=== PATIENT | female | born 1940 | race Caucasian/White ===

== ENCOUNTER 2023-04-03 19:49 | Observation (INO) | payer MEDICARE, SELFPAY ==
[2023-04-03] VITALS (19 sets, daily range): BP systolic 165–181; BP diastolic 68–96; PULSE 56–79; RESP 13–23; TEMP 36.5; O2SAT 95–96; BMI 23.7; BMI 22.2
--- NOTE | 2023-04-03 20:26 | ECG_ITS ---
[facility] Test Date: 2023-04-03 Pat Name: SEYMOUR MILAN Department: Room: - Gender: Female Registration Scheduling Specialist: : 1940 Requested By: [id number] Order Number: [id number] Reading MD: NIKKI CABRERA Measurements Intervals [place] Rate: 67 P: 61 NM: 162 QRS: -7 QRSD: 84 T: 18 QT: 410 QTc: 426 Interpretive Statements 1100 Sinus rhythm 5233 Voltage criteria for LVH Nonspecific ST/T wave changes 9150 abnormal ECG No previous ECG available for comparison Electronically Signed On 04-04-2023 7:08:50 EDT by NIKKI CABRERA
--- NOTE | 2023-04-03 20:26 | XR_ITS ---
[facility] [place] [id number] Patient Name: SEYMOUR MILAN MRN: [id number] date: 1940 Sex: F Assigned Patient Location: ER Current Patient Location: ER Accession/Order Number: [id number] Exam Date: 04/03/2023 20:50 Report Date: 04/03/2023 21:12 At the request of: SAMMIE MARKER Procedure: XR chest 1V EXAMINATION: XR chest 1V HISTORY: Nausea and vomiting. History of lung cancer COMPARISON: None. TECHNIQUE: Portable chest FINDINGS: The lung parenchyma is free of consolidation or infiltrate. No pneumothorax or pleural effusion. Right-sided central venous access port. The cardiac, mediastinal and hilar contours are normal. The visualized osseous structures exhibit no gross abnormality. XR/XR chest 1V IMPRESSION: No acute cardiopulmonary abnormality. Electronically authenticated by: SALLIE HORTON Date: 04/03/2023 21:12
--- NOTE | 2023-04-03 20:28 | ED_ITS ---
HPI - General Adult General Chief complaint: Nausea/Vomiting/Diarrhea Stated complaint: NAUSEA/VOMITING Time Seen by Provider: 04/03/23 20:09 History of Present Illness HPI narrative: This 83-year-old female is brought to the emergency department by her daughter for evaluation of nausea and vomiting. 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 She has gone through IV chemotherapy and radiation and is currently on an oral chemotherapeutic medication. She is diagnosed 4 years ago with lung cancer and told that she had months to live but has survived to this point. The daughter states that sometimes the medications make her sick and they cannot control it at home. She does get Phenergan at home which helps her with her nausea and vomiting. She is having some pain in her ribs. She denies any shortness of breath dizziness or syncope. The daughter states that she also has a history of dementia and is having some difficulty controlling her muscle movements. She has been having some increasing trouble swallowing and straining to have a bowel movement. She did recently have a bout of severe constipation and takes daily MiraLAX. She denies any abdominal pain at this time. She feels weak and nauseated. She has been on this oral chemotherap eutic medication for several months, she is not on any new medications. She has not had a fever. Related Data Home Medications Medication Instructions Recorded Confirmed alprazolam 0.5 mg tablet mg 04/03/23 aspirin 81 mg capsule 81 mg PO BID 04/03/23 04/03/23 atorvastatin 80 mg tablet mg 04/03/23 docusate sodium 100 mg capsule 100 mg PO DAILY 04/03/23 04/03/23 (Colace) gabapentin 300 mg capsule mg 04/03/23 hydrocortisone 10 mg tablet mg 04/03/23 lamotrigine 200 mg tablet mg 04/03/23 lisinopril 20 mg tablet mg 04/03/23 melatonin 10 mg capsule 10 mg PO DAILY 04/03/23 04/03/23 meloxicam 15 mg tablet 15 mg PO DAILY 04/03/23 04/03/23 meloxicam 7.5 mg tablet 7.5 mg PO DAILY 04/03/23 04/03/23 memantine 10 mg PO BID PRN dementia 04/03/23 04/03/23 metformin 1,000 mg tablet mg 04/03/23 metoprolol succinate 25 mg mg PO 04/03/23 tablet,extended release 24 hr nitroglycerin 0.4 mg sublingual mg 04/03/23 tablet olanzapine 5 mg tablet mg 04/03/23 omeprazole 20 mg capsule,delayed 20 mg PO DAILY 04/03/23 04/03/23 release promethazine 6.25 mg/5 mL oral 12.5 mg PO Q6H PRN nausea and 04/03/23 04/03/23 syrup vomiting quetiapine 100 mg tablet mg 04/03/23 quetiapine 25 mg tablet mg 04/03/23 rivastigmine 13.3 mg/24 hour 04/03/23 transdermal patch Allergies Allergy/AdvReac Type Severity Reaction Status Date / Time No Known Drug Allergies Allergy Verified 04/03/23 20:12 Review of Systems ROS Status of ROS 10 or more systems reviewed and unremarkable except as noted in history and below Exam Narrative Exam Narrative: Nurses note and vital signs reviewed and patient is not hypoxic. General: Frail, thin elderly female, she is awake alert oriented ?4, no respiratory distress, no active vomiting Skin: Warm, dry, no pallor noted. Scattered areas of ecchymosis on the forearms bilaterally Head: Normocephalic, atraumatic Eye: Normal conjunctiva, no drainage, EOMI. PERRL. No scleral icterus Ears, Nose, Mouth, and Throat: oral mucosa is moist. No oral thrush appreciated Cardiovascular: Regular Rate and Rhythm S1 and S2, no murmurs rubs or gallops appreciated, pulses are brisk and equal bilaterally Respiratory: Patient is in no distress, no accessory muscle use, lungs are clear to auscultation, no wheezing, rales or rhonchi Back: non-tender, no CVA tenderness bilaterally to percussion. GI: Normal bowel sounds, no tenderness to palpation, no masses appreciated. No rebound, guarding, or rigidity noted. Musculoskeletal: The patient has no evidence of calf tenderness, no pitting edema, symmetrical pulses noted bilaterally Neurological: A&O x4, normal speech Psychiatric: Cooperative Constitutional Vital Signs, click to edit/add: Last Vital Signs Temp 97.7 F 04/03/23 20:06 Pulse 72 04/03/23 22:30 Resp 17 04/03/23 22:30 BP 165/68 H 04/03/23 22:29 Pulse Ox 96 04/03/23 20:22 O2 Del Method Room Air 04/03/23 20:06 Course Vital Signs Vital signs: Vital Signs Temperature 97.7 F 04/03/23 20:06 Pulse Rate 70 04/03/23 20:06 Respiratory Rate 14 04/03/23 20:06 Pulse Oximetry 96 04/03/23 20:06 Oxygen Delivery Method Room Air 04/03/23 20:06 Temperature 97.7 F 04/03/23 20:06 Pulse Rate 72 04/03/23 22:30 Respiratory Rate 17 04/03/23 22:30 Blood Pressure 165/68 H 04/03/23 22:29 Pulse Oximetry 96 04/03/23 20:22 Oxygen Delivery Method Room Air 04/03/23 20:06 Medical Decision Making MDM Narrative Medical decision making narrative: This 83-year-old female who is currently on oral chemotherapeutic medications after being diagnosed with lung cancer with metastases to the brain, spine and bones is brought to the emergency department by her daughter for evaluation of several days of nausea and vomiting. She does have episodes where she cannot tolerate her chemotherapy despite being given oral Phenergan. The daughter states when this happened she typically gets fluids, Phenergan and steroids. She is not having any mental status changes at this time. She has not had a fever. She states she feels weak and nauseated. She has no chest pain or abdominal pain. She does complain of bilateral rib pain. She was well-appearing despite being chronically ill. Vital signs were noted to be normal. Blood pressure was mildly elevated upon arrival. Her port was accessed and routine labs are ordered and are reviewed. She has a normal white count. Hemoglobin is mildly low at 9.9. She has a normal platelet count. Her PTT is elevated. Alkaline phosphatase is elevated. Potassium is mildly low at 3.2. Chest x-ray was negative for acute findings. Additional radiographic studies were deferred.She was given IV fluids, IV Phenergan and Pepcid. On reevaluation she was feeling better but requested to be admitted. The patient's daughter states that usually after a brief time in the hospital or rebounds and she wishes that we could provide her with that at this time. The case was discussed with the hospitalist the patient accepted for admission to [facility] with telemetry monitoring. Lab Data Lab results reviewed: Yes I reviewed the patient's lab results Lab results narrative: Labs are reviewed, the patient has a low hemoglobin at 9.9, not requiring transfusion and low potassium at 3.2. Alkaline phosphatase is elevated likely related to her metastatic lung cancer to the bone. Labs: Lab Results 04/03/23 Range/Units 20:40 WBC 7.1 (4.0-11.0) 10^3/uL RBC 3.90 L (4.20-5.40) 10^6/uL Hgb 9.9 L (12.0-16.0) g/dL Hct 33.1 L (36.0-48.0) % MCV 84.9 (81.0-99.0) fL MCH 25.4 L (26.7-34.0) pg MCHC 29.9 (29.9-35.2) g/dL RDW 18.5 H (11.0-15.0) % Plt Count 235 (150-450) 10^3/uL MPV 10.1 (9.5-13.5) fL Neut % (Auto) 48.5 (43.0-75.0) % Lymph % (Auto) 21.6 (20.5-60.0) % [place] % (Auto) 9.3 (1.7-12.0) % Eos % (Auto) 19.9 H (0.9-7.0) % Baso % (Auto) 0.4 (0.2-2.0) % Neut # (Auto) 3.4 (1.4-6.5) 10^3/uL Lymph # (Auto) 1.5 (1.2-3.8) 10^3/uL [place] # (Auto) 0.7 (0.3-0.8) 10^3/uL Eos # (Auto) 1.4 H (0.0-0.7) 10^3/uL Baso # (Auto) 0.0 (0.0-0.1) 10^3/uL Abs Immat Gran (auto) 0.02 (0.00-0.03) 10^3/uL Imm/Tot Granulo (auto) 0.3 (0.0-0.5) % PT 11.7 H (9.0-11.6) sec INR 1.11 APTT 75.6 H* (22.3-36.2) sec Sodium 142 (136-145) mmol/L Potassium 3.2 L (3.5-5.1) mmol/L Chloride 106 (98-107) mmol/L Carbon Dioxide 30.8 (21.0-32.0) mmol/L Anion Gap 8.4 BUN 14.0 (7.0-18.0) mg/dL Creatinine 1.02 (0.55-1.02) mg/dL Est GFR ( Amer) >60 (>=60) Est GFR (Non-Af Amer) 52 L (>=60) BUN/Creatinine Ratio 13.7 Glucose 114 H (74-106) mg/dL Calcium 8.7 (8.5-10.1) mg/dL Total Bilirubin 0.2 (0.2-1.0) mg/dL AST 32 (15-37) U/L ALT 20 (14-59) U/L Alkaline Phosphatase 319 H (46-116) U/L Total Protein 6.6 (6.4-8.2) g/dL Albumin 2.5 L (3.4-5.0) g/dL Globulin 4.1 g/dL Albumin/Globulin Ratio 0.6 ECG Data Attestation: I personally reviewed and interpreted this ECG as follows: (Sinus rhythm at 67 beats for minute, voltage criteria for left ventricular hypertrophy, no acute ST segment elevation or T-wave inveersion) Discharge Plan Discharge Chief Complaint: Nausea/Vomiting/Diarrhea Clinical Impression: Lung cancer metastatic to bone, Drug-induced nausea and vomiting, Hypokalemia Patient Disposition: Admitted as Observation Time of Disposition Decision: 22:30 Condition: Good
[2023-04-03 20:53] LABS: Basophils Percent Auto 0.4 % (0.2-2.0); Eosinophils Absolute Auto 1.4 10^3/uL (0.0-0.7); Eosinophils Percent Auto 19.9 % (0.9-7.0); Hematocrit 33.1 % (36.0-48.0); Hemoglobin 9.9 g/dL (12.0-16.0); Immature Granulocytes Abs Auto 0.02 10^3/uL (0.00-0.03); Immature Granulocytes Pct Auto 0.3 % (0.0-0.5); Lymphocytes Absolute Auto 1.5 10^3/uL (1.2-3.8); Lymphocytes Percent Auto 21.6 % (20.5-60.0); Mean Corpuscular HGB Conc 29.9 g/dL (29.9-35.2); Mean Corpuscular Hemoglobin 25.4 pg (26.7-34.0); Mean Corpuscular Volume 84.9 fL (81.0-99.0); Mean Platelet Volume 10.1 fL (9.5-13.5); Monocytes Absolute Auto 0.7 10^3/uL (0.3-0.8); Monocytes Percent Auto 9.3 % (1.7-12.0); Neutrophils Absolute Auto 3.4 10^3/uL (1.4-6.5); Neutrophils Percent Auto 48.5 % (43.0-75.0); Platelet Count 235 10^3/uL (150-450); Red Cell Distribution Width 18.5 % (11.0-15.0); White Blood Count 7.1 10^3/uL (4.0-11.0)
[2023-04-03] MEDS: 0.9 % SODIUM CHLORIDE 1,000 ML 1000 ML IV (21:08)
[2023-04-03] MEDS: FAMOTIDINE/PF 20 MG/2 ML VIAL IV (21:08)
[2023-04-03] MEDS: PROMETHAZINE HCL 25 MG/ML VIAL IV (21:08)
[2023-04-03 21:11] LABS: Alanine Aminotransferase 20 U/L (14-59); Albumin Globulin Ratio 0.6; Albumin Level 2.5 g/dL (3.4-5.0); Alkaline Phosphatase 319 U/L (46-116); Anion Gap 8.4; Aspartate Amino Transferase 32 U/L (15-37); BUN Creatinine Ratio 13.7; Bilirubin Total 0.2 mg/dL (0.2-1.0); Calcium 8.7 mg/dL (8.5-10.1); Carbon Dioxide 30.8 mmol/L (21.0-32.0); Chloride 106 mmol/L (98-107); Estimated GFR (African America >60 (>=60); Estimated GFR (Non-African Ame 52 (>=60); Globulin 4.1 g/dL; Glucose 114 mg/dL (74-106); Potassium 3.2 mmol/L (3.5-5.1); Sodium 142 mmol/L (136-145); Total Protein 6.6 g/dL (6.4-8.2)
[2023-04-03 21:16] LABS: INR 1.11; Prothrombin Time 11.7 sec (9.0-11.6)
[2023-04-03] MEDS: 0.9 % SODIUM CHLORIDE 1,000 ML 100 ML IV (21:17)
[2023-04-03 21:18] LABS: Partial Thromboplastin Time 75.6 sec (22.3-36.2)
--- NOTE | 2023-04-03 21:29 | PC.NURSE ---
patient arrives with daughter from home. states she is currently being treated for cancer through [facility] and has been naseous, vomiting, and weak for past 2 days. daughter states when this has happened in the past she has been admitted for IV fluids and IV steroids. patient states she has also had some abdominal/rib pain that started at the same time of vomiting. EKG obtained and provided to dr louis.
[2023-04-03] MEDS: POTASSIUM CHLORIDE 10 MEQ ER TABLET 20 MEQ PO (22:24)
[2023-04-03] MEDS: ACETAMINOPHEN 325 MG TABLET 650 MG PO (22:24)
[2023-04-04] VITALS (11 sets, daily range): BP systolic 143–177; BP diastolic 91–108; PULSE 61–88; RESP 16–18; TEMP 36.7–36.8; O2SAT 95–96
[2023-04-04 01:21] LABS: Bilirubin Urine NEGATIVE (NEGATIVE); Blood Urine NEGATIVE (NEGATIVE); Clarity Urine CLEAR (CLEAR); Color Urine LT. YELLOW (YELLOW); Glucose Urine UA NEGATIVE (NEGATIVE); Ketones Urine NEGATIVE (NEGATIVE); Leukocyte Esterase Urine NEGATIVE (NEGATIVE); Nitrite Urine NEGATIVE (NEGATIVE); Protein Urine NEGATIVE (NEG/TRACE); Urobilinogen Urine 0.2 EU/dL (0.2-1.0)
[2023-04-04 01:46] LABS: Bacteria Urine NONE SEEN #/HPF (NONE SEEN); Cast Seen? NONE SEEN #/LPF (NONE SEEN); Crystals Seen? None Seen #/HPF (None Seen); Mucus Urine NONE SEEN (NONE SEEN); RBC Urine 0-2 #/HPF (0-2); Squamous Epithelial Cell Urine FEW #/LPF (NONE/RARE); Urine Culture Indicated NO; WBC Urine 0-2 #/HPF (NONE SEEN)
--- NOTE | 2023-04-04 01:56 | P.PN_ITS ---
Progress Note: Subjective Subjective Interval history: The patient is an 83-year-old female with a history of stage IV lung cancer, who has had multiple admissions in the past for intractable nausea and vomiting every several months due to her chemotherapy. Over the past 3 to 4 days, she has been complaining of some nausea and vomiting as well as decreased oral intake. She denies any sick contacts or any new medications or any change in diet. She is feeling somewhat better. She states she cannot take IV Zofran and only IV Phenergan. She is being admitted for further evaluation. Exam Narrative Exam Narrative: General : Alert and oriented x3 HEENT : Extraocular movements intact, pupils equal round and reactive to light and accommodation Neck: Supple, no JVD Chest: Clear to auscultation bilaterally, no wheezes Heart: Regular rate and rhythm, S1 and S2 heard Abdomen: Soft nontender nondistended. Extremities: No clubbing cyanosis or edema Neurologically: Moving all 4 extremities Skin: No rashes Constitutional Vital Signs, click to edit/add: Last Vital Signs Temp 97.7 F 04/03/23 23:10 Pulse 61 04/04/23 01:55 Resp 13 04/03/23 23:10 BP 165/96 H 04/03/23 23:10 Pulse Ox 95 04/03/23 23:10 O2 Del Method Room Air 04/03/23 23:10 Progress Note: Objective Labs Labs: Short CBC 04/03/23 Range/Units 20:40 WBC 7.1 (4.0-11.0) 10^3/uL Hgb 9.9 L (12.0-16.0) g/dL Hct 33.1 L (36.0-48.0) % Plt Count 235 (150-450) 10^3/uL BMP 04/03/23 20:40 Sodium 142 Potassium 3.2 L Chloride 106 Carbon Dioxide 30.8 BUN 14.0 Creatinine 1.02 Glucose 114 H Calcium 8.7 Liver Function 04/03/23 Range/Units 20:40 Total Bilirubin 0.2 (0.2-1.0) mg/dL AST 32 (15-37) U/L ALT 20 (14-59) U/L Alkaline Phosphatase 319 H (46-116) U/L Albumin 2.5 L (3.4-5.0) g/dL Urine 08/08/23 Range/Units 00:00 Urine Color Lt. yellow (YELLOW) Urine Clarity Clear (CLEAR) Urine pH 7.0 (5.0-9.0) Ur Specific [place] 1.010 (1.005-1.025) Urine Protein Negative (NEG/TRACE) mg/dL Urine Glucose (UA) Negative (NEGATIVE) mg/dL Progress Note: A&P Assessment and Plan (1) Lung cancer metastatic to bone: (2) Drug-induced nausea and vomiting: (3) Hypokalemia: Plan The patient is an 83-year-old female with above medical problems, presenting with intractable nausea and vomiting. Intractable nausea and vomiting -Provide supportive care -Gentle IV fluids -IV Phenergan -Tums, Maalox, PPI Hypokalemia -Secondary to the above -Monitor on telemetry -Potassium replacement DVT Prophylaxis -Lovenox, SCDs Medication review -Medication reconciliation form completed Goals of care -Full code Communications -Discussed with the emergency room physician -Discussed with the bedside nurse -Patient and daughter updated of plan of care, all questions answered to their satisfaction Disposition -Home when medically stable Telemedicine clause -As the provider of this telehealth evaluation, requested by the patient's evaluating physician, I attest that I introduced myself to the patient, provided my credentials and determined that telemedicine via a real-time, two-way interactive audio and video platform is an appropriate and effective means of providing this service. -I reviewed the patient's chart and had a discussion with the member of the patient's treatment team. -The patient and I mutually agreed with continuation of this evaluation via telemedicine. The patient consented for the telemedicine evaluation. -This virtual encounter was taken place from [place], [place]. The encounter was approximately 35 minutes. The nurse was present during the entire time of the encounter and was able to remove the stethoscope and appropriate directions. The patient was evaluated at [facility] Telemedicine Attestation Telemedicine Attestation I conducted this encounter from [facility] via secure live, [id number] video conference with the patient, located at [facility] with nurse. Prior to the interview, the risks and benefits of telemedicine were discussed with the patient and verbal consent was obtained.
[2023-04-04] MEDS: QUETIAPINE FUMARATE 100 MG TABLET PO (02:26)
[2023-04-04] MEDS: OLANZapine 5 MG TABLET PO (02:27)
[2023-04-04] MEDS: QUETIAPINE FUMARATE 25 MG TABLET 50 MG PO (02:27)
[2023-04-04] MEDS: CLONIDINE HCL 0.1 MG TABLET PO (02:28)
[2023-04-04] MEDS: POTASSIUM CHLORIDE 10 MEQ ER TABLET 40 MEQ PO (02:30)
[2023-04-04] MEDS: ENOXAPARIN SODIUM 40 MG/0.4 ML SYRINGE SUBQ (02:31)
[2023-04-04] MEDS: LAMOTRIGINE 100 MG TABLET 200 MG PO (02:31)
[2023-04-04] MEDS: GABAPENTIN 300 MG CAPSULE 600 MG PO (03:12)
[2023-04-04 04:37] LABS: Basophils Percent Auto 0.3 % (0.2-2.0); Eosinophils Absolute Auto 1.2 10^3/uL (0.0-0.7); Eosinophils Percent Auto 20.7 % (0.9-7.0); Hematocrit 29.5 % (36.0-48.0); Hemoglobin 8.9 g/dL (12.0-16.0); Immature Granulocytes Abs Auto 0.03 10^3/uL (0.00-0.03); Immature Granulocytes Pct Auto 0.5 % (0.0-0.5); Lymphocytes Absolute Auto 0.9 10^3/uL (1.2-3.8); Lymphocytes Percent Auto 14.8 % (20.5-60.0); Mean Corpuscular HGB Conc 30.2 g/dL (29.9-35.2); Mean Corpuscular Hemoglobin 25.6 pg (26.7-34.0); Mean Corpuscular Volume 84.8 fL (81.0-99.0); Mean Platelet Volume 9.9 fL (9.5-13.5); Monocytes Absolute Auto 0.5 10^3/uL (0.3-0.8); Monocytes Percent Auto 9.2 % (1.7-12.0); Neutrophils Absolute Auto 3.1 10^3/uL (1.4-6.5); Neutrophils Percent Auto 54.5 % (43.0-75.0); Platelet Count 202 10^3/uL (150-450); Red Blood Count 3.48 10^6/uL (4.20-5.40); Red Cell Distribution Width 18.4 % (11.0-15.0); White Blood Count 5.8 10^3/uL (4.0-11.0)
[2023-04-04 04:51] LABS: BUN Creatinine Ratio 11.2; Calcium 8.1 mg/dL (8.5-10.1); Carbon Dioxide 29.1 mmol/L (21.0-32.0); Chloride 110 mmol/L (98-107); Estimated GFR (African America >60 (>=60); Estimated GFR (Non-African Ame >60 (>=60); Glucose 101 mg/dL (74-106); Potassium 4.1 mmol/L (3.5-5.1); Sodium 143 mmol/L (136-145)
[2023-04-04] MEDS: SODIUM CHLORIDE 0.45 % 1,000 ML 75 ML IV (06:45)
[2023-04-04] MEDS: ASPIRIN 81 MG TABLET.DR PO (10:01)
[2023-04-04] MEDS: ATORVASTATIN CALCIUM 40 MG TABLET 80 MG PO (10:01)
[2023-04-04] MEDS: GABAPENTIN 300 MG CAPSULE PO (10:03)
[2023-04-04] MEDS: HYDROCORTISONE 20 MG TABLET PO (10:03)
[2023-04-04] MEDS: LISINOPRIL 20 MG TABLET PO (10:04)
[2023-04-04] MEDS: MELOXICAM 7.5 MG TABLET 15 MG PO (10:07)
[2023-04-04] MEDS: METFORMIN HCL 500 MG TABLET 1000 MG PO (10:07)
[2023-04-04] MEDS: OMEPRAZOLE 20 MG CAPSULE.DR PO (10:08)
[2023-04-04] MEDS: METOPROLOL SUCCINATE 25 MG TAB.ER.24H PO (10:08)
[2023-04-04] MEDS: OSIMERTINIB 80 MG 80 EACH PO (10:09)
[2023-04-04] MEDS: VENLAFAXINE HCL 50 MG TABLET 100 MG PO (10:09)
--- NOTE | 2023-04-04 10:27 | CM.NOTE ---
Rounds made with Dr. Carpio, pt denies any nausea or vomiting. Pt up with walker in room. Pt ok to discharge home today.
--- NOTE | 2023-04-04 10:36 | P.HP_ITS ---
H&P: HPI History of Present Illness Chief complaint: Nausea and vomiting Narrative: 83 y/o female with stage IV lung cancer and mets to brain and bone presents to ER with nausea and vomiting. Increased symptoms over the past 3-4 days. Prior radiation and chemotherapy and currently on oral chemotherapeutic agent. Uses phenergan for nausea but symptoms worse over past few days. Decreased appetite and not hungry. Started having emesis and not able to keep down liquid. Increased weakness and to ER. Labs showed normal CBC and potassium low at 3.2. UA and chest x-ray negative. Started IV fluids and admitted. Much improved overnight. Minimal nausea and feels hungry. Ambulating around room without di fficulty. Resumed home medication including hydrocortisone. Review of Systems ROS Constitutional Denies: fever, chills or fatigue Cardiovascular Denies: chest pain, palpitations or edema Respiratory Denies: shortness of breath, cough or wheezing Gastrointestinal Reports: nausea and vomiting; Denies: abdominal pain or diarrhea Genitourinary Denies: painful urination PFSH [facility] Medical History (Updated 04/04/23 @ 09:15 by Bernabe Carpio MD) Surgical History (Updated 04/04/23 @ 02:36 by Gloria Samayoa) Family History (Updated 04/03/23 @ 23:47 by Kristi Munoz RN) Sister Family history of CHF (congestive heart failure) Family history of cancer Family history of diabetes mellitus Family history of hypertension Family history of myocardial infarction Father Family history of cancer Social History (Updated 04/03/23 @ 23:50 by Kristi Munoz RN) Within the past year, how often did you have a drink containing alcohol: never Score interpretation: A score less than 3 is consistent with normal alcohol consumption. Smoking status: Former smoker Non-prescribed substance use: denies use Previous occupational history: Retired Highest level of school completed/degree received: 9th grade Are you now , , , , never or living with a partner: In a typical week, how many times do you talk on the telephone with family, friends, or neighbors: 3 or more times per week How often do you get together with friends or relatives: 3 or more times per week How often do you attend religion or buddhist services: 4 or more times per year Do you belong to any clubs or organizations such as religion groups unions, [employer] or athletic groups, or school groups: no Total score: 2 Score interpretation: A score of greater than or equal to 2 indicates the lowest level of social isolation. Little interest or pleasure in doing things: several days Feeling down, depressed, or hopeless: several days Feel stressed/tense/nervous/anxious/difficulty sleeping: to some extent Do you think of yourself as: straight/heterosexual Gender Identity: female Meds Home Medications and Allergies Home Medications Medication Instructions Recorded Confirmed Type alprazolam 0.5 mg tablet 0.5 mg PO TID PRN anxiety 04/03/23 04/04/23 History aspirin 81 mg capsule 81 mg PO BID 04/03/23 04/03/23 History atorvastatin 80 mg tablet 80 mg PO DAILY 04/03/23 04/03/23 History docusate sodium 100 mg capsule 100 mg PO DAILY 04/03/23 04/03/23 History (Colace) gabapentin 300 mg capsule 300 mg PO .COMPLEX 04/03/23 04/04/23 History hydrocortisone 10 mg tablet 10 mg PO .evening 04/03/23 04/03/23 History hydrocortisone 10 mg tablet 20 mg PO .am 04/03/23 04/03/23 History lamotrigine 200 mg tablet 200 mg PO .hs 04/03/23 04/04/23 History lisinopril 20 mg tablet 20 mg PO DAILY 04/03/23 04/03/23 History melatonin 10 mg capsule 10 mg PO DAILY 04/03/23 04/03/23 History meloxicam 15 mg tablet 15 mg PO DAILY 04/03/23 04/03/23 History meloxicam 7.5 mg tablet 7.5 mg PO DAILY 04/03/23 04/03/23 History memantine 10 mg PO BID PRN dementia 04/03/23 04/03/23 History metformin 1,000 mg tablet 1,000 mg PO BID 04/03/23 04/04/23 History metoprolol succinate 25 mg 25 mg PO DAILY 04/03/23 04/04/23 History tablet,extended release 24 hr nitroglycerin 0.4 mg sublingual 0.4 mg sublingual Q5M PRN chest 04/03/23 04/04/23 History tablet pain olanzapine 5 mg tablet 5 mg PO .hs 04/03/23 04/03/23 History omeprazole 20 mg capsule,delayed 20 mg PO DAILY 04/03/23 04/03/23 History release osimertinib 80 mg tablet ([place]) 80 mg PO DAILY 04/03/23 04/03/23 History promethazine 6.25 mg/5 mL oral 12.5 mg PO Q6H PRN nausea and 04/03/23 04/03/23 History syrup vomiting quetiapine 100 mg tablet 100 mg PO .hs 04/03/23 04/04/23 History quetiapine 25 mg tablet 50 mg PO .hs 04/03/23 04/03/23 History rivastigmine 13.3 mg/24 hour 13.3 mg transdermal DAILY 04/03/23 04/04/23 History transdermal patch cetirizine 10 mg capsule (All Day 10 mg PO DAILY PRN allergy symptoms 04/04/23 04/04/23 History Allergy (cetirizine)) clonidine HCl 0.1 mg tablet 0.1 mg PO .hs 04/04/23 04/04/23 History gabapentin 300 mg capsule 300 mg PO .afternoon 04/04/23 04/04/23 History gabapentin 600 mg tablet 600 mg PO .hs 04/04/23 04/04/23 History venlafaxine 50 mg tablet 100 mg PO .am 04/04/23 04/04/23 History Allergies Allergy/AdvReac Type Severity Reaction Status Date / Time No Known Drug Allergies Allergy Verified 04/03/23 20:12 Exam Constitutional Vital Signs, click to edit/add: Last Vital Signs Temp 98.0 F 04/04/23 05:53 Pulse 80 04/04/23 10:25 Resp 18 04/04/23 05:53 BP 177/108 H 04/04/23 10:04 Pulse Ox 96 04/04/23 05:53 O2 Del Method Room Air 04/04/23 05:53 Documenting provider has reviewed patient's vital signs: yes Common normals: no apparent distress, oriented x3 and alert HENMT Common normals: normocephalic Eye Common normals: PERRL and EOMs intact bilaterally Respiratory Common normals: normal respiratory effort and clear to auscultation bilaterally Cardio Common normals: regular rate, regular rhythm, no gallops, no murmurs and no rub GI Common normals: Normal to inspection, nondistended, normoactive bowel sounds present and non-tender Extremity Common normals: no pedal edema Results Labs Labs: Short CBC 04/03/23 04/04/23 Range/Units 20:40 04:15 WBC 7.1 5.8 (4.0-11.0) 10^3/uL Hgb 9.9 L 8.9 L (12.0-16.0) g/dL Hct 33.1 L 29.5 L (36.0-48.0) % Plt Count 235 202 (150-450) 10^3/uL BMP 04/03/23 04/04/23 20:40 04:15 Sodium 142 143 Potassium 3.2 L 4.1 Chloride 106 110 H Carbon Dioxide 30.8 29.1 BUN 14.0 10.0 Creatinine 1.02 0.89 Glucose 114 H 101 Calcium 8.7 8.1 L Liver Function 04/03/23 Range/Units 20:40 Total Bilirubin 0.2 (0.2-1.0) mg/dL AST 32 (15-37) U/L ALT 20 (14-59) U/L Alkaline Phosphatase 319 H (46-116) U/L Albumin 2.5 L (3.4-5.0) g/dL Urine 04/03/23 Range/Units 00:00 Urine Color Lt. yellow (YELLOW) Urine Clarity Clear (CLEAR) Urine pH 7.0 (5.0-9.0) Ur Specific [place] 1.010 (1.005-1.025) Urine Protein Negative (NEG/TRACE) mg/dL Urine Glucose (UA) Negative (NEGATIVE) mg/dL Assessment and Plan Assessment and Plan (1) Lung cancer metastatic to bone: (2) Drug-induced nausea and vomiting: (3) Hypokalemia: Plan Presented with intractable but much improved after IV fluids. No further nausea or emesis. Ate breakfast without symptoms. Discharge home. Resume medication as directed. F/u [facility] in 2-4 weeks.
--- NOTE | 2023-04-04 11:06 | SWNOTE1 ---
PATRICIO met with pt to discuss dc needs. Pt was eating her breakfast. Pt lives at home with her daughter who is her caregiver and she voiced her daughter does everything for her. Pt has a hospital bed that is new and a new lift chair. Pt uses a walker to get around at home. She voiced she walked to the bathroom earlier. SW and pt spoke about the possibility of home health and therapy coming into the home. Pt does not feel she will need it. At this time pt does not voice any other needs and stated she is ready to get home to her own hospital bed. PATRICIO let nursing know to call SW once daughter arrives to make sure home health is not wanted.
--- NOTE | 2023-04-04 11:56 | CM.NOTE ---
Medicare Outpatient Observation Notice discussed with pt, pt verbalizes understanding and signs paper. Original given to pt and copy placed on pt's chart.
--- NOTE | 2023-04-04 13:25 | PT.DAILY ---
Physical Therapy Daily Note PT Daily Note/Assess Start: 04/04/23 12:55 Freq: Status: Active Protocol: Document 04/04/23 12:59 ARIC (Rec: 04/04/23 13:25 ARIC [id number]) Physical Therapy Daily Note/Assessment Time In/Time Out Time In 11:25 Time Out 11:30 Pain In Pain N/A Pain Out Pain N/A Therapeutic Exercise Time Therapeutic Exercise Minutes (minutes) 3 Therapeutic Exercise Units 0 Therapeutic Exercise Treatment Therapeutic Exercise Treatment seated AP, LAQ, marches and add squeezes 10x ea Therapeutic Activity Time Therapeutic Activity Minutes (minutes) 3 Therapeutic Activity Units 0 Therapeutic Activity Treatment Bed Mobility Ability Modified Independent,Standby Assistance Chair Transfer Ability Standby Assistance Therapeutic Activity Comments Pt performs bed mobs supine> sit transfer with [place] due to IV lines and tele cords. Sit> stand SBA to RW and amb 5' to BS chair. Remains in BS chair with call light in reach and needs met. Total Physical Therapy Time Total Therapy Minutes 6 Total Physical Therapy Units 0 Summary Daily Note Summary Improved mobility from morning session. Planned dc to home.
--- NOTE | 2023-04-04 13:58 | SWNOTE1 ---
Pt's daughter is not coming in until 4:30 after work. PATRICIO called and spoke with daughter about home health. She is open to home health, she is concerned about pt's insurance and it being covered 100% due to not having a skilled need. PATRICIO let her know therapy would be a skilled need. She did also state that usually home health requires a skilled need for a nurse to come out and medicare requires a skilled nurse or they will not pay. PATRICIO let pt's daughter know we can send referral to home health and they can run benefits and we can see if they cover 100%. Pt's daughter would like [facility] health, referral sent.
--- NOTE | 2023-04-04 14:31 | SWNOTE1 ---
PATRICIO did speak with Dorina at [facility] and they do take [facility] medicare and will review referral. PATRICIO did ask if a nurse had to be added to open a case for skilled need? She stated PT and skilled nurse are the only two that can open a case. Can do physicla therapy only, does not need skilled nurse. SW to let daughter know.
--- NOTE | 2023-04-04 14:50 | SWNOTE1 ---
PATRICIO spoke with daughter and she is alright with moving forwards with [facility] and setting it up, it will be for PT only. PATRICIO sent discharge orders to [facility] home health.
--- NOTE | 2023-04-05 11:57 | CM.DCFOLLOWU ---
Person spoke with: patient's daughter How are you feeling? patient was sleeping How is your pain? daughter woke her up earlier and she said she was feeling better Did you understand your discharge instructions? yes Do you have any questions about your discharge instructions? no Were you given any prescriptions at discharge? no Were you able to get your prescriptions filled? Do you understand how to take your medications as ordered? yes Do you have any questions about your follow up appointment and do you plan to keep your follow up appointment? no questions, daughter is calling to set up follow ups, she is reaching out to cancer center today to see if she can get patient in tomorrow for fluids Is there anything else that you would like to discuss? no Questions/Comments/Concerns/Other:
== END 2023-04-04 17:35 | disposition home health service (06) ==
LOC: ER 20:00 → ICU 23:07
PROVIDERS: Admitting Provider Internal Medicine; Emergency Provider Emergency Medicine; Visit Provider Family Medicine
DX: R11.2 Nausea with vomiting, unspecified (principal); C34.90 Malignant neoplasm of unspecified part of unspecified bronchus or lung; C79.51 Secondary malignant neoplasm of bone; C79.31 Secondary malignant neoplasm of brain; E11.65 Type 2 diabetes mellitus with hyperglycemia; E87.6 Hypokalemia; I25.10 Atherosclerotic heart disease of native coronary artery without angina pectoris; F03.90 Unspecified dementia, unspecified severity, without behavioral disturbance, psychotic disturbance, mood disturbance, and anxiety; T45.1X5A Adverse effect of antineoplastic and immunosuppressive drugs, initial encounter; Z87.891 Personal history of nicotine dependence; Z79.82 Long term (current) use of aspirin; Z79.84 Long term (current) use of oral hypoglycemic drugs; Z79.899 Other long term (current) drug therapy
CPT/HCPCS: 36415; 36591; 71045; 80048; 80053; 81001; 85025; 85610; 85730; 93005; 96361; 96372; 96374; 96375; 97161; 99285; G0378; Q3014

== ENCOUNTER 2024-01-14 12:42 | Inpatient (IN) | payer MEDICARE, BC, SELFPAY ==
[2024-01-14] VITALS (13 sets, daily range): BP systolic 79–118; BP diastolic 52–70; PULSE 72–104; TEMP 36.4–38.6; O2SAT 81–96; BMI 21.5; BMI 19.9
--- NOTE | 2024-01-14 13:03 | XR_ITS ---
The [address] [address] Patient Name: SEYMOUR MILAN MRN: [id number] date: 1940 Sex: F Assigned Patient Location: ER Current Patient Location: ER Accession/Order Number: [id number] Exam Date: 01/14/2024 13:30 Report Date: 01/14/2024 13:58 At the request of: LLUVIA RUIZ Procedure: XR chest 1V EXAMINATION: XR chest 1V HISTORY: weak, hx lung cancer COMPARISON: XR chest 04/03/2023 FINDINGS: LUNGS: Underexpanded lungs with mild patchy opacities within right and left lung bases. VASCULATURE: No increased pulmonary vasculature. PLEURA: No pneumothorax, effusion, or pleural thickening. CARDIAC: Obscured. MEDIASTINUM: No visible mass or adenopathy. BONES: No fracture or visible bone lesion. OTHER: Stable Port-A-Cath within right chest wall. XR/XR chest 1V IMPRESSION: 1. Markedly underexpanded lungs with suspected trace amount of bibasilar atelectasis versus infiltrates. Electronically authenticated by: DARIUS PARKINSON Date: 01/14/2024 13:58
--- NOTE | 2024-01-14 13:03 | ECG_ITS ---
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
--- NOTE | 2024-01-14 13:04 | ED_ITS ---
HPI - Altered Mental Status General Chief Complaint: Altered Mental Status Stated Complaint: DEHYDRATION Time Seen by Provider: 01/14/24 12:57 Source: family and caregiver Mode of arrival: walk-in History of Present Illness HPI narrative: 83-year-old female presents to the emergency department for not being herself. All of the history is obtained by her niece who is an excellent historian. 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 She is on oral chemotherapeutic agent. She has had some vomiting and diarrhea and has not been eating or drinking and the niece feels that she is dehydrated. This has happened previously. She has not had a known fever. No history is obtainable from the patient, she is somewhat disoriented. Symptoms started within the last 2 days. Related Data Home Medications ?Medication ?Instructions ?Recorded ?Confirmed alprazolam 0.5 mg tablet 0.5 mg PO TID PRN anxiety 04/03/23 04/04/23 aspirin 81 mg capsule 81 mg PO BID 04/03/23 01/14/24 atorvastatin 80 mg tablet 80 mg PO DAILY 04/03/23 01/14/24 docusate sodium 100 mg capsule 100 mg PO DAILY 04/03/23 01/14/24 (Colace) gabapentin 300 mg capsule 300 mg PO .COMPLEX 04/03/23 01/14/24 hydrocortisone 10 mg tablet 10 mg PO .evening 04/03/23 04/03/23 hydrocortisone 10 mg tablet 20 mg PO .am 04/03/23 04/03/23 lamotrigine 200 mg tablet 200 mg PO .hs 04/03/23 01/14/24 lisinopril 20 mg tablet 20 mg PO DAILY 04/03/23 01/14/24 melatonin 10 mg capsule 10 mg PO DAILY 04/03/23 01/14/24 meloxicam 15 mg tablet 15 mg PO DAILY 04/03/23 01/14/24 meloxicam 7.5 mg tablet 7.5 mg PO DAILY 04/03/23 04/03/23 memantine 10 mg PO BID PRN dementia 04/03/23 01/14/24 metformin 1,000 mg tablet 1,000 mg PO BID 04/03/23 01/14/24 metoprolol succinate 25 mg 25 mg PO DAILY 04/03/23 01/14/24 tablet,extended release 24 hr nitroglycerin 0.4 mg sublingual 0.4 mg sublingual Q5M PRN chest 04/03/23 04/04/23 tablet pain olanzapine 5 mg tablet 5 mg PO .hs 04/03/23 01/14/24 omeprazole 20 mg capsule,delayed 20 mg PO DAILY 04/03/23 01/14/24 release osimertinib 80 mg tablet (Tagrisso) 80 mg PO DAILY 04/03/23 01/14/24 promethazine 6.25 mg/5 mL oral 12.5 mg PO Q6H PRN nausea and 04/03/23 01/14/24 syrup vomiting quetiapine 100 mg tablet 100 mg PO .hs 04/03/23 01/14/24 quetiapine 25 mg tablet 50 mg PO .hs 04/03/23 01/14/24 rivastigmine 13.3 mg/24 hour 13.3 mg transdermal DAILY 04/03/23 01/14/24 transdermal patch cetirizine 10 mg capsule (All Day 10 mg PO DAILY PRN allergy symptoms 04/04/23 01/14/24 Allergy (cetirizine)) clonidine HCl 0.1 mg tablet 0.1 mg PO .hs 04/04/23 01/14/24 gabapentin 300 mg capsule 300 mg PO .afternoon 04/04/23 01/14/24 gabapentin 600 mg tablet 600 mg PO .hs 04/04/23 04/04/23 venlafaxine 50 mg tablet 100 mg PO .am 04/04/23 01/14/24 Allergies Allergy/AdvReac Type Severity Reaction Status Date / Time No Known Drug Allergies Allergy Verified 04/03/23 20:12 Review of Systems ROS Narrative Review of systems is limited and obtained from the patient's niece. The patient has had vomiting and diarrhea. Further review of systems is not obtainable. [facility] Medical History (Updated 01/14/24 @ 16:02 by Zak Rivero MD) Lung cancer metastatic to brain ?C34.90 - Malignant neoplasm of unspecified part of unspecified bronchus or lung (ICD-10) ?C79.31 - Secondary malignant neoplasm of brain (ICD-10) Senile dementia ?F03.90 - Unspecified dementia, unspecified severity, without behavioral disturbance, psychotic disturbance, mood disturbance, and anxiety (ICD-10) CAD (coronary artery disease) ?I25.10 - Atherosclerotic heart disease of [place] coronary artery without angina pectoris (ICD-10) Type 2 diabetes mellitus with hyperglycemia ?E11.65 - Type 2 diabetes mellitus with hyperglycemia (ICD-10) Dementia ?F03.90 - Unspecified dementia, unspecified severity, without behavioral disturbance, psychotic disturbance, mood disturbance, and anxiety (ICD-10) Pneumonia ?J18.9 - Pneumonia, unspecified organism (ICD-10) Left ankle injury ?S99.912A - Unspecified injury of left ankle, initial encounter (ICD-10) TIA (transient ischemic attack) ?G45.9 - Transient cerebral ischemic attack, unspecified (ICD-10) History of heart attack ?I25.2 - Old myocardial infarction (ICD-10) Nausea ?R11.0 - Nausea (ICD-10) Drug-induced nausea and vomiting ?R11.2 - Nausea with vomiting, unspecified (ICD-10) ?T50.905A - Adverse effect of unspecified drugs, medicaments and biological substances, initial encounter (ICD-10) Lung cancer metastatic to bone ?C34.90 - Malignant neoplasm of unspecified part of unspecified bronchus or lung (ICD-10) ?C79.51 - Secondary malignant neoplasm of bone (ICD-10) Surgical History (Updated 04/04/23 @ 02:36 by Gloria Samayoa) Hx of cholecystectomy ?Z90.49 - Acquired absence of other specified parts of digestive tract (ICD- 10) H/O: hysterectomy ?Z90.710 - Acquired absence of both cervix and uterus (ICD-10) History of heart artery stent ?Z95.5 - Presence of coronary angioplasty implant and graft (ICD-10) Family History (Updated 04/03/23 @ 23:47 by Kristi Munoz RN) Sister Family history of CHF (congestive heart failure) Family history of cancer Family history of diabetes mellitus Family history of hypertension Family history of myocardial infarction Father Family history of cancer Social History (Updated 04/03/23 @ 23:50 by Kristi Munoz RN) Within the past year, how often did you have a drink containing alcohol: never Score interpretation: A score less than 3 is consistent with normal alcohol consumption. Smoking status: Former smoker Non-prescribed substance use: denies use Previous occupational history: Retired Highest level of school completed/degree received: 9th grade Are you now , , , , never or living with a partner: In a typical week, how many times do you talk on the telephone with family, friends, or neighbors: 3 or more times per week How often do you get together with friends or relatives: 3 or more times per week How often do you attend taoist or sabianism services: 4 or more times per year Do you belong to any clubs or organizations such as taoist groups unions, fraternal or athletic groups, or school groups: no Total score: 2 Score interpretation: A score of greater than or equal to 2 indicates the lowest level of social isolation. Little interest or pleasure in doing things: several days Feeling down, depressed, or hopeless: several days Feel stressed/tense/nervous/anxious/difficulty sleeping: to some extent Do you think of yourself as: straight/heterosexual Gender Identity: female Exam Narrative Exam Narrative: Nurses note and vital signs reviewed and patient is not hypoxic. General: The patient appears generally weak. She is in no respiratory distress. Skin: Warm, dry, no pallor noted. There is no rash noted. Head: Normocephalic, atraumatic Eye: Normal conjunctiva, no drainage Ears, Nose, Mouth, and Throat: oral mucosa is somewhat dry Cardiovascular: Regular Rate and Rhythm Respiratory: Patient is in no distress, no accessory muscle use, lungs are clear to auscultation, no wheezing, rales or rhonchi GI: Soft and nontender Musculoskeletal: The patient has no evidence of calf tenderness, no pitting edema, symmetrical pulses noted bilaterally. Extremities are thin. Neurological: She is awake. She allows her niece to answer all questions Psychiatric: Not uncooperative Constitutional Vital Signs, click to edit/add: Last Vital Signs Temp 101.5 F H 01/14/24 13:07 Pulse 78 01/14/24 15:11 Resp 16 01/14/24 15:11 BP 106/52 01/14/24 15:11 Pulse Ox 96 01/14/24 15:11 O2 Del Method Nasal Cannula 01/14/24 14:36 O2 Flow Rate 2 01/14/24 15:11 Course Vital Signs Vital signs: Vital Signs Temperature 98.9 F 01/14/24 12:53 Pulse Rate 104 H 01/14/24 12:53 Respiratory Rate 25 H 01/14/24 12:53 Blood Pressure 94/57 01/14/24 12:53 Pulse Oximetry 91 L 01/14/24 12:53 Oxygen Delivery Method Room Air 01/14/24 12:53 Temperature 101.5 F H 01/14/24 13:07 Pulse Rate 78 01/14/24 15:11 Respiratory Rate 16 01/14/24 15:11 Blood Pressure 106/52 01/14/24 15:11 Pulse Oximetry 96 01/14/24 15:11 Oxygen Delivery Method Nasal Cannula 01/14/24 14:36 Oxygen Delivery Flow Rate 2 01/14/24 15:11 MDM - Altered Mental Status MDM Narrative Medical decision making narrative: The patient presented with a fever and elevated WBC and elevated procalcitonin. She was given IV Zosyn. CT scan of the abdomen suggest the possibility of diverticulitis. Her symptoms do not seem to be consistent with diverticulitis but rather gastroenteritis. Enteritis was suggested on the CAT scan as well. Stool studies and C. difficile were ordered and are pending. She has not yet given a specimen for testing. She also has significant elevation of her BUN and creatinine and she was given IV fluids. She is being admitted. Treatment diagnosis and disposition were discussed with her family. Differential Diagnosis Differential diagnosis: Likely altered mental status, delirium, hypoglycemia, hyponatremia and OTHER (UTI, pneumonia, dehydration) Lab Data Attestation: I reviewed the patient's lab results. Labs: Lab Results 01/14/24 01/14/24 01/14/24 Range/Units 13:11 13:25 13:31 WBC 17.3 H (4.0-11.0) 10^3/uL RBC 3.66 L (4.20-5.40) 10^6/uL Hgb 9.7 L (12.0-16.0) g/dL Hct 32.9 L (36.0-48.0) % MCV 89.9 (81.0-99.0) fL MCH 26.5 L (26.7-34.0) pg MCHC 29.5 L (29.9-35.2) g/dL RDW 16.6 H (11.0-15.0) % Plt Count 221 (150-450) 10^3/uL MPV 12.0 (9.5-13.5) fL Seg Neuts % (Manual) 71.0 Band Neutrophils % 11.0 H (0-5) % Lymphocytes % (Manual) 10.0 L (20.5-60.0) % Monocytes % (Manual) 6.0 (1.7-12.0) % Eosinophils % (Manual) 2.0 (0.9-7.0) % Basophils % (Manual) 0.0 L (0.2-2.0) % Neutrophils # (Manual) 12.28 H (1.4-6.5) 10^3/uL Band Neutrophils # 1.9 H (0.0-0.3) 10^3/uL Lymphocytes # (Manual) 1.73 (1.20-3.80) 10^3/uL Monocytes # (Manual) 1.03 H (0.30-0.80) 10^3/uL Eosinophils # (Manual) 0.34 (0.00-0.70) 10^3/uL Basophils # (Manual) 0.00 (0.00-0.10) 10^3/uL Hypochromasia 1+ Poikilocytosis 1+ Ovalocytes 1+ Sodium 140 (136-145) mmol/L Potassium 4.4 (3.5-5.1) mmol/L Chloride 102 (98-107) mmol/L Carbon Dioxide 26.5 (21.0-32.0) mmol/L Anion Gap 15.9 BUN 42.0 H (7.0-18.0) mg/dL Creatinine 2.91 H (0.55-1.02) mg/dL Est GFR ( Amer) 19 L (>=60) Est GFR (Non-Af Amer) 15 L (>=60) BUN/Creatinine Ratio 14.4 Glucose 72 L (74-106) mg/dL Lactate 4.0 H* (0.4-2.0) mmol/L Calcium 9.3 (8.5-10.1) mg/dL Total Bilirubin 0.6 (0.2-1.0) mg/dL Direct Bilirubin 0.3 H (0.0-0.2) mg/dL AST 191 H (15-37) U/L ALT 128 H (14-59) U/L Alkaline Phosphatase 562 H (46-116) U/L Total Protein 6.5 (6.4-8.2) g/dL Albumin 2.4 L (3.4-5.0) g/dL Globulin 4.1 g/dL Albumin/Globulin Ratio 0.6 Procalcitonin 27.85 H (0.00-0.50) ng/mL Urine Color Dk. orange (YELLOW) Urine Clarity Clear (CLEAR) Urine pH 5.0 (5.0-9.0) Ur Specific [place] >=1.030 A (1.005-1.025) Urine Protein 100 A (NEG/TRACE) mg/dL Urine Glucose (UA) Negative (NEGATIVE) mg/dL Urine Ketones Trace A (NEGATIVE) mg/dL Urine Occult Blood Moderate A (NEGATIVE) Urine Nitrite Negative (NEGATIVE) Urine Bilirubin Small A (NEGATIVE) Urine Urobilinogen 1.0 (0.2-1.0) EU/dL Ur Leukocyte Esterase Negative (NEGATIVE) Urine RBC 5-10 A (0-2) #/HPF Urine WBC 0-2 A (NONE SEEN) #/HPF Ur Squamous Epith Cells Rare (NONE/RARE) #/LPF Urine Crystals None seen (None Seen) #/HPF Urine Bacteria Moderate A (NONE SEEN) #/HPF Urine Casts None seen (NONE SEEN) #/LPF Urine Mucus None seen (NONE SEEN) Ur Culture Indicated? Yes Influenza Type A Ag Negative Influenza Type B Ag Negative SARS-CoV-2 Ag (CV2AG) Negative (NEGATIVE) Imaging Data Chest x-ray: Radiologist's impression: ITS Impressions Chest X-Ray 01/14/24 13:03 IMPRESSION: 1. Markedly underexpanded lungs with suspected trace amount of bibasilar atelectasis versus infiltrates. Electronically authenticated by: DARIUS PARKINSON Date: 01/14/2024 13:58 Abdomen/Pelvis CT 01/14/24 14:19 IMPRESSION: 1. No appreciable abnormality of the kidneys. 2. Fluid-filled loops of small bowel without obstruction. Enteritis? 3. Colonic diverticulosis and possibly mild acute diverticulitis of the proximal sigmoid colon. 4. Moderate compression fracture of T10 vertebral body; age indeterminant but appearance suggests acute to subacute. Electronically authenticated by: DARIUS PARKINSON Date: 01/14/2024 16:03 ECG Data Attestation: I personally reviewed and interpreted this ECG as follows: (EKG on my interpretation shows sinus rhythm with a rate of 103.) Discharge Plan Discharge Chief Complaint: Altered Mental Status Clinical Impression: Acute kidney injury, Fever, Leukocytosis Patient Disposition: Admitted As Inpatient Time of Disposition Decision: 16:02 Condition: Fair
[2024-01-14] MEDS: 0.9 % SODIUM CHLORIDE 1,000 ML 1000 ML IV (13:34)
[2024-01-14] MEDS: ACETAMINOPHEN 650 MG RECTAL SUPPOSITORY PR (13:59)
[2024-01-14 14:07] LABS: Hematocrit 32.9 % (36.0-48.0); Hemoglobin 9.7 g/dL (12.0-16.0); Mean Corpuscular HGB Conc 29.5 g/dL (29.9-35.2); Mean Corpuscular Hemoglobin 26.5 pg (26.7-34.0); Mean Corpuscular Volume 89.9 fL (81.0-99.0); Platelet Count 221 10^3/uL (150-450); Red Blood Count 3.66 10^6/uL (4.20-5.40); Red Cell Distribution Width 16.6 % (11.0-15.0); White Blood Count 17.3 10^3/uL (4.0-11.0)
[2024-01-14 14:08] LABS: Bilirubin Urine SMALL (NEGATIVE); Blood Urine MODERATE (NEGATIVE); Clarity Urine CLEAR (CLEAR); Color Urine DK. ORANGE (YELLOW); Glucose Urine UA NEGATIVE (NEGATIVE); Ketones Urine TRACE mg/dL (NEGATIVE); Leukocyte Esterase Urine NEGATIVE (NEGATIVE); Nitrite Urine NEGATIVE (NEGATIVE); Protein Urine 100 mg/dL (NEG/TRACE); Specific Gravity Urine >=1.030 (1.005-1.025)
[2024-01-14 14:09] LABS: Anion Gap 15.9; BUN Creatinine Ratio 14.4; Calcium 9.3 mg/dL (8.5-10.1); Carbon Dioxide 26.5 mmol/L (21.0-32.0); Chloride 102 mmol/L (98-107); Estimated GFR (African America 19 (>=60); Estimated GFR (Non-African Ame 15 (>=60); Glucose 72 mg/dL (74-106); Potassium 4.4 mmol/L (3.5-5.1); Sodium 140 mmol/L (136-145)
[2024-01-14 14:13] LABS: Urine Microscopic Indicated YES
--- NOTE | 2024-01-14 14:19 | CT_ITS ---
[address] [address] Patient Name: SEYMOUR MILAN MRN: [id number] date: 1940 Sex: F Assigned Patient Location: ER Current Patient Location: ED.MAIN Accession/Order Number: [id number] Exam Date: 01/14/2024 15:25 Report Date: 01/14/2024 16:03 At the request of: LLUVIA RUIZ Procedure: CT abdomen pelvis wo con EXAMINATION: CT abdomen pelvis wo con HISTORY: Elevated WBC, acute kidney injury COMPARISON: CT abdomen and pelvis 01/31/2013 TECHNIQUE: Axial, Coronal, and Sagittal images were obtained without and/or with IV contrast as indicated by examination type. Dose reduction techniques were achieved by using automated exposure control and/or adjustment of mA and/or kV according to patient size and/or use of iterative reconstruction technique. FINDINGS: LUNG BASES: Mild atelectasis versus infiltrates within lung bases. Cardiomegaly. LIVER: No enlargement, atrophy, suspicious density, or significant focal lesion. BILIARY: Cholecystectomy. PANCREAS: No lesion, fluid collection, or abnormal duct dilatation. SPLEEN: No enlargement or focal lesion. ADRENALS: No mass or enlargement. KIDNEYS: No mass, obstruction, or calcification. BOWEL/MESENTERY: Fluid-filled loops of small bowel without obstruction. Multiple diverticula scattered along the length of the colon with mild haziness of the pericolonic fat adjacent the proximal sigmoid colon. Normal appendix. No free air or free fluid. AORTA/VASCULAR: Marked atherosclerotic disease of distal aorta and common iliac arteries. 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 RETROPERITONEUM: No mass or adenopathy. LYMPH NODES: No adenopathy. URINARY BLADDER: No visible focal wall thickening, lesion, or calculus. PELVIC ORGANS: Hysterectomy. ABDOMINAL WALL: No mass or hernia. BONES: Scoliotic curvature, multilevel marked degenerative disc disease and moderate degenerative facet arthropathy. T10 moderate compression fracture with dense trabecula suggesting acute to subacute injury. OTHER: Negative. CT/CT abdomen pelvis wo con IMPRESSION: 1. No appreciable abnormality of the kidneys. 2. Fluid-filled loops of small bowel without obstruction. Enteritis? 3. Colonic diverticulosis and possibly mild acute diverticulitis of the proximal sigmoid colon. 4. Moderate compression fracture of T10 vertebral body; age indeterminant but appearance suggests acute to subacute. Electronically authenticated by: DARIUS PARKINSON Date: 01/14/2024 16:03
[2024-01-14 14:24] LABS: Bacteria Urine MODERATE #/HPF (NONE SEEN); Mucus Urine NONE SEEN (NONE SEEN); Squamous Epithelial Cell Urine RARE #/LPF (NONE/RARE); WBC Urine 0-2 #/HPF (NONE SEEN)
[2024-01-14 14:25] LABS: Alanine Aminotransferase 128 U/L (14-59); Albumin Globulin Ratio 0.6; Albumin Level 2.4 g/dL (3.4-5.0); Alkaline Phosphatase 562 U/L (46-116); Aspartate Amino Transferase 191 U/L (15-37); Bilirubin Direct 0.3 mg/dL (0.0-0.2); Bilirubin Total 0.6 mg/dL (0.2-1.0); Globulin 4.1 g/dL; Total Protein 6.5 g/dL (6.4-8.2)
[2024-01-14 14:25] LABS: Cast Seen? NONE SEEN #/LPF (NONE SEEN); Crystals Seen? None Seen #/HPF (None Seen); Urine Culture Indicated YES
[2024-01-14 14:26] LABS: Influenza Virus A Antigen Negative; Influenza Virus B Antigen Negative; Internal Control Within Normal Limits
[2024-01-14 14:27] LABS: SARS-CoV-2 Ag NEGATIVE (NEGATIVE)
[2024-01-14 14:33] LABS: PROCALCITONIN 27.85 ng/mL (0.00-0.50)
[2024-01-14 14:34] LABS: Band Neutrophils Absolute 1.9 10^3/uL (0.0-0.3); Segmented Neut Absolute Manual 12.28 10^3/uL (1.4-6.5)
[2024-01-14] MEDS: 0.9 % SODIUM CHLORIDE 500 ML IV (14:34)
[2024-01-14 14:35] LABS: Eosinophils Absolute Manual 0.34 10^3/uL (0.00-0.70); Hypochromasia 1+; Lymphocytes Absolute Manual 1.73 10^3/uL (1.20-3.80); Monocytes Absolute Manual 1.03 10^3/uL (0.30-0.80); Poikilocytosis 1+
[2024-01-14 14:36] LABS: Ovalocytes 1+
[2024-01-14] MEDS: PIPERACILLIN SODIUM/TAZOBACTAM 3.375 GM in 0.9 % SODIUM CHLORIDE 50 ML IV (15:37)
[2024-01-14] MEDS: 0.9 % SODIUM CHLORIDE 1,000 ML 125 ML IV (16:42)
[2024-01-14 17:01] LABS: Lactate/Lactic Acid 1.3 mmol/L (0.4-2.0)
[2024-01-14 19:46] LABS: PCO2 VBG 44.3 mmHg (40.0-52.0)
[2024-01-14 19:58] LABS: Magnesium 1.6 mg/dL (1.8-2.4)
[2024-01-14 20:03] LABS: Ammonia 43 umol/L (11-32)
[2024-01-14 20:08] LABS: Troponin I High Sensitivity 68.8 pg/mL (4.0-51.3)
--- NOTE | 2024-01-14 20:14 | P.HP_ITS ---
HPI H&P: HPI History of Present Illness Chief complaint: DEHYDRATION, [place], Fever, Leukocytosis Narrative: Patient was presented to emergency room however family with increasing fatigue, weakness, fever. In ER patient found to have dehydration, acute kidney injury hypotension, possible diverticulitis likely sepsis. Patient admitted for workup and treatment of same When I saw patient up on the medical surgical floor, she was still confused but did answer questions and follow commands. Family states she is just not acting like her normal self. Opioid HPI Opioid Management Most Recent Opioid Data: Last Pain Assessment 01/14/24 20:00 Last MAR Pain Assessment 01/14/24 13:59 Last ORT Total Score 1 01/14/24 18:01 Last ORT Risk Category Low Risk 01/14/24 18:01 Review of Systems ROS Status of ROS 10 or more systems reviewed and unremark able except as noted in history and below [facility] Medical History (Updated 01/14/24 @ 16:02 by Zak Rivero MD) Lung cancer metastatic to brain ?C34.90 - Malignant neoplasm of unspecified part of unspecified bronchus or lung (ICD-10) ?C79.31 - Secondary malignant neoplasm of brain (ICD-10) Senile dementia ?F03.90 - Unspecified dementia, unspecified severity, without behavioral disturbance, psychotic disturbance, mood disturbance, and anxiety (ICD-10) CAD (coronary artery disease) ?I25.10 - Atherosclerotic heart disease of [place] coronary artery without angina pectoris (ICD-10) Type 2 diabetes mellitus with hyperglycemia ?E11.65 - Type 2 diabetes mellitus with hyperglycemia (ICD-10) Dementia ?F03.90 - Unspecified dementia, unspecified severity, without behavioral disturbance, psychotic disturbance, mood disturbance, and anxiety (ICD-10) Pneumonia ?J18.9 - Pneumonia, unspecified organism (ICD-10) Left ankle injury ?S99.912A - Unspecified injury of left ankle, initial encounter (ICD-10) TIA (transient ischemic attack) ?G45.9 - Transient cerebral ischemic attack, unspecified (ICD-10) History of heart attack ?I25.2 - Old myocardial infarction (ICD-10) Nausea ?R11.0 - Nausea (ICD-10) Drug-induced nausea and vomiting ?R11.2 - Nausea with vomiting, unspecified (ICD-10) ?T50.905A - Adverse effect of unspecified drugs, medicaments and biological substances, initial encounter (ICD-10) Lung cancer metastatic to bone ?C34.90 - Malignant neoplasm of unspecified part of unspecified bronchus or lung (ICD-10) ?C79.51 - Secondary malignant neoplasm of bone (ICD-10) Surgical History (Updated 04/04/23 @ 02:36 by Gloria Samayoa) Hx of cholecystectomy ?Z90.49 - Acquired absence of other specified parts of digestive tract (ICD- 10) H/O: hysterectomy ?Z90.710 - Acquired absence of both cervix and uterus (ICD-10) History of heart artery stent ?Z95.5 - Presence of coronary angioplasty implant and graft (ICD-10) Family History (Updated 04/03/23 @ 23:47 by Kristi Munoz RN) Sister Family history of CHF (congestive heart failure) Family history of cancer Family history of diabetes mellitus Family history of hypertension Family history of myocardial infarction Father Family history of cancer Social History (Updated 04/03/23 @ 23:50 by Kristi Munoz RN) Within the past year, how often did you have a drink containing alcohol: never Score interpretation: A score less than 3 is consistent with normal alcohol consumption. Smoking status: Former smoker Non-prescribed substance use: denies use Previous occupational history: Retired Highest level of school completed/degree received: 8th grade Are you now , , , , never or living with a partner: In a typical week, how many times do you talk on the telephone with family, friends, or neighbors: 3 or more times per week How often do you get together with friends or relatives: 3 or more times per week How often do you attend buddhism or zoroastrian services: 4 or more times per year Do you belong to any clubs or organizations such as buddhism groups unions, fraternal or athletic groups, or school groups: no Total score: 2 Score interpretation: A score of greater than or equal to 2 indicates the lowest level of social isolation. Little interest or pleasure in doing things: several days Feeling down, depressed, or hopeless: several days Feel stressed/tense/nervous/anxious/difficulty sleeping: to some extent Do you think of yourself as: straight/heterosexual Gender Identity: female Meds Home Medications and Allergies Home Medications ?Medication ?Instructions ?Recorded ?Confirmed ?Type alprazolam 0.5 mg tablet 0.5 mg PO TID PRN anxiety 04/03/23 01/14/24 History aspirin 81 mg capsule 81 mg PO BID 04/03/23 01/14/24 History atorvastatin 80 mg tablet 80 mg PO DAILY 04/03/23 01/14/24 History docusate sodium 100 mg capsule 100 mg PO DAILY 04/03/23 01/14/24 History (Colace) gabapentin 300 mg capsule 300 mg PO TID 04/03/23 01/14/24 History hydrocortisone 10 mg tablet 10 mg PO .evening 04/03/23 01/14/24 History hydrocortisone 10 mg tablet 20 mg PO .am 04/03/23 01/14/24 History lamotrigine 200 mg tablet 200 mg PO .hs 04/03/23 01/14/24 History lisinopril 20 mg tablet 20 mg PO DAILY 04/03/23 01/14/24 History melatonin 10 mg capsule 10 mg PO DAILY 04/03/23 01/14/24 History meloxicam 15 mg tablet 15 mg PO DAILY 04/03/23 01/14/24 History memantine 10 mg PO BID dementia 04/03/23 01/14/24 History metformin 1,000 mg tablet 1,000 mg PO BID 04/03/23 01/14/24 History metoprolol succinate 25 mg 25 mg PO DAILY 04/03/23 01/14/24 History tablet,extended release 24 hr nitroglycerin 0.4 mg sublingual 0.4 mg sublingual Q5M PRN chest 04/03/23 01/14/24 History tablet pain olanzapine 5 mg tablet 5 mg PO .hs 04/03/23 01/14/24 History omeprazole 20 mg capsule,delayed 20 mg PO DAILY 04/03/23 01/14/24 History release osimertinib 80 mg tablet (Tagrisso) 80 mg PO DAILY 04/03/23 01/14/24 History quetiapine 100 mg tablet 100 mg PO .hs 04/03/23 01/14/24 History quetiapine 25 mg tablet 50 mg PO .hs 04/03/23 01/14/24 History rivastigmine 13.3 mg/24 hour 13.3 mg transdermal DAILY 04/03/23 01/14/24 History transdermal patch cetirizine 10 mg capsule (All Day 10 mg PO DAILY PRN allergy symptoms 04/04/23 01/14/24 History Allergy (cetirizine)) clonidine HCl 0.1 mg tablet 0.1 mg PO .hs 04/04/23 01/14/24 History prednisone 20 mg tablet 20 mg PO .QD 01/14/24 01/14/24 History Allergies Allergy/AdvReac Type Severity Reaction Status Date / Time No Known Drug Allergies Allergy Verified 04/03/23 20:12 Exam Constitutional Vital Signs, click to edit/add: Last Vital Signs Temp 98.2 F 01/14/24 18:38 Pulse 72 01/14/24 18:38 Resp 20 01/14/24 18:38 BP 118/52 01/14/24 18:38 Pulse Ox 96 01/14/24 18:38 O2 Del Method Nasal Cannula 01/14/24 18:38 O2 Flow Rate 3 01/14/24 18:38 Documenting provider has reviewed patient's vital signs: yes Common normals: apparent distress (She seems mildly distressed) Exam limitations: altered mental status and physical limitations (Due to weakness) Chest Common normals: inspection of chest normal Respiratory Common normals: abnormal respiratory effort (seems to have increased respiratory rate.) and not clear to ascultation bilaterally Auscultation: rhonchi (Bilateral bases) and diminished lung sounds Cardio Common normals: irregular rate Rate: tachycardic GI Common normals: Normal to inspection, nondistended, normoactive bowel sounds present, soft to palpation and no masses; tender Palpation: tender (Diffusely but more left lower quadrant, positive rebound) Neuro Common normals: not oriented x3 Sensorium/orientation: awake Results Labs Labs: Short CBC 01/14/24 Range/Units 13:25 WBC 17.3 H (4.0-11.0) 10^3/uL Hgb 9.7 L (12.0-16.0) g/dL Hct 32.9 L (36.0-48.0) % Plt Count 221 (150-450) 10^3/uL BMP 01/14/24 13:25 Sodium 140 Potassium 4.4 Chloride 102 Carbon Dioxide 26.5 BUN 42.0 H Creatinine 2.91 H Glucose 72 L Calcium 9.3 Liver Function 01/14/24 Range/Units 13:25 Total Bilirubin 0.6 (0.2-1.0) mg/dL Direct Bilirubin 0.3 H (0.0-0.2) mg/dL AST 191 H (15-37) U/L ALT 128 H (14-59) U/L Alkaline Phosphatase 562 H (46-116) U/L Albumin 2.4 L (3.4-5.0) g/dL Urine 01/14/24 Range/Units 13:11 Urine Color Dk. orange (YELLOW) Urine Clarity Clear (CLEAR) Urine pH 5.0 (5.0-9.0) Ur Specific [place] >=1.030 A (1.005-1.025) Urine Protein 100 A (NEG/TRACE) mg/dL Urine Glucose (UA) Negative (NEGATIVE) mg/dL ABG ABG results: 01/14/24 19:36 VBG pH 7.350 VBG pCO2 44.3 Assessment and Plan Assessment and Plan (1) Leukocytosis: (2) Fever: (3) Acute kidney injury: Plan Severe hypotension with blood pressure 79/58, tachycardia, fever greater than 101, respiratory distress, severe hypoxia with O2 saturation of 81% on room air, leukocytosis, bandemia, positive lactate, acute renal failure secondary to possible diverticulitis with acute abdominal findings. Blood cultures pending. Started IV antibiotics, double cover for gram-negative's. Severe hypoxia possibly related to the above but seems more than expected, x-ray suggest bilateral lower lobe infiltrates and I would suspect this is more than just atelectasis. Possible aspiration pneumonia with frequent emesis. Antibiotic coverage should cover that. Aerosol treatments. Altered mental status-patient does have hyperammonemia. Will add Xifaxan, already has diarrhea so would hold off on lactulose. Hematuria-check on culture results. Significant tachycardia, check high-sensitivity troponin, check echocardiogram, pulmonary pattern could be consistent with acute systolic heart failure as well. No peripheral edema. Acute renal failure, baseline creatinine is 0.89, is up to 2.91 that would be 326.9% above baseline. IV fluids. Serial labs. With a significant anemia as well, will place patient on Protonix for stress ulcer prophylaxis awaiting Hemoccult. Significant diarrhea which may be related to the diverticulitis, check C. difficile and stool studies. Moderate protein calorie malnutrition diet management. Admission status: With the conditions as outlined above medically necessary treatment will span 2 midnights. Inpatient status
[2024-01-14 20:17] LABS: Partial Thromboplastin Time 32.6 sec (22.3-36.2); Prothrombin Time 13.4 sec (9.0-11.6)
[2024-01-14] MEDS: ENSURE HP 237 ML LIQUID PO (21:11)
[2024-01-14] MEDS: LACTATED RINGER'S SOLUTION 1,000 ML 100 ML IV (21:11)
[2024-01-14] MEDS: PROSTAT 15 GM PROTEIN/100 CAL 30 ML LIQUID PACKET PO (21:12)
[2024-01-14] MEDS: ASPIRIN 81 MG TAB.CHEW PO (21:14)
[2024-01-14] MEDS: GABAPENTIN 300 MG CAPSULE PO (21:15)
[2024-01-14] MEDS: LAMOTRIGINE 100 MG TABLET 200 MG PO (21:15)
[2024-01-14] MEDS: QUETIAPINE FUMARATE 25 MG TABLET 50 MG PO (21:16)
[2024-01-14] MEDS: QUETIAPINE FUMARATE 100 MG TABLET PO (21:16)
[2024-01-14 21:17] LABS: Glucometer 62 mg/dL (74-106)
[2024-01-14] MEDS: LEVOFLOXACIN IN DEXTROSE 5 % 750 MG/150 ML IV.SOLN 100 MG IV (21:19)
[2024-01-14] MEDS: RIFAXIMIN 550 MG TABLET PO (21:19)
[2024-01-14] MEDS: OLANZapine 5 MG TABLET PO (21:20)
[2024-01-14] MEDS: HYDROCORTISONE SODIUM SUCC PF 100 MG/2 ML VIAL IVP (21:25)
--- NOTE | 2024-01-14 21:28 | PC.NURSE ---
smear of Stool
[2024-01-14] MEDS: IPRATROPIUM/ALBUTEROL SULFATE 3 ML AMPUL.NEB IH (22:12)
[2024-01-14 22:32] LABS: Troponin I High Sensitivity 128.5 pg/mL (4.0-51.3)
[2024-01-15] VITALS (19 sets, daily range): BP systolic 90–147; BP diastolic 52–73; PULSE 80–113; TEMP 36.4–37; O2SAT 90–100; BMI 19.9
[2024-01-15] MEDS: PIPERACILLIN SODIUM/TAZOBACTAM 3.375 GM in 0.9 % SODIUM CHLORIDE 50 ML IV ×2 (05:25→17:18)
[2024-01-15] MEDS: HYDROCORTISONE SODIUM SUCC PF 100 MG/2 ML VIAL IVP ×3 (05:25→21:05)
[2024-01-15] MEDS: GABAPENTIN 300 MG CAPSULE PO ×2 (05:25→14:34)
[2024-01-15] MEDS: RIFAXIMIN 550 MG TABLET PO ×3 (05:26→21:05)
[2024-01-15 05:28] LABS: Basophils Percent Auto 0.1 % (0.2-2.0); Eosinophils Percent Auto 0.1 % (0.9-7.0); Hematocrit 25.2 % (36.0-48.0); Hemoglobin 7.4 g/dL (12.0-16.0); Immature Granulocytes Abs Auto 0.05 10^3/uL (0.00-0.03); Immature Granulocytes Pct Auto 0.6 % (0.0-0.5); Lymphocytes Absolute Auto 0.4 10^3/uL (1.2-3.8); Lymphocytes Percent Auto 4.5 % (20.5-60.0); Mean Corpuscular HGB Conc 29.4 g/dL (29.9-35.2); Mean Corpuscular Hemoglobin 26.7 pg (26.7-34.0); Mean Platelet Volume 11.8 fL (9.5-13.5); Monocytes Absolute Auto 0.4 10^3/uL (0.3-0.8); Monocytes Percent Auto 4.6 % (1.7-12.0); Neutrophils Percent Auto 90.1 % (43.0-75.0); Platelet Count 144 10^3/uL (150-450); Red Blood Count 2.77 10^6/uL (4.20-5.40); Red Cell Distribution Width 16.7 % (11.0-15.0); White Blood Count 8.9 10^3/uL (4.0-11.0)
[2024-01-15] MEDS: IPRATROPIUM/ALBUTEROL SULFATE 3 ML AMPUL.NEB IH ×4 (05:28→22:50)
[2024-01-15 05:30] LABS: Ammonia 25 umol/L (11-32)
[2024-01-15 05:44] LABS: Alanine Aminotransferase 86 U/L (14-59); Albumin Globulin Ratio 0.5; Albumin Level 1.8 g/dL (3.4-5.0); Alkaline Phosphatase 351 U/L (46-116); Anion Gap 11.8; Aspartate Amino Transferase 113 U/L (15-37); Bilirubin Total 0.3 mg/dL (0.2-1.0); C Reactive Protein 22.35 mg/dL (<=0.50); Calcium 8.4 mg/dL (8.5-10.1); Carbon Dioxide 25.2 mmol/L (21.0-32.0); Chloride 108 mmol/L (98-107); Estimated GFR (African America 29 (>=60); Estimated GFR (Non-African Ame 24 (>=60); Globulin 3.4 g/dL; Glucose 109 mg/dL (74-106); Sodium 141 mmol/L (136-145); Total Protein 5.2 g/dL (6.4-8.2)
[2024-01-15 05:47] LABS: Troponin I High Sensitivity 47.9 pg/mL (4.0-51.3)
--- NOTE | 2024-01-15 07:11 | CA_ITS ---
Patient Name: SEYMOUR MILAN MR#: [id number] : 1940 Exam Date: 01/15/2024 Ordering Doctor: DR KANDI BURROWS . ECHOCARDIOGRAM REPORT PROCEDURE: CA ECHO DOPPLER COMPLETE INDICATIONS: elevated trop COMPARISON: None. DESCRIPTION: COMPLETE ECHOCARDIOGRAM Real-time transthoracic echocardiography with 2D, M-mode, spectral and color flow Doppler performed. QUALITY: Technical quality was good. LEFT VENTRICLE: Normal chamber size. Moderately increased left ventricular wall thickness. LV EF: Global left ventricular systolic function is normal. Calculated left ventricular ejection fraction is 63%. No wall motion abnormalities. DIASTOLIC: Diastolic function is indeterminate. ATRIAL SEPTUM: Inadequately seen. LEFT ATRIUM: Moderate dilatation. RIGHT ATRIUM: Moderate dilatation. RIGHT VENTRICLE: Normal chamber size. Normal right ventricular systolic function. TRICUSPID VALVE: Normal mobility and thickness. No stenosis with trivial regurgitation. Moderate pulmonary hypertension. RVSP 50mmHg MITRAL VALVE: Normal mobility and thickness. No evidence of mitral valve stenosis. There is no mitral annular calcification. Mild mitral regurgitation. AORTIC VALVE: Normal trileaflet appearance. Thickened aortic valve. Normal leaflet mobility. No evidence of aortic valve stenosis. No aortic regurgitation. AORTIC ROOT: Normal diameter and appearance. PULMONIC VALVE: Normal thickness and mobility. No stenosis. Trivial regurgitation. PERICARDIUM: Trivial pericardial effusion. IVC: Collapses with inspirations. Normal size. CONCLUSION: 1. Global left ventricular systolic function is normal; visually estimated ejection fraction is 60 to 65% 2. Normal right ventricular size and systolic function 3. Biatrial enlargement 4. Moderately elevated right ventricular systolic pressure; RVSP 50 mmHg 5. Mild mitral regurgitation 6. Trivial pericardial effusion Adult Echocardiography Procedure Report Left Ventricle LVEDD (3.7 - 5.6 cm): 4.60 cm LVESD (2.2 - 4.0 cm): 3.42 cm LVIVS thickness (0.6 - 1.2 cm): 1.50 cm LVPW thickness (0.5 - 1.0 cm): 1.27 cm e': 0.11 m/s E - e': 9.52 LVOT Max Gradient: 3.56 mm[Hg], 4.18 mm[Hg] LVOT Area (cm2): 0.98 m/s Peak Velocity (LVOT): 0.94 m/s, 1.02 m/s Mean Velocity (LVOT): 0.70 m/s LVOT Diameter 2.11 cm Left Ventricular Ejection Fraction: 63.13 % Left Atrium LA Volume Index (2D A2C): 48.11 ml/m2 Left Atrium Systolic Dimension: 3.87 cm Mitral Valve MV E to A Ratio: 0.90 Mitral Valve A-Wave Peak Velocity: 1.21 m/s Mitral Valve E-Wave Peak Velocity: 1.08 m/s Right Ventricle RV Internal Diastolic Dimension: 3.68 cm Aorta AO Root Diam: 3.52 cm Ascending Ao Diam: 3.02 cm Aortic Valve AoV Area (Peak Tima): 1.75 cm2, 1.68 cm2 AoV Area (VTI): 1.61 cm2, 1.40 cm2 Peak Velocity(Antegrade Flow): 1.96 m/s Peak Gradient(Antegrade Flow): 15.42 mm[Hg] Mean Velocity(Antegrade Flow): 1.43 m/s Mean Gradient(Antegrade Flow): 9.16 mm[Hg] Velocity Time Integral: 40.30 cm Tricuspid Valve Peak Velocity (Regurgitant Flow): 2.96 m/s, 3.42 m/s Pulmonic Valve Mean Gradient: 3.37 mm[Hg] Mean Velocity: 0.87 m/s Peak Velocity: 1.20 m/s, 0.96 m/s Peak Gradient: 5.78 mm[Hg], 3.65 mm[Hg] Right Atrium Right Atrium Systolic Pressure: 67.61 ml, 67.61 ml Dictated by: Nikky Rios M.D. on 01/16/2024 at 14:39 Approved by: Nikky Rios M.D. on 01/16/2024 at 14:44
[2024-01-15 08:02] LABS: PCO2 VBG 44.1 mmHg (40.0-52.0); pH VBG 7.327 (7.330-7.430)
--- NOTE | 2024-01-15 09:07 | P.PN_ITS ---
Progress Note: Subjective Subjective Interval history: Patient still confused this morning. But does reorient pretty quickly with family member. Exam Constitutional Vital Signs, click to edit/add: Last Vital Signs Temp 98.1 F 01/15/24 08:36 Pulse 92 H 01/15/24 08:36 Resp 18 01/15/24 08:36 BP 95/57 01/15/24 08:36 Pulse Ox 93 L 01/15/24 08:36 O2 Del Method Nasal Cannula 01/15/24 08:36 O2 Flow Rate 2 01/15/24 08:36 Documenting provider has reviewed patient's vital signs: yes Common normals: apparent distress (She seems mildly distressed) Exam limitations: altered mental status and physical limitations (Due to weakness) Chest Common normals: inspection of chest normal Respiratory Common normals: abnormal respiratory effort (seems to have increased respiratory rate.) and not clear to ascultation bilaterally Auscultation: rhonchi (Bilateral bases) and diminished lung sounds Cardio Common normals: regular rate Rate: not tachycardic GI Common normals: Normal to inspection, nondistended, normoactive bowel sounds present, soft to palpation and no masses; tender Palpation: tender (Diffusely but more left lower quadrant, positive rebound persisting) Other: Pain definitely seems to be more isolated to the left lower quadrant today. Neuro Common normals: not oriented x3 Sensorium/orientation: awake Progress Note: Objective Labs Labs: Short CBC 01/14/24 01/15/24 Range/Units 13:25 04:56 WBC 17.3 H 8.9 (4.0-11.0) 10^3/uL Hgb 9.7 L 7.4 L (12.0-16.0) g/dL Hct 32.9 L 25.2 L (36.0-48.0) % Plt Count 221 144 L (150-450) 10^3/uL BMP 01/14/24 01/15/24 13:25 04:56 Sodium 140 141 Potassium 4.4 4.0 Chloride 102 108 H Carbon Dioxide 26.5 25.2 BUN 42.0 H 47.0 H Creatinine 2.91 H 1.96 H Glucose 72 L 109 H Calcium 9.3 8.4 L Liver Function 01/14/24 01/15/24 Range/Units 13:25 04:56 Total Bilirubin 0.6 0.3 (0.2-1.0) mg/dL Direct Bilirubin 0.3 H (0.0-0.2) mg/dL AST 191 H 113 H (15-37) U/L ALT 128 H 86 H (14-59) U/L Alkaline Phosphatase 562 H 351 H (46-116) U/L Albumin 2.4 L 1.8 L (3.4-5.0) g/dL Urine 05/20/24 Range/Units 13:11 Urine Color Dk. orange (YELLOW) Urine Clarity Clear (CLEAR) Urine pH 5.0 (5.0-9.0) Ur Specific [place] >=1.030 A (1.005-1.025) Urine Protein 100 A (NEG/TRACE) mg/dL Urine Glucose (UA) Negative (NEGATIVE) mg/dL Progress Note: A&P Assessment and Plan (1) Leukocytosis: (2) Fever: (3) Acute kidney injury: Plan Severe hypotension with blood pressure 79/58, tachycardia, fever greater than 101, respiratory distress, severe hypoxia with O2 saturation of 81% on room air, leukocytosis, bandemia, positive lactate, elevated procalcitonin, acute renal failure secondary to diverticulitis with acute abdominal findings resulting in severe sepsis. Blood cultures pending. Continue with current antibiotic. White blood cell count is improved. Bandemia improved. Check on acute abdominal series Severe hypoxia possibly related to the above but seems more than expected, x-ray suggest bilateral lower lobe infiltrates and I would suspect this is more than just atelectasis. Suspect more likely pneumonia bilateral lower lobes. Possibly related to emesis. Current antibiotic regimen should cover. White blood cell count improving. Mild coagulopathy secondary to the sepsis-repeat labs later. No active bleeding noted. Altered mental status-secondary to hyperammonemia. Will add Xifaxan, diarrhea and ammonia are improved today. Hematuria-check on culture results. Tomorrow. Significant tachycardia, resulting in demand ischemia with acute NSTEMI and elevated high-sensitivity troponin and BNP. BNP slightly improved from ER. The peak last night and just over 100, is improved this morning. Echocardiogram is pending. Thrombocytopenia secondary to the sepsis. Monitor daily. Acute renal failure, baseline creatinine is 0.89, is up to 2.91 that would be 326.9% above baseline. This is improved today but still above baseline at 220%. With a significant anemia as well, will place patient on Protonix for stress ulcer prophylaxis awaiting Hemoccult.-Down somewhat today. Significant diarrhea which may be related to the diverticulitis, check C. difficile and stool studies. Severe protein calorie malnutrition diet management. T12 compression fracture-workup as an outpatient Admission status: With the conditions as outlined above medically necessary treatment will span 2 midnights. Maintain inpatient status ?
--- NOTE | 2024-01-15 09:09 | XR_ITS ---
[address] [address] Patient Name: SEYMOUR MILAN MRN: [id number] date: 1940 Sex: F Assigned Patient Location: [place] Current Patient Location: [place] Accession/Order Number: [id number] Exam Date: 01/15/2024 10:10 Report Date: 01/15/2024 10:45 At the request of: KANDI BURROWS Procedure: XR acute abdomen series EXAMINATION: XR acute abdomen series HISTORY: abdomen pain, ileus COMPARISON: XR chest 01/14/2024, CT abdomen pelvis 01/14/2024 FINDINGS: LUNGS: Underexpanded lungs with trace amount of stranding bilaterally favoring discoid atelectasis. MEDIASTINUM: Right chest wall Port-A-Cath with distal tip in right atrium. No abnormal widening. BOWEL GAS PATTERN: Non-obstructed. No abnormal dilation. FREE AIR: None. CALCIFICATIONS: None significant. BONES: Scoliotic curvature and moderate-marked degenerative changes of lumbar spine. OTHER: Negative. XR/XR acute abdomen series IMPRESSION: 1. Underexpanded lungs with trace amount of bibasilar discoid atelectasis, or possibly infectious etiology. 2. No appreciable bowel obstruction or acute abdominal findings. Electronically authenticated by: DARIUS PARKINSON Date: 01/15/2024 10:45
--- NOTE | 2024-01-15 10:16 | CM.NOTE ---
Rounds made with Dr. Moffett, pt having increased underlying confusion from her baseline per niece at bedside. No discharge today, PT and OT will evaluate pt for discharge planning. Pt has had HH services in the past, daughter not here at this time to discuss discharge planning.
[2024-01-15] MEDS: 0.9 % SODIUM CHLORIDE 1,000 ML 500 ML IV (10:23)
[2024-01-15] MEDS: PROSTAT 15 GM PROTEIN/100 CAL 30 ML LIQUID PACKET PO ×2 (10:24→21:03)
[2024-01-15] MEDS: ASPIRIN 81 MG TAB.CHEW PO ×2 (10:24→21:04)
[2024-01-15] MEDS: PANTOPRAZOLE SODIUM 40 MG VIAL IV (10:25)
[2024-01-15] MEDS: DOCUSATE SODIUM 100 MG CAPSULE PO (10:25)
[2024-01-15] MEDS: ENSURE HP 237 ML LIQUID PO ×2 (10:25→21:04)
[2024-01-15] MEDS: OSIMERTINIB 80 MG 80 EACH PO (10:29)
[2024-01-15] MEDS: MEMANTINE HCL 28 MG CAP XR PO (10:29)
[2024-01-15 11:15] LABS: Glucometer 173 mg/dL (74-106)
[2024-01-15 11:24] LABS: Basophils Percent Auto 0.1 % (0.2-2.0); Hematocrit 25.8 % (36.0-48.0); Hemoglobin 7.7 g/dL (12.0-16.0); Immature Granulocytes Abs Auto 0.03 10^3/uL (0.00-0.03); Immature Granulocytes Pct Auto 0.3 % (0.0-0.5); Lymphocytes Absolute Auto 0.4 10^3/uL (1.2-3.8); Mean Corpuscular HGB Conc 29.8 g/dL (29.9-35.2); Mean Corpuscular Hemoglobin 26.7 pg (26.7-34.0); Mean Corpuscular Volume 89.6 fL (81.0-99.0); Mean Platelet Volume 11.6 fL (9.5-13.5); Monocytes Absolute Auto 0.4 10^3/uL (0.3-0.8); Monocytes Percent Auto 3.9 % (1.7-12.0); Neutrophils Absolute Auto 8.7 10^3/uL (1.4-6.5); Neutrophils Percent Auto 91.7 % (43.0-75.0); Platelet Count 138 10^3/uL (150-450); Red Blood Count 2.88 10^6/uL (4.20-5.40); Red Cell Distribution Width 16.4 % (11.0-15.0); White Blood Count 9.5 10^3/uL (4.0-11.0)
--- NOTE | 2024-01-15 11:58 | SWNOTE1 ---
SW spoke with therapy and rehab is recommended. SW spoke with niece in room. She did voice pt has great support at home. Pt lives with her daughter and her niece does stay with her as well when needed. Pt has a walker at home to use. SW did mention therapy recommending rehab. She did voice everyone's goal is to keep her at home. She stated pt's daughter is coming and she is the POA and it is her decision, but she did talk to her and they do not want rehab. Pt did have [facility] in past. Pt does exercises at home, but they are open to [facility] coming back in. Niece did voice some frustrations with therapy and wants SW to come back when daughter comes in. At this time plan is for pt to return home once medically stable and family will care for her with possibility of home health.
[2024-01-15] MEDS: LACTATED RINGER'S SOLUTION 1,000 ML 100 ML IV (12:21)
--- NOTE | 2024-01-15 13:17 | SWNOTE1 ---
PATRICIO met with pt's daughter and niece. Daughter and niece had some concerns in regards to pt's care and what all was going on with pt medically. PATRICIO answered questions as best as PATRICIO could and offered for Uma, director of med/surge and ICU to come speak with them. They would like to speak with her. PATRICIO updated nursing and let Uma know. PATRICIO did also speak with niece and daughter about home health and rehab. At this time the daughter does not want pt to go to rehab and she does not want any HH. Patient does exercises at home.
--- NOTE | 2024-01-15 13:20 | SWNOTE1 ---
Important Message from [employer] reviewed and discussed with patient. Pt. verbalized understanding and signed the form. Original given to patient and copy placed in patient?s chart.
[2024-01-15 17:03] LABS: Glucometer 196 mg/dL (74-106)
[2024-01-15] MEDS: INSULIN ASPART 300 UNIT/3 ML PEN SUBQ ×2 (17:18→21:09)
[2024-01-15] MEDS: ACETAMINOPHEN 500 MG TABLET 1000 MG PO (18:02)
[2024-01-15] MEDS: RIVASTIGMINE 13.3 MG 1 PATCH TD (18:22)
[2024-01-15 20:29] LABS: Glucometer 205 mg/dL (74-106)
[2024-01-15] MEDS: GABAPENTIN 300 MG CAPSULE 600 MG PO (21:05)
[2024-01-15] MEDS: OLANZapine 5 MG TABLET PO (21:05)
[2024-01-15] MEDS: QUETIAPINE FUMARATE 100 MG TABLET PO (21:06)
[2024-01-15] MEDS: LAMOTRIGINE 100 MG TABLET 200 MG PO (21:06)
[2024-01-15] MEDS: QUETIAPINE FUMARATE 25 MG TABLET 50 MG PO (21:06)
[2024-01-15] MEDS: NON-FORMULARY 1 EACH (Melatonin 10 mg capsule) 10 EACH PO (21:07)
[2024-01-16] VITALS (22 sets, daily range): BP systolic 118–170; BP diastolic 63–82; PULSE 70–100; TEMP 36.3–36.8; O2SAT 89–98
[2024-01-16] MEDS: LACTATED RINGER'S SOLUTION 1,000 ML 100 ML IV (02:16)
[2024-01-16 03:23] LABS: Glucometer 214 mg/dL (74-106)
[2024-01-16] MEDS: IPRATROPIUM/ALBUTEROL SULFATE 3 ML AMPUL.NEB IH ×4 (04:48→22:12)
[2024-01-16] MEDS: PIPERACILLIN SODIUM/TAZOBACTAM 3.375 GM in 0.9 % SODIUM CHLORIDE 50 ML IV ×2 (05:14→17:52)
[2024-01-16] MEDS: HYDROCORTISONE SODIUM SUCC PF 100 MG/2 ML VIAL IVP ×3 (05:14→21:21)
[2024-01-16] MEDS: RIFAXIMIN 550 MG TABLET PO ×3 (05:14→21:21)
[2024-01-16 05:18] LABS: PCO2 VBG 41.4 mmHg (40.0-52.0); pH VBG 7.404 (7.330-7.430)
[2024-01-16 05:28] LABS: Basophils Percent Auto 0.1 % (0.2-2.0); Immature Granulocytes Abs Auto 0.12 10^3/uL (0.00-0.03); Immature Granulocytes Pct Auto 1.3 % (0.0-0.5); Lymphocytes Absolute Auto 0.4 10^3/uL (1.2-3.8); Lymphocytes Percent Auto 4.6 % (20.5-60.0); Mean Corpuscular HGB Conc 29.2 g/dL (29.9-35.2); Mean Platelet Volume 11.1 fL (9.5-13.5); Monocytes Absolute Auto 0.5 10^3/uL (0.3-0.8); Monocytes Percent Auto 5.6 % (1.7-12.0); Neutrophils Absolute Auto 8.4 10^3/uL (1.4-6.5); Neutrophils Percent Auto 88.4 % (43.0-75.0); Platelet Count 129 10^3/uL (150-450); Red Blood Count 2.54 10^6/uL (4.20-5.40); Red Cell Distribution Width 16.7 % (11.0-15.0); White Blood Count 9.5 10^3/uL (4.0-11.0)
[2024-01-16 05:31] LABS: Ammonia 19 umol/L (11-32); Hematocrit 22.6 % (36.0-48.0); Hemoglobin 6.6 g/dL (12.0-16.0)
[2024-01-16 05:46] LABS: Alanine Aminotransferase 73 U/L (14-59); Albumin Globulin Ratio 0.6; Albumin Level 1.9 g/dL (3.4-5.0); Alkaline Phosphatase 280 U/L (46-116); Anion Gap 10.7; Aspartate Amino Transferase 87 U/L (15-37); BUN Creatinine Ratio 31.8; Bilirubin Total 0.2 mg/dL (0.2-1.0); C Reactive Protein 10.63 mg/dL (<=0.50); Carbon Dioxide 26.2 mmol/L (21.0-32.0); Chloride 109 mmol/L (98-107); Estimated GFR (African America 48 (>=60); Estimated GFR (Non-African Ame 39 (>=60); Globulin 3.3 g/dL; Glucose 179 mg/dL (74-106); Sodium 143 mmol/L (136-145); Total Protein 5.2 g/dL (6.4-8.2)
[2024-01-16 06:09] LABS: Potassium 2.9 mmol/L (3.5-5.1); Troponin I High Sensitivity 72.2 pg/mL (4.0-51.3)
[2024-01-16] MEDS: INSULIN ASPART 300 UNIT/3 ML PEN SUBQ ×3 (08:56→21:22)
--- NOTE | 2024-01-16 09:13 | P.PN_ITS ---
Progress Note: Subjective Subjective Interval history: Patient with much better this morning. Much more alert and interactive. Family agrees she is overall much improved. Exam Constitutional Vital Signs, click to edit/add: Last Vital Signs Temp 97.5 F L 01/16/24 07:00 Pulse 74 01/16/24 07:00 Resp 16 01/16/24 08:00 BP 135/68 01/16/24 07:00 Pulse Ox 94 L 01/16/24 07:00 O2 Del Method Room Air 01/16/24 07:00 O2 Flow Rate 2 01/16/24 04:48 Documenting provider has reviewed patient's vital signs: yes Common normals: no apparent distress Exam limitations: physical limitations (Due to weakness); no altered mental status Chest Common normals: inspection of chest normal Respiratory Common normals: normal respiratory effort; not clear to ascultation bilaterally Auscultation: rhonchi (Bilateral bases -better air exchange today) and diminished lung sounds Cardio Common normals: regular rate and regular rhythm Rate: not tachycardic GI Common normals: Normal to inspection, nondistended, normoactive bowel sounds present, soft to palpation and no masses; tender Palpation: tender (Diffusely but more left lower quadrant, positive rebound persisting) Other: Pain definitely seems to be more isolated to the left lower quadrant today. Extremity Common normals: normal to inspection and no clubbing, cyanosis or edema Neuro Common normals: not oriented x3 Sensorium/orientation: awake Progress Note: Objective Labs Labs: Short CBC 01/15/24 01/16/24 Range/Units 11:17 05:02 WBC 9.5 9.5 (4.0-11.0) 10^3/uL Hgb 7.7 L 6.6 L* (12.0-16.0) g/dL Hct 25.8 L 22.6 L* (36.0-48.0) % Plt Count 138 L 129 L (150-450) 10^3/uL BMP 01/16/24 05:02 Sodium 143 Potassium 2.9 L* Chloride 109 H Carbon Dioxide 26.2 BUN 41.0 H Creatinine 1.29 H Glucose 179 H Calcium 9.0 Liver Function 01/16/24 Range/Units 05:02 Total Bilirubin 0.2 (0.2-1.0) mg/dL AST 87 H (15-37) U/L ALT 73 H (14-59) U/L Alkaline Phosphatase 280 H (46-116) U/L Albumin 1.9 L (3.4-5.0) g/dL Progress Note: A&P Assessment and Plan (1) Leukocytosis: (2) Fever: (3) Acute kidney injury: Plan Findings on admission: Severe hypotension with blood pressure 79/58, metabolic acidosis, tachycardia, fever greater than 101, respiratory distress, severe hypoxia with O2 saturation of 81% on room air, leukocytosis, bandemia, positive lactate, elevated procalcitonin, acute renal failure secondary to diverticulitis with acute abdominal findings resulting in severe sepsis. Blood cultures pending. Overall labs are improving. Will check on culture later today. Severe hypoxia possibly related to the above but seems more than expected, x-ray suggest bilateral lower lobe infiltrates and I would suspect this is more than just atelectasis. X-ray from yesterday was unchanged from admission. Continue with current treatment plan is overall she is improving. Mild coagulopathy secondary to the sepsis-repeat labs later. No active bleeding noted. Altered mental status-secondary to hyperammonemia with mildly elevated liver function tests. Hyperammonemia has resolved. Mental status improved. Liver function test improving Hematuria-check on culture results. Tomorrow. Hypokalemia-supplement Significant tachycardia, resulting in demand ischemia with acute NSTEMI and elevated high-sensitivity troponin and BNP. BNP slightly improved from ER. The peak last night and just over 100, is improved this morning. Echocardiogram is pending. Thrombocytopenia secondary to the sepsis. Down slightly today, continue to monitor Acute renal failure, baseline creatinine is 0.89, improved, but is still 145% above baseline With a significant anemia as well,-this has been progressed. She is now hemoglobin less than 7. Still waiting a check on the occult blood. She needs 2 units of PRBCs transfused today. Case discussed with family. Significant diarrhea which may be related to the diverticulitis, check C. d ifficile and stool studies. Severe protein calorie malnutrition diet management. T12 compression fracture-workup as an outpatient Hypertension by history-we will add back her beta-rene. Heart rate is starting to increase but that may be related to her anemia as well. Admission status: With the conditions as outlined above medically necessary treatment will span 2 midnights. Maintain inpatient status ?
--- NOTE | 2024-01-16 09:38 | CM.NOTE ---
Rounds made with Dr. Moffett. Dr. Moffett reviews labs with bridgette and Milena. No plan for discharge today.
[2024-01-16] MEDS: MEMANTINE HCL 28 MG CAP XR PO (09:55)
[2024-01-16] MEDS: PROSTAT 15 GM PROTEIN/100 CAL 30 ML LIQUID PACKET PO ×2 (09:55→21:21)
[2024-01-16] MEDS: DOCUSATE SODIUM 100 MG CAPSULE PO (09:55)
[2024-01-16] MEDS: VENLAFAXINE HCL 50 MG TABLET PO (09:55)
[2024-01-16] MEDS: ASPIRIN 81 MG TAB.CHEW PO ×2 (10:02→21:24)
[2024-01-16] MEDS: ENSURE HP 237 ML LIQUID PO ×2 (10:02→21:21)
[2024-01-16] MEDS: PANTOPRAZOLE SODIUM 40 MG VIAL IV (10:02)
[2024-01-16] MEDS: METOPROLOL SUCCINATE 25 MG TAB.ER.24H PO (10:02)
[2024-01-16] MEDS: GABAPENTIN 300 MG CAPSULE PO (10:02)
[2024-01-16] MEDS: OSIMERTINIB 80 MG 80 EACH PO (10:04)
[2024-01-16] MEDS: POTASSIUM CHLORIDE 40 MEQ in 0.9 % SODIUM CHLORIDE 250 ML 67.5 MEQ IV (10:20)
[2024-01-16] MEDS: DIPHENHYDRAMINE HCL 25 MG CAPSULE PO (10:55)
[2024-01-16] MEDS: ACETAMINOPHEN 325 MG TABLET 650 MG PO (10:55)
[2024-01-16] MEDS: 0.9 % SODIUM CHLORIDE 250 ML 10 ML IV ×2 (10:56→17:53)
--- NOTE | 2024-01-16 11:03 | PT.DAILY ---
Physical Therapy Daily Note PT Daily Note/Assess Start: 01/15/24 17:25 Freq: Status: Active Protocol: Document 01/16/24 11:00 SARAHANH (Rec: 01/16/24 11:03 [id number] Physical Therapy Daily Note/Assessment Time In/Time Out Time In 10:45 Time Out 10:58 Pain In Pain N/A Pain Out Pain N/A Subjective Subjective Pt supine upon arrival. Agrees to get to chair for breakfast . Family present. Therapeutic Exercise Time Therapeutic Exercise Minutes (minutes) 3 Therapeutic Exercise Units 0 Therapeutic Exercise Treatment Therapeutic Exercise Treatment Seated bilat LE strengthening ex complete while sitting EOB unsupported without LOB. Therapeutic Activity Time Therapeutic Activity Minutes (minutes) 8 Therapeutic Activity Units 1 Therapeutic Activity Treatment Bed Mobility Ability Standby Assistance Chair Transfer Ability Contact Guard Assist Therapeutic Activity Comments Supine>sit SBA with increased time to complete. Sits EOB unsupported to complete LE strengthening ex. Sit>stand 3x CGA with increased time to reach standing - min posterior lean initially. Tremors noticed. Pt then able to amb 5 ' to BS chair with RW CGA and assist for IV pole and O2 lines. Pt remains in BS chair. Nursing present to start blood transfusion. Total Physical Therapy Time Total Therapy Minutes 11 Total Physical Therapy Units 1 Summary Daily Note Summary Improved transfer ability today but does require increased time with this.
[2024-01-16 11:31] LABS: Glucometer 175 mg/dL (74-106)
--- NOTE | 2024-01-16 12:37 | SWNOTE1 ---
SW checked in with pt and niece, pt is doing well and getting blood today, no plans of discharge.
[2024-01-16] MEDS: ALPRAZOLAM 0.5 MG TABLET PO (12:58)
[2024-01-16] MEDS: FUROSEMIDE 20 MG/2 ML VIAL IVP (14:11)
[2024-01-16] MEDS: HYDRALAZINE HCL 20 MG/ML VIAL 10 MG IVP (14:37)
[2024-01-16 16:07] LABS: Glucometer 156 mg/dL (74-106)
[2024-01-16] MEDS: ACETAMINOPHEN 500 MG TABLET 1000 MG PO (18:30)
[2024-01-16 19:56] LABS: Glucometer 233 mg/dL (74-106)
[2024-01-16] MEDS: NON-FORMULARY 1 EACH (Melatonin 10 mg capsule) 10 EACH PO (21:24)
[2024-01-16] MEDS: GABAPENTIN 300 MG CAPSULE 600 MG PO (21:25)
[2024-01-16] MEDS: OLANZapine 5 MG TABLET PO (21:26)
[2024-01-16] MEDS: LAMOTRIGINE 100 MG TABLET 200 MG PO (21:26)
[2024-01-16] MEDS: QUETIAPINE FUMARATE 100 MG TABLET PO (21:27)
[2024-01-16] MEDS: QUETIAPINE FUMARATE 25 MG TABLET 50 MG PO (21:27)
[2024-01-16] MEDS: LEVOFLOXACIN IN DEXTROSE 5 % 500 MG/100 ML PIGGYBACK 100 MG IV (21:38)
[2024-01-17] VITALS (12 sets, daily range): BP systolic 143–163; BP diastolic 65–83; PULSE 60–91; TEMP 36.4–36.9; O2SAT 90–96
[2024-01-17] MEDS: IPRATROPIUM/ALBUTEROL SULFATE 3 ML AMPUL.NEB IH ×4 (04:36→23:05)
[2024-01-17] MEDS: PIPERACILLIN SODIUM/TAZOBACTAM 3.375 GM in 0.9 % SODIUM CHLORIDE 50 ML IV ×2 (05:11→17:26)
[2024-01-17] MEDS: RIFAXIMIN 550 MG TABLET PO ×3 (05:12→21:58)
[2024-01-17] MEDS: HYDROCORTISONE SODIUM SUCC PF 100 MG/2 ML VIAL IVP (05:12)
[2024-01-17 05:21] LABS: Hemoglobin 8.8 g/dL (12.0-16.0); Immature Granulocytes Abs Auto 0.09 10^3/uL (0.00-0.03); Lymphocytes Absolute Auto 0.5 10^3/uL (1.2-3.8); Lymphocytes Percent Auto 5.3 % (20.5-60.0); Mean Corpuscular HGB Conc 31.4 g/dL (29.9-35.2); Mean Corpuscular Hemoglobin 27.2 pg (26.7-34.0); Mean Corpuscular Volume 86.7 fL (81.0-99.0); Mean Platelet Volume 11.8 fL (9.5-13.5); Monocytes Absolute Auto 0.4 10^3/uL (0.3-0.8); Monocytes Percent Auto 4.4 % (1.7-12.0); Neutrophils Absolute Auto 7.8 10^3/uL (1.4-6.5); Neutrophils Percent Auto 89.3 % (43.0-75.0); Platelet Count 126 10^3/uL (150-450); Red Blood Count 3.23 10^6/uL (4.20-5.40); Red Cell Distribution Width 16.6 % (11.0-15.0); White Blood Count 8.7 10^3/uL (4.0-11.0)
[2024-01-17 05:48] LABS: Alanine Aminotransferase 69 U/L (14-59); Albumin Globulin Ratio 0.6; Alkaline Phosphatase 252 U/L (46-116); Anion Gap 9.4; Aspartate Amino Transferase 76 U/L (15-37); Bilirubin Total 0.3 mg/dL (0.2-1.0); C Reactive Protein 2.96 mg/dL (<=0.50); Calcium 9.1 mg/dL (8.5-10.1); Carbon Dioxide 28.6 mmol/L (21.0-32.0); Chloride 110 mmol/L (98-107); Estimated GFR (African America 56 (>=60); Estimated GFR (Non-African Ame 46 (>=60); Globulin 3.4 g/dL; Glucose 130 mg/dL (74-106); Sodium 145 mmol/L (136-145); Total Protein 5.4 g/dL (6.4-8.2)
[2024-01-17 05:50] LABS: BUN Creatinine Ratio 31.3
[2024-01-17 05:53] LABS: Troponin I High Sensitivity 64.6 pg/mL (4.0-51.3)
--- NOTE | 2024-01-17 08:42 | P.PN_ITS ---
Progress Note: Subjective Subjective Interval history: Overall mental status continues to improve Exam Constitutional Vital Signs, click to edit/add: Last Vital Signs Temp 98.5 F 01/17/24 05:18 Pulse 71 01/17/24 05:18 Resp 16 01/17/24 05:18 BP 151/65 H 01/17/24 05:18 Pulse Ox 90 L 01/17/24 05:18 O2 Del Method Room Air 01/17/24 05:18 O2 Flow Rate 1 01/16/24 16:50 Documenting provider has reviewed patient's vital signs: yes Common normals: no apparent distress Exam limitations: physical limitations (Due to weakness); no altered mental status Chest Common normals: inspection of chest normal Respiratory Common normals: normal respiratory effort; not clear to ascultation bilaterally Auscultation: rales (Bases, new for today), rhonchi (Bilateral bases -better air exchange today) and diminished lung sounds Cardio Common normals: regular rate and regular rhythm Rate: not tachycardic GI Common normals: Normal to inspection, nondistended, normoactive bowel sounds present, soft to palpation and no masses; tender Palpation: tender (Diffusely but more left lower quadrant, positive rebound persisting) Other: Pain definitely seems to be more isolated to the left lower quadrant today. Extremity Common normals: abnormal to inspection (1+ edema) and clubbing, cyanosis or edema Neuro Common normals: not oriented x3 Sensorium/orientation: awake Progress Note: Objective Labs Labs: Short CBC 01/17/24 Range/Units 04:46 WBC 8.7 (4.0-11.0) 10^3/uL Hgb 8.8 L (12.0-16.0) g/dL Hct 28.0 L (36.0-48.0) % Plt Count 126 L (150-450) 10^3/uL BMP 01/17/24 04:46 Sodium 145 Potassium 3.0 L Chloride 110 H Carbon Dioxide 28.6 BUN 35.0 H Creatinine 1.12 H Glucose 130 H Calcium 9.1 Liver Function 01/17/24 Range/Units 04:46 Total Bilirubin 0.3 (0.2-1.0) mg/dL AST 76 H (15-37) U/L ALT 69 H (14-59) U/L Alkaline Phosphatase 252 H (46-116) U/L Albumin 2.0 L (3.4-5.0) g/dL Progress Note: A&P Assessment and Plan (1) Leukocytosis: (2) Fever: (3) Acute kidney injury: Plan Findings on admission: Severe hypotension with blood pressure 79/58, metabolic acidosis, tachycardia, fever greater than 101, respiratory distress, severe hypoxia with O2 saturation of 81% on room air, leukocytosis, bandemia, positive lactate, elevated procalcitonin, acute renal failure secondary to diverticulitis with acute abdominal findings resulting in severe sepsis. Blood cultures pending. Check on blood culture later today overall improvement with current antibiotic regimen this will maintain that. Severe hypoxia possibly related to the above but seems more than expected, x-ray suggest bilateral lower lobe infiltrates and I would suspect this is more than just atelectasis. She is been able to be weaned off of her supplemental oxygen. Mild coagulopathy secondary to the sepsis-repeat labs later. No active bleeding noted. Altered mental status-secondary to hyperammonemia with mildly elevated liver function tests. Hyperammonemia has resolved. Mental status improved. Liver function test improving Hematuria-check on culture results. Tomorrow. Hypokalemia-supplement Significant tachycardia, resulting in demand ischemia with acute NSTEMI and elevated high-sensitivity troponin and BNP. BNP significantly elevated today. High-sensitivity troponin is improving today. 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 Will give 1 dose of IV Lasix this morning. Thrombocytopenia secondary to the sepsis. Down slightly today, continue to monitor Acute renal failure, baseline creatinine is 0.89, improved, continues to improve With a significant anemia as well,-this has been progressed. She responded well to the 2 units of PRBCs yesterday. Significant diarrhea which may be related to the diverticulitis, check C. difficile and stool studies.-Improving Severe protein calorie malnutrition diet management. T12 compression fracture-workup as an outpatient Hypertension by history-we will add back her beta-rene. Blood pressure is creeping back up so we will reinstitute her home medications. This is anticipation of possible discharge tomorrow Admission status: With the conditions as outlined above medically necessary treatment will span 2 midnights. Maintain inpatient status-possible discharge tomorrow ?
[2024-01-17] MEDS: PREDNISONE 20 MG TABLET PO (08:57)
[2024-01-17] MEDS: VENLAFAXINE HCL 50 MG TABLET PO (08:57)
[2024-01-17] MEDS: ASPIRIN 81 MG TAB.CHEW PO ×2 (08:57→20:21)
[2024-01-17] MEDS: DOCUSATE SODIUM 100 MG CAPSULE PO (08:58)
[2024-01-17] MEDS: GABAPENTIN 300 MG CAPSULE PO (08:58)
[2024-01-17] MEDS: MEMANTINE HCL 28 MG CAP XR PO (08:58)
[2024-01-17] MEDS: HYDROCORTISONE 20 MG TABLET PO (08:58)
[2024-01-17] MEDS: LISINOPRIL 20 MG TABLET PO (08:58)
[2024-01-17] MEDS: METFORMIN HCL 500 MG TABLET 1000 MG PO ×2 (08:58→17:26)
[2024-01-17] MEDS: PANTOPRAZOLE SODIUM 40 MG VIAL IV (08:58)
[2024-01-17] MEDS: POTASSIUM CHLORIDE 10 MEQ ER TABLET 20 MEQ PO ×2 (08:58→20:21)
[2024-01-17] MEDS: METOPROLOL SUCCINATE 25 MG TAB.ER.24H PO ×2 (08:58)
[2024-01-17] MEDS: ENSURE HP 237 ML LIQUID PO ×2 (08:59→20:21)
[2024-01-17] MEDS: POTASSIUM CHLORIDE 40 MEQ in 0.9 % SODIUM CHLORIDE 250 ML 67.5 MEQ IV (08:59)
[2024-01-17] MEDS: PROSTAT 15 GM PROTEIN/100 CAL 30 ML LIQUID PACKET PO ×2 (08:59→20:21)
[2024-01-17] MEDS: OSIMERTINIB 80 MG 80 EACH PO (09:01)
--- NOTE | 2024-01-17 09:45 | CM.NOTE ---
Rounds made with Dr. Moffett, discussed with family about elevated BNP and pt will stay one more day. Family still verbalize wishes are for pt to return back home.
--- NOTE | 2024-01-17 09:57 | CM.NOTE ---
2nd Notice of Important Message From Medicare discussed with pt and pt's daughter, denies any questions or concerns.
--- NOTE | 2024-01-17 10:25 | PT.DAILY ---
Physical Therapy Daily Note PT Daily Note/Assess Start: 01/15/24 17:25 Freq: Status: Active Protocol: Document 01/17/24 10:18 ARIC (Rec: 01/17/24 10:25 ARIC [id number]) Physical Therapy Daily Note/Assessment Time In/Time Out Time In 09:35 Time Out 10:10 Pain In Pain N/A Pain Out Pain N/A Subjective Subjective Pt sitting in bed with HOB elevated. Pt's family wants pt to have a shower. Since OT is male, he is unable to treat this patient per her request. PROJECT SCHEDULER to assist with shower this morning. Therapeutic Activity Time Therapeutic Activity Minutes (minutes) 25 Therapeutic Activity Units 2 Therapeutic Activity Treatment Bed Mobility Ability Minimum Assist Chair Transfer Ability Contact Guard Assist,Minimum Assist Therapeutic Activity Comments Pt performs supine>sit transfer to EOB with Larissa to advance upper body and scoot hips towards EOB. Pt sits EOB unsupported without LOB. Sit> stand CGA. Pt amb 20' with RW, CGA with assist for IV pole to shower. Pt sits on shower bench while assisted with undressing. Pt is able to wash her face, hair, and upper body with set up needed. Needs assistance to wash her back, feet, legs and periarea. 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 Pt returned to sitting. Pt is able to dry her face, upper body, and hair. Needs assistance to dry back, legs, feet and periarea. Pt pivots on bench to swing legs out of shower. Socks, gown and brief are donned for pt. Sit>stand to RW Larissa from low surface. Pt amb 20' with RW back to bed , CGA. Sit>supine SBA with increased time needed. Pt left under nursing care at this time. Total Physical Therapy Time Total Therapy Minutes 25 Total Physical Therapy Units 2 Summary Daily Note Summary Improved gait ability on this date.
[2024-01-17 11:00] LABS: Glucometer 199 mg/dL (74-106)
[2024-01-17] MEDS: INSULIN ASPART 300 UNIT/3 ML PEN SUBQ ×2 (11:06→17:25)
[2024-01-17] MEDS: FUROSEMIDE 40 MG/4 ML VIAL 60 MG IVP (11:06)
[2024-01-17] MEDS: ACETAMINOPHEN 500 MG TABLET 1000 MG PO (13:34)
[2024-01-17 16:25] LABS: Glucometer 164 mg/dL (74-106)
[2024-01-17] MEDS: 0.9 % SODIUM CHLORIDE 250 ML 10 ML IV (17:26)
[2024-01-17 20:01] LABS: Glucometer 147 mg/dL (74-106)
[2024-01-17] MEDS: HYDROCORTISONE 20 MG TABLET 10 MG PO (20:21)
[2024-01-17] MEDS: RIVASTIGMINE 13.3 MG 1 PATCH TD (20:22)
[2024-01-17] MEDS: OLANZapine 5 MG TABLET PO (21:57)
[2024-01-17] MEDS: GABAPENTIN 300 MG CAPSULE 600 MG PO (21:58)
[2024-01-17] MEDS: QUETIAPINE FUMARATE 100 MG TABLET PO (21:58)
[2024-01-17] MEDS: CLONIDINE HCL 0.1 MG TABLET 0.100000000000000006 MG PO (21:58)
[2024-01-17] MEDS: LAMOTRIGINE 100 MG TABLET 200 MG PO (21:58)
[2024-01-17] MEDS: QUETIAPINE FUMARATE 25 MG TABLET 50 MG PO (21:58)
[2024-01-17] MEDS: NON-FORMULARY 1 EACH (Melatonin 10 mg capsule) 10 EACH PO (21:58)
[2024-01-18 01:06] LABS: Adenovirus F 40/41 NOT DETECTED (NOT DETECTE); Astrovirus NOT DETECTED (NOT DETECTE); Campylobacter NOT DETECTED (NOT DETECTE); Cryptosporidium NOT DETECTED (NOT DETECTE); Cyclospora cayetanensis NOT DETECTED (NOT DETECTE); Entamoeba histolytica NOT DETECTED (NOT DETECTE); Enteroaggregative E.coli NOT DETECTED (NOT DETECTE); Enteropathogenic E.coli NOT DETECTED (NOT DETECTE); Enterotoxigenic E. coli NOT DETECTED (NOT DETECTE); Giardia lamblia NOT DETECTED (NOT DETECTE); Norovirus GI/GII NOT DETECTED (NOT DETECTE); Plesiomonas shigelloides NOT DETECTED (NOT DETECTE); Rotavirus A NOT DETECTED (NOT DETECTE); Salmonella NOT DETECTED (NOT DETECTE); Sapovirus NOT DETECTED (NOT DETECTE); Shiga-like toxin-producing E.C NOT DETECTED (NOT DETECTE); Shigella/Enteroinvasive E.coli NOT DETECTED (NOT DETECTE); Vibrio NOT DETECTED (NOT DETECTE); Vibrio cholerae NOT DETECTED (NOT DETECTE); Yersinia enterocolitica NOT DETECTED (NOT DETECTE)
[2024-01-18 01:14] LABS: Occult Blood Positive
[2024-01-18 04:00] VITALS: BP 126/61; PULSE 66; TEMP 36.7; O2SAT 93
[2024-01-18 04:26] VITALS: PULSE 66; O2SAT 93
[2024-01-18] MEDS: IPRATROPIUM/ALBUTEROL SULFATE 3 ML AMPUL.NEB IH ×2 (04:26→10:32)
[2024-01-18 05:37] LABS: Basophils Percent Auto 0.1 % (0.2-2.0); Eosinophils Percent Auto 0.1 % (0.9-7.0); Hematocrit 28.3 % (36.0-48.0); Hemoglobin 8.9 g/dL (12.0-16.0); Immature Granulocytes Abs Auto 0.07 10^3/uL (0.00-0.03); Lymphocytes Absolute Auto 0.9 10^3/uL (1.2-3.8); Lymphocytes Percent Auto 12.3 % (20.5-60.0); Mean Corpuscular HGB Conc 31.4 g/dL (29.9-35.2); Mean Corpuscular Hemoglobin 27.8 pg (26.7-34.0); Mean Corpuscular Volume 88.4 fL (81.0-99.0); Mean Platelet Volume 11.6 fL (9.5-13.5); Monocytes Absolute Auto 0.7 10^3/uL (0.3-0.8); Monocytes Percent Auto 9.1 % (1.7-12.0); Neutrophils Absolute Auto 5.6 10^3/uL (1.4-6.5); Neutrophils Percent Auto 77.4 % (43.0-75.0); Platelet Count 130 10^3/uL (150-450); Red Cell Distribution Width 16.8 % (11.0-15.0); White Blood Count 7.3 10^3/uL (4.0-11.0)
[2024-01-18 05:45] LABS: INR 1.16; Partial Thromboplastin Time 27.3 sec (22.3-36.2); Prothrombin Time 12.1 sec (9.0-11.6)
[2024-01-18 05:55] LABS: Alanine Aminotransferase 60 U/L (14-59); Albumin Globulin Ratio 0.6; Alkaline Phosphatase 216 U/L (46-116); Anion Gap 8.2; Aspartate Amino Transferase 68 U/L (15-37); BUN Creatinine Ratio 34.3; Bilirubin Total 0.2 mg/dL (0.2-1.0); C Reactive Protein 0.96 mg/dL (<=0.50); Calcium 9.2 mg/dL (8.5-10.1); Carbon Dioxide 30.4 mmol/L (21.0-32.0); Chloride 110 mmol/L (98-107); Estimated GFR (African America >60 (>=60); Estimated GFR (Non-African Ame 50 (>=60); Globulin 3.1 g/dL; Glucose 119 mg/dL (74-106); Potassium 3.6 mmol/L (3.5-5.1); Sodium 145 mmol/L (136-145); Total Protein 5.1 g/dL (6.4-8.2)
[2024-01-18] MEDS: RIFAXIMIN 550 MG TABLET PO (06:02)
[2024-01-18] MEDS: PIPERACILLIN SODIUM/TAZOBACTAM 3.375 GM in 0.9 % SODIUM CHLORIDE 50 ML IV (06:02)
[2024-01-18 06:18] LABS: Troponin I High Sensitivity 82.7 pg/mL (4.0-51.3)
--- NOTE | 2024-01-18 07:05 | XR_ITS ---
[facility] [id number] Patient Name: SEYMOUR MILAN MRN: [id number] date: 1940 Sex: F Assigned Patient Location: [place] Current Patient Location: [place] Accession/Order Number: [id number] Exam Date: 01/18/2024 07:18 Report Date: 01/18/2024 07:44 At the request of: KANDI BURROWS Procedure: XR chest 1V EXAMINATION: XR chest 1V HISTORY: pneumonia follow up COMPARISON: XR chest 01/14/2024 FINDINGS: LUNGS: Underexpanded lungs with trace amount stranding within left perihilar region. Mild opacities within lateral left costophrenic angle. VASCULATURE: No increased pulmonary vasculature. PLEURA: No pneumothorax, effusion, or pleural thickening. CARDIAC: No cardiomegaly or cardiac silhouette abnormality. MEDIASTINUM: No visible mass or adenopathy. BONES: No fracture or visible bone lesion. OTHER: Stable right Port-A-Cath with tip in right atrium. XR/XR chest 1V IMPRESSION: 1. Mild infiltrates versus atelectasis within left mid and lower lung. Lungs are better expanded on today's study with suspected slight improvement. Electronically authenticated by: DARIUS PARKINSON Date: 01/18/2024 07:44
[2024-01-18 08:15] VITALS: BP 144/72; PULSE 64; TEMP 36.6; O2SAT 91
--- NOTE | 2024-01-18 08:34 | CM.NOTE ---
Rounds made with Dr. Moffett, pt will discharge to home today.
--- NOTE | 2024-01-18 08:41 | P.DS_ITS ---
DS: Providers Provider Date of admission: 01/14/24 17:24 Primary care physician: Non-Staff Physician, Consults: 01/14/24 Consult to Dietitian Routine Reason for consultation: weight loss Has provider been notified: Yes 01/14/24 18:38 Occupational Therapy Eval and Treat Routine Reason for consultation: Only if needed for Rehab Has provider been notified: No Physical Therapy Eval and Treat Routine Reason for consultation: Eval and Treat Has provider been notified: No DS: Diagnosis Discharge Diagnosis (1) Leukocytosis: (2) Fever: (3) Acute kidney injury: Plan Findings on admission: Severe hypotension with blood pressure 79/58, metabolic acidosis, tachycardia, fever greater than 101, respiratory distress, severe hypoxia with O2 saturation of 81% on room air, leukocytosis, bandemia, positive lactate, elevated procalcitonin, acute renal failure secondary to diverticulitis with acute abdominal findings resulting in severe sepsis. - Improving at the time of discharge Severe hypoxia possibly related to the above but seems more than expected, x-ray suggest bilateral lower lobe infiltrates and I would suspect this is more than just atelectasis.-Resolved at the time of discharge Mild coagulopathy secondary to the sepsis-repeat labs later. No active bleeding noted at the time of discharge, patient did have positive Hemoccult for acute upper gastrointestinal blood loss anemia Altered mental status-secondary to hyperammonemia with mildly elevated liver function tests. Resolved at the time of discharge Hematuria-culture negative Hypokalemia-stable at the time of discharge Significant tachycardia, resulting in demand ischemia with acute NSTEMI and elevated high-sensitivity troponin and BNP. BNP significantly elevated today. High-sensitivity troponin is improving today. 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 Resolved at the time of discharge, BNP elevated but no peripheral edema or fluid on lung exam Thrombocytopenia secondary to the sepsis. Down slightly today, continue to monitor Acute renal failure, baseline creatinine is 0.89, improved, continues to improve With a significant anemia due to acute upper gastrointestinal blood loss anemia due to acute upper gastrointestinal bleeding, patient received 2 units of PRBCs. Stable at the time of discharge Significant diarrhea which may be related to the diverticulitis, resolved at the time of discharge Severe protein calorie malnutrition diet management.-Stable at the time of discharge T12 compression fracture-workup as an outpatient Hypertension by history-blood pressure stable at time of discharge Admission status: With the conditions as outlined above medically necessary treatment will span 2 midnights. Maintain inpatient status-possible discharge tomorrow DS: Summary Hospital Course Hospital Course: Findings on admission: Severe hypotension with blood pressure 79/58, metabolic acidosis, tachycardia, fever greater than 101, respiratory distress, severe hypoxia with O2 saturation of 81% on room air, leukocytosis, bandemia, positive lactate, elevated procalcitonin, acute renal failure secondary to acute diverticulitis with acute abdominal findings resulting in severe sepsis. Complicated by bilateral pneumonia resulting in hypoxia. Patient was treated with IV antibiotics to cover the pneumonia and the diverticulitis. Patient mental status was somewhat worse the day after admission. Found to have hyperammonemia. That was treated with Xifaxan with good result. Patient then developed anemia and was given 2 units of PRBC secondary to acute upper gastrointestinal bleeding with acute upper gastrointestinal blood loss anemia. Her hemoglobin is been stable last 2 days. Her white blood cell count returned to normal the last 2 days. Her strength and mental status is returned to her baseline. Blood cultures returned as negative, urine culture returned as negative, unable to obtain sputum sample. She did appear to have a demand ischemia with elevated high-sensitivity troponin but echocardiogram was normal with no wall motion abnormalities. BNP also elevated. This is likely secondary to fluid required for resuscitation of the initial severe sepsis. Given Lasix yesterday. Her lung exam is much improved today. Her peripheral edema has resolved. At this point should be medically stable for discharge. Medications see list. Follow-up with PCP within the next week. Patient will likely require physical therapy at home. Status at Discharge Overall status at discharge: patient is not back to baseline Time Spent with Patient Time attestation: Total time spent providing and/or coordinating discharge services: Time spent: greater than 30 minutes Exam Constitutional Vital Signs, click to edit/add: Last Vital Signs Temp 97.9 F 01/18/24 08:15 Pulse 64 01/18/24 08:15 Resp 16 01/18/24 08:15 BP 144/72 H 01/18/24 08:15 Pulse Ox 91 L 01/18/24 08:15 O2 Del Method Room Air 01/18/24 08:15 O2 Flow Rate 1 01/16/24 16:50 Documenting provider has reviewed patient's vital signs: yes Common normals: no apparent distress Exam limitations: physical limitations (Due to weakness); no altered mental status Chest Common normals: inspection of chest normal Respiratory Common normals: normal respiratory effort and clear to auscultation bilaterally Auscultation: diminished lung sounds; no rales (Resolved rales from previous day) and no rhonchi Cardio Common normals: regular rate and regular rhythm Rate: not tachycardic GI Common normals: Normal to inspection, nondistended, normoactive bowel sounds present, soft to palpation and no masses; tender Palpation: tender (Diffusely but more left lower quadrant, positive rebound persisting) Other: Pain definitely seems to be more isolated to the left lower quadrant today. Extremity Common normals: normal to inspection (No edema) and no clubbing, cyanosis or edema Neuro Common normals: not oriented x3 Sensorium/orientation: awake DS: Data Data Completed and Pending Labs on day of discharge: Labs from last 24 hours 01/18/24 01/18/24 01/17/24 04:30 01:00 19:59 WBC 7.3 RBC 3.20 L Hgb 8.9 L Hct 28.3 L MCV 88.4 MCH 27.8 MCHC 31.4 RDW 16.8 H Plt Count 130 L MPV 11.6 Neut % (Auto) 77.4 H Lymph % (Auto) 12.3 L [place] % (Auto) 9.1 Eos % (Auto) 0.1 L Baso % (Auto) 0.1 L Neut # (Auto) 5.6 Lymph # (Auto) 0.9 L [place] # (Auto) 0.7 Eos # (Auto) 0.0 Baso # (Auto) 0.0 Abs Immat Gran (auto) 0.07 H Imm/Tot Granulo (auto) 1.0 H PT 12.1 H INR 1.16 APTT 27.3 Sodium 145 Potassium 3.6 Chloride 110 H Carbon Dioxide 30.4 Anion Gap 8.2 BUN 36.0 H Creatinine 1.05 H Est GFR ( Amer) >60 Est GFR (Non-Af Amer) 50 L BUN/Creatinine Ratio 34.3 Glucose 119 H Calcium 9.2 Total Bilirubin 0.2 AST 68 H ALT 60 H Alkaline Phosphatase 216 H Troponin I High Sens 82.7 H* C-Reactive Protein 0.96 H NT-Pro-B Natriuret Pep 73355.0 H* Total Protein 5.1 L Albumin 2.0 L Globulin 3.1 Albumin/Globulin Ratio 0.6 Stool Occult Blood Positive A Stl C. cayetanensis PCR Not detected Stool Rotavirus (PCR) Not detected Stool Adenovirus (PCR) Not detected Stool Astrovirus (PCR) Not detected Stool Campylobacter PCR Not detected Stool Cryptosporidium PCR Not detected St Sh/Enteroin Ecoli PCR Not detected Stl Enterotoxigenic E PCR Not detected Stool EPEC (PCR) Not detected Stl E. histolytica PCR Not detected Stool Giardia Lamblia PCR Not detected Stl P. shigelloides PCR Not detected Stool Salmonella PCR Not detected Stool Sapovirus (PCR) Not detected Stl Shiga-like Tx [address] Y.enterocolitica PCR Not detected Stl Vibrio cholerae PCR Not detected Stl Enteroaggr Ecoli PCR Not detected Stl Norovirus GI/GII PCR Not detected Specimen Source Stool C. difficile Toxin A&B Not detected Vibrio Culture Not detected POC Glucose 147 H 01/17/24 01/17/24 16:24 10:59 WBC RBC Hgb Hct MCV MCH MCHC RDW Plt Count MPV Neut % (Auto) Lymph % (Auto) Doddridge % (Auto) Eos % (Auto) Baso % (Auto) Neut # (Auto) Lymph # (Auto) Doddridge # (Auto) Eos # (Auto) Baso # (Auto) Abs Immat Gran (auto) Imm/Tot Granulo (auto) PT INR APTT Sodium Potassium Chloride Carbon Dioxide Anion Gap BUN Creatinine Est GFR ( Amer) Est GFR (Non-Af Amer) BUN/Creatinine Ratio Glucose Calcium Total Bilirubin AST ALT Alkaline Phosphatase Troponin I High Sens C-Reactive Protein NT-Pro-B Natriuret Pep Total Protein Albumin Globulin Albumin/Globulin Ratio Stool Occult Blood Stl C. cayetanensis PCR Stool Rotavirus (PCR) Stool Adenovirus (PCR) Stool Astrovirus (PCR) Stool Campylobacter PCR Stool Cryptosporidium PCR St Sh/Enteroin Ecoli PCR Stl Enterotoxigenic E PCR Stool EPEC (PCR) Stl E. histolytica PCR Stool Giardia Lamblia PCR Stl P. shigelloides PCR Stool Salmonella PCR Stool Sapovirus (PCR) Stl Shiga-like Tx [address] Y[address]enterocolitica PCR Stl Vibrio cholerae PCR Stl Enteroaggr Ecoli PCR Stl Norovirus GI/GII PCR Specimen Source C. difficile Toxin A&B Vibrio Culture POC Glucose 164 H 199 H Preliminary micro results at discharge 01/14/24 13:40 - Preliminary Blood NO GROWTH AT 36-48 HOURS. FINAL TO FOLLOW. 01/14/24 13:33 Blood Culture Result 1 - Preliminary Blood NO GROWTH AT 36-48 HOURS. FINAL TO FOLLOW. Discharge Plan Discharge Disposition: Home, Self-Care Condition: Fair Discharge Medications: New venlafaxine 50 mg Tablet 50 mg PO DAILY Qty: 30 11RF potassium chloride 10 mEq capsule, extended release 10 meq PO BID Qty: 60 11RF amoxicillin-pot clavulanate 875-125 mg tablet 1 tab PO Q12H Qty: 20 11RF Continued quetiapine 25 mg tablet 50 mg PO .hs atorvastatin 80 mg tablet 80 mg PO DAILY lamotrigine 200 mg tablet 200 mg PO .hs lisinopril 20 mg tablet 20 mg PO DAILY olanzapine 5 mg tablet 5 mg PO .hs quetiapine 100 mg tablet 100 mg PO .hs alprazolam 0.5 mg tablet 0.5 mg PO TID PRN (Reason: anxiety) metformin 1,000 mg tablet 1,000 mg PO BID nitroglycerin 0.4 mg tablet, sublingual 0.4 mg sublingual Q5M PRN (Reason: chest pain) gabapentin 300 mg capsule 300 mg PO TID metoprolol succinate 25 mg tablet extended release 24 hr 25 mg PO DAILY hydrocortisone 10 mg tablet 20 mg PO .am rivastigmine 13.3 mg/24 hour patch 24 hour 13.3 mg transdermal DAILY meloxicam 15 mg tablet 15 mg PO DAILY omeprazole 20 mg capsule,delayed release(DR/EC) 20 mg PO DAILY aspirin 81 mg capsule 81 mg PO BID docusate sodium [Colace] 100 mg capsule 100 mg PO DAILY melatonin 10 mg capsule 10 mg PO DAILY memantine [Namenda] 10 mg PO BID Tagrisso 80 mg tablet 80 mg PO DAILY hydrocortisone 10 mg tablet 10 mg PO .evening All Day Allergy (cetirizine) 10 mg capsule 10 mg PO DAILY PRN (Reason: allergy symptoms) clonidine HCl 0.1 mg tablet 0.1 mg PO .hs prednisone 20 mg tablet 20 mg PO .QD Print Language: Citizen Of [place] Forms: Portal Instructions Follow Up Appointments: January 29 @ 2pm with Awilda Mensah NP [phone]
--- NOTE | 2024-01-18 09:45 | CM.NOTE ---
Contacted pt's daughter (Donna) regarding discharge to home today. Daughter refuses any HH services, states I have been doing this a long time. Daughter states they have everything they need at home and denies any discharge concerns. Pt will discharge to home this afternoon, no discharge needs at this time.
[2024-01-18 10:35] VITALS: PULSE 68; O2SAT 92; O2SAT 94
[2024-01-18 10:39] VITALS: O2SAT 92
[2024-01-18] MEDS: METFORMIN HCL 500 MG TABLET 1000 MG PO (10:57)
[2024-01-18] MEDS: HYDROCORTISONE 20 MG TABLET PO (10:57)
[2024-01-18] MEDS: PANTOPRAZOLE SODIUM 40 MG VIAL IV (10:57)
[2024-01-18] MEDS: DOCUSATE SODIUM 100 MG CAPSULE PO (10:58)
[2024-01-18] MEDS: MEMANTINE HCL 28 MG CAP XR PO (10:58)
[2024-01-18] MEDS: PROSTAT 15 GM PROTEIN/100 CAL 30 ML LIQUID PACKET PO (10:58)
[2024-01-18] MEDS: VENLAFAXINE HCL 50 MG TABLET PO (10:58)
[2024-01-18] MEDS: METOPROLOL SUCCINATE 25 MG TAB.ER.24H PO (10:58)
[2024-01-18] MEDS: GABAPENTIN 300 MG CAPSULE PO (10:58)
[2024-01-18] MEDS: POTASSIUM CHLORIDE 10 MEQ ER TABLET 20 MEQ PO (10:58)
[2024-01-18] MEDS: ASPIRIN 81 MG TAB.CHEW PO (10:58)
[2024-01-18] MEDS: PREDNISONE 20 MG TABLET PO (10:59)
[2024-01-18] MEDS: ENSURE HP 237 ML LIQUID PO (10:59)
[2024-01-18] MEDS: LISINOPRIL 20 MG TABLET PO (10:59)
[2024-01-18] MEDS: OSIMERTINIB 80 MG 80 EACH PO (11:00)
[2024-01-18 11:07] VITALS: BP 159/79; PULSE 86; TEMP 36.6; O2SAT 93
--- NOTE | 2024-01-18 11:41 | PT.DAILY ---
Physical Therapy Daily Note PT Daily Note/Assess Start: 01/15/24 17:25 Freq: Status: Active Protocol: Document 01/18/24 11:37 ARIC (Rec: 01/18/24 11:41 ARIC [id number]) Physical Therapy Daily Note/Assessment Time In/Time Out Time In 11:12 Time Out 11:23 Pain In Pain N/A Pain Out Pain N/A Subjective Subjective Pt sitting in BS chair upon arrival. Family present. Pt reports she thinks she would be fine at home without home health because someone is there with her all the time. Planned dc this evening to home with daughter. Therapeutic Exercise Time Therapeutic Exercise Minutes (minutes) 3 Therapeutic Exercise Units 0 Therapeutic Exercise Treatment Therapeutic Exercise Treatment Seated AP, LAQ, marches and abd step outs 10x ea to improve functional mobility prior to gait. Therapeutic Activity Time Therapeutic Activity Minutes (minutes) 6 Therapeutic Activity Units 1 Therapeutic Activity Treatment Chair Transfer Ability Contact Guard Assist Therapeutic Activity Comments Sit>stand CGA once standing pt demonstrates clonus type tremors and needs to sit back down. Second attempt is complete without tremors. Amb 30' in room with RW, CGA. Short step length noticed. Pt returned to BS chair upon completion with family present . Total Physical Therapy Time Total Therapy Minutes 9 Total Physical Therapy Units 1 Summary Daily Note Summary Fair tolerance to session. Clonus/tremors with first standing attempt but subside with second. Planned dc home with daughter this evening.
--- NOTE | 2024-01-18 15:51 | NUTR.NU ---
PO intakes remain variable; pt accepts nutritional supplements well. Abnormal labs show some improvement. Therapeutic diet education is contraindicated for this pt d/t dementia. She is being discharged to SNF this date.
--- NOTE | 2024-01-22 15:14 | CM.DCFOLLOWU ---
Person spoke with: Milena How are you feeling? She is hospitalized at [facility], transferred from [facility] d/t lack of cardiology. Pt has to sit in ER for hours prior to transfer. Did not continue with questions regarding family frustration with her illness and being re-hospitalized.
== END 2024-01-18 14:34 | disposition home or self-care (01) | DRG 871 ==
LOC: ER 16:02 → MS 17:41
PROVIDERS: Admitting Provider Family Medicine; Emergency Provider Emergency Medicine; Visit Provider Family Medicine
DX: A41.9 Sepsis, unspecified organism (principal); E43 Unspecified severe protein-calorie malnutrition; I21.A1 Myocardial infarction type 2; I50.41 Acute combined systolic (congestive) and diastolic (congestive) heart failure; J18.9 Pneumonia, unspecified organism; K57.93 Diverticulitis of intestine, part unspecified, without perforation or abscess with bleeding; N17.9 Acute kidney failure, unspecified; D62 Acute posthemorrhagic anemia; C34.90 Malignant neoplasm of unspecified part of unspecified bronchus or lung; C79.31 Secondary malignant neoplasm of brain; C79.51 Secondary malignant neoplasm of bone; E72.20 Disorder of urea cycle metabolism, unspecified; Z68.1 Body mass index [BMI] 19.9 or less, adult; M48.54XA Collapsed vertebra, not elsewhere classified, thoracic region, initial encounter for fracture; D68.8 Other specified coagulation defects; R65.20 Severe sepsis without septic shock; E86.0 Dehydration; R09.02 Hypoxemia; R31.9 Hematuria, unspecified; F03.90 Unspecified dementia, unspecified severity, without behavioral disturbance, psychotic disturbance, mood disturbance, and anxiety; I25.10 Atherosclerotic heart disease of native coronary artery without angina pectoris; E11.9 Type 2 diabetes mellitus without complications; I25.2 Old myocardial infarction; Z95.5 Presence of coronary angioplasty implant and graft; D69.59 Other secondary thrombocytopenia; E87.6 Hypokalemia; I11.0 Hypertensive heart disease with heart failure; Z79.82 Long term (current) use of aspirin; Z79.899 Other long term (current) drug therapy; Z87.01 Personal history of pneumonia (recurrent); Z86.73 Personal history of transient ischemic attack (TIA), and cerebral infarction without residual deficits; Z87.891 Personal history of nicotine dependence; Z79.1 Long term (current) use of non-steroidal anti-inflammatories (NSAID); Z82.49 Family history of ischemic heart disease and other diseases of the circulatory system; Z83.3 Family history of diabetes mellitus; Z79.84 Long term (current) use of oral hypoglycemic drugs
CPT/HCPCS: 36415; 36430; 36591; 71045; 74022; 74176; 80048; 80053; 80076; 81001; 82140; 82800; 82948; 83605; 83735; 83880; 84145; 84484; 85007; 85025; 85027; 85610; 85730; 86140; 86850; 86900; 86901; 87040; 87086; 87493; 87507; 87804; 87811; 93005; 93306; 94640; 94667; 94668; 94761; 96361; 96365; 96366; 96367; 96368; 96375; 96376; 97163; 97165; 97530; 97535; 99285; G0328; J1720; J3480; P9016

== ENCOUNTER 2024-01-18 18:59 | Emergency (ER) | payer MEDICARE, BC, SELFPAY ==
[2024-01-18] VITALS (33 sets, daily range): BP systolic 108–162; BP diastolic 85–119; PULSE 103–136; TEMP 36.5; O2SAT 91–97; BMI 23.3
--- NOTE | 2024-01-18 19:15 | ECG_ITS ---
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
--- OUTSIDE RECORDS SUMMARY | 2024-01-18 19:18 | XMS_ITS | CCD ---
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 Name Role Phone Sal James MD Unavailable Harry Brannon RN Unavailable [phone] Yanci Churchill MD Unavailable Chichi Gonsalez PA-C Unavailable [phone] ., [address] COCHRAN Admitting Unavailable MARKER ., DR COCHRAN Attending Unavailable JACK, DR ALONZO Primary Care Unavailable MARKER ., DR COCHRAN Consulting Unavailable RASTEGAR, JUDAH Consulting Unavailable Sal James MD Unavailable [phone] Harry Brannon RN Unavailable Yanci Churchill MD Unavailable Chichi Gonsalez PA-C Unavailable Lexi Escobar MD Primary Care Provider [phone] Fei Olsen Attending Unavailable Fei Olsen Admitting Unavailable NO FAMILY, PHYSICIAN Primary Care Unavailable Harry Brannon RN Unavailable YANCI CHURCHILL Referring Unavailable LEXI ESCOBAR Primary Care Unavailable VICKIE SANDERSON Referring Unavailable LEXI ESCOBAR Primary Care Unavailable PAIGE SERNA Attending Unavailable Lexi Escobar MD Primary Care Provider KAHLIL POWERS Attending Unavailable Lexi Escobar MD Primary Care Provider [phone] YANCI CHURCHILL Referring Unavailable BETTINA TANG Attending UnavailLEXI Tejeda Primary Care Unavailable KARAMLOU, YANCI Referring Unavailable LEXI ESCOBAR Primary Care Unavailable KERRILOU, YANCI Referring Unavailable KERRILOU, YANCI Attending Unavailable LEXI ESCOBAR Primary Care Unavailable LEXI ESCOBAR Primary Care Unavailable SELF Referring Unavailable LEXI ESCOBAR Primary Care Unavailable KERRILOU, YANCI Referring Unavailable KERRILOU, YANCI Attending Unavailable LEXI ESCOBAR Primary Care Unavailable LEXI ESCOBAR Primary Care Unavailable VICKIE SANDERSON Attending Unavailable RAYMUNDOU, YANCI Referring Unavailable LEXI ESCOBAR Primary Care Unavailable Allergies Allergy Classification Reported Allergen(s) Allergy Type Date of Onset Reaction(s) Facility (2 sources) rOPINIRole Drug Allergy 4 [facility] (2 sources) Tetracycline Drug Allergy 2 Unknown [facility] (3 sources) Iodinated Contrast Media; Translations: [IODINATED CONTRAST MEDIA] Drug Allergy 4 [facility] (1 source) Tetracyclines; Translations: [TETRACYCLINES] Propensity to adverse reactions to drug (disorder) 2 [facility] Repository Medications Current Medications Medication Drug Class(es) Dates Sig (Normalized) Sig (Original) acetaminophen 325 mg / HYDROcodone bitartrate 5 mg oral tablet (2 sources) Opioid Agonist Start: 08-08-2023 End: 08-23-2023 take 1 tablet by mouth every eight hours as needed for pain HYDROcodone-aceta minophen (NORCO) 5-325 mg per tablet Indications: 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 45 tablet 0 08/08/2023 08/23/2023 Active Comment on above: Take 1 tablet by cristobal th every 8 hours as needed for pain for up to 15 days. ALPRAZolam 0.5 mg oral tablet (20 sources) Benzodiazepine Start: 12-17-2023 End: 01-16-2024 take 1 tablet by mouth three times daily as needed ALPRAZolam (XANAX) 0.5 mg tablet Indications: 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, unspecified laterality (HCC) Take 1 tablet by mouth three times a day as needed for up to 30 days. 270 tablet 0 12/17/2023 01/16/2024 Active Start: 02-09-2023 End: 05-10-2023 take 1 tablet by mouth three times daily as needed ALPRAZolam (XANAX) 0.5 mg tablet Indications: 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, unspecified laterality (HCC) Take 1 tablet by mouth three times daily as needed for up to 90 days. 270 tablet 1 02/09/2023 05/10/2023 Active Comment on above: Take 0.5 mg by mouth . Take 1 tablet by cristobal th three times daily as needed for up to 90 days. aspirin 81 mg delayed release oral tablet (20 sources) Platelet Aggregation Inhibitor, Nonsteroidal Anti-inflammatory Drug aspirin, enteric coated (ASPIRIN, ENTERIC COATED) 81 mg EC tablet Take 162 mg by mouth. 0 Active Comment on above: Take 162 mg by mouth . atorvastatin 80 mg oral tablet (20 sources) HMG-CoA Reductase Inhibitor Start: 3 take 1 tablet by mouth once daily ATORVASTATIN 80 mg tablet Take 80 mg by mouth once daily. 0 05/10/2013 Active Comment on above: Take 80 mg by mouth once daily. biotin 5 mg oral tablet (20 sources) take 1 tablet by mouth once daily biotin 5 mg tab Take 5 mg by mouth once daily. 0 Active Biotin [address] under the tongue twice a day 0 Active Comment on above: Take 5 mg by mouth o nce daily. bisacodyl 5 mg delayed release oral tablet (20 sources) Stimulant Laxative Start: 9 bisacodyl EC (DULCOLAX) 5 mg EC tablet Bisacodyl Bisacodyl Active 10 MG Oral Daily 0 November 11, 2018 10:25am 11-11-2018 [facility] ([id number]) 0 11/11/2018 Active Comment on above: Bisacodyl Bisacodyl Active 10 MG Oral Daily 0 November 11, 2018 10:25am 11-11-2018 [facility] ([id number]) Blood-Glucose Meter (TRUE METRIX GLUCOSE METER) misc (20 sources) Start: 9 Blood-Glucose Meter (TRUE METRIX GLUCOSE METER) [facility] [place] Indications: Controlled type 2 diabetes mellitus without complication, with long-term current use of insulin (HCC) Use to test 3 times a day 1 Each 0 11/08/2018 Active Comment on above: Use to test 3 times a day cetirizine hydrochloride 10 mg oral tablet (20 sources) Histamine-1 Receptor Antagonist take 1 tablet by mouth once daily cetirizine (ZYRTEC) 10 mg tablet Take 10 mg by mouth once daily. 0 Active cetirizine (ZyrT EC) 10 MG chewable tablet Chew 10 mg 0 Active Comment on above: Take 10 mg by mouth once daily. clonazePAM 0.5 mg oral tablet (2 sources) Benzodiazepine Start : 06-24 take 0.5 tablet by mouth three times daily at bedtime clonazePAM (KlonoPIN) 0.5 MG tablet TAKE 1/2 (ONE-HALF) TABLET BY MOUTH THREE TIMES DAILY (MORNING, NOON AND AT BEDTIME) 0 06/24/2023 Active cloNIDine hydrochloride 0.1 mg oral tablet (20 sources) Central alpha-2 Adrenergic Agonist End: 07-17 take 1 tablet by mouth at bedtime cloNIDine (Catapres) 0.1 MG tablet Take 0.1 mg by mouth at bedtime 0 Active Comment on above: Take 0.1 mg by mouth daily at bedtime. 1 ml diphenhydrAMINE hydrochloride 50 mg/ml injection (20 sources) Histamine-1 Receptor Antagonist Start : 11-11 diphenhydrAMINE (BENADRYL) 50 mg/mL injection diphenhydrAMINE Diphenhydramine Hcl Active 25 MG IV Push Q6H 0 November 11, 2018 10:25am 11-11-2018 [facility] ([id number]) 0 11/11/2018 Active Comment on above: diphenhydrAMINE Diph enhydramine Hcl Active 25 MG IV Push Q6H 0 November 11, 2018 10:25am 11-11-2018 [facility] ([id number]) docusate sodium 100 mg oral capsule (20 sources) take 1 capsule by mouth once daily at bedtime docusate sodium (COLACE) 100 mg capsule Take 100 mg by mouth daily at bedtime. 0 Active Comment on above: Take 100 mg by mouth daily at bedtime. fluconazole 150 mg oral tablet (2 sources) Azole Antifungal Start : 11-23 fluconazole (Diflucan) 150 MG tablet TAKE ONE TABLET BY MOUTH A ONE-TIME DOSE 0 11/23/2022 Active gabapentin 300 mg oral capsule (20 sources) Anti-epileptic Agent Start : 11-15 gabapentin (NEURONTIN) 300 mg capsule Take 1 capsule by mouth as directed for 30 days. Take one pill (300mg) every morning and every afternoon and take two pills (600mg at night) 120 capsule 0 11/15/2018 Active Comment on above: Take 1 capsule by [facility] as directed for 30 days. Take one pill (300mg) every morning and every afternoon and take two pills (600mg at night) hydrocortisone 10 mg oral tablet (20 sources) Corticosteroid Start : 09-23 End: 10-09 take 2 tablets by mouth in the morning, then take 1 tablet by mouth in the evening hydrocortisone (CORTEF) 10 mg tablet Take two (2) tablets by mouth in the morning and one (1) tablet by mouth in the evening. 270 tablet 2 10/09/2023 Active Comment on above: Take two (2) tablets by mouth in the morning and one (1) tablet by mouth in the evening. 3 ml insulin aspart, human 100 unt/ml pen injector (20 sources) Insulin Analog Start : 11-11 insulin aspart U-100 (NOVOLOG) 100 unit/mL (3 mL) Insulin, Aspart, Human Insulin Aspart U-100 Active 0 UNITS Subcutaneous 3X/Day with meals and bedtime 0 November 11, 2018 10:25am 11-11-2018 [facility] ([id number]) 0 11/11/2018 Active Comment on above: Insulin, Aspart, Hum an Insulin Aspart U-100 Active 0 UNITS Subcutaneous 3X/Day with meals and bedtime 0 November 11, 2018 10:25am 11-11-2018 [facility] ([id number]) ipratropium bromide 0.042 mg/actuat metered dose nasal spray (20 sources) Anticholinergic Start : 05-08 IPRATROPIUM BROMIDE 0.06 % nasal spray Use 1 [place] in the nose as needed. 0 05/08/2013 Active Comment on above: Use 1 [place] in the n ose as needed. iv contrast (will be provided with radiology test) (20 sources) Start : 10-09 End: 10-10 inject 1 dose intravenously once iv contrast (will be provided with radiology test) MRI Brain Inject, intravenously, once for 1 dose.No IV access, insert saline lock prior to beginning of sedation, infusion, injection of imaging exam.Discontinue saline lock post exam. If Pt. has a central line or IVAD, may access for administration according to line specific nursing protocol.Once exam is complete flush line and de-access according to line specific nursing protocol in the MR contrast administration guidelines link 1 Each 0 10/09/2023 10/10/2023 Active Start: 05-09-2022 End: 05-10-2022 inject 1 dose intravenously once iv contrast (will be provided with radiology test) MRI Brain Inject, intravenously, once for 1 dose.No IV access, insert saline lock prior to beginning of sedation, infusion, injection of imaging exam.Discontinue saline lock post exam. If Pt. has a central line or IVAD, may access for administration according to line specific nursing protocol.Once exam is complete flush line and de-access according to line specific nursing protocol in the MR contrast administration guidelines link 1 Each 0 05/09/2022 05/10/2022 Active Start: 03-07-2022 End: 02-09-2023 iv contrast (will be provide d with radiology test) CT ABD/PEL -Inject, intravenously, once for 1 dose.No IV access, insert saline lock prior to the beginning of sedation, infusion, injection of imaging exam. Discontinue saline lock post exam. If Pt. has a central line or IVAD, may access for administration according to line specific nursing protocol. Once exam is complete flush line and de-access according to line specific nursing protocol in the CT contrast administration guidelines link. 1 Each 0 03/07/2022 02/09/2023 Discontinued Start: 03-07-2022 End: 02-09-2023 iv contrast (will be provide d with radiology test) CT Chest W -Inject, intravenously, once for 1 dose.No IV access, insert saline lock prior to the beginning of sedation, infusion, injection of imaging exam. Discontinue saline lock post exam. If Pt. has a central line or IVAD, may access for administration according to line specific nursing protocol. Once exam is complete flush line and de-access according to line specific nursing protocol in the CT contrast administration guidelines link. 1 Each 0 03/07/2022 02/09/2023 Discontinued Start: 03-07-2022 iv contrast (w ill be provided with radiology test) CT ABD/PEL -Inject, intravenously, once for 1 dose.No IV access, insert saline lock prior to the beginning of sedation, infusion, injection of imaging exam. Discontinue saline lock post exam. If Pt. has a central line or IVAD, may access for administration according to line specific nursing protocol. Once exam is complete flush line and de-access according to line specific nursing protocol in the CT contrast administration guidelines link. 1 Each 0 03/07/2022 Active Start: 03-07-2022 iv contrast (w ill be provided with radiology test) CT Chest W -Inject, intravenously, once for 1 dose.No IV access, insert saline lock prior to the beginning of sedation, infusion, injection of imaging exam. Discontinue saline lock post exam. If Pt. has a central line or IVAD, may access for administration according to line specific nursing protocol. Once exam is complete flush line and de-access according to line specific nursing protocol in the CT contrast administration guidelines link. 1 Each 0 03/07/2022 Active Start: 06-14-2021 End: 03-07-2022 iv contrast (will be provide d with radiology test) CT ABD/PEL -Inject, intravenously, once for 1 dose.No IV access, insert saline lock prior to the beginning of sedation, infusion, injection of imaging exam. Discontinue saline lock post exam. If Pt. has a central line or IVAD, may access for administration according to line specific nursing protocol. Once exam is complete flush line and de-access according to line specific nursing protocol in the CT contrast administration guidelines link. 1 Each 0 06/14/2021 03/07/2022 Discontinued (Erroneous entry) Start: 06-14-2021 End: 03-07-2022 iv contrast (will be provide d with radiology test) CT Chest W -Inject, intravenously, once for 1 dose.No IV access, insert saline lock prior to the beginning of sedation, infusion, injection of imaging exam. Discontinue saline lock post exam. If Pt. has a central line or IVAD, may access for administration according to line specific nursing protocol. Once exam is complete flush line and de-access according to line specific nursing protocol in the CT contrast administration guidelines link. 1 Each 0 06/14/2021 03/07/2022 Discontinued (Erroneous entry) Start: 06-14-2021 iv contrast (w ill be provided with radiology test) CT ABD/PEL -Inject, intravenously, once for 1 dose.No IV access, insert saline lock prior to the beginning of sedation, infusion, injection of imaging exam. Discontinue saline lock post exam. If Pt. has a central line or IVAD, may access for administration according to line specific nursing protocol. Once exam is complete flush line and de-access according to line specific nursing protocol in the CT contrast administration guidelines link. 1 Each 0 06/14/2021 Active Start: 06-14-2021 iv contrast (w ill be provided with radiology test) CT Chest W -Inject, intravenously, once for 1 dose.No IV access, insert saline lock prior to the beginning of sedation, infusion, injection of imaging exam. Discontinue saline lock post exam. If Pt. has a central line or IVAD, may access for administration according to line specific nursing protocol. Once exam is complete flush line and de-access according to line specific nursing protocol in the CT contrast administration guidelines link. 1 Each 0 06/14/2021 Active Comment on above: CT ABD/PEL -Inject, intravenously, once for 1 dose.No IV access, insert saline lock prior to the beginning of sedation, infusion, injection of imaging exam. Discontinue saline lock post exam. If Pt. has a central line or IVAD, may access for administration according to line specific nursing protocol. Once exam is complete flush line and de-access according to line specific nursing protocol in the CT contrast administration guidelines link. CT Chest W -Inject, intravenously, once for 1 dose.No IV access, insert saline lock prior to the beginning of sedation, infusion, injection of imaging exam. Discontinue saline lock post exam. If Pt. has a central line or IVAD, may access for administration according to line specific nursing protocol. Once exam is complete flush line and de-access according to line specific nursing protocol in the CT contrast administration guidelines link. MRI Brain Inject, in travenously, once for 1 dose.No IV access, insert saline lock prior to beginning of sedation, infusion, injection of imaging exam.Discontinue saline lock post exam. If Pt. has a central line or IVAD, may access for administration according to line specific nursing protocol.Once exam is complete flush line and de-access according to line specific nursing protocol in the MR contrast administration guidelines link ketoconazole 20 mg/ml medicated shampoo (20 sources) Azole Antifungal Start: 05-29-20 13 KETOCONAZOLE 2 % shampoo Apply 1 application to affected area once daily as needed. 0 05/29/2013 Active Comment on above: Apply 1 application to affected area once daily as needed. labetalol hydrochloride 5 mg/ml injectable solution (20 sources) beta-Adrenergic Sofi Start: 11-12-19 19 labetalol (NORMODYNE) 5 mg/mL injection Labetalol Labetalol Active 5 MG IV Push Q4H 0 November 11, 2018 10:28am 11-11-2018 [facility] ([id number]) 0 11/11/2018 Active Comment on above: Labetalol Labetalol Active 5 MG IV Push Q4H 0 November 11, 2018 10:28am 11-11-2018 [facility] ([id number]) lamoTRIgine 200 mg oral tablet (20 sources) Mood Stabilizer, Anti-epileptic Agent Start: 03-12-20 13 take 1 tablet by mouth once daily at bedtime LAMOTRIGINE 200 mg tablet Take 200 mg by mouth daily at bedtime. 0 03/12/2013 Active Comment on above: Take 200 mg by mouth daily at bedtime. lisinopril 20 mg oral tablet (20 sources) Angiotensin Converting Enzyme Inhibitor Start: 03-28-20 20 lisinopril (ZESTRIL, PRINIVIL) 20 mg tablet melatonin 10 mg oral tablet (20 sources) take 1 tablet by mouth once daily at bedtime melatonin 10 mg tab Take 1 tablet by mouth daily at bedtime. 0 Active Comment on above: Take 1 tablet by cristobal th daily at bedtime. meloxicam 15 mg oral tablet (20 sources) Nonsteroidal Anti-inflammatory Drug Start: 09-17-19 24 take 1 tablet by mouth in the morning meloxicam (Mobic) 15 MG tablet Indications: Restless legs syndrome , 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, unspecified laterality (CMS/HCC) Take 1 tablet (15 mg) by mouth in the morning. 90 tablet 1 09/17/2023 Active End: 08-08-2023 meloxicam (MOBIC) 15 mg tabl et Take 15 mg by mouth. 0 08/08/2023 Discontinued Comment on above: Take 15 mg by mouth. memantine hydrochloride 10 mg oral tablet (20 sources) K-tnwxhb-H-[place]part[place] te Receptor Antagonist Start: 04-08-20 13 take 1 tablet by mouth twice daily NAMENDA 10 mg tablet Take 10 mg by mouth twice daily. 0 04/08/2013 Active Comment on above: Take 10 mg by mouth twice daily. metFORMIN hydrochloride 1000 mg oral tablet (20 sources) Biguanide take 1000 mg by mouth once daily metformin HCl (METFORMIN ORAL) Take 1,000 mg by mouth once daily. 0 Active Comment on above: Take 1,000 mg by cristobal th once daily. methylphenidate hydrochloride 20 mg oral tablet (20 sources) Central Nervous System Stimulant Start: 09-11-19 End: 10-11-19 24 take 0.5 tablet by mouth twice daily methylphenidate (RITALIN) 20 mg tablet Indications: Neoplastic malignant related fatigue , Palliative care by specialist Take 0.5 tablets by mouth two times a day for 30 days. 30 tablet 0 09/11/2023 Active Start: 09-11-2023 End: 10-11-2023 take 10 mg by mouth in the morning methylphenidate (Ritalin) 20 MG tablet Take 10 mg by mouth in the morning and 10 mg in the evening. 0 09/11/2023 10/11/2023 Active Start: 08-02-2023 End: 09-01-2023 take 0.5 tablet by mouth twice daily methylphenidate (RITALIN) 20 mg tablet Indications: Neoplastic malignant related fatigue , Palliative care by specialist Take 0.5 tablets by mouth two times a day for 30 days. 30 tablet 0 08/02/2023 09/01/2023 Active Start: 07-17-2023 End: 08-31-2023 take 1-2 tablets by mouth twice daily as needed methylphenidate (RITALIN) 5 mg tablet Indications: Malaise and fatigue Take 1-2 tablets by mouth two times a day as needed for up to 30 days. 120 tablet 0 08/01/2023 08/02/2023 Discontinued Comment on above: Take 1 tablet by cristobal two times a day as needed for up to 15 days. Take 1-2 tablets by mouth two times a day as needed for up to 30 days. Take 0.5 tablets by mouth two times a day for 30 days. 24 hr metoprolol succinate 25 mg extended release oral tablet (20 sources) beta-Adrenergic Sofi Start: 04-25-2020 metoprolol succinate ER (TOPROL XL) 25 mg 24 hr tablet Start: 03-28-2013 take 1 tablet by cristobal th once daily TOPROL XL 50 mg 24 hr tablet Take 50 mg by mouth once daily. 0 03/28/2013 Active Comment on above: Take 50 mg by mouth once daily. nitroglycerin 0.4 mg sublingual tablet (20 sources) Nitrate Vasodilator Start: 12-16-19 nitroglycerin (Nitrostat) 0.[address] 0.4 mg under the tongue 0 12/15/2022 Active Comment on above: Dissolve 0.4 mg unde r the tongue. nystatin [id number] unt/ml oral suspension (20 sources) Polyene Antifungal Start: 11-12-19 nystatin (MYCOSTATIN) 100,000 unit/mL suspension Nystatin Nystatin Active 143187 UNIT Oral Four times daily 0 November 11, 2018 10:28am 11-11-2018 [facility] ([id number]) 0 11/11/2018 Active Comment on above: Nystatin Nystatin Ac tive [id number] UNIT Oral Four times daily 0 November 11, 2018 10:28am 11-11-2018 [facility] ([id number]) OLANZapine 5 mg oral tablet (20 sources) Atypical Antipsychotic Start: 08-13-20 End: 12-17-19 take 1 tablet by mouth once daily at bedtime OLANZapine (ZYPREXA) 5 mg tablet take 1 tablet by mouth once daily at bedtime 90 tablet 0 12/17/2023 Active Start: 11-20-2022 End: 05-14-2023 take 1 tablet by mouth once daily at bedtime OLANZapine (ZYPREXA) 5 mg tablet take 1 tablet by mouth once daily at bedtime 90 tablet 0 05/14/2023 Active Start: 08-07-2022 take 1 tablet by cristobal th once daily at bedtime OLANZapine (ZYPREXA) 5 mg tablet TAKE 1 TABLET BY MOUTH ONCE DAILY AT BEDTIME 90 tablet 0 08/07/2022 Active Start: 11-30-2021 End: 05-31-2022 take 1 tablet by mouth once daily at bedtime OLANZapine (ZYPREXA) 5 mg tablet Take 1 tablet by mouth daily at bedtime. 90 tablet 0 05/31/2022 Active Comment on above: TAKE 1 TABLET BY CRISTOBAL TH ONCE DAILY AT BEDTIME Take 1 tablet by cristobal th daily at bedtime. omeprazole 20 mg delayed release oral capsule (20 sources) Proton Pump Inhibitor Start: 11-15-2018 take 2 capsules by mouth once daily omeprazole (PRILOSEC) 20 mg capsule Take 2 capsules by mouth once daily. 60 capsule 11/15/2018 Active take 1 capsule by mouth in the m orning omeprazole (PriLOSEC) [address] capsule Take 20 mg by mouth in the morning. 0 Active Comment on above: Take 2 capsules by m outh once daily. osimertinib 80 mg oral tablet (20 sources) Kinase Inhibitor Start: 01-15-2023 End: 12-26-2023 take 1 tablet by mouth once daily osimertinib (TAGRISSO) 80 mg tablet Indications: 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) Take 1 tablet (80 mg) by mouth once daily. 30 tablet 5 12/26/2023 Active Start: 07-04-2021 End: 12-26-2022 take 1 tablet by mouth once daily osimertinib (TAGRISSO) 80 mg tablet Indications: 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) Take 1 tablet (80 mg) by mouth once daily. 30 tablet 5 12/26/2022 Active Comment on above: Take 1 tablet (80 mg ) by mouth once daily. pantoprazole 40 mg injection (20 sources) Proton Pump Inhibitor Start: 9 pantoprazole (PROTONIX) 40 mg injection pantoprazole Pantoprazole Active 40 MG IV Push Daily 0 November 11, 2018 10:29am 11-11-2018 [facility] ([id number]) 0 11/11/2018 Active Comment on above: pantoprazole Pantopr azole Active 40 MG IV Push Daily 0 November 11, 2018 10:29am 11-11-2018 [facility] ([id number]) predniSONE 20 mg oral tablet (20 sources) Start: 4 End: 4 take 1 tablet by mouth once daily predniSONE (DELTASONE) 20 mg tablet Take 1 tablet by mouth once daily 30 tablet 0 01/03/2024 04/02/2024 Active Start: 07-09-2023 End: 10-07-2023 take 1 tablet by mouth once daily predniSONE (DELTASONE) 20 mg tablet Take 1 tablet by mouth once daily. 30 tablet 1 07/09/2023 10/07/2023 Active Start: 05-01-2023 End: 05-31-2023 take 1 tablet by mouth once daily predniSONE (DELTASONE) 20 mg tablet Take 1 tablet by mouth once daily. 30 tablet 1 05/01/2023 05/31/2023 Active Start: 04-11-2023 End: 04-16-2023 take 1 tablet by mouth once daily predniSONE (DELTASONE) 20 mg tablet Take 1 tablet by mouth once daily for 5 days. 5 tablet 0 04/11/2023 04/16/2023 Active Comment on above: Take 1 tablet by cristobal th once daily for 5 days. Take 1 tablet by cristobal th once daily. promethazine hydrochloride 1.25 mg/ml oral solution (20 sources) Phenothiazine Start: 08-28-19 End: 12-10-19 take 5-10 mL by mouth every six hours as needed promethazine (PHENERGAN) 6.25 mg/5 mL syrup TAKE 5 TO 10 ML BY MOUTH EVERY 6 HOURS NEEDED 120 mL 0 12/10/2023 Active Start: 05-03-2021 End: 07-09-2023 promethazine (PHENERGAN) 6.2 5 mg/5 mL syrup TAKE 5 ML TO 10 ML BY MOUTH EVERY 6 HOURS NEEDED 120 mL 0 07/09/2023 Active Comment on above: TAKE 5 ML TO 10 ML B Y MOUTH EVERY 6 HOURS NEEDED TAKE 5 TO 10 ML BY M OUTH EVERY 6 HOURS NEEDED QUEtiapine 100 mg oral tablet (20 sources) Atypical Antipsychotic Start: take 1 tablet by mouth at bedtime QUEtiapine (SEROquel) 100 MG tablet Take 100 mg by mouth at bedtime 0 08/29/2023 Active Start: 06-01-2013 take 3 tablets by mo uth at bedtime, then take 4 tablets by mouth once daily QUEtiapine (SEROQUEL) 25 mg tablet Take 25 mg by mouth as needed. Take 3 tabs at bedtime and 100 mg daily 0 06/01/2013 Active Comment on above: Take 25 mg by mouth as needed. Take 3 tabs at bedtime and 100 mg daily 24 hr rivastigmine 0.554 mg/hr transdermal system (20 sources) Start: 019 apply 1 dose transdermal route once daily rivastigmine (EXELON) 13.3 mg/24 hour patch 1 Patch once daily. 0 10/29/2018 Active Comment on above: 1 Patch once daily. venlafaxine 50 mg oral tablet (20 sources) Serotonin and Norepinephrine Reuptake Inhibitor Start: 013 take 1 tablet by mouth twice daily VENLAFAXINE 50 mg tablet Take 50 mg by mouth twice daily. 0 05/03/2013 Active venlafaxine (Eff exor) 50 MG tablet 50 mg 1 (one) time each day at the same time 0 Active Comment on above: Take 50 mg by mouth twice daily. Completed/Discontinued Medications Medication Drug Class(es) Dates Sig (Normalized) Sig (Original) 1 ml dexamethasone phosphate 4 mg/ml injection (20 sources) Corticosteroid Start: 11-11-2018 End: 08-08-2023 dexamethasone sodium phosphate (DECADRON) 4 mg/mL injection Dexamethasone Dexamethasone Sodium Phosphate Active 4 MG IV Push Daily 0 November 11, 2018 10:25am 11-11-2018 [facility] ([id number]) 0 11/11/2018 08/08/2023 Discontinued take 1 tablet by mouth in the mo rning dexAMETHasone (Decadron) 4 MG tablet Take 4 mg by mouth in the morning and 4 mg in the evening. Take with meals. 0 Active Comment on above: Dexamethasone Dexame thasone Sodium Phosphate Active 4 MG IV Push Daily 0 November 11, 2018 10:25am 11-11-2018 [facility] ([id number]) 1 ml ketorolac tromethamine 30 mg/ml injection (20 sources) Nonsteroidal Anti-inflammatory Drug, Cyclooxygenase Inhibitor Start: 11-11-2018 End: 08-08-2023 ketorolac (TORADOL) 30 mg/mL (1 mL) soln Ketorolac Ketorolac Active 15 MG IV Push Q6H 0 November 11, 2018 10:28am 11-11-2018 [facility] ([id number]) 0 11/11/2018 08/08/2023 Discontinued Comment on above: Ketorolac Ketorolac Active 15 MG IV Push Q6H 0 November 11, 2018 10:28am 11-11-2018 [facility] ([id number]) oxyCODONE hydrochloride 1 mg/ml oral solution (20 sources) Opioid Agonist Start: 04-03-2019 End: 07-17-2023 oxyCODONE (ROXICODONE) 5 mg/5 mL oral solution Indications: 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, unspecified laterality (HCC) Take 5 mL by mouth every 4 hours as needed for up to 94 days. TAKE 1 TEASPOON(S) (5ML) EVERY SIX(6) TO EIGHT(8) HOURS NEEDED FOR PAIN. 450 mL 0 04/03/2019 07/17/2023 Discontinued Comment on above: Take 5 mL by mouth e very 4 hours as needed for up to 94 days. TAKE 1 TEASPOON(S) (5ML) EVERY SIX(6) TO EIGHT(8) HOURS NEEDED FOR PAIN. Problems Active Problems Problem Classification Problem Date Documented Da te Episodic/Chronic Anxiety disorders (2 sources) Generalized anxiety disorder; Translations: [Generalized anxiety disorder] Onset: 06-14-2023 Chronic Cancer of bronchus; lung (20 sources) Malignant neoplasm of lower respiratory tract; Translations: [Malignant neoplasm of unspecified part of unspecified bronchus or lung] Onset: 10-16-2018 Chronic Cataract (20 sources) Senile cataract; Translations: [Unspecified age-related cataract] Onset: 05-02-2013 05-02-2013 Chronic Coronary atherosclerosis and other heart disease (5 sources) Coronary arteriosclerosis; Translations: [Atherosclerotic heart disease of [place] coronary artery without angina pectoris] Onset: 09-17-2023 09-17-2023 Chronic Delirium, dementia, and amnestic and other cognitive disorders (2 sources) Dementia; Translations: [Unspecified dementia without behavioral disturbance] Onset: 09-17-2023 09-17-2023 Chronic Diabetes mellitus without complication (3 sources) Impaired glucose tolerance; Translations: [Impaired glucose tolerance (oral)] Onset: 09-17-2023 09-17-2023 Episodic Disorders of lipid metabolism (2 sources) Hypercholesterolem ia; Translations: [Pure hypercholesterolem ia, unspecified] Onset: 09-17-2023 09-17-2023 Chronic Essential hypertension (2 sources) Benign essential hypertension; Translations: [Essential (primary) hypertension] Onset: 09-17-2023 09-17-2023 Chronic Mood disorders (2 sources) Bipolar I disorder; Translations: [Bipolar disorder, unspecified] Onset: 09-17-2023 09-17-2023 Chronic Other aftercare (2 sources) Under care of palliative care physician; Translations: [Encounter for palliative care] 07-17-2023 Episodic Other aftercare (2 sources) care home systemic steroid user; Translations: [care home (current) use of systemic steroids] Onset: 09-17-2023 09-17-2023 Episodic Other and unspecified benign neoplasm (1 source) Benign neoplasm of peripheral nerves and autonomic nervous system, unspecified; Translations: [Schwannoma] Onset: 08-24-2023 Episodic Other gastrointestinal disorders (1 source) Constipation; Translations: [Other constipation] Episodic Other gastrointestinal disorders (1 source) Dysphagia; Translations: [Dysphagia, unspecified] Episodic Other gastrointestinal disorders (1 source) Constipation, unspecified; Translations: [Constipation, unspecified] Onset: 02-26-2023 Episodic Other gastrointestinal disorders (2 sources) Slow transit constipation; Translations: [Slow transit constipation] Onset: 09-17-2023 09-17-2023 Episodic Other hereditary and degenerative nervous system conditions (2 sources) Restless legs; Translations: [Restless legs syndrome] Onset: 09-17-2023 09-17-2023 Chronic Secondary malignancies (20 sources) Secondary malignant neoplasm of brain; Translations: [Secondary malignant neoplasm of brain] Onset: 10-28-2018 10-28-2018 Chronic Secondary malignancies (3 sources) Secondary malignant neoplasm of brain; 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)] Onset: 07-17-2023 Chronic Secondary malignancies (2 sources) Secondary malignant neoplasm of brain and spinal cord; Translations: [Secondary malignant neoplasm of brain] Onset: 10-28-2018 09-17-2023 Chronic Secondary malignancies (2 sources) Secondary malignant neoplasm of bone; 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] Onset: 09-17-2023 09-17-2023 Chronic Thyroid disorders (2 sources) Thyroid nodule; Translations: [Nontoxic single thyroid nodule] Onset: 09-17-2023 09-17-2023 Chronic Past or Other Problems Problem Classification Problem Date Documented Da te Episodic/Chronic Malaise and fatigue (8 sources) Malaise and fatigue; Translations: [Other malaise] Onset: 07-17-2023 07-17-2023 Episodic Mood disorders (2 sources) Mood disorders Onset: 09-17-2023 09-17-2023 Mycoses (20 sources) Candidiasis of mouth; Translations: [Candidal stomatitis] Onset: 02-25-2019 02-25-2019 Episodic Nonspecific chest pain (4 sources) Chest pain; Translations: [Chest pain, unspecified] Onset: 11-11-2018 Resolved: 11-14-2018 11-14-2018 Episodic Nutritional deficiencies (4 sources) Undernutrition; Translations: [Mild protein-calorie malnutrition] Onset: 11-13-2018 Resolved: 02-21-2019 02-21-2019 Chronic Other aftercare (1 source) Encounter for palliative care; Translations: [Palliative care by specialist] Onset: 07-17-2023 Episodic Other nervous system disorders (5 sources) Pain due to neoplastic disease; Translations: [Neoplasm related pain (acute) (chronic)] Onset: 10-16-2018 Resolved: 02-25-2019 08-08-2023 Chronic Residual codes; unclassified (4 sources) Delirium; Translations: [Disorientation, unspecified] Onset: 11-12-2018 Resolved: 02-21-2019 02-21-2019 Episodic Results Test Name Value Interpretation Reference Range Facility [facility] 12-15-2023 Refill [id number] Adela Lucia ma 1940 F Date Provider Department Center 12/15/2023 KAHLIL DINH [facility] Lydia Heal No family history on file Reason for Visit and Comments: Med Refill [[id number]] [facility] CNPMayelin 12-03-2023 CNPN Telephone (HEMASA) SEYMOUR LUCIA ([id number]) 1940 F Date Time Provider Department 12/03/23 HARRY BRANNON HEMASA During your visit today, we recorded the following information about you: Harry Brannon, RN 12/03/2023 8:56 AM Signed Pt's daughter called Dr Richter over the weekend stating she did an at home urine test and pt has a UTI. Called and spoke with daughter who states bactrim was called into their pharmacy and pt is feeling better already. Daughter states pt has been wearing her depends more over the last couple of weeks, but feels it was because of her UTI. Will continue to monitor for now. Harry Brannon RN Allergies As of Date: 12/03/2023 (No Known Allergies) Date Reviewed: 10/09/2023 Reviewed by: Yanci Churchill MD - Fully Assessed Reason for Visit: Care Coordination [3491] Cmt: UTI Prescriptions as of 12/03/2023 - promethazine (PHENERGAN) 6.25 mg/5 mL syrup TAKE 5 TO 10 ML BY MOUTH EVERY 6 HOURS NEEDED - OLANZapine (ZYPREXA) 5 mg tablet Take 1 tablet by mouth daily at bedtime. - hydrocortisone (CORTEF) 10 mg tablet Take two (2) tablets by mouth in the morning and one (1) tablet by mouth in the evening. - methylphenidate (RITALIN) 20 mg tablet Take 0.5 tablets by mouth two times a day for 30 days. - osimertinib (TAGRISSO) 80 mg tablet Take 1 tablet (80 mg) by mouth once daily. - osimertinib (TAGRISSO) 80 mg tablet Take 1 tablet (80 mg) by mouth once daily. - metoprolol succinate ER (TOPROL XL) 25 mg 24 hr tablet - bisacodyl EC (DULCOLAX) 5 mg EC tablet Bisacodyl Bisacodyl Active 10 MG Oral Daily 0 November 11, 2018 10:25am 11-11-2018 [facility] ([id number]) - diphenhydrAMINE (BENADRYL) 50 mg/mL injection diphenhydrAMINE Diphenhydramine Hcl Active 25 MG IV Push Q6H 0 November 11, 2018 10:25am 11-11-2018 [facility] ([id number]) - insulin aspart U-100 (NOVOLOG) 100 unit/mL (3 mL) Insulin, Aspart, Human Insulin Aspart U-100 Active 0 UNITS Subcutaneous 3X/Day with meals and bedtime 0 November 11, 2018 10:25am 11-11-2018 [facility] ([id number]) - labetalol (NORMODYNE) 5 mg/mL injection Labetalol Labetalol Active 5 MG IV Push Q4H 0 November 11, 2018 10:28am 11-11-2018 [facility] ([id number]) - nystatin (MYCOSTATIN) 100,000 unit/mL suspension Nystatin Nystatin Active 351471 UNIT Oral Four times daily 0 November 11, 2018 10:28am 11-11-2018 [facility] ([id number]) - pantoprazole (PROTONIX) 40 mg injection pantoprazole Pantoprazole Active 40 MG IV Push Daily 0 November 11, 2018 10:29am 11-11-2018 [facility] ([id number]) - lisinopril (ZESTRIL, PRINIVIL) 20 mg tablet - nitroglycerin sublingual (NITROQUICK) 0.4 mg SL tablet Dissolve 0.4 mg under the tongue. - QUEtiapine (SEROQUEL) 25 mg tablet Take 25 mg by mouth as needed. Take 3 tabs at bedtime and 100 mg daily - omeprazole (PRILOSEC) 20 mg capsule Take 2 capsules by mouth once daily. - gabapentin (NEURONTIN) 300 mg capsule Take 1 capsule by mouth as directed for 30 days. Take one pill (300mg) every morning and every afternoon and take two pills (600mg at night) - rivastigmine (EXELON) 13.3 mg/24 hour patch 1 Patch once daily. - aspirin, enteric coated (ASPIRIN, ENTERIC COATED) 81 mg EC tablet Take 162 mg by mouth. - Blood-Glucose Meter (TRUE METRIX GLUCOSE METER) [facility] Use to test 3 times a day - blood sugar diagnostic (BLOOD GLUCOSE TEST) test strip Use as instructed - Lancets lancets Use as instructed - cetirizine (ZYRTEC) 10 mg tablet Take 10 mg by mouth once daily. - biotin 5 mg tab Take 5 mg by mouth once daily. - docusate sodium (COLACE) 100 mg capsule Take 100 mg by mouth daily at bedtime. - melatonin 10 mg tab Take 1 tablet by mouth daily at bedtime. - metformin HCl (METFORMIN ORAL) Take 1,000 mg by mouth once daily. - ATORVASTATIN 80 mg tablet Take 80 mg by mouth once daily. - IPRATROPIUM BROMIDE 0.06 % nasal spray Use 1 [place] in the nose as needed. - KETOCONAZOLE 2 % shampoo Apply 1 application to affected area once daily as needed. - LAMOTRIGINE 200 mg tablet Take 200 mg by mouth daily at bedtime. - NAMENDA 10 mg tablet Take 10 mg by mouth twice daily. - TOPROL XL 50 mg 24 hr tablet Take 50 mg by mouth once daily. - VENLAFAXINE 50 mg tablet Take 50 mg by mouth twice daily. Problem List As Of Date 12/03/2023 Noted Resolved Senile cataract, unspecified [H25.9] 05/02/2013 Metastatic primary lung cancer (HCC) [C34.90] 10/16/2018 Neoplasm related pain [G89.3] 10/16/2018 02/25/2019 Malignant neoplasm metastatic to brain (HCC) [C*10/28/2018 Chest pain [R07.9] 11/11/2018 11/14/2018 Delirium [R41.0] 11/12/2018 02/21/2019 Malnutrition of mild degree (HCC) [E44.1] 11/13/2018 02/21/2019 Thrush (oral) [B37.0] 02/25/2019 Encounter Status:Closed b (more content not included)... Normal [facility] 12-01-2023 Refill [id number] Adela Lucia ma 1940 F Date Provider Department Center 12/01/2023 KAHLIL DINH [facility] Lydia Heal No family history on file Reason for Visit and Comments: Med Refill [[id number]] Normal [facility] SE[facility] LUCIA ([id number]) 1940 F Date Time Provider Department 10/19/23 YANCI CHURCHILL [facility] During your visit today, we recorded the following information about you: Sherry Garcia 10/19/2023 9:17 AM Signed Patients Daughter did not want to schedule her MRI Brain, Pet scan or follow up when the patient was at check out. I gave her my name and phone number and she said she would call me to schedule. I have not heard from her as of today 10-19-23. Seymour has been scheduled for her 6 month follow up as to not be missed. Allergies As of Date: 10/19/2023 (No Known Allergies) Date Reviewed: 10/09/2023 Reviewed by: Yanci Churchill MD - Fully Assessed Reason for Visit: Future Appointment [256] Prescriptions as of 10/19/2023 - promethazine (PHENERGAN) 6.25 mg/5 mL syrup TAKE 5 TO 10 ML BY MOUTH EVERY 6 HOURS NEEDED - OLANZapine (ZYPREXA) 5 mg tablet Take 1 tablet by mouth daily at bedtime. - hydrocortisone (CORTEF) 10 mg tablet Take two (2) tablets by mouth in the morning and one (1) tablet by mouth in the evening. - methylphenidate (RITALIN) 20 mg tablet Take 0.5 tablets by mouth two times a day for 30 days. - osimertinib (TAGRISSO) 80 mg tablet Take 1 tablet (80 mg) by mouth once daily. - osimertinib (TAGRISSO) 80 mg tablet Take 1 tablet (80 mg) by mouth once daily. - metoprolol succinate ER (TOPROL XL) 25 mg 24 hr tablet - bisacodyl EC (DULCOLAX) 5 mg EC tablet Bisacodyl Bisacodyl Active 10 MG Oral Daily 0 November 11, 2018 10:25am 11-11-2018 [facility] ([id number]) - diphenhydrAMINE (BENADRYL) 50 mg/mL injection diphenhydrAMINE Diphenhydramine Hcl Active 25 MG IV Push Q6H 0 November 11, 2018 10:25am 11-11-2018 [facility] ([id number]) - insulin aspart U-100 (NOVOLOG) 100 unit/mL (3 mL) Insulin, Aspart, Human Insulin Aspart U-100 Active 0 UNITS Subcutaneous 3X/Day with meals and bedtime 0 November 11, 2018 10:25am 11-11-2018 [facility] ([id number]) - labetalol (NORMODYNE) 5 mg/mL injection Labetalol Labetalol Active 5 MG IV Push Q4H 0 November 11, 2018 10:28am 11-11-2018 [facility] ([id number]) - nystatin (MYCOSTATIN) 100,000 unit/mL suspension Nystatin Nystatin Active 439058 UNIT Oral Four times daily 0 November 11, 2018 10:28am 11-11-2018 [facility] ([id number]) - pantoprazole (PROTONIX) 40 mg injection pantoprazole Pantoprazole Active 40 MG IV Push Daily 0 November 11, 2018 10:29am 11-11-2018 [facility] ([id number]) - lisinopril (ZESTRIL, PRINIVIL) 20 mg tablet - nitroglycerin sublingual (NITROQUICK) 0.4 mg SL tablet Dissolve 0.4 mg under the tongue. - QUEtiapine (SEROQUEL) 25 mg tablet Take 25 mg by mouth as needed. Take 3 tabs at bedtime and 100 mg daily - omeprazole (PRILOSEC) 20 mg capsule Take 2 capsules by mouth once daily. - gabapentin (NEURONTIN) 300 mg capsule Take 1 capsule by mouth as directed for 30 days. Take one pill (300mg) every morning and every afternoon and take two pills (600mg at night) - rivastigmine (EXELON) 13.3 mg/24 hour patch 1 Patch once daily. - aspirin, enteric coated (ASPIRIN, ENTERIC COATED) 81 mg EC tablet Take 162 mg by mouth. - Blood-Glucose Meter (TRUE METRIX GLUCOSE METER) [facility] Use to test 3 times a day - blood sugar diagnostic (BLOOD GLUCOSE TEST) test strip Use as instructed - Lancets lancets Use as instructed - cetirizine (ZYRTEC) 10 mg tablet Take 10 mg by mouth once daily. - biotin 5 mg tab Take 5 mg by mouth once daily. - docusate sodium (COLACE) 100 mg capsule Take 100 mg by mouth daily at bedtime. - melatonin 10 mg tab Take 1 tablet by mouth daily at bedtime. - metformin HCl (METFORMIN ORAL) Take 1,000 mg by mouth once daily. - ATORVASTATIN 80 mg tablet Take 80 mg by mouth once daily. - IPRATROPIUM BROMIDE 0.06 % nasal spray Use 1 [place] in the nose as needed. - KETOCONAZOLE 2 % shampoo Apply 1 application to affected area once daily as needed. - LAMOTRIGINE 200 mg tablet Take 200 mg by mouth daily at bedtime. - NAMENDA 10 mg tablet Take 10 mg by mouth twice daily. - TOPROL XL 50 mg 24 hr tablet Take 50 mg by mouth once daily. - VENLAFAXINE 50 mg tablet Take 50 mg by mouth twice daily. Problem List As Of Date 10/19/2023 Noted Resolved Senile cataract, unspecified [H25.9] 05/02/2013 Metastatic primary lung cancer (HCC) [C34.90] 10/16/2018 Neoplasm related pain [G89.3] 10/16/2018 02/25/2019 Malignant neoplasm metastatic to brain (HCC) [C*10/28/2018 Chest pain [R07.9] 11/11/2018 11/14/2018 Delirium [R41.0] 11/12/2018 02/21/2019 Malnutrition of mild degree (HCC) [E44.1] 11/13/2018 02/21/2019 Thrush (oral) [B37.0] 02/25/2019 Encounter Status:Closed by [facility]MASA[facility] SEYMOUR LUCIA ([id number]) 1940 F Date Time Provider Department 10/11/23 CON SALMON During your visit today, we recorded the following information about you: Con Salmon RN 10/11/2023 3:39 PM Signed FYI: Voicemail message received from David from [facility]. Reports that the pt's BP was 191/90 while he was there today. Pt was asymptomatic. Pt had not taken any of her medications prior her assessment. Reports that physical therapy was held. Family was not interested in taking pt to ER for eval. Pt was going to take her medications and then recheck her BP a little while later. Call placed to David. No answer. Message left on his secure voicemail thanking him for the update, but also noting that we do not manage pt's hypertension. Advised she reach out to her PCP or prescribing physician if her BP remains elevated. Requested David return our call to confirm he received this message. Con Salmon RN Allergies As of Date: 10/11/2023 (No Known Allergies) Date Reviewed: 10/09/2023 Reviewed by: Yanci Churchill MD - Fully Assessed Reason for Visit: Care Coordination [3490] Cmt: Elevated Blood Pressure Prescriptions as of 10/12/2023 - promethazine (PHENERGAN) 6.25 mg/5 mL syrup TAKE 5 TO 10 ML BY MOUTH EVERY 6 HOURS NEEDED - OLANZapine (ZYPREXA) 5 mg tablet Take 1 tablet by mouth daily at bedtime. - hydrocortisone (CORTEF) 10 mg tablet Take two (2) tablets by mouth in the morning and one (1) tablet by mouth in the evening. - methylphenidate (RITALIN) 20 mg tablet Take 0.5 tablets by mouth two times a day for 30 days. - osimertinib (TAGRISSO) 80 mg tablet Take 1 tablet (80 mg) by mouth once daily. - osimertinib (TAGRISSO) 80 mg tablet Take 1 tablet (80 mg) by mouth once daily. - metoprolol succinate ER (TOPROL XL) 25 mg 24 hr tablet - bisacodyl EC (DULCOLAX) 5 mg EC tablet Bisacodyl Bisacodyl Active 10 MG Oral Daily 0 November 11, 2018 10:25am 11-11-2018 [facility] ([id number]) - diphenhydrAMINE (BENADRYL) 50 mg/mL injection diphenhydrAMINE Diphenhydramine Hcl Active 25 MG IV Push Q6H 0 November 11, 2018 10:25am 11-11-2018 [facility] ([id number]) - insulin aspart U-100 (NOVOLOG) 100 unit/mL (3 mL) Insulin, Aspart, Human Insulin Aspart U-100 Active 0 UNITS Subcutaneous 3X/Day with meals and bedtime 0 November 11, 2018 10:25am 11-11-2018 [facility] ([id number]) - labetalol (NORMODYNE) 5 mg/mL injection Labetalol Labetalol Active 5 MG IV Push Q4H 0 November 11, 2018 10:28am 11-11-2018 [facility] ([id number]) - nystatin (MYCOSTATIN) 100,000 unit/mL suspension Nystatin Nystatin Active 523072 UNIT Oral Four times daily 0 November 11, 2018 10:28am 11-11-2018 [facility] ([id number]) - pantoprazole (PROTONIX) 40 mg injection pantoprazole Pantoprazole Active 40 MG IV Push Daily 0 November 11, 2018 10:29am 11-11-2018 [facility] ([id number]) - lisinopril (ZESTRIL, PRINIVIL) 20 mg tablet - nitroglycerin sublingual (NITROQUICK) 0.4 mg SL tablet Dissolve 0.4 mg under the tongue. - QUEtiapine (SEROQUEL) 25 mg tablet Take 25 mg by mouth as needed. Take 3 tabs at bedtime and 100 mg daily - omeprazole (PRILOSEC) 20 mg capsule Take 2 capsules by mouth once daily. - gabapentin (NEURONTIN) 300 mg capsule Take 1 capsule by mouth as directed for 30 days. Take one pill (300mg) every morning and every afternoon and take two pills (600mg at night) - rivastigmine (EXELON) 13.3 mg/24 hour patch 1 Patch once daily. - aspirin, enteric coated (ASPIRIN, ENTERIC COATED) 81 mg EC tablet Take 162 mg by mouth. - Blood-Glucose Meter (TRUE METRIX GLUCOSE METER) [facility] Use to test 3 times a day - blood sugar diagnostic (BLOOD GLUCOSE TEST) test strip Use as instructed - Lancets lancets Use as instructed - cetirizine (ZYRTEC) 10 mg tablet Take 10 mg by mouth once daily. - biotin 5 mg tab Take 5 mg by mouth once daily. - docusate sodium (COLACE) 100 mg capsule Take 100 mg by mouth daily at bedtime. - melatonin 10 mg tab Take 1 tablet by mouth daily at bedtime. - metformin HCl (METFORMIN ORAL) Take 1,000 mg by mouth once daily. - ATORVASTATIN 80 mg tablet Take 80 mg by mouth once daily. - IPRATROPIUM BROMIDE 0.06 % nasal spray Use 1 [place] in the nose as needed. - KETOCONAZOLE 2 % shampoo Apply 1 application to affected area once daily as needed. - LAMOTRIGINE 200 mg tablet Take 200 mg by mouth daily at bedtime. - NAMENDA 10 mg tablet Take 10 mg by mouth twice daily. - TOPROL XL 50 mg 24 hr tablet Take 50 mg by mouth once daily. - VENLAFAXINE 50 mg tablet Take 50 mg by mouth twice daily. Problem List As Of Date 10/11/2023 Noted Resolved Senile cataract, unspecified [H25.9] 05/02/2013 Metastatic primary lung cancer (HCC) [C34.90] 10/16/2018 Neoplasm rel (more content not included)... Normal [facility] CBC W AUTO DIFF BLDon Basophils/100 WBC (Bld) 0.3 % [facility] BASOPHILS # BLD AUTO 0.03 [facility] DIFFERENTIAL METHOD BLD Auto [facility] EOSINOPHIL # BLD AUTO 0.11 [facility] LYMPHOCYTES # BLD AUTO 1.21 [facility] MONOCYTES # BLD AUTO 0.48 [facility] NEUTROPHILS # BLD AUTO 7.81 High [facility] NRBC # BLD AUTO <0.01 [facility] NRBC/100 WBC BLD-RTO 0.0 /100 WBC [facility] PLATELET # BLD AUTO 233 [facility] PMV BLD AUTO 11.0 fL 9.0 - 12.7 fL [facility] WBC # BLD AUTO 9.69 [facility] Eosinophils/100 WBC (Bld) 1.1 % [facility] Erythrocyte distribution width (RBC) [Ratio] 16.4 % High 11.5 - 15.0 % [facility] Hematocrit (Bld) [Volume fraction] 32.7 % Low 36.0 - 46.0 % [facility] Hemoglobin (Bld) [Mass/Vol] 10.0 g/dL Low 11.5 - 15.5 g/dL [place] [facility] IMM GRANULOCYTES # BLD AUTO 0.05 [facility] IMM GRANULOCYTES/LEUK NFR BLD AUTO 0.5 % [facility] Interpretation and review of laboratory results Abnormal [facility] Lymphocytes/100 WBC (Bld) 12.5 % [facility] MCH (RBC) [Entitic mass] 26.9 pg 26.0 - 34.0 pg [facility] MCHC (RBC) [Mass/Vol] 30.6 g/dL 30.5 - 36.0 g/dL [facility] MCV (RBC) [Entitic vol] 87.9 fL 80.0 - 100.0 fL [facility] Monocytes/100 WBC (Bld) 5.0 % [facility] Neutrophils/100 WBC (Bld) 80.6 % [facility] RBC (Bld) [#/Vol] 3.72 10*6/uL Low 3.90 - 5.2 0 m/uL [facility] Specimen Type: BLOOD SPECIMEN Ordering Facility: [facility] Address: [address] [place] [address] Original Ordering Provider: YANCI MOSS [facility] CBC W Auto Differential pane l (Bld)on 10-09-2023 Basophils (Bld) [#/Vol] 0.03 10*3/uL Normal <0.11 [facility] Comment on above: Order Comment: Speci men Type: BLOOD SPECIMENOrdering Facility: [facility] Address: [address] [place] [address] Performed By: #### 5 7021-8 ####[facility] LABIA [id number] [place] [address] Basophils/100 WBC (Bld) 0.3 % Normal [facility] Comment on above: Order Comment: Speci men Type: BLOOD SPECIMENOrdering Facility: [facility] Address: [address] [place] [address] Performed By: #### 5 7021-8 ####[facility] LABCLIA [id number] [place] [address] Differential cell count method Nom (Bld) Auto Normal [facility] Comment on above: Order Comment: Speci men Type: BLOOD SPECIMENOrdering Facility: [facility] Address: [address] [place] [address] Performed By: #### 5 7021-8 ####[facility] LABCLIA [id number] [place] [address] Eosinophils (Bld) [#/Vol] 0.11 10*3/uL Normal <0.46 [facility] Comment on above: Order Comment: Speci men Type: BLOOD SPECIMENOrdering Facility: [facility] Address: [address] [place] [address] Performed By: #### 5 7021-8 ####[facility] LABCLIA [id number] [place] [address] Eosinophils/100 WBC (Bld) 1.1 % Normal [facility] Comment on above: Order Comment: Speci men Type: BLOOD SPECIMENOrdering Facility: [facility] Address: [address] [place] [address] Performed By: #### 5 7021-8 ####[facility] LABCLIA [id number] [place] [address] Erythrocyte distribution width (RBC) [Ratio] 16.4 % High 11.5-15.0 [facility] Comment on above: Order Comment: Speci men Type: BLOOD SPECIMENOrdering Facility: [facility] Address: [address] [place] [address] Performed By: #### 5 7021-8 ####[facility] LABCLIA [id number] [place] [address] Hematocrit (Bld) [Volume fraction] 32.7 % Low 36.0-46.0 [facility] Comment on above: Order Comment: Speci men Type: BLOOD SPECIMENOrdering Facility: [facility] Address: [address] [place] [address] Performed By: #### 5 7021-8 ####[facility] LABCLIA [id number] [place] [address] Hemoglobin (Bld) [Mass/Vol] 10.0 g/dL Low 11.5-15.5 [facility] Comment on above: Order Comment: Speci men Type: BLOOD SPECIMENOrdering Facility: [facility] Address: [address] [place] [address] Performed By: #### 5 7021-8 ####[facility] LABCLIA [id number] [place] [address] Immature granulocytes (Bld) [#/Vol] 0.05 10*3/uL Normal <0.10 [facility] Comment on above: Order Comment: Speci men Type: BLOOD SPECIMENOrdering Facility: [facility] Address: [address] [place] [address] Performed By: #### 5 7021-8 ####[facility] LABCLIA [id number] [place] [address] Immature granulocytes/100 WBC (Bld) 0.5 % Normal [facility] Comment on above: Order Comment: Speci men Type: BLOOD SPECIMENOrdering Facility: [facility] Address: [address] [place] [address] Performed By: #### 5 7021-8 ####[facility] LABCLIA [id number] [place] [address] Lymphocytes (Bld) [#/Vol] 1.21 10*3/uL Normal 1.00-4.00 [facility] Comment on above: Order Comment: Speci men Type: BLOOD SPECIMENOrdering Facility: [facility] Address: [address] [place] [address] Performed By: #### 5 7021-8 ####[facility] LABCLIA [id number] [place] [address] Lymphocytes/100 WBC (Bld) 12.5 % Normal [facility] Comment on above: Order Comment: Speci men Type: BLOOD SPECIMENOrdering Facility: [facility] Address: [address] [place] [address] Performed By: #### 5 7021-8 ####[facility] LABCLIA [id number] [place] [address] MCH (RBC) [Entitic mass] 26.9 pg Normal 26.0-34.0 [facility] Comment on above: Order Comment: Speci men Type: BLOOD SPECIMENOrdering Facility: [facility] Address: [address] [place] [address] Performed By: #### 5 7021-8 ####[facility] LABCLIA [id number] [place] [address] MCHC (RBC) [Mass/Vol] 30.6 g/dL Normal 30.5-36.0 [facility] Comment on above: Order Comment: Speci men Type: BLOOD SPECIMENOrdering Facility: [facility] Address: [address] [place] [address] Performed By: #### 5 7021-8 ####[facility] LABCLIA [id number] [place] [address] MCV (RBC) [Entitic vol] 87.9 fL Normal 80.0-100.0 [facility] Comment on above: Order Comment: Speci men Type: BLOOD SPECIMENOrdering Facility: [facility] Address: [address] [place] [address] Performed By: #### 5 7021-8 ####[facility] LABCLIA [id number] [place] [address] Monocytes (Bld) [#/Vol] 0.48 10*3/uL Normal <0.87 [facility] Comment on above: Order Comment: Speci men Type: BLOOD SPECIMENOrdering Facility: [facility] Address: [address] [place] [address] Performed By: #### 5 7021-8 ####[facility] LABCLIA [id number] [place] [address] Monocytes/100 WBC (Bld) 5.0 % Normal [facility] Comment on above: Order Comment: Speci men Type: BLOOD SPECIMENOrdering Facility: [facility] Address: [address] [place] [address] Performed By: #### 5 7021-8 ####[facility] LABCLIA [id number] [place] [address] Neutrophils (Bld) [#/Vol] 7.81 10*3/uL High 1.45-7.50 [facility] Comment on above: Order Comment: Speci men Type: BLOOD SPECIMENOrdering Facility: [facility] Address: [address] [place] [address] Performed By: #### 5 7021-8 ####[facility] LABCLIA [id number] [place] [address] Neutrophils/100 WBC (Bld) 80.6 % Normal [facility] Comment on above: Order Comment: Speci men Type: BLOOD SPECIMENOrdering Facility: [facility] Address: [address] [place] [address] Performed By: #### 5 7021-8 ####[facility] LABIA [id number] [place] [address] Nucleated RBC (Bld) [#/Vol] 10*3/uL Normal <0.01 [facility] Comment on above: Order Comment: Speci men Type: BLOOD SPECIMENOrdering Facility: [facility] Address: [address] [place] [address] Performed By: #### 5 7021-8 ####[facility] LABCLIA [id number] [place] [address] Nucleated RBC/100 WBC (Bld) [Ratio] 0.0 /100 WBC Normal [facility] Comment on above: Order Comment: Speci men Type: BLOOD SPECIMENOrdering Facility: [facility] Address: [address] [place] [address] Performed By: #### 5 7021-8 ####[facility] LABIA [id number] [place] [address] Platelet mean volume (Bld) [Entitic vol] 11.0 fL Normal 9.0-12.7 [facility] Comment on above: Order Comment: Speci men Type: BLOOD SPECIMENOrdering Facility: [facility] Address: [address] [place] [address] Performed By: #### 5 7021-8 ####[facility] LABIA [id number] [place] [address] Platelets (Bld) [#/Vol] 233 10*3/uL Normal 150-400 [facility] Comment on above: Order Comment: Speci men Type: BLOOD SPECIMENOrdering Facility: [facility] Address: [address] [place] [address] Performed By: #### 5 7021-8 ####[facility] LABIA [id number] [place] [address] RBC (Bld) [#/Vol] 3.72 10*6/uL Low 3.90-5.20 [facility] Comment on above: Order Comment: Speci men Type: BLOOD SPECIMENOrdering Facility: [facility] Address: [address] [place] [address] Performed By: #### 5 7021-8 ####[facility] LABIA [id number] [place] [address] WBC (Bld) [#/Vol] 9.69 10*3/uL Normal 3.70-11.00 [facility] Comment on above: Order Comment: Speci men Type: BLOOD SPECIMENOrdering Facility: [facility] Address: [address] [place] [address] Performed By: #### 5 7021-8 ####[facility] LABIA [id number] [place] [address] CNOVSPon 10-09-2023 CNOVSP Visit (SP) Office ([facility] VE[facility]) SEYMOUR LUCIA ([id number]) 1940 F Date Time Provider Department 10/09/23 3:30 PM YANCI CHURCHILL During your visit today, we recorded the following information about you: Temperature Pulse Respiration Blood pressure 97.6 degrees 78/minute 16/minute 123/79 Weight Height 56.2 kg 1.63 m Yanci Churchill MD 10/09/2023 4:13 PM Signed PATIENT NAME: Seymour Lucia CLINIC NO.: [id number] ATTENDING PHYSICIAN: Yanci Churchill MD DATE OF SERVICE: October 09, 2023 Some of the elements of this note have been copied from my previous progress note dated 02/13/2023. All the information has been reviewed carefully. Dear Dr. James, here is an update on a follow up visit on female Seymour Lucia at the clinic October 09, 2023 Diagnosis: 1. 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 2. ? 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 Radiation T8-T10 10/03- 11/05/2018-- 3000 cGy 2. GKRS- 11/20/2018-- AREA TREATED: 1) Right frontal. 2) Right temporal. 3) Left anterior temporal. 4) Left posterior temporal. 5) Left cerebellar. 3. Osimertinib 10/2018 4. Radiation to L3-L5 02/21-02/25/2019 HPI: Seymour Lucia is a 83 year old year old female here for follow up. She is weaker but has been feeling reasonably well and is working with PT as well. 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 REVIEW OF SYSTEMS GENERAL: No weight loss, malaise or fevers. No night sweats. HEENT: Negative for headaches, No changes in hearing or vision, no nose bleeds or other nasal problems. RESPIRATORY: Negative for cough, wheezing and shortness of breath CARDIOVASCULAR: Negative for chest pain, leg swelling and palpitations GI: Negative for abdominal discomfort, blood in stools or black stools and change in bowel habits : Negative for dysuria, frequency and incontinence MUSCULOSKELETAL: Negative for joint pain or swelling, back pain, and muscle pain. SKIN: Negative for lesions, rash, and itching. HEMATOLOGY/LYMPHOLOGY Negative for prolonged bleeding, bruising easily, and swollen nodes. NEURO: Negative for numbness or tingling of hands/feet. No weakness. PHYSICAL EXAMINATION: BP 123/79 Pulse 78 Temp (Src) 97.6 (Temporal) Resp 16 Ht 5' 4.173 (1.63m) Wt 123 lb 14.4 oz (56.2kg) SpO2 97% BMI 21.15 kg/(m2). 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 Up and about > 50% of waking hrs. Patient in NAD. Skin: Skin color, texture, turgor normal. No rashes or lesions. Eyes: Anicteric sclera. Pupils are equally round and reactive to light. Extraocular movements are intact. Lymph Nodes: No cervical, supraclavicular, axillary or inguinal adenopathy. Oropharynx: Lips, mucosa, and tongue normal. Back: No pain to percussion. Negative SLR test Lungs clear to auscultation, No wheezing or rhonchi Heart: RRR without murmur, gallop, or rubs. Abdomen soft, non-tender. No masses, organomegaly Extremities: No deformities. No edema Neuro: Gait and speech normal. Reflexes normal and symmetric. Muscular strength intact. Sensation grossly intact. Rectal: Deferred : Deferred LABS: Glucose (mg/dL) Date Value 08/24/2023 83 06/14/2021 90 Potassium (mmol/L) Date Value 08/24/2023 4.7 06/14/2021 3.7 Sodium (mmol/L) Date Value 08/24/2023 142 06/14/2021 143 Chloride (mmol/L) Date Value 08/24/2023 102 06/14/2021 109 CO2 (mmol/L) Date Value 08/24/2023 27 06/14/2021 28 Creatinine (mg/dL) Date Value 08/24/2023 0.85 06/14/2021 1.00 BUN (mg/dL) Date Value 08/24/2023 18 06/14/2021 20 Anion Gap (mmol/L) Date Value 08/24/2023 13 06/14/2021 6 Calcium (mg/dL) Date Value 06/14/2021 9.7 Calcium, Total (mg/dL) Date Value 08/24/2023 10.0 Protein, Total (g/dL) Da (more content not included)... Normal [facility] Comprehensive metabolic 2000 panelon 10-09-2023 Albumin [Mass/Vol] 3.6 g/dL Low 3.9-4.9 [facility] Comment on above: Order Comment: Speci men Type: BLOOD SPECIMENOrdering Facility: [facility] Address: [address] [place] [address] Performed By: #### 2 4323-8 ####[facility] LABCLIA [id number] [place] [address] ALP [Catalytic activity/Vol] 621 U/L High 34-123 [facility] Comment on above: Order Comment: Speci men Type: BLOOD SPECIMENOrdering Facility: [facility] Address: [address] [place] [address] Performed By: #### 2 4323-8 ####[facility] LABCLIA [id number] [place] [address] ALT [Catalytic activity/Vol] 54 U/L High 7-38 [facility] Comment on above: Order Comment: Speci men Type: BLOOD SPECIMENOrdering Facility: [facility] Address: [address] [place] [address] Performed By: #### 2 4323-8 ####[facility] LABCLIA [id number] [place] [address] Anion gap [Moles/Vol] 12 mmol/L Normal 9-18 [facility] Comment on above: Order Comment: Speci men Type: BLOOD SPECIMENOrdering Facility: [facility] Address: [address] [place] [address] Performed By: #### 2 4323-8 ####[facility] LABCLIA [id number] [place] [address] AST [Catalytic activity/Vol] 63 U/L High 13-35 [facility] Comment on above: Order Comment: Speci men Type: BLOOD SPECIMENOrdering Facility: [facility] Address: [address] [place] [address] Performed By: #### 2 4323-8 ####[facility] LABCLIA [id number] [place] [address] Bilirubin [Mass/Vol] 0.3 mg/dL Normal 0.2-1.3 [facility] Comment on above: Order Comment: Speci men Type: BLOOD SPECIMENOrdering Facility: [facility] Address: [address] [place] [address] Performed By: #### 2 4323-8 ####[facility] LABCLIA [id number] [place] [address] Calcium [Mass/Vol] 10.0 mg/dL Normal 8.5-10.2 [facility] Comment on above: Order Comment: Speci men Type: BLOOD SPECIMENOrdering Facility: [facility] Address: [address] [place] [address] Performed By: #### 2 4323-8 ####[facility] LABCLIA [id number] [place] [address] Chloride [Moles/Vol] 105 mmol/L Normal 97-105 [facility] Comment on above: Order Comment: Speci men Type: BLOOD SPECIMENOrdering Facility: [facility] Address: [address] [place] [address] Performed By: #### 2 4323-8 ####[facility] LABCLIA [id number] [place] [address] CO2 [Moles/Vol] 26 mmol/L Normal 22-30 [facility] Comment on above: Order Comment: Speci men Type: BLOOD SPECIMENOrdering Facility: [facility] Address: [address] [place] [address] Performed By: #### 2 4323-8 ####[facility] LABCLIA [id number] [place] [address] Creatinine [Mass/Vol] 0.84 mg/dL Normal 0.58-0.96 [facility] Comment on above: Order Comment: Speci men Type: BLOOD SPECIMENOrdering Facility: [facility] Address: [address] [place] [address] Performed By: #### 2 4323-8 ####[facility] LABCLIA [id number] [place] [address] Creatinine and Glomerular filtration rate.predicted panel (S/P/Bld) 69 mL/min/1.73m??? Normal >=60 [facility] Comment on above: Order Comment: Speci men Type: BLOOD SPECIMENOrdering Facility: [facility] Address: [address] [place] [address] Result Comment: Katelyn mated Glomerular Filtration Rate (eGFR) is calculated using the 2020 CKD-EPI creatinine equation. This equation utilizes serum creatinine, sex, and age as parameters. The creatinine assay has traceable calibration to isotope dilution-mass spectrometry. Refer to KDIGO guidelines for clinical interpretation. In patients with unstable renal function, e.g. those with acute kidney injury, the eGFR may not accurately reflect actual GFR. Performed By: #### 2 4323-8 ####[facility] LABCLIA [id number] [place] [address] Glucose [Mass/Vol] 102 mg/dL High 74-99 [facility] Comment on above: Order Comment: Speci men Type: BLOOD SPECIMENOrdering Facility: [facility] Address: [address] [place] [address] Result Comment: The [place] Diabetes Association (ADA) provides guidance for cutoff values for fasting glucose and random glucose. The ADA defines fasting as no caloric intake for at least 8 hours. Fasting plasma glucose results between 100 to 125 mg/dL indicate increased risk for diabetes (prediabetes). Fasting plasma glucose results greater than or equal to 126 mg/dL meet the criteria for diagnosis of diabetes. In the absence of unequivocal hyperglycemia, results should be confirmed by repeat testing. In a patient with classic symptoms of hyperglycemia or hyperglycemic crisis, random plasma glucose results greater than or equal to 200 mg/dL meet the criteria for diagnosis of diabetes. Reference: Standards of Medical Care in Diabetes 2016, [place] Diabetes Association. Diabetes Care. 2016.39(Suppl 1). Performed By: #### 2 4323-8 ####[facility] LABCLIA [id number] [place] [address] Potassium [Moles/Vol] 4.2 mmol/L Normal 3.7-5.1 [facility] Comment on above: Order Comment: Speci men Type: BLOOD SPECIMENOrdering Facility: [facility] Address: [address] [place] [address] Performed By: #### 2 4323-8 ####[facility] LABCLIA [id number] [place] [address] Protein [Mass/Vol] 6.9 g/dL Normal 6.3-8.0 [facility] Comment on above: Order Comment: Speci men Type: BLOOD SPECIMENOrdering Facility: [facility] Address: [address] [place], [place] [address] Performed By: #### 2 4323-8 ####[facility] LABCLIA [id number] [place] [address] Sodium [Moles/Vol] 143 mmol/L Normal 136-144 [facility] Comment on above: Order Comment: Kristine beltran Type: BLOOD SPECIMENOrdering Facility: [facility] Address: [address] [place] [address] Performed By: #### 2 4323-8 ####[facility] LABCLIA [id number] [place] [address] Urea nitrogen [Mass/Vol] 22 mg/dL High 7-21 [facility] Comment on above: Order Comment: Madyanam beltran Type: BLOOD SPECIMENOrdering Facility: [facility] Address: [address] [place] [address] Performed By: #### 2 4323-8 ####[facility] LABCLIA [id number] [place] [address] HbA1c (Bld)on 10-09-2023 Average glucose Estimated from glycated hemoglobin (Bld) [Mass/Vol] 105 mg/dL Normal [facility] Comment on above: Order Comment: Madyanam beltran Type: BLOOD SPECIMENOrdering Facility: External Submitter Address: , , Result Comment: eAG: (Estimated average glucose) is a calculated value from HgbA1c and is commercial representative of the average blood glucose level in the last 2-3 month period. Performed By: #### 5 5454-3 ####[facility] LABCLIA [id number] [place] [address] [place] HbA1c (Bld) [Mass fraction] 5.3 % Normal 4.3-5.6 [facility] Comment on above: Order Comment: Madyanam beltran Type: BLOOD SPECIMENOrdering Facility: External Submitter Address: , , Result Comment: [place] Diabetes Association guidelines indicate that patients with HgbA1c in the range 5.7-6.4% are at increased risk for development of diabetes, and intervention by lifestyle modification may be beneficial. HgbA1c greater or equal to 6.5% is considered diagnostic of diabetes. Performed By: #### 5 5454-3 ####[facility] LABCLIA [id number] [address] [address] [place] Lipid 1996 panelon 4 Cholesterol [Mass/Vol] 188 mg/dL Normal <200 [facility] Comment on above: Order Comment: Speci men Type: BLOOD SPECIMENOrdering Facility: External Submitter Address: , , Result Comment: <200 mg/dL, Desirable 200-239 mg/dL, Borderline high >239 mg/dL, High Performed By: #### 2 4331-1 ####[facility] LABCLIA [id number] [address] LABCLIA [id number] [place] [address] Cholesterol in HDL [Mass/Vol] 88 mg/dL Normal >39 [facility] Comment on above: Order Comment: Speci men Type: BLOOD SPECIMENOrdering Facility: External Submitter Address: , , Result Comment: 40-5 9 mg/dL, Acceptable >59 mg/dL, High: Negative risk factor for coronary heart disease <40 mg/dL, Low: Positive risk factor for coronary heart disease Performed By: #### 2 4331-1 ####[facility] LABCLIA [id number] [address] LABCLIA [id number] [place] [address] Cholesterol in LDL [Mass/Vol] 77 mg/dL Normal <100 [facility] Comment on above: Order Comment: Speci men Type: BLOOD SPECIMENOrdering Facility: External Submitter Address: , , Result Comment: <100 mg/dL, Optimal 100-129 mg/dL, Near optimal/above optimal 130-159 mg/dL, Borderline high 160-189 mg/dL, High >189 mg/dL, Very high Secondary prevention optimal LDL Cholesterol levels are recommended to be < 70 mg/dL Performed By: #### 2 4331-1 ####[facility] LABCLIA [id number] [address] [id number] [place] [address] LABCLIA [id number] [place] [address] Cholesterol in LDL/Cholesterol in HDL [Mass ratio] 0.88 {ratio} Normal <2.54 [facility] Comment on above: Order Comment: Madyi ruby Type: BLOOD SPECIMENOrdering Facility: External Submitter Address: , , Result Comment: Vikas flowers: 1. National Cholesterol Education Program ATP III Guideline At-A-Glance Quick Desk Reference: National Heart, Lung, and Blood Rhine. National Institutes of Health. 2001: NIH Publication No. 01-3305. 2. An International Atherosclerosis Society position paper: global recommendations for the management of dyslipidemia: executive summary, Atherosclerosis. 2014: 232(2):410-413. Performed By: #### 2 4331-1 ####[facility] LABCLIA [id number] [address] LABCLIA [id number] [place] [address] Cholesterol in VLDL [Mass/Vol] 23 mg/dL Normal <30 [facility] Comment on above: Order Comment: Kristine ruby Type: BLOOD SPECIMENOrdering Facility: External Submitter Address: , , Performed By: #### 2 4331-1 ####[facility] LABCLIA [id number] [address] LABCLIA [id number] [place] [address] Cholesterol non HDL [Mass/Vol] 100 mg/dL Normal <130 [facility] Comment on above: Order Comment: Madyi men Type: BLOOD SPECIMENOrdering Facility: External Submitter Address: , , Result Comment: <130 mg/dL, Optimal 130-159 mg/dL, Near optimal/above optimal 160-189 mg/dL, Borderline high 190-219 mg/dL, High >219 mg/dL, Very high Secondary prevention optimal non HDL Cholesterol levels are recommended to be <100 mg/dL Performed By: #### 2 4331-1 ####[facility] LABCLIA [id number] [address] [address] [facility] LABCLIA [id number] [place] [address] Cholesterol.total /Cholesterol in HDL [Mass ratio] 2.14 {ratio} Normal <5.10 [facility] Comment on above: Order Comment: Speci men Type: BLOOD SPECIMENOrdering Facility: External Submitter Address: , , Performed By: #### 2 4331-1 ####[facility] LABCLIA [id number] [address] LABIA [id number] [place] [address] FASTING TIME 12 hrs Normal [facility] Comment on above: Order Comment: Speci men Type: BLOOD SPECIMENOrdering Facility: External Submitter Address: , , Performed By: #### 2 4331-1 ####[facility] LABCLIA [id number] [address] LABIA [id number] [place] [address] Triglyceride [Mass/Vol] 116 mg/dL Normal <150 [facility] Comment on above: Order Comment: Speci men Type: BLOOD SPECIMENOrdering Facility: External Submitter Address: , , Result Comment: <150 mg/dL, Normal 150-199 mg/dL, Borderline high 200-499 mg/dL, High >499 mg/dL, Very high Performed By: #### 2 4331-1 ####[facility] LABIA [id number] [address] LABIA [id number] [place] [id number] Ingris 09-18-2023 LORI Telephone (HEMASA) SEYMOUR LUCIA ([id number]) 1940 F Date Time Provider Department 09/18/23 HARRY BRANNON During your visit today, we recorded the following information about you: Harry Brannon, WILL 09/18/2023 5:04 PM Signed Call placed to daughter and discussed with her the need for a follow up appointment with Dr Churchill since she hasn't been seen in a while. Daughter is agreeable to setting up an appointment. Pt missed a couple appointments in July with Dr Churchill. Please call daughter and schedule follow up. Thanks WILL Jeong Courtney 09/19/2023 8:50 AM Signed Call made to Seymour's daughter Radha, had to leave a message. Awaiting call back to schedule an appointment with Dr. Churchill. Elinor Pascal Courtney 09/20/2023 9:34 AM Signed I spoke with Seymour's daughter, Radha. Seymour is scheduled to see Dr. Churchill on Sunday, 10/09 at 3:30pm. ThanksElinor Allergies As of Date: 09/18/2023 (No Known Allergies) Date Reviewed: 07/17/2023 Reviewed by: Bettina Tang APRN.COMMUNICATIONS EQUIPMENT OPERATOR - Fully Assessed Reason for Visit: Care Coordination [8612] Cmt: Follow up appointment Prescriptions as of 09/20/2023 - promethazine (PHENERGAN) 6.25 mg/5 mL syrup TAKE 5 TO 10 ML BY MOUTH EVERY 6 HOURS NEEDED - methylphenidate (RITALIN) 20 mg tablet Take 0.5 tablets by mouth two times a day for 30 days. - OLANZapine (ZYPREXA) 5 mg tablet take 1 tablet by mouth once daily at bedtime - osimertinib (TAGRISSO) 80 mg tablet Take 1 tablet (80 mg) by mouth once daily. - osimertinib (TAGRISSO) 80 mg tablet Take 1 tablet (80 mg) by mouth once daily. - predniSONE (DELTASONE) 20 mg tablet Take 1 tablet by mouth once daily. - hydrocortisone (CORTEF) 10 mg tablet Take two (2) tablets by mouth in the morning and one (1) tablet by mouth in the evening. - metoprolol succinate ER (TOPROL XL) 25 mg 24 hr tablet - bisacodyl EC (DULCOLAX) 5 mg EC tablet Bisacodyl Bisacodyl Active 10 MG Oral Daily 0 November 11, 2018 10:2511-11-2018 [facility] ([id number]) - diphenhydrAMINE (BENADRYL) 50 mg/mL injection diphenhydrAMINE Diphenhydramine Hcl Active 25 MG IV Push Q6H 0 November 11, 2018 10:2511-11-2018 [facility] (59062) - insulin aspart U-100 (NOVOLOG) 100 unit/mL (3 mL) Insulin, Aspart, Human Insulin Aspart U-100 Active 0 UNITS Subcutaneous 3X/Day with meals and bedtime 0 November 11, 2018 10:2511-11-2018 [facility] (23584) - labetalol (NORMODYNE) 5 mg/mL injection Labetalol Labetalol Active 5 MG IV Push Q4H 0 November 11, 2018 10:28am 11-11-2018 [facility] (97702) - nystatin (MYCOSTATIN) 100,000 unit/mL suspension Nystatin Nystatin Active 124227 UNIT Oral Four times daily November 11, 2018 10:2811-11-2018 [facility] (18484) - pantoprazole (PROTONIX) 40 mg injection pantoprazole Pantoprazole Active 40 MG IV Push Daily 0 November 11, 2018 10:29am 11-11-2018 [facility] (16739) - lisinopril (ZESTRIL, PRINIVIL) 20 mg tablet - nitroglycerin sublingual (NITROQUICK) 0.4 mg SL tablet Dissolve 0.4 mg under the tongue. - QUEtiapine (SEROQUEL) 25 mg tablet Take 25 mg by mouth as needed. Take 3 tabs at bedtime and 100 mg daily - omeprazole (PRILOSEC) 20 mg capsule Take 2 capsules by mouth once daily. - gabapentin (NEURONTIN) 300 mg capsule Take 1 capsule by mouth as directed for 30 days. Take one pill (300mg) every morning and every afternoon and take two pills (600mg at night) - rivastigmine (EXELON) 13.3 mg/24 hour patch 1 Patch once daily. - aspirin, enteric coated (ASPIRIN, ENTERIC COATED) 81 mg EC tablet Take 162 mg by mouth. - Blood-Glucose Meter (TRUE METRIX GLUCOSE METER) [facility] Use to test 3 times a day - blood sugar diagnostic (BLOOD GLUCOSE TEST) test strip Use as instructed - Lancets lancets Use as instructed - cetirizine (ZYRTEC) 10 mg tablet Take 10 mg by mouth once daily. - biotin 5 mg tab Take 5 mg by mouth once daily. - docusate sodium (COLACE) 100 mg capsule Take 100 mg by mouth daily at bedtime. - melatonin 10 mg tab Take 1 tablet by mouth daily at bedtime. - metformin HCl (METFORMIN ORAL) Take 1,000 mg by mouth once daily. - ATORVASTATIN 80 mg tablet Take 80 mg by mouth once daily. - IPRATROPIUM BROMIDE 0.06 % nasal spray Use 1 [place] in the nose as needed. - KETOCONAZOLE 2 % shampoo Apply 1 application to affected area once daily as needed. - LAMOTRIGINE 200 mg tablet Take 200 mg by mouth daily at bedtime. - NAMENDA 10 mg tablet Take 10 mg by mouth twice daily. - TOPROL XL 50 mg 24 hr tablet Take 50 mg by mouth once daily. - VENLAFAXINE 50 mg tablet Take 50 mg by mouth twice daily. Problem List As Of Date 09/18/2023 Noted Resolved Senile cataract, unspecif (more content not included)... Normal [facility] Ingris 09-11-2023 SHIRA Telephone (HEMASA) SEYMOUR LUCIA ([id number]) 1940 F Date Time Provider Department 09/11/23 REJI MCKINLEY During your visit today, we recorded the following information about you: Reji Mckinley RN 09/11/2023 2:09 PM Signed Pt daughter calling to ask for an increased dose refill of pt's Ritalin, sent to [facility]. They are also requesting an order for in home PT. She has talked with someone and will call back with name of facility and fax number for order. Bettina: Please place orders if agreeable. WILL Billy Kimberly J, APRN.COMMUNICATIONS EQUIPMENT OPERATOR 09/11/2023 3:46 PM Signed I cannot increase dose of Ritalin as she is max dose already She should contact Ramona's PCP for physical therapy thanks Reji Mckinley RN 09/11/2023 3:53 PM Signed Would you like her to continue on the Ritalin. Daughter reports she needs a refill. Reji Mckinley RN 09/11/2023 3:55 PM Signed Daughter notified of response. She is aware of the request for refill sent. She will call PCP for PT. 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 - OLANZapine (ZYPREXA) 5 mg tablet take 1 tablet by mouth once daily at bedtime - osimertinib (TAGRISSO) 80 mg tablet Take 1 tablet (80 mg) by mouth once daily. - osimertinib (TAGRISSO) 80 mg tablet Take 1 tablet (80 mg) by mouth once daily. - predniSONE (DELTASONE) 20 mg tablet Take 1 tablet by mouth once daily. - hydrocortisone (CORTEF) 10 mg tablet Take two (2) tablets by mouth in the morning and one (1) tablet by mouth in the evening. - metoprolol succinate ER (TOPROL XL) 25 mg 24 hr tablet - bisacodyl EC (DULCOLAX) 5 mg EC tablet Bisacodyl Bisacodyl Active 10 MG Oral Daily 0 November 11, 2018 10:2511-11-2018 [facility] (46000) - diphenhydrAMINE (BENADRYL) 50 mg/mL injection diphenhydrAMINE Diphenhydramine Hcl Active 25 MG IV Push Q6H 0 November 11, 2018 10:2511-11-2018 [facility] (05928) - insulin aspart U-100 (NOVOLOG) 100 unit/mL (3 mL) Insulin, Aspart, Human Insulin Aspart U-100 Active 0 UNITS Subcutaneous 3X/Day with meals and bedtime 0 November 11, 2018 10:2511-11-2018 [facility] (84087) - labetalol (NORMODYNE) 5 mg/mL injection Labetalol Labetalol Active 5 MG IV Push Q4H 0 November 11, 2018 10:2811-11-2018 [facility] (23174) - nystatin (MYCOSTATIN) 100,000 unit/mL suspension Nystatin Nystatin Active 897641 UNIT Oral Four times daily 0 November 11, 2018 10:2811-11-2018 [facility] (60839) - pantoprazole (PROTONIX) 40 mg injection pantoprazole Pantoprazole Active 40 MG IV Push Daily 0 November 11, 2018 10:2911-11-2018 [facility] (37113) - lisinopril (ZESTRIL, PRINIVIL) 20 mg tablet - nitroglycerin sublingual (NITROQUICK) 0.4 mg SL tablet Dissolve 0.4 mg under the tongue. - QUEtiapine (SEROQUEL) 25 mg tablet Take 25 mg by mouth as needed. Take 3 tabs at bedtime and 100 mg daily - omeprazole (PRILOSEC) 20 mg capsule Take 2 capsules by mouth once daily. - gabapentin (NEURONTIN) 300 mg capsule Take 1 capsule by mouth as directed for 30 days. Take one pill (300mg) every morning and every afternoon and take two pills (600mg at night) - rivastigmine (EXELON) 13.3 mg/24 hour patch 1 Patch once daily. - aspirin, enteric coated (ASPIRIN, ENTERIC COATED) 81 mg EC tablet Take 162 mg by mouth. - Blood-Glucose Meter (TRUE METRIX GLUCOSE METER) [facility] Use to test 3 times a day - blood sugar diagnostic (BLOOD GLUCOSE TEST) test strip Use as instructed - Lancets lancets Use as instructed - cetirizine (ZYRTEC) 10 mg tablet Take 10 mg by mouth once daily. - biotin 5 mg tab Take 5 mg by mouth once daily. - docusate sodium (COLACE) 100 mg capsule Take 100 mg by mouth daily at bedtime. - melatonin 10 mg tab Take 1 tablet by mouth daily at bedtime. - metformin HCl (METFORMIN ORAL) Take 1,000 mg by mouth once daily. - ATORVASTATIN 80 mg tablet Take 80 mg by mouth once daily. - IPRATROPIUM BROMIDE 0.06 % nasal spray Use 1 [place] in the nose as needed. - KETO (more content not included)... Normal [facility] Refillon 08-26-2023 Refill [id number] Adela Lucia ma 1940 F Date Provider Department Center 08/26/2023 404-[facility] Lydia Heal No family history on file Reason for Visit and Comments: Med Refill [[id number]] Normal [facility] CBC W Auto Differential pane l (Bld)on 08-24-2023 Basophils (Bld) [#/Vol] 0.03 10*3/uL Normal <0.11 [facility] Comment on above: Order Comment: Speci men Type: BLOOD SPECIMEN Ordering Facility: [facility] Address: [address] [place] [address] Performed By: #### 5 7021-8 #### [facility] CLIA [id number] [address] [place] [address] [place] Basophils/100 WBC (Bld) 0.3 % Normal [facility] Comment on above: Order Comment: Speci men Type: BLOOD SPECIMEN Ordering Facility: [facility] Address: [address] [place] [address] Performed By: #### 5 7021-8 #### [facility] CLIA [id number] [address] [place] [address] [place] Differential cell count method Nom (Bld) Auto Normal [facility] Comment on above: Order Comment: Speci men Type: BLOOD SPECIMEN Ordering Facility: [facility] Address: [address] [place] [address] Performed By: #### 5 7021-8 #### [facility] CLIA [id number] [address] [place] [address] [place] Eosinophils (Bld) [#/Vol] 0.44 10*3/uL Normal <0.46 [facility] Comment on above: Order Comment: Speci men Type: BLOOD SPECIMEN Ordering Facility: [facility] Address: [address] [place] [address] Performed By: #### 5 7021-8 #### [facility] CLIA [id number] [address] [place] [address] [place] Eosinophils/100 WBC (Bld) 3.9 % Normal [facility] Comment on above: Order Comment: Speci men Type: BLOOD SPECIMEN Ordering Facility: [facility] Address: [address] [place] [address] Performed By: #### 5 7021-8 #### [facility] CLIA [id number] [address] [place] [address] [place] Erythrocyte distribution width (RBC) [Ratio] 19.6 % High 11.5-15.0 [facility] Comment on above: Order Comment: Speci men Type: BLOOD SPECIMEN Ordering Facility: [facility] Address: [address] [place] [address] Performed By: #### 5 7021-8 #### [facility] CLIA [id number] [address] [place] [address] [place] Hematocrit (Bld) [Volume fraction] 37.2 % Normal 36.0-46.0 [facility] Comment on above: Order Comment: Speci men Type: BLOOD SPECIMEN Ordering Facility: [facility] Address: [address] [place] [address] Performed By: #### 5 7021-8 #### [facility] CLIA [id number] [address] [place] [address] [place] Hemoglobin (Bld) [Mass/Vol] 11.0 g/dL Low 11.5-15.5 [facility] Comment on above: Order Comment: Speci men Type: BLOOD SPECIMEN Ordering Facility: [facility] Address: [address] [place] [address] Performed By: #### 5 7021-8 #### [facility] CLIA [id number] [address] [place] [address] [place] Immature granulocytes (Bld) [#/Vol] 0.09 10*3/uL Normal <0.10 [facility] Comment on above: Order Comment: Speci men Type: BLOOD SPECIMEN Ordering Facility: [facility] Address: [address] [place] [address] Performed By: #### 5 7021-8 #### [facility] CLIA [id number] [address] [place] [address] [place] Immature granulocytes/100 WBC (Bld) 0.8 % Normal [facility] Comment on above: Order Comment: Speci men Type: BLOOD SPECIMEN Ordering Facility: [facility] Address: [address] [place] [address] Performed By: #### 5 7021-8 #### [facility] CLIA [id number] [address] [place] [address] [place] Lymphocytes (Bld) [#/Vol] 2.14 10*3/uL Normal 1.00-4.00 [facility] Comment on above: Order Comment: Speci men Type: BLOOD SPECIMEN Ordering Facility: [facility] Address: [address] [place] [address] Performed By: #### 5 7021-8 #### [facility] CLIA [id number] [address] [place] [address] [place] Lymphocytes/100 WBC (Bld) 18.9 % Normal [facility] Comment on above: Order Comment: Speci men Type: BLOOD SPECIMEN Ordering Facility: [facility] Address: [address] [place] [address] Performed By: #### 5 7021-8 #### [facility] CLIA [id number] [address] [place] [address] [place] MCH (RBC) [Entitic mass] 26.7 pg Normal 26.0-34.0 [facility] Comment on above: Order Comment: Speci men Type: BLOOD SPECIMEN Ordering Facility: [facility] Address: [address] [place] [address] Performed By: #### 5 7021-8 #### [facility] CLIA [id number] [address] [place] [address] [place] MCHC (RBC) [Mass/Vol] 29.6 g/dL Low 30.5-36.0 [facility] Comment on above: Order Comment: Speci men Type: BLOOD SPECIMEN Ordering Facility: [facility] Address: [address] [place] [address] Performed By: #### 5 7021-8 #### [facility] CLIA [id number] [address] [place] [address] [place] MCV (RBC) [Entitic vol] 90.3 fL Normal 80.0-100.0 [facility] Comment on above: Order Comment: Speci men Type: BLOOD SPECIMEN Ordering Facility: [facility] Address: [address] [place] [address] Performed By: #### 5 7021-8 #### [facility] CLIA [id number] [address] [place] [address] [place] Monocytes (Bld) [#/Vol] 1.04 10*3/uL High <0.87 [facility] Comment on above: Order Comment: Speci men Type: BLOOD SPECIMEN Ordering Facility: [facility] Address: [address] [place] [address] Performed By: #### 5 7021-8 #### [facility] CLIA [id number] [address] [place] [address] [place] Monocytes/100 WBC (Bld) 9.2 % Normal [facility] Comment on above: Order Comment: Speci men Type: BLOOD SPECIMEN Ordering Facility: [facility] Address: [address] [place] [address] Performed By: #### 5 7021-8 #### [facility] CLIA [id number] [address] [place] [address] [place] Neutrophils (Bld) [#/Vol] 7.61 10*3/uL High 1.45-7.50 [facility] Comment on above: Order Comment: Speci men Type: BLOOD SPECIMEN Ordering Facility: [facility] Address: [address] [place] [address] Performed By: #### 5 7021-8 #### [facility] CLIA [id number] [address] [place] [address] [place] Neutrophils/100 WBC (Bld) 66.9 % Normal [facility] Comment on above: Order Comment: Speci men Type: BLOOD SPECIMEN Ordering Facility: [facility] Address: [address] [place] [address] Performed By: #### 5 7021-8 #### [facility] CLIA [id number] [address] [place] [address] [place] Nucleated RBC (Bld) [#/Vol] 10*3/uL Normal <0.01 [facility] Comment on above: Order Comment: Speci men Type: BLOOD SPECIMEN Ordering Facility: [facility] Address: [address] [place] [address] Performed By: #### 5 7021-8 #### [facility] CLIA [id number] [address] [place] [address] [place] Nucleated RBC/100 WBC (Bld) [Ratio] 0.0 /100 WBC Normal [facility] Comment on above: Order Comment: Speci men Type: BLOOD SPECIMEN Ordering Facility: [facility] Address: [address] [place] [address] Performed By: #### 5 7021-8 #### [facility] CLIA [id number] [address] [place] [address] [place] Platelet mean volume (Bld) [Entitic vol] 10.8 fL Normal 9.0-12.7 [facility] Comment on above: Order Comment: Speci men Type: BLOOD SPECIMEN Ordering Facility: [facility] Address: [address] [place] [address] Performed By: #### 5 7021-8 #### [facility] CLIA [id number] [address] [place] [address] [place] Platelets (Bld) [#/Vol] 263 10*3/uL Normal 150-400 [facility] Comment on above: Order Comment: Speci men Type: BLOOD SPECIMEN Ordering Facility: [facility] Address: [address] [place] [address] Performed By: #### 5 7021-8 #### [facility] CLIA [id number] [address] [place] [address] [place] RBC (Bld) [#/Vol] 4.12 10*6/uL Normal 3.90-5.20 [facility] Comment on above: Order Comment: Speci men Type: BLOOD SPECIMEN Ordering Facility: [facility] Address: [address] [place] [address] Performed By: #### 5 7021-8 #### [facility] CLIA [id number] [address] [place] [address] [place] WBC (Bld) [#/Vol] 11.35 10*3/uL High 3.70-11.00 [facility] Comment on above: Order Comment: Speci men Type: BLOOD SPECIMEN Ordering Facility: [facility] Address: [address] [place] [address] Performed By: #### 5 7021-8 #### [facility] CLIA [id number] [address] [place] [address] [place] Comprehensive metabolic 2000 panelon 08-24-2023 Albumin [Mass/Vol] 3.3 g/dL Low 3.9-4.9 [facility] Comment on above: Order Comment: Speci men Type: BLOOD SPECIMEN Ordering Facility: [facility] Address: [address] [place] [address] Performed By: #### 2 4323-8 #### [facility] CLIA [id number] [address] [place] [address] [place] ALP [Catalytic activity/Vol] 847 U/L High 34-123 [facility] Comment on above: Order Comment: Speci men Type: BLOOD SPECIMEN Ordering Facility: [facility] Address: [address] [place] [address] Performed By: #### 2 4323-8 #### [facility] CLIA [id number] [address] [place] [address] [place] ALT [Catalytic activity/Vol] Normal [facility] Comment on above: Order Comment: Speci men Type: BLOOD SPECIMEN Ordering Facility: [facility] Address: [address] [place] [address] Result Comment: Unab le to assay due to interference from hemolysis. Suggest reorder as clinically indicated. Performed By: #### 2 4323-8 #### [facility] CLIA [id number] [address] [place] [address] [place] Anion gap [Moles/Vol] 13 mmol/L Normal 9-18 [facility] Comment on above: Order Comment: Speci men Type: BLOOD SPECIMEN Ordering Facility: [facility] Address: [address] [place] [address] Performed By: #### 2 4323-8 #### [facility] CLIA [id number] [address] [place] [address] [place] AST [Catalytic activity/Vol] Normal [facility] Comment on above: Order Comment: Speci men Type: BLOOD SPECIMEN Ordering Facility: [facility] Address: [address] [place] [address] Result Comment: Unab le to assay due to interference from hemolysis. Suggest reorder as clinically indicated. Performed By: #### 2 4323-8 #### [facility] CLIA [id number] [address] [place] [address] [place] Bilirubin [Mass/Vol] 0.3 mg/dL Normal 0.2-1.3 [facility] Comment on above: Order Comment: Speci men Type: BLOOD SPECIMEN Ordering Facility: [facility] Address: [address] [place] [address] Performed By: #### 2 4323-8 #### [facility] CLIA [id number] [address] [place] [address] [place] Calcium [Mass/Vol] 10.0 mg/dL Normal 8.5-10.2 [facility] Comment on above: Order Comment: Speci men Type: BLOOD SPECIMEN Ordering Facility: [facility] Address: [address] [place] [address] Performed By: #### 2 4323-8 #### [facility] CLIA [id number] [address] [place] [address] [place] Chloride [Moles/Vol] 102 mmol/L Normal 97-105 [facility] Comment on above: Order Comment: Speci men Type: BLOOD SPECIMEN Ordering Facility: [facility] Address: [address] [place] [address] Performed By: #### 2 4323-8 #### [facility] CLIA [id number] [address] [place] [address] [place] CO2 [Moles/Vol] 27 mmol/L Normal 22-30 [facility] Comment on above: Order Comment: Speci men Type: BLOOD SPECIMEN Ordering Facility: [facility] Address: [address] [place] [address] Performed By: #### 2 4323-8 #### [facility] CLIA [id number] [address] [place] [address] [place] [place] Creatinine [Mass/Vol] 0.85 mg/dL Normal 0.58-0.96 [facility] Comment on above: Order Comment: Speci men Type: BLOOD SPECIMEN Ordering Facility: [facility] Address: [address] [place] [address] Performed By: #### 2 4323-8 #### [facility] CLIA [id number] [address] [place] [address] [place] Creatinine and Glomerular filtration rate.predicted panel (S/P/Bld) 68 mL/min/1.73m??? Normal >=60 [facility] Comment on above: Order Comment: Speci men Type: BLOOD SPECIMEN Ordering Facility: [facility] Address: [address] [place] [address] Result Comment: Katelyn mated Glomerular Filtration Rate (eGFR) is calculated using the 2020 CKD-EPI creatinine equation. This equation utilizes serum creatinine, sex, and age as parameters. The creatinine assay has traceable calibration to isotope dilution-mass spectrometry. Refer to KDIGO guidelines for clinical interpretation. In patients with unstable renal function, e.g. those with acute kidney injury, the eGFR may not accurately reflect actual GFR. Performed By: #### 2 4323-8 #### [facility] CLIA [id number] [place] [address] [place] Glucose [Mass/Vol] 83 mg/dL Normal 74-99 [facility] Comment on above: Order Comment: Kristine men Type: BLOOD SPECIMEN Ordering Facility: [facility] Address: [address] [place] [address] Result Comment: The [place] Diabetes Association (ADA) provides guidance for cutoff values for fasting glucose and random glucose. The ADA defines fasting as no caloric intake for at least 8 hours. Fasting plasma glucose results between 100 to 125 mg/dL indicate increased risk for diabetes (prediabetes). Fasting plasma glucose results greater than or equal to 126 mg/dL meet the criteria for diagnosis of diabetes. In the absence of unequivocal hyperglycemia, results should be confirmed by repeat testing. In a patient with classic symptoms of hyperglycemia or hyperglycemic crisis, random plasma glucose results greater than or equal to 200 mg/dL meet the criteria for diagnosis of diabetes. Reference: Standards of Medical Care in Diabetes 2016, [place] Diabetes Association. Diabetes Care. 2016.39(Suppl 1). Performed By: #### 2 4323-8 #### [facility] CLIA [id number] [address] [place] [address] [place] Potassium [Moles/Vol] 4.7 mmol/L Normal 3.7-5.1 [facility] Comment on above: Order Comment: Speci men Type: BLOOD SPECIMEN Ordering Facility: [facility] Address: [address] [place] [address] Performed By: #### 2 4323-8 #### [facility] CLIA [id number] [place] [address] [place] Protein [Mass/Vol] 7.0 g/dL Normal 6.3-8.0 [facility] Comment on above: Order Comment: Speci men Type: BLOOD SPECIMEN Ordering Facility: [facility] Address: [address] [place] [address] Performed By: #### 2 4323-8 #### [facility] CLIA [id number] [place] [address] [place] Sodium [Moles/Vol] 142 mmol/L Normal 136-144 [facility] Comment on above: Order Comment: Speci men Type: BLOOD SPECIMEN Ordering Facility: [facility] Address: [address] [place] [address] Performed By: #### 2 4323-8 #### [facility] CLIA [id number] [place] Urea nitrogen [Mass/Vol] 18 mg/dL Normal 7-21 [facility] Comment on above: Order Comment: Speci men Type: BLOOD SPECIMEN Ordering Facility: [facility] Address: [address] [place] [address] Performed By: #### 2 4323-8 #### [facility] CLIA [id number] [place] [address] [place] MRI BRAIN WO/W IVCONon 08-24 MRI BRAIN WO/W IVCON * * *Final Report* * * DATE OF EXAM: Aug 24 2023 5:18PM [facility] [id number] - MRI BRAIN WO/W IVCON / PROCEDURE REASON: multiple diagnoses * * * * Physician Interpretation * * * * EXAMINATION: MRI BRAIN WO/W IVCON Clinical history provided by the ordering clinician via order question and clinical decision support entries: Primary neoplasm/metastasis/postop F/U. Brain metastases Schwannoma. 1. Lung cancer with brain mets s/p GKRS 11/20/18 to 5 lesions 2. Enhancing lesion within the Left Meckel's cave, likely schwannoma 6 mo f/up. TECHNIQUE: Intracranial mass brain MRI protocol without and with contrast including diffusion. MQ: [id number] Contrast: 11 mL Dotarem IV COMPARISON: 11/14/2022. RESULT: Acute Change: No abnormal restricted diffusion to suggest an acute infarct. Hemorrhage: No evidence of prior parenchymal hemorrhage on the susceptibility weighted images. Mass Lesion/ Mass Effect: Stable 5 x 3 x 4 mm focus of enhancement within the left Meckel's cave (series 16, image 32), presumably representing a small schwannoma. No apparent abnormal intracranial enhancement elsewhere and no significant mass effect. Chronic Change: Stable minimal burden of presumed chronic microvascular ischemic change in the supratentorial white matter. Parenchyma: There is mild generalized parenchymal volume loss. The brain parenchyma is otherwise within normal limits of signal intensity and morphology. Ventricles: Ventricular calibers are commensurate with the parenchymal volume and normal in configuration. Skull Base: Hypothalamic and pituitary region are grossly normal. Craniocervical junction is normal. No significant marrow replacement process. Vasculature: Major intracranial arterial structures, and dural venous sinuses show typical flow void, suggesting patency by spin echo criteria. Other: The visualized paranasal sinuses and mastoid air cells are clear. Bilateral pseudophakia. The orbits are otherwise unremarkable. Edentulous with dentures in place. The extracranial soft tissues are within normal limits. IMPRESSION: No apparent intracranial metastatic disease. Stable small focus of enhancement in the left Meckel's cave presumably representing a small schwannoma. College Advisor: PSCB Transcribe Date/Time: Aug 24 2023 7:18P Dictated by : SALLIE LOPEZ MD This examination was interpreted and the report reviewed and electronically signed by: SALLIE LOPEZ MD on Aug 24 2023 7:26PM EST [id number] [facility] 08-16-2023 LORI Telephone (RANDALL) SEYMOUR LUCIA ([id number]) 1940 F Date Time Provider Department 08/16/23 HARRY BRANNON During your visit today, we recorded the following information about you: Harry Brannon RN 08/16/2023 11:38 AM Signed ----- Message from Yanci Churchill MD sent at 08/16/2023 9:58 AM EST ----- Please call with disease with control Harry Brannon RN 08/16/2023 11:41 AM Signed Pt's daughter notified of results. Daughter would like to pursue physical therapy and states there's a gentleman that texts her that pt was set up with in the past but never came out to see the patient. Daughter states he has all of her insurance info and she would like him to see her. Daughter states she will text him since he's in contact with her often and will call our office if she needs anything further. Harry Brannon RN Allergies As of Date: 08/16/2023 (No Known Allergies) Date Reviewed: 07/17/2023 Reviewed by: Bettina Tang APRN.COMMUNICATIONS EQUIPMENT OPERATOR - Fully Assessed Reason for Visit: Care Coordination [3495] Cmt: Scan results Prescriptions as of 08/16/2023 - OLANZapine (ZYPREXA) 5 mg tablet take 1 tablet by mouth once daily at bedtime - HYDROcodone-acetaminophen (NORCO) 5-325 mg per tablet Take 1 tablet by mouth every 8 hours as needed for pain for up to 15 days. - methylphenidate (RITALIN) 20 mg tablet Take 0.5 tablets by mouth two times a day for 30 days. - osimertinib (TAGRISSO) 80 mg tablet Take 1 tablet (80 mg) by mouth once daily. - osimertinib (TAGRISSO) 80 mg tablet Take 1 tablet (80 mg) by mouth once daily. - predniSONE (DELTASONE) 20 mg tablet Take 1 tablet by mouth once daily. - promethazine (PHENERGAN) 6.25 mg/5 mL syrup TAKE 5 ML TO 10 ML BY MOUTH EVERY 6 HOURS NEEDED - hydrocortisone (CORTEF) 10 mg tablet Take two (2) tablets by mouth in the morning and one (1) tablet by mouth in the evening. - metoprolol succinate ER (TOPROL XL) 25 mg 24 hr tablet - bisacodyl EC (DULCOLAX) 5 mg EC tablet Bisacodyl Bisacodyl Active 10 MG Oral Daily 0 November 11, 2018 10:25am 11-11-2018 [facility] ([id number]) - diphenhydrAMINE (BENADRYL) 50 mg/mL injection diphenhydrAMINE Diphenhydramine Hcl Active 25 MG IV Push Q6H 0 November 11, 2018 10:2511-11-2018 [facility] ([id number]) - insulin aspart U-100 (NOVOLOG) 100 unit/mL (3 mL) Insulin, Aspart, Human Insulin Aspart U-100 Active 0 UNITS Subcutaneous 3X/Day with meals and bedtime 0 November 11, 2018 10:2511-11-2018 [facility] ([id number]) - labetalol (NORMODYNE) 5 mg/mL injection Labetalol Labetalol Active 5 MG IV Push Q4H 0 November 11, 2018 10:2811-11-2018 [facility] ([id number]) - nystatin (MYCOSTATIN) 100,000 unit/mL suspension Nystatin Nystatin Active 008533 UNIT Oral Four times daily November 11, 2018 10:2811-11-2018 [facility] ([id number]) - pantoprazole (PROTONIX) 40 mg injection pantoprazole Pantoprazole Active 40 MG IV Push Daily 0 November 11, 2018 10:29am 11-11-2018 [facility] ([id number]) - lisinopril (ZESTRIL, PRINIVIL) 20 mg tablet - nitroglycerin sublingual (NITROQUICK) 0.4 mg SL tablet Dissolve 0.4 mg under the tongue. - QUEtiapine (SEROQUEL) 25 mg tablet Take 25 mg by mouth as needed. Take 3 tabs at bedtime and 100 mg daily - omeprazole (PRILOSEC) 20 mg capsule Take 2 capsules by mouth once daily. - gabapentin (NEURONTIN) 300 mg capsule Take 1 capsule by mouth as directed for 30 days. Take one pill (300mg) every morning and every afternoon and take two pills (600mg at night) - rivastigmine (EXELON) 13.3 mg/24 hour patch 1 Patch once daily. - aspirin, enteric coated (ASPIRIN, ENTERIC COATED) 81 mg EC tablet Take 162 mg by mouth. - Blood-Glucose Meter (TRUE METRIX GLUCOSE METER) [facility] Use to test 3 times a day - blood sugar diagnostic (BLOOD GLUCOSE TEST) test strip Use as instructed - Lancets lancets Use as instructed - cetirizine (ZYRTEC) 10 mg tablet Take 10 mg by mouth once daily. - biotin 5 mg tab Take 5 mg by mouth once daily. - docusate sodium (COLACE) 100 mg capsule Take 100 mg by mouth daily at bedtime. - melatonin 10 mg tab Take 1 tablet by mouth daily at bedtime. - metformin HCl (METFORMIN ORAL) Take 1,000 mg by mouth once daily. - ATORVASTATIN 80 mg tablet Take 80 mg by mouth once daily. - IPRATROPIUM BROMIDE 0.06 % nasal spray Use 1 [place] in the nose as needed. - KETOCONAZOLE 2 % shampoo Apply 1 application to affected area once daily as needed. - LAMOTRIGINE 200 mg tablet Take 200 mg by mouth daily at bedtime. - NAMENDA 10 mg tablet Take 10 mg by mouth twice daily. - TOPROL XL 50 mg 24 hr tablet Take 50 mg by mouth once daily. - VENLAFAXINE 50 mg tablet Take 50 mg by mouth twice daily. Problem List As Of Date 08/16/2023 Noted Resolved Senile ca (more content not included)... Normal [facility] PET/CT SKULL-THIGH SUBQon 08-15-2023 ME PET/CT SKULL-THIGH SUBQ * * *Final Report* * * DATE OF EXAM: Aug 15 2023 11:01AM NRN [id number] - ME PET/CT SKULL-THIGH SUBQ / PROCEDURE REASON: 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, unspecified lateral * * * * Physician Interpretation * * * * RESULT: FDG PET/CT SCAN 08/15/2023 8:45 AM: CLINICAL HISTORY: 83 years old Female with 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, unspecified laterality (HCC) INDICATION: Subsequent treatment strategy. Reference max SUV: Mediastinum blood pool activity: max SUV 1.7 TECHNIQUE: 6.0 mCi F-18 FDG IV, followed about 1 hour later by PET imaging from base of the skull to proximal femur. Non contrast CT was performed for attenuation correction and anatomic localization purposes, and acute/emergent/actionable findings are described. [CSS] CT Dose-Length Product (DLP): 154 mGy*cm. CT Dose Reduction Employed: Yes BLOOD GLUCOSE: 75 mg/dL COMPARISON: 04/02/2020 FDG PET/CT, and 622 CT chest abdomen pelvis reports. RESULT: Note- The SUV value is for reference purposes. Due to technical factors and uncontrolled variables, caution is advised when using SUV to differentiate malignant from nonmalignant processes, or to assess follow-up/treatment response. HEAD AND NECK: No pathologically enlarged or hypermetabolic cervical lymphadenopathy. Uptake in the oral cavity, tonsils, salivary glands, extraocular muscles is likely physiologic. Substantially limited evaluation of the intracranial structures due to the physiologic crowley matter uptake. CHEST: Lungs and tracheobronchial tree: 1.4 cm paramediastinal left upper lobe nodule on 4: Max SUV 2.8 0.8 cm right lower lobe groundglass nodule is not avid. 1.0 x 0.6 cm crescentic paravertebral posteromedial right lower lobe uptake on 4:100 max SUV 1.2 is favored to be inflammatory. Pleura and pericardium: No significantly FDG avid pleural effusion. Mediastinum and Lymph nodes: No hypermetabolic axillary, hilar, or mediastinal lymphadenopathy. Chest wall: No hypermetabolic lesion. ABDOMEN AND PELVIS: Liver: Mildly heterogeneous uptake, no definite hypermetabolic lesion. Biliary: No focal FDG avidity. Spleen: No FDG avidity. No splenomegaly. Pancreas: No abnormal FDG avidity or duct dilation. Adrenals: No FDG avid lesion right adrenal. No FDG avid lesion left adrenal. tract: Within the limitation of the physiologic FDG excretion no hydronephrosis or grossly hypermetabolic lesion. GI tract: Areas of uptake are favored to be physiologic or due to medication effect, which limits evaluation of underlying lesions. Lymph nodes: No abdominal or pelvic hypermetabolic lymphadenopathy. Mesentery/Peritoneum: No focal hypermetabolic lesion. Vasculature: Vascular patency cannot be assessed due to lack of IV contrast. No aortic or iliac artery aneurysm. Pelvis: No focal hypermetabolic lesion. Abdominopelvic wall: No hypermetabolic lesion MUSCULOSKELETAL: There are no hypermetabolic osseous lesions. Arcgis Developer (topogram) images: No additional findings. IMPRESSION: Head and Neck: * No evidence of FDG avid neoplastic process Chest: * 1.4 cm left upper lobe hypermetabolic persistent nodule is suspicious for a neoplastic process. Tissue sampling/follow-up/treatmen t, as clinically indicated. ACTIONABLE RESULT * 0.8 cm right lower lobe groundglass is not avid. Recommend attention on follow-up studies to exclude low metabolic rate/adenocarcinoma spectrum lesion * Right lower lobe paravertebral uptake is favored to be inflammatory, and assessing follow-up studies Abdomen and pelvis: * No evidence of FDG avid neoplastic process Musculoskeletal: * No neoplastic hypermetabolic lesions ACTIONABLE RESULT: FOLLOW-UP Acuity: Actionable Findings: Thoracic-Lung nodules Routing code: [id number] Recommendation: Unlisted Recommendation (see report) Time Frame: At the discretion of the clinical team. COMMUNICATION: Results will be communicated with the ordering provider via [employer] staff message or phone message by [facility] within 2 business days of report finalization. ========= Algorithms for management of incidental imaging findings can be found on the [facility] Intranet Sharepoint site at: http://spo.[facility].org/document ation/mychartlinks/Managing %20Incidental%20Findi ngs%20at%20Imaging/Forms/Al lItems.aspx NOTE: This report was created using voice recognition dictation software. If there is a concern for errors, please have the clinician contact the report author for clarification. Transcribe Date/Time: Aug 15 2023 12:54P Dictated by: TRAMAINE FIERRO MD This examination was interpreted and the report reviewed and electronically signed by: TRAMAINE FIERRO MD on Aug 15 2023 6:33PM EST Thank you for allowing us to participate in the care of your patient. Should there be any questions regarding this int (more content not included)... Invalid Interpretation Code [facility] 08-07-2023 SHIRAN Telephone (HEMASA) SEYMOUR LUCIA ([id number]) 1940 F Date Time Provider Department 08/07/23 SESSLER, CON HEMASA During your visit today, we recorded the following information about you: Con Salmon RN 08/07/2023 3:34 PM Signed Pt's daughter calls w/ concerns of pt's persisting middle back pain. Notes that the pain radiates around to her side/front. States they informed pall med who suggested she may need imaging, but advised they contact our office for orders. Please advise. WILL Vigil Kasra, MD 08/07/2023 4:08 PM Signed Please schedule for a PET scan Con Salmon RN 08/07/2023 4:19 PM Addendum Pt's daughter notified and verbalizes understanding. Order pended. Clerical: Pt's daughter would like the PET scheduled the same day as her CT on 08/24. Please call Radha w/ the appointment. Dr Churchill: Pt has only been taking Tylenol for her pain. Daughter requesting something stronger. Pt follows w/ [facility], but for fatigue. Would you like Pall Med to advise on pain medication as well? WILL Vigil Amy S 08/08/2023 11:27 AM Signed Spoke to Radha, daughter, AND scheduled the PET scan in [place] on 08/21/2023@10:45 am. If we get any cancellations radiology will call her. Radha verbalized undestanding. Graciela Moreland 08/08/2023 11:41 AM Signed We got a cancellation on 08/15/2023@8:45 am spoke to Radha, patient's daughter, she accepted the earlier appointment. Rescheduled appointment to 08/15/2023@8:45 am for PET scan. Con Kothari RN 08/08/2023 11:[address] Churchill: Pt's daughter calls again requesting something stronger than tylenol for her mother's back pain. Pt has been seeing Pall Med for fatigue and malaise. Do you want to address her pain or would you like to defer this to pall med? WILL Vigil Kasra, MD 08/08/2023 1:04 PM Signed Can Pall med address the pain and fatigue please,. Thanks Con Salmon RN 08/08/2023 1:09 PM Signed Bettina/Nithya: We've ordered a PET to be done, but could you advise on pt's need for stronger pain medication? Currently taking only Tylenol for her back pain. WILL Vigil Kimberly J, BOAT RENTAL CLERK.COMMUNICATIONS EQUIPMENT OPERATOR 08/08/2023 1:36 PM Signed I sent two weeks of [place] 5/325 mg po take every 8 hours prn pain to jamaal in [facility] Con Salmon RN 08/08/2023 1:45 PM Signed Call placed to pt's daughter, Radha. No answer. Message left requesting call back. WILL Vigil Rebecca, RN 08/08/2023 1:47 PM Signed Pt's daughter, Radha, notified of script and verbalizes understanding. Con Salmon RN Allergies As of Date: 08/07/2023 (No Known Allergies) Date Reviewed: 07/17/2023 Reviewed by: Bettina Tang, BOAT RENTAL CLERK.COMMUNICATIONS EQUIPMENT OPERATOR - Fully Assessed Reason for Visit: Care Coordination [3491] Cmt: Back Pain Primary Visit Diagnosis: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, unspecified laterality (HCC) [C34.90] Other Visit Diagnosis:Neoplasm related pain [G89.3] Order(s):NM PET/CT SKULL-THIGH SUBSEQUENT [[id number]] Order #: [id number] FUTURE HYDROcodone-acetaminophen (NORCO) 5-325 mg per tabletTake 1 tablet by mouth every 8 hours as needed for pain for up to 15 days.Disp: 45 tabletRfl: 0 Prescriptions as of 08/08/2023 - HYDROcodone-acetaminophen (NORCO) 5-325 mg per tablet Take 1 tablet by mouth every 8 hours as needed for pain for up to 15 days. - methylphenidate (RITALIN) 20 mg tablet Take 0.5 tablets by mouth two times a day for 30 days. - osimertinib (TAGRISSO) 80 mg tablet Take 1 tablet (80 mg) by mouth once daily. - osimertinib (TAGRISSO) 80 mg tablet Take 1 tablet (80 mg) by mouth once daily. - predniSONE (DELTASONE) 20 mg tablet Take 1 tablet by mouth once daily. - promethazine (PHENERGAN) 6.25 mg/5 mL syrup TAKE 5 ML TO 10 ML BY MOUTH EVERY 6 HOURS NEEDED - OLANZapine (ZYPREXA) 5 mg tablet take 1 tablet by mouth once daily at bedtime - hydrocortisone (CORTEF) 10 mg tablet Take two (2) tablets by mouth in the morning and one (1) tablet by mouth in the evening. - metoprolol succinate ER (TOPROL XL) 25 mg 24 hr tablet - bisacodyl EC (DULCOLAX) 5 mg EC tablet Bisacodyl Bisacodyl Active 10 MG Oral Daily 0 November 11, 2018 10:25am 11-11-2018 [facility] ([id number]) - diphenhydrAMINE (BENADRYL) 50 mg/mL injection diphenhydrAMINE Diphenhydramine Hcl Active 25 MG IV Push Q6H 0 November 11, 2018 10:25am 11-11-2018 [facility] ([id number]) - insulin aspart U-100 (NOVOLOG) 100 unit/mL (3 mL) Insulin, Aspart, Human Insulin Aspart U-100 Active 0 UNITS Subcutaneous 3X/Day with meals and bedtime 0 November 11, 2018 10:25am 11-11-2018 [facility] ([id number]) - labetalol (NORMODYNE) 5 mg/mL injection Labetalol Labetalol Active 5 MG IV Push Q4H 0 Bernabe (more content not included)... Normal [facility] 08-02-2023 LORI Telephone (PALMED) SEYMOUR LUCIA ([id number]) 1940 F Date Time Provider Department 08/02/23 BETTINA TANG During your visit today, we recorded the following information about you: Julieth Gonzalez 08/02/2023 8:58 AM Signed Seymour Lucia('s) pharmacy: [facility] is calling Bettina Tang, LIZETTE, BOAT RENTAL CLERK.COMMUNICATIONS EQUIPMENT OPERATOR today regarding Medication Problem Cannot get 5 or 10mg in supply and insurance will not pay for 4 tabs/day. Please advise. Patient has been identified by name and birthdate. Pharmacy: [phone] Julieth Gonzalez August 02, 2023 Ingrid Goldman RN 08/02/2023 10:48 AM Signed Pharmacist Mansi at [facility] only has 20 mg Ritalin available, national shortage/allocation of all Ritalin strengths and pharmacies are receiving limited supplies, national mandatory allocation from sheep herder. Pharmacist also states that and no insurance will allow 4 tabs of Ritalin a day. Dose must be changed to 10 mg or 20 mg. But pharmacist did not know of any pharmacies carrying the 10 mg tabs, family would have to call around if 10 mg strength is needed but pharmacist Mansi could dispense at 20 mg prescription. Please review and advise. WILL Abbott Kimberly J, BOAT RENTAL CLERK.COMMUNICATIONS EQUIPMENT OPERATOR 08/02/2023 1:39 PM Signed I ordered 20 mg tabs, she can use a half tab bid. Ingrid Goldman RN 08/02/2023 2:07 PM Signed [facility] med nurse called to daughter Radha and relayed that Rx was sent to pharmacy. 20 mg Methylphenidate - give 1/2 tab (10 mg) twice a day. Daughter verbalized understanding. ANTHONY Abbott Picking Machine Operator Allergies As of Date: 08/02/2023 (No Known Allergies) Date Reviewed: 07/17/2023 Reviewed by: Bettina Tang, LON.COMMUNICATIONS EQUIPMENT OPERATOR - Fully Assessed Reason for Visit: Medication Problem [65] Primary Visit Diagnosis:Neoplastic malignant related fatigue [R53.0] Other Visit Diagnosis:Palliative care by specialist [Z51.5] Order(s):methylphenidate (RITALIN) 20 mg tabletTake 0.5 tablets by mouth two times a day for 30 days.Disp: 30 tabletRfl: 0 Prescriptions as of 08/02/2023 - methylphenidate (RITALIN) 20 mg tablet Take 0.5 tablets by mouth two times a day for 30 days. - osimertinib (TAGRISSO) 80 mg tablet Take 1 tablet (80 mg) by mouth once daily. - osimertinib (TAGRISSO) 80 mg tablet Take 1 tablet (80 mg) by mouth once daily. - predniSONE (DELTASONE) 20 mg tablet Take 1 tablet by mouth once daily. - promethazine (PHENERGAN) 6.25 mg/5 mL syrup TAKE 5 ML TO 10 ML BY MOUTH EVERY 6 HOURS NEEDED - OLANZapine (ZYPREXA) 5 mg tablet take 1 tablet by mouth once daily at bedtime - hydrocortisone (CORTEF) 10 mg tablet Take two (2) tablets by mouth in the morning and one (1) tablet by mouth in the evening. - metoprolol succinate ER (TOPROL XL) 25 mg 24 hr tablet - bisacodyl EC (DULCOLAX) 5 mg EC tablet Bisacodyl Bisacodyl Active 10 MG Oral Daily 0 November 11, 2018 10:11-11-2018 [facility] ([id number]) - dexamethasone sodium phosphate (DECADRON) 4 mg/mL injection Dexamethasone Dexamethasone Sodium Phosphate Active 4 MG IV Push Daily 0 November 11, 2018 10:11-11-2018 [facility] ([id number]) - diphenhydrAMINE (BENADRYL) 50 mg/mL injection diphenhydrAMINE Diphenhydramine Hcl Active 25 MG IV Push Q6H 0 November 11, 2018 10:11-11-2018 [facility] ([id number]) - insulin aspart U-100 (NOVOLOG) 100 unit/mL (3 mL) Insulin, Aspart, Human Insulin Aspart U-100 Active 0 UNITS Subcutaneous 3X/Day with meals and bedtime 0 November 11, 2018 10:11-11-2018 [facility] ([id number]) - ketorolac (TORADOL) 30 mg/mL (1 mL) soln Ketorolac Ketorolac Active 15 MG IV Push Q6H 0 November 11, 2018 10:11-11-2018 [facility] ([id number]) - labetalol (NORMODYNE) 5 mg/mL injection Labetalol Labetalol Active 5 MG IV Push Q4H 0 November 11, 2018 10:11-11-2018 [facility] ([id number]) - nystatin (MYCOSTATIN) 100,000 unit/mL suspension Nystatin Nystatin Active [id number] UNIT Oral Four times daily 0 November 11, 2018 10:28am 11-11-2018 [facility] ([id number]) - pantoprazole (PROTONIX) 40 mg injection pantoprazole Pantoprazole Active 40 MG IV Push Daily 0 November 11, 2018 10:29am 11-11-2018 [facility] ([id number]) - lisinopril (ZESTRIL, PRINIVIL) 20 mg tablet - nitroglycerin sublingual (NITROQUICK) 0.4 mg SL tablet Dissolve 0.4 mg under the tongue. - QUEtiapine (SEROQUEL) 25 mg tablet Take 25 mg by mouth as needed. Take 3 tabs at bedtime and 100 mg daily - meloxicam (MOBIC) 15 mg tablet Take 15 mg by mouth. - omeprazole (PRILOSEC) 20 mg capsule Take 2 capsules by mouth once daily. - gabapentin (NEURONTIN) 300 mg capsule Take 1 capsule by mouth as directed for 30 days. Take one pill (300mg) every morning and every afternoon and take two (more content not included)... Normal [facility] 08-01-2023 SHIRAN Telephone (HEMAMN) SEYMOUR LUCIA ([id number]) 1940 F Date Time Provider Department 08/01/23 BETTINA TANG During your visit today, we recorded the following information about you: Mariza Fields 08/01/2023 10:16 AM Signed Seymour Woodard Lucia('s) daughter radha is calling Bettina Tang NP, BOAT RENTAL CLERK.COMMUNICATIONS EQUIPMENT OPERATOR today regarding Patient Update Patient has been identified by name and birthdate. Duration of symptoms: Seymour's daughter is calling and had mentioned that the ritalin was working well for Seymour. Wasn't sure about increasing it. Also mentioned that seymour's middle of her back is still bothering her, like there is a knot. Not sure about getting an xray. Requesting response back: call on cell [phone] (cell) Mariza Fields August 01, 2023 Bettina Tang APRN.SHIRA 08/01/2023 1:46 PM Signed I would recommend they reach out to oncology about imaging as she has a history of radiation to both lumbar and thoracic areas. If Seymour is tolerating current dose well, she can try 10 mg bid prn. I sent a refill to [facility] Nithya Katz RN 08/02/2023 8:25 AM Signed Palliative Medicine Care Coordination Follow up Phone Call Patient identified by name and : Yes Spoke to: nahomy Thompson. Nurse calling to follow up on provider recommendations. Discussed with nahomy Eaton CNP's recommendations that if patient doing well on the Ritalin she can increase it to 10 mg twice daily. Veronica said the insurance is not covering the prescription the way it is written and that the pharmacy planned to call our office. Let radha know we would contact [facility] pharmacy when they open after 9 am today. Also informed Veronica they should contact patent Oncologist regarding further imaging for her back pain due to her history of radiation to both lumbar and thoracic areas. Reinforced CURRENT treatment education based on current and anticipated symptoms Teach back method performed: YES Veronica verbalizes when to seek medical attention for new/worsening symptoms. Office and on-call numbers reviewed with patient. Nithya Katz RN August 02, 2023 8:25 AM Allergies As of Date: 08/01/2023 (No Known Allergies) Date Reviewed: 07/17/2023 Reviewed by: Bettina Tang APRN.COMMUNICATIONS EQUIPMENT OPERATOR - Fully Assessed Reason for Visit: Patient Update [1234] Visit Diagnosis:Malaise and fatigue [R53.81, R53.83] Order(s):methylphenidate (RITALIN) 5 mg tabletTake 1-2 tablets by mouth two times a day as needed for up to 30 days.Disp: 120 tabletRfl: 0 Prescriptions as of 08/02/2023 - methylphenidate (RITALIN) 5 mg tablet Take 1-2 tablets by mouth two times a day as needed for up to 30 days. - osimertinib (TAGRISSO) 80 mg tablet Take 1 tablet (80 mg) by mouth once daily. - osimertinib (TAGRISSO) 80 mg tablet Take 1 tablet (80 mg) by mouth once daily. - predniSONE (DELTASONE) 20 mg tablet Take 1 tablet by mouth once daily. - promethazine (PHENERGAN) 6.25 mg/5 mL syrup TAKE 5 ML TO 10 ML BY MOUTH EVERY 6 HOURS NEEDED - OLANZapine (ZYPREXA) 5 mg tablet take 1 tablet by mouth once daily at bedtime - hydrocortisone (CORTEF) 10 mg tablet Take two (2) tablets by mouth in the morning and one (1) tablet by mouth in the evening. - metoprolol succinate ER (TOPROL XL) 25 mg 24 hr tablet - bisacodyl EC (DULCOLAX) 5 mg EC tablet Bisacodyl Bisacodyl Active 10 MG Oral Daily 0 November 11, 2018 10:11-11-2018 [facility] ([id number]) - dexamethasone sodium phosphate (DECADRON) 4 mg/mL injection Dexamethasone Dexamethasone Sodium Phosphate Active 4 MG IV Push Daily 0 November 11, 2018 10:11-11-2018 [facility] ([id number]) - diphenhydrAMINE (BENADRYL) 50 mg/mL injection diphenhydrAMINE Diphenhydramine Hcl Active 25 MG IV Push Q6H 0 November 11, 2018 10:11-11-2018 [facility] ([id number]) - insulin aspart U-100 (NOVOLOG) 100 unit/mL (3 mL) Insulin, Aspart, Human Insulin Aspart U-100 Active 0 UNITS Subcutaneous 3X/Day with meals and bedtime 0 November 11, 2018 10:11-11-2018 [facility] ([id number]) - ketorolac (TORADOL) 30 mg/mL (1 mL) soln Ketorolac Ketorolac Active 15 MG IV Push Q6H 0 November 11, 2018 10:11-11-2018 [facility] ([id number]) - labetalol (NORMODYNE) 5 mg/mL injection Labetalol Labetalol Active 5 MG IV Push Q4H 0 November 11, 2018 10:11-11-2018 [facility] ([id number]) - nystatin (MYCOSTATIN) 100,000 unit/mL suspension Nystatin Nystatin Active 100435 UNIT Oral Four times daily 0 November 11, 2018 10:28am 11-11-2018 [facility] ([id number]) - pantoprazole (PROTONIX) 40 mg injection pantoprazole Pantoprazole Active 40 MG IV Push Daily 0 November 11, 2018 10:29am 11-11-2018 [facility] ([id number]) - lisinopril (ZESTRIL, PRINIVIL) 20 mg ta (more content not included)... Normal [facility] CNOVon 07-17-2023 CNOV Office Visit ([facility] ) SEYMOUR LUCIA ([id number]) 1940 F Date Time Provider Department 07/17/23 3:00 PM [facility]INA TANG [facility] During your visit today, we recorded the following information about you: Temperature Pulse Respiration Blood pressure 97.4 degrees 67/minute 16/minute 141/69 Weight Height 57.9 kg 1.63 m Bettina Tang, BOAT RENTAL CLERK.COMMUNICATIONS EQUIPMENT OPERATOR 07/17/2023 4:17 PM Addendum PALLIATIVE MEDICINE INITIAL CONSULT SERVICE DATE: 07/17/2023 Referring Physician: Yanci Churchill [address] [place] [address] Medical Oncologist: Yanci Churchill MD Primary Physician: Lexi Escobar MD REASON FOR CONSULT: Symptom Management Subjective Seymour Lucia is a 83 year old female with history of 1. 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 Adrenal Insufficiency by Dr. Puentes on hydrocortisone replacement Met with Seymour and her daughter, alert, oriented, NAD. Daughter is a retired hospice DON. Progressive fatigue and weakness, having difficulty walking even with her walker, attempts exercise at home with pedal chin strap maker and stretch bands. Family would like her to work with PT, but they do not feel it is safe for her to work with them as she is so weak. Appetite is poor, has lost several pounds in the last month. Has chronic nausea that is relieved with phenergan. Seymour has sulfured with severe anxiety and agitation due to dementia progression, she is on multiple medications provided by PCP and symptoms are well controlled.However many of the medications are sedating, but these have worked best for seymour. Her daughter is interested in a trial of ritalin to see if it could allow Seymour the energy to get through the holidays and participate in PT. 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 Last stent was in 2009 CURRENT MEDICATIONS: osimertinib (TAGRISSO) 80 mg tabletTake 1 tablet (80 mg) by mouth once daily.Disp: 30 tabletRfl: 5 osimertinib (TAGRISSO) 80 mg tabletTake 1 tablet (80 mg) by mouth once daily.Disp: 30 tabletRfl: 5 predniSONE (DELTASONE) 20 mg tabletTake 1 tablet by mouth once daily.Disp: 30 tabletRfl: 1 promethazine (PHENERGAN) 6.25 mg/5 mL syrupTAKE 5 ML TO 10 ML BY MOUTH EVERY 6 HOURS NEEDEDDisp: 120 mLRfl: 0 OLANZapine (ZYPREXA) 5 mg tablettake 1 tablet by mouth once daily at bedtimeDisp: 90 tabletRfl: 0 hydrocortisone (CORTEF) 10 mg tabletTake two (2) tablets by mouth in the morning and one (1) tablet by mouth in the evening.Disp: 270 tabletRfl: 2 metoprolol succinate ER (TOPROL XL) 25 mg 24 hr tabletDisp: Rfl: bisacodyl EC (DULCOLAX) 5 mg EC tabletBisacodyl Bisacodyl Active 10 MG Oral Daily 0 November 11, 2018 10:11-11-2018 [facility] ([id number])Disp: Rfl: dexamethasone sodium phosphate (DECADRON) 4 mg/mL injectionDexamethasone Dexamethasone Sodium Phosphate Active 4 MG IV Push Daily 0 November 11, 2018 10:11-11-2018 [facility] ([id number])Disp: Rfl: diphenhydrAMINE (BENADRYL) 50 mg/mL injectiondiphenhydrAMINE Diphenhydramine Hcl Active 25 MG IV Push Q6H 0 November 11, 2018 10:11-11-2018 [facility] ([id number])Disp: Rfl: insulin aspart U-100 (NOVOLOG) 100 unit/mL (3 mL)Insulin, Aspart, Human Insulin Aspart U-100 Active 0 UNITS Subcutaneous 3X/Day with meals and bedtime 0 November 11, 2018 10:11-11-2018 [facility] ([id number])Disp: Rfl: ketorolac (TORADOL) 30 mg/mL (1 mL) solnKetorolac Ketorolac Active 15 MG IV Push Q6H 0 November 11, 2018 10:11-11-2018 [facility] ([id number])Disp: Rfl: labetalol (NORMODYNE) 5 mg/mL injectionLabetalol Labetalol Active 5 MG IV Push Q4H 0 November 11, 2018 10:11-11-2018 [facility] ([id number])Disp: Rfl: nystatin (MYCOSTATIN) 100,000 unit/mL suspensionNystatin Nystatin Active 296911 UNIT Oral Four times daily 0 November 11, 2018 10:11-11-2018 [facility] ([id number])Disp: Rfl: pantoprazole (PROTONIX) 40 mg injectionpantoprazole Pantoprazole Active 40 MG IV Push Daily 0 November 11, 2018 10:2911-11-2018 [facility] ([id number])Disp: Rfl: lisinopril (ZESTRIL, PRINIVIL) 20 mg tabletDisp: Rfl: nitroglycerin sublingual (NITROQUICK) (more content not included)... Normal [facility] 07-17-2023 SHIRAN Telephone (Actively Learn) SEYMOUR LUCIA ([id number]) 1940 F Date Time Provider Department 07/17/23 HARRY BRANNON During your visit today, we recorded the following information about you: Harry Brannon, WILL 07/17/2023 10:09 AM Signed Pt's daughter calls requesting pt to get IV fluids today at 2 pm. Pt has had some nausea, phenergan is helping. Did have some vomiting on Sunday and had to cancel her appointment here. Would like to boost her up for Thanksgiving. Spoke with [facility] and they will be able to give IV fluids today at 2. KK/MM: Please place orders PSS: please call daughter at [phone] and schedule. Thanks WILL Jeong Mindy M, PA-C 07/17/2023 10:35 AM Signed Orders signed ASMITA Huber Brittany 07/17/2023 11:38 AM Signed Patient added and Radha notified. Thanks! Amber Her Allergies As of Date: 07/17/2023 (No Known Allergies) Date Reviewed: 07/17/2023 Reviewed by: Chichi Gosnalez PA-C - Fully Assessed Reason for Visit: Care Coordination [9936] Cmt: IV fluid request Prescriptions as of 07/17/2023 - osimertinib (TAGRISSO) 80 mg tablet Take 1 tablet (80 mg) by mouth once daily. - osimertinib (TAGRISSO) 80 mg tablet Take 1 tablet (80 mg) by mouth once daily. - predniSONE (DELTASONE) 20 mg tablet Take 1 tablet by mouth once daily. - promethazine (PHENERGAN) 6.25 mg/5 mL syrup TAKE 5 ML TO 10 ML BY MOUTH EVERY 6 HOURS NEEDED - OLANZapine (ZYPREXA) 5 mg tablet take 1 tablet by mouth once daily at bedtime - hydrocortisone (CORTEF) 10 mg tablet Take two (2) tablets by mouth in the morning and one (1) tablet by mouth in the evening. - metoprolol succinate ER (TOPROL XL) 25 mg 24 hr tablet - bisacodyl EC (DULCOLAX) 5 mg EC tablet Bisacodyl Bisacodyl Active 10 MG Oral Daily 0 November 11, 2018 10:11-11-2018 [facility] ([id number]) - dexamethasone sodium phosphate (DECADRON) 4 mg/mL injection Dexamethasone Dexamethasone Sodium Phosphate Active 4 MG IV Push Daily 0 November 11, 2018 10:11-11-2018 [facility] ([id number]) - diphenhydrAMINE (BENADRYL) 50 mg/mL injection diphenhydrAMINE Diphenhydramine Hcl Active 25 MG IV Push Q6H 0 November 11, 2018 10:11-11-2018 [facility] ([id number]) - insulin aspart U-100 (NOVOLOG) 100 unit/mL (3 mL) Insulin, Aspart, Human Insulin Aspart U-100 Active 0 UNITS Subcutaneous 3X/Day with meals and bedtime 0 November 11, 2018 10:11-11-2018 [facility] ([id number]) - ketorolac (TORADOL) 30 mg/mL (1 mL) soln Ketorolac Ketorolac Active 15 MG IV Push Q6H 0 November 11, 2018 10:11-11-2018 [facility] ([id number]) - labetalol (NORMODYNE) 5 mg/mL injection Labetalol Labetalol Active 5 MG IV Push Q4H 0 November 11, 2018 10:11-11-2018 [facility] ([id number]) - nystatin (MYCOSTATIN) 100,000 unit/mL suspension Nystatin Nystatin Active 837670 UNIT Oral Four times daily 0 November 11, 2018 10:11-11-2018 [facility] ([id number]) - pantoprazole (PROTONIX) 40 mg injection pantoprazole Pantoprazole Active 40 MG IV Push Daily 0 November 11, 2018 10:2911-11-2018 [facility] ([id number]) - lisinopril (ZESTRIL, PRINIVIL) 20 mg tablet - nitroglycerin sublingual (NITROQUICK) 0.4 mg SL tablet Dissolve 0.4 mg under the tongue. - QUEtiapine (SEROQUEL) 25 mg tablet Take 25 mg by mouth as needed. Take 3 tabs at bedtime and 100 mg daily - oxyCODONE (ROXICODONE) 5 mg/5 mL oral solution Take 5 mL by mouth every 4 hours as needed for up to 94 days. TAKE 1 TEASPOON(S) (5ML) EVERY SIX(6) TO EIGHT(8) HOURS NEEDED FOR PAIN. - meloxicam (MOBIC) 15 mg tablet Take 15 mg by mouth. - omeprazole (PRILOSEC) 20 mg capsule Take 2 capsules by mouth once daily. - gabapentin (NEURONTIN) 300 mg capsule Take 1 capsule by mouth as directed for 30 days. Take one pill (300mg) every morning and every afternoon and take two pills (600mg at night) - rivastigmine (EXELON) 13.3 mg/24 hour patch 1 Patch once daily. - aspirin, enteric coated (ASPIRIN, ENTERIC COATED) 81 mg EC tablet Take 162 mg by mouth. - Blood-Glucose Meter (TRUE METRIX GLUCOSE METER) [facility] Use to test 3 times a day - blood sugar diagnostic (BLOOD GLUCOSE TEST) test strip Use as instructed - Lancets lancets Use as instructed - cetirizine (ZYRTEC) 10 mg tablet Take 10 mg by mouth once daily. - biotin 5 mg tab Take 5 mg by mouth once daily. - docusate sodium (COLACE) 100 mg capsule Take 100 mg by mouth daily at bedtime. - melatonin 10 mg tab Take 1 tablet by mouth daily at bedtime. - metformin HCl (METFORMIN ORAL) Take 1,000 mg by mouth once daily. - cloNIDine HCl (CATAPRES) 0.1 mg tablet Take 0.1 mg by mouth daily at bedtime. - ATORVASTATIN 80 mg tablet Take 80 mg by mouth once daily. - IPRATR (more content not included)... Normal [facility] 07-10-2023 LORI Telephone (MNOPRX) SEYMOUR LUCIA ([id number]) 1940 F Date Time Provider Department 07/10/23 NAKIA LOUIS [facility] During your visit today, we recorded the following information about you: Nakia Louis RPh 07/10/2023 1:47 PM Signed [facility] received prescription(s) for Tagrisso on 07/10/23. Unfortunately, we do not carry or service specialty medications. Please send RX directly to [facility] (phone: [phone]) for processing. Thank you! 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 - predniSONE (DELTASONE) 20 mg tablet Take 1 tablet by mouth once daily. - promethazine (PHENERGAN) 6.25 mg/5 mL syrup TAKE 5 ML TO 10 ML BY MOUTH EVERY 6 HOURS NEEDED - OLANZapine (ZYPREXA) 5 mg tablet take 1 tablet by mouth once daily at bedtime - hydrocortisone (CORTEF) 10 mg tablet Take two (2) tablets by mouth in the morning and one (1) tablet by mouth in the evening. - metoprolol succinate ER (TOPROL XL) 25 mg 24 hr tablet - bisacodyl EC (DULCOLAX) 5 mg EC tablet Bisacodyl Bisacodyl Active 10 MG Oral Daily 0 November 11, 2018 10:25am 11-11-2018 [facility] ([id number]) - dexamethasone sodium phosphate (DECADRON) 4 mg/mL injection Dexamethasone Dexamethasone Sodium Phosphate Active 4 MG IV Push Daily 0 November 11, 2018 10:2511-11-2018 [facility] ([id number]) - diphenhydrAMINE (BENADRYL) 50 mg/mL injection diphenhydrAMINE Diphenhydramine Hcl Active 25 MG IV Push Q6H 0 November 11, 2018 10:2511-11-2018 [facility] ([id number]) - insulin aspart U-100 (NOVOLOG) 100 unit/mL (3 mL) Insulin, Aspart, Human Insulin Aspart U-100 Active 0 UNITS Subcutaneous 3X/Day with meals and bedtime 0 November 11, 2018 10:2511-11-2018 [facility] ([id number]) - ketorolac (TORADOL) 30 mg/mL (1 mL) soln Ketorolac Ketorolac Active 15 MG IV Push Q6H 0 November 11, 2018 10:2811-11-2018 [facility] ([id number]) - labetalol (NORMODYNE) 5 mg/mL injection Labetalol Labetalol Active 5 MG IV Push Q4H 0 November 11, 2018 10:28am 11-11-2018 [facility] ([id number]) - nystatin (MYCOSTATIN) 100,000 unit/mL suspension Nystatin Nystatin Active 196697 UNIT Oral Four times daily 0 November 11, 2018 10:2811-11-2018 [facility] ([id number]) - pantoprazole (PROTONIX) 40 mg injection pantoprazole Pantoprazole Active 40 MG IV Push Daily 0 November 11, 2018 10:2911-11-2018 [facility] ([id number]) - lisinopril (ZESTRIL, PRINIVIL) 20 mg tablet - nitroglycerin sublingual (NITROQUICK) 0.4 mg SL tablet Dissolve 0.4 mg under the tongue. - QUEtiapine (SEROQUEL) 25 mg tablet Take 25 mg by mouth as needed. Take 3 tabs at bedtime and 100 mg daily - oxyCODONE (ROXICODONE) 5 mg/5 mL oral solution Take 5 mL by mouth every 4 hours as needed for up to 94 days. TAKE 1 TEASPOON(S) (5ML) EVERY SIX(6) TO EIGHT(8) HOURS NEEDED FOR PAIN. - meloxicam (MOBIC) 15 mg tablet Take 15 mg by mouth. - omeprazole (PRILOSEC) 20 mg capsule Take 2 capsules by mouth once daily. - gabapentin (NEURONTIN) 300 mg capsule Take 1 capsule by mouth as directed for 30 days. Take one pill (300mg) every morning and every afternoon and take two pills (600mg at night) - rivastigmine (EXELON) 13.3 mg/24 hour patch 1 Patch once daily. - aspirin, enteric coated (ASPIRIN, ENTERIC COATED) 81 mg EC tablet Take 162 mg by mouth. - Blood-Glucose Meter (TRUE METRIX GLUCOSE METER) [facility] Use to test 3 times a day - blood sugar diagnostic (BLOOD GLUCOSE TEST) test strip Use as instructed - Lancets lancets Use as instructed - cetirizine (ZYRTEC) 10 mg tablet Take 10 mg by mouth once daily. - biotin 5 mg tab Take 5 mg by mouth once daily. - docusate sodium (COLACE) 100 mg capsule Take 100 mg by mouth daily at bedtime. - melatonin 10 mg tab Take 1 tablet by mouth daily at bedtime. - metformin HCl (METFORMIN ORAL) Take 1,000 mg by mouth once daily. - cloNIDine HCl (CATAPRES) 0.1 mg tablet Take 0.1 mg by mouth daily at bedtime. - ATORVASTATIN 80 mg tablet Take 80 mg by mouth once daily. - IPRATROPIUM BROMIDE 0.06 % nasal spray Use 1 [place] in the nose as needed. - KETOCONAZOLE 2 % shampoo Apply 1 application to affe (more content not included)... [facility] LORI [facility] (RANDALL) SEYMOUR LUCIA ([id number]) 1940 F Date Time Provider Department 07/09/23 HARRY BRANNON During your visit today, we recorded the following information about you: Harry Brannon, WILL 07/09/2023 1:00 PM Signed Pt's daughter called [facility] consultant physician over the weekend and never heard back from anyone. Daughter states pt needs a refill on her phenergan and prednisone, and they would also like a pall med consult. Daughter states pt does much better on the prednisone and she has stopped the hydrocortisone because it just isn't working anymore. Scripts pending your sig as well as pall med consult. PSS: please schedule pt with Uma here. Requested Prescriptions Pending Prescriptions Disp Refills predniSONE (DELTASONE) 20 mg tablet 30 tablet 1 Sig: Take 1 tablet by mouth once daily. promethazine (PHENERGAN) 6.25 mg/5 mL syrup 120 mL 0 Sig: TAKE 5 ML TO 10 ML BY MOUTH EVERY 6 HOURS NEEDED Please review and advise. WILL Jeong Courtney 07/09/2023 2:25 PM Signed Seymour is scheduled to see Uma Tang (Pal Med) this Sunday, 07/13 at 8:30am. Appointment confirmed with caregiver, Radha. She is in agreement. ThanksElinor Allergies As of Date: 07/09/2023 (No Known Allergies) Date Reviewed: 04/11/2023 Reviewed by: Chichi Gonsalez PAGómez - Fully Assessed Reason for Visit: Care Coordination [3499] Cmt: housecalls nurse follow up Primary Visit Diagnosis: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, unspecified laterality (HCC) [C34.90] Order(s):predniSONE (DELTASONE) 20 mg tabletTake 1 tablet by mouth once daily.Disp: 30 tabletRfl: 1 promethazine (PHENERGAN) 6.25 mg/5 mL syrupTAKE 5 ML TO 10 ML BY MOUTH EVERY 6 HOURS NEEDEDDisp: 120 mLRfl: 0 CONSULT TO PALLIATIVE CARE [[id number]] Order #: [id number]: 1 FUTURE Prescriptions as of 07/11/2023 - predniSONE (DELTASONE) 20 mg tablet Take 1 tablet by mouth once daily. - promethazine (PHENERGAN) 6.25 mg/5 mL syrup TAKE 5 ML TO 10 ML BY MOUTH EVERY 6 HOURS NEEDED - osimertinib (TAGRISSO) 80 mg tablet Take 1 tablet (80 mg) by mouth once daily. - OLANZapine (ZYPREXA) 5 mg tablet take 1 tablet by mouth once daily at bedtime - hydrocortisone (CORTEF) 10 mg tablet Take two (2) tablets by mouth in the morning and one (1) tablet by mouth in the evening. - metoprolol succinate ER (TOPROL XL) 25 mg 24 hr tablet - bisacodyl EC (DULCOLAX) 5 mg EC tablet Bisacodyl Bisacodyl Active 10 MG Oral Daily 0 November 11, 2018 10:11-11-2018 [facility] ([id number]) - dexamethasone sodium phosphate (DECADRON) 4 mg/mL injection Dexamethasone Dexamethasone Sodium Phosphate Active 4 MG IV Push Daily 0 November 11, 2018 10:11-11-2018 [facility] ([id number]) - diphenhydrAMINE (BENADRYL) 50 mg/mL injection diphenhydrAMINE Diphenhydramine Hcl Active 25 MG IV Push Q6H 0 November 11, 2018 10:11-11-2018 [facility] ([id number]) - insulin aspart U-100 (NOVOLOG) 100 unit/mL (3 mL) Insulin, Aspart, Human Insulin Aspart U-100 Active 0 UNITS Subcutaneous 3X/Day with meals and bedtime 0 November 11, 2018 10:11-11-2018 [facility] ([id number]) - ketorolac (TORADOL) 30 mg/mL (1 mL) soln Ketorolac Ketorolac Active 15 MG IV Push Q6H 0 November 11, 2018 10:11-11-2018 [facility] ([id number]) - labetalol (NORMODYNE) 5 mg/mL injection Labetalol Labetalol Active 5 MG IV Push Q4H 0 November 11, 2018 10:11-11-2018 [facility] ([id number]) - nystatin (MYCOSTATIN) 100,000 unit/mL suspension Nystatin Nystatin Active 852227 UNIT Oral Four times daily 0 November 11, 2018 10:11-11-2018 [facility] ([id number]) - pantoprazole (PROTONIX) 40 mg injection pantoprazole Pantoprazole Active 40 MG IV Push Daily 0 November 11, 2018 10:2911-11-2018 [facility] ([id number]) - lisinopril (ZESTRIL, PRINIVIL) 20 mg tablet - nitroglycerin sublingual (NITROQUICK) 0.4 mg SL tablet Dissolve 0.4 mg under the tongue. - QUEtiapine (SEROQUEL) 25 mg tablet Take 25 mg by mouth as needed. Take 3 tabs at bedtime and 100 mg daily - oxyCODONE (ROXICODONE) 5 mg/5 mL oral solution Take 5 mL by mouth every 4 hours as needed for up to 94 days. TAKE 1 TEASPOON(S) (5ML) EVERY SIX(6) TO EIGHT(8) HOURS NEEDED FOR PAIN. - meloxicam (MOBIC) 15 mg tablet Take 15 mg by mouth. - omeprazole (PRILOSEC) 20 mg capsule Take 2 capsules by mouth once daily. - gabapentin (NEURONTIN) 300 mg capsule Take 1 capsule by mouth as directed for 30 days. Take one pill (300mg) every morning and every afternoon and take two pills (600mg at night) - rivastigmine (EXELON) 13.3 mg/24 hour patch 1 Patch once daily. - aspirin, enteric coated (ASPIRIN, ENTERIC COATED) 81 mg EC tablet Take 162 mg by mouth. - B (more content not included)... [facility] CNCOon 07-05-2023 CNCO Letter Text [facility] 36on 06-22-2023 Pharmacy has been notified. [place] [id number] Pharmacy is calling for clarification. Pt picked up Alprazolam on 06/01 and they received a script for clonazapam on 06/03. They need to know if she is stopping one. Please advise. [facility] Refillon 06-22-2023 Refill [id number] Adela Lucia ma 1940 F Date Provider Department Center 06/22/2023 KAHLIL DINH [facility] Lydia Heal No family history on file Reason for Visit and Comments: Med Refill [[id number]] [facility] CNPMayelin 06-04-2023 SHIRAN Telephone (QuadriservA) SEYMOUR LUCIA ([id number]) 1940 F Date Time Provider Department 06/04/23 HARRY BRANNON During your visit today, we recorded the following information about you: Harry Brannon RN 06/04/2023 10:43 AM Signed Call received from daughter stating pt has been doing a lot of head bobbing and legs/arms shaking lately. Pt is on several medications for dementia and daughter feels that there's probably a plateau in her medications, but is asking if it could possibly be a side effect from the osimertinib. Spoke with Sridhar in pharmacy who doesn't see anything listed on package insert that would be a side effect from osimertinib. Pt's daughter states pt has an appointment with her dementia doctor on 06/14/23 regarding symptoms she's having. Harry Brannon, Yanci Macdonald MD 06/04/2023 10:45 AM Signed I agree. She may need a repeat MRI of the brain Allergies As of Date: 06/04/2023 (No Known Allergies) Date Reviewed: 04/11/2023 Reviewed by: Chichi Gonsalez PA-C - Fully Assessed Reason for Visit: Care Coordination [9611] Cmt: Medication question Prescriptions as of 06/04/2023 - OLANZapine (ZYPREXA) 5 mg tablet take 1 tablet by mouth once daily at bedtime - hydrocortisone (CORTEF) 10 mg tablet Take two (2) tablets by mouth in the morning and one (1) tablet by mouth in the evening. - osimertinib (TAGRISSO) 80 mg tablet Take 1 tablet (80 mg) by mouth once daily. - promethazine (PHENERGAN) 6.25 mg/5 mL syrup TAKE 5 ML TO 10 ML BY MOUTH EVERY 6 HOURS NEEDED - metoprolol succinate ER (TOPROL XL) 25 mg 24 hr tablet - bisacodyl EC (DULCOLAX) 5 mg EC tablet Bisacodyl Bisacodyl Active 10 MG Oral Daily 0 November 11, 2018 10:2511-11-2018 [facility] ([id number]) - dexamethasone sodium phosphate (DECADRON) 4 mg/mL injection Dexamethasone Dexamethasone Sodium Phosphate Active 4 MG IV Push Daily 0 November 11, 2018 10:11-11-2018 [facility] ([id number]) - diphenhydrAMINE (BENADRYL) 50 mg/mL injection diphenhydrAMINE Diphenhydramine Hcl Active 25 MG IV Push Q6H 0 November 11, 2018 10:11-11-2018 [facility] ([id number]) - insulin aspart U-100 (NOVOLOG) 100 unit/mL (3 mL) Insulin, Aspart, Human Insulin Aspart U-100 Active 0 UNITS Subcutaneous 3X/Day with meals and bedtime 0 November 11, 2018 10:11-11-2018 [facility] ([id number]) - ketorolac (TORADOL) 30 mg/mL (1 mL) soln Ketorolac Ketorolac Active 15 MG IV Push Q6H 0 November 11, 2018 10:11-11-2018 [facility] ([id number]) - labetalol (NORMODYNE) 5 mg/mL injection Labetalol Labetalol Active 5 MG IV Push Q4H 0 November 11, 2018 10:11-11-2018 [facility] ([id number]) - nystatin (MYCOSTATIN) 100,000 unit/mL suspension Nystatin Nystatin Active 496085 UNIT Oral Four times daily 0 November 11, 2018 10:11-11-2018 [facility] ([id number]) - pantoprazole (PROTONIX) 40 mg injection pantoprazole Pantoprazole Active 40 MG IV Push Daily 0 November 11, 2018 10:2911-11-2018 [facility] ([id number]) - lisinopril (ZESTRIL, PRINIVIL) 20 mg tablet - nitroglycerin sublingual (NITROQUICK) 0.4 mg SL tablet Dissolve 0.4 mg under the tongue. - QUEtiapine (SEROQUEL) 25 mg tablet Take 25 mg by mouth as needed. Take 3 tabs at bedtime and 100 mg daily - oxyCODONE (ROXICODONE) 5 mg/5 mL oral solution Take 5 mL by mouth every 4 hours as needed for up to 94 days. TAKE 1 TEASPOON(S) (5ML) EVERY SIX(6) TO EIGHT(8) HOURS NEEDED FOR PAIN. - meloxicam (MOBIC) 15 mg tablet Take 15 mg by mouth. - omeprazole (PRILOSEC) 20 mg capsule Take 2 capsules by mouth once daily. - gabapentin (NEURONTIN) 300 mg capsule Take 1 capsule by mouth as directed for 30 days. Take one pill (300mg) every morning and every afternoon and take two pills (600mg at night) - rivastigmine (EXELON) 13.3 mg/24 hour patch 1 Patch once daily. - aspirin, enteric coated (ASPIRIN, ENTERIC COATED) 81 mg EC tablet Take 162 mg by mouth. - Blood-Glucose Meter (TRUE METRIX GLUCOSE METER) [facility] Use to test 3 times a day - blood sugar diagnostic (BLOOD GLUCOSE TEST) test strip Use as instructed - Lancets lancets Use as instructed - cetirizine (ZYRTEC) 10 mg tablet Take 10 mg by mouth once daily. - biotin 5 mg tab Take 5 mg by mouth once daily. - docusate sodium (COLACE) 100 mg capsule Take 100 mg by mouth daily at bedtime. - melatonin 10 mg tab Take 1 tablet by mouth daily at bedtime. - metformin HCl (METFORMIN ORAL) Take 1,000 mg by mouth once daily. - cloNIDine HCl (CATAPRES) 0.1 mg tablet Take 0.1 mg by mouth daily at bedtime. - ATORVASTATIN 80 mg tablet Take 80 mg by mouth once daily. - IPRATROPIUM BROMIDE 0.06 % nasal spray Use 1 [place] in the nose as needed. - KETOCONAZOLE 2 % shampoo Apply 1 applicat (more content not included)... Normal [facility] Refillon 06-01-2023 Refill [id number] Adela Lucia ma 1940 F Date Provider Department Center 06/01/2023 404-KAHLIL POWERS [facility] Lydia Heal No family history on file Reason for Visit and Comments: Med Refill [[id number]] Normal [facility] Ingris 05-01-2023 LORI Telephone (Actively Learn) SEYMOUR LUCIA ([id number]) 1940 F Date Time Provider Department 05/01/23 HARRY BRANNNO During your visit today, we recorded the following information about you: Harry Brannon RN 05/01/2023 2:30 PM Signed Call received from pt's daughter requesting prednisone to have on hand at home as needed for pt when she has her weaker days. Pt continues to take hydrocortisone now, but this isn't as effective anymore and pt needs something else for the days when he's weaker. Daughter states pt has had more falls and could really using something else. Please advise WILL Jeong Kasra, MD 05/01/2023 3:04 PM Signed sent Harry Brannon RN 05/01/2023 3:40 PM Signed Pt's daughter notified. Harry Brannon RN Allergies As of Date: 05/01/2023 (No Known Allergies) Date Reviewed: 04/11/2023 Reviewed by: Chichi Gonsalez PA-C - Fully Assessed Reason for Visit: Care Coordination [0668] Cmt: Medication request Order(s):predniSONE (DELTASONE) 20 mg tabletTake 1 tablet by mouth once daily.Disp: 30 tabletRfl: 1 Prescriptions as of 05/01/2023 - predniSONE (DELTASONE) 20 mg tablet Take 1 tablet by mouth once daily. - hydrocortisone (CORTEF) 10 mg tablet Take two (2) tablets by mouth in the morning and one (1) tablet by mouth in the evening. - OLANZapine (ZYPREXA) 5 mg tablet Take 1 tablet by mouth daily at bedtime. - ALPRAZolam (XANAX) 0.5 mg tablet Take 1 tablet by mouth three times daily as needed for up to 90 days. - osimertinib (TAGRISSO) 80 mg tablet Take 1 tablet (80 mg) by mouth once daily. - promethazine (PHENERGAN) 6.25 mg/5 mL syrup TAKE 5 ML TO 10 ML BY MOUTH EVERY 6 HOURS NEEDED - metoprolol succinate ER (TOPROL XL) 25 mg 24 hr tablet - bisacodyl EC (DULCOLAX) 5 mg EC tablet Bisacodyl Bisacodyl Active 10 MG Oral Daily 0 November 11, 2018 10:2511-11-2018 [facility] ([id number]) - dexamethasone sodium phosphate (DECADRON) 4 mg/mL injection Dexamethasone Dexamethasone Sodium Phosphate Active 4 MG IV Push Daily 0 November 11, 2018 10:11-11-2018 [facility] ([id number]) - diphenhydrAMINE (BENADRYL) 50 mg/mL injection diphenhydrAMINE Diphenhydramine Hcl Active 25 MG IV Push Q6H 0 November 11, 2018 10:11-11-2018 [facility] ([id number]) - insulin aspart U-100 (NOVOLOG) 100 unit/mL (3 mL) Insulin, Aspart, Human Insulin Aspart U-100 Active 0 UNITS Subcutaneous 3X/Day with meals and bedtime 0 November 11, 2018 10:2511-11-2018 [facility] ([id number]) - ketorolac (TORADOL) 30 mg/mL (1 mL) soln Ketorolac Ketorolac Active 15 MG IV Push Q6H 0 November 11, 2018 10:2811-11-2018 [facility] ([id number]) - labetalol (NORMODYNE) 5 mg/mL injection Labetalol Labetalol Active 5 MG IV Push Q4H 0 November 11, 2018 10:2811-11-2018 [facility] ([id number]) - nystatin (MYCOSTATIN) 100,000 unit/mL suspension Nystatin Nystatin Active 097066 UNIT Oral Four times daily 0 November 11, 2018 10:2811-11-2018 [facility] ([id number]) - pantoprazole (PROTONIX) 40 mg injection pantoprazole Pantoprazole Active 40 MG IV Push Daily 0 November 11, 2018 10:2911-11-2018 [facility] ([id number]) - lisinopril (ZESTRIL, PRINIVIL) 20 mg tablet - nitroglycerin sublingual (NITROQUICK) 0.4 mg SL tablet Dissolve 0.4 mg under the tongue. - QUEtiapine (SEROQUEL) 25 mg tablet Take 25 mg by mouth as needed. Take 3 tabs at bedtime and 100 mg daily - oxyCODONE (ROXICODONE) 5 mg/5 mL oral solution Take 5 mL by mouth every 4 hours as needed for up to 94 days. TAKE 1 TEASPOON(S) (5ML) EVERY SIX(6) TO EIGHT(8) HOURS NEEDED FOR PAIN. - meloxicam (MOBIC) 15 mg tablet Take 15 mg by mouth. - omeprazole (PRILOSEC) 20 mg capsule Take 2 capsules by mouth once daily. - gabapentin (NEURONTIN) 300 mg capsule Take 1 capsule by mouth as directed for 30 days. Take one pill (300mg) every morning and every afternoon and take two pills (600mg at night) - rivastigmine (EXELON) 13.3 mg/24 hour patch 1 Patch once daily. - aspirin, enteric coated (ASPIRIN, ENTERIC COATED) 81 mg EC tablet Take 162 mg by mouth. - Blood-Glucose Meter (TRUE METRIX GLUCOSE METER) [facility] Use to test 3 times a day - blood sugar diagnostic (BLOOD GLUCOSE TEST) test strip Use as instructed - Lancets lancets Use as instructed - cetirizine (ZYRTEC) 10 mg tablet Take 10 mg by mouth once daily. - biotin 5 mg tab Take 5 mg by mouth once daily. - docusate sodium (COLACE) 100 mg capsule Take 100 mg by mouth daily at bedtime. - melatonin 10 mg tab Take 1 tablet by mouth daily at bedtime. - metformin HCl (METFORMIN ORAL) Take 1,000 mg by mouth once daily. - cloNIDine HCl (CATAPRES) 0.1 mg tablet Take 0.1 mg by mouth daily at bedtime. - ATORVASTATIN 80 mg tablet Take (more content not included)... Normal [facility] Ingr[facility] 04-20-2023 SHIRAN Telephone (Actively Learn) SEYMOUR LUCIA ([id number]) 1940 F Date Time Provider Department 04/20/23 HARRY BRANNON During your visit today, we recorded the following information about you: Harry Brannon RN 04/20/2023 2:59 PM Signed Pt was initially ordered home health by [facility]. Call was received for us to be the attending for this and Dr Churchill agreed. Call received from David physical therapist at [facility], stating they have reached out to pt/daughter several times over the last couple of weeks and they are not going to initiate home health/PT at this time due to several attempts and no response. Will be available in the future if any needs arise. Harry Brannon RN Allergies As of Date: 04/20/2023 (No Known Allergies) Date Reviewed: 04/11/2023 Reviewed by: Chichi Gonsalez PA-C - Fully Assessed Reason for Visit: Care Coordination [3491] Cmt: Cancellation of home health/PT Prescriptions as of 04/20/2023 - hydrocortisone (CORTEF) 10 mg tablet Take two (2) tablets by mouth in the morning and one (1) tablet by mouth in the evening. - OLANZapine (ZYPREXA) 5 mg tablet Take 1 tablet by mouth daily at bedtime. - ALPRAZolam (XANAX) 0.5 mg tablet Take 1 tablet by mouth three times daily as needed for up to 90 days. - osimertinib (TAGRISSO) 80 mg tablet Take 1 tablet (80 mg) by mouth once daily. - promethazine (PHENERGAN) 6.25 mg/5 mL syrup TAKE 5 ML TO 10 ML BY MOUTH EVERY 6 HOURS NEEDED - metoprolol succinate ER (TOPROL XL) 25 mg 24 hr tablet - bisacodyl EC (DULCOLAX) 5 mg EC tablet Bisacodyl Bisacodyl Active 10 MG Oral Daily 0 November 11, 2018 10:25am 11-11-2018 [facility] ([id number]) - dexamethasone sodium phosphate (DECADRON) 4 mg/mL injection Dexamethasone Dexamethasone Sodium Phosphate Active 4 MG IV Push Daily 0 November 11, 2018 10:25am 11-11-2018 [facility] ([id number]) - diphenhydrAMINE (BENADRYL) 50 mg/mL injection diphenhydrAMINE Diphenhydramine Hcl Active 25 MG IV Push Q6H 0 November 11, 2018 10:11-11-2018 [facility] ([id number]) - insulin aspart U-100 (NOVOLOG) 100 unit/mL (3 mL) Insulin, Aspart, Human Insulin Aspart U-100 Active 0 UNITS Subcutaneous 3X/Day with meals and bedtime 0 November 11, 2018 10:2511-11-2018 [facility] ([id number]) - ketorolac (TORADOL) 30 mg/mL (1 mL) soln Ketorolac Ketorolac Active 15 MG IV Push Q6H 0 November 11, 2018 10:2811-11-2018 [facility] ([id number]) - labetalol (NORMODYNE) 5 mg/mL injection Labetalol Labetalol Active 5 MG IV Push Q4H 0 November 11, 2018 10:2811-11-2018 [facility] ([id number]) - nystatin (MYCOSTATIN) 100,000 unit/mL suspension Nystatin Nystatin Active 292110 UNIT Oral Four times daily 0 November 11, 2018 10:2811-11-2018 [facility] ([id number]) - pantoprazole (PROTONIX) 40 mg injection pantoprazole Pantoprazole Active 40 MG IV Push Daily 0 November 11, 2018 10:2911-11-2018 [facility] ([id number]) - lisinopril (ZESTRIL, PRINIVIL) 20 mg tablet - nitroglycerin sublingual (NITROQUICK) 0.4 mg SL tablet Dissolve 0.4 mg under the tongue. - QUEtiapine (SEROQUEL) 25 mg tablet Take 25 mg by mouth as needed. Take 3 tabs at bedtime and 100 mg daily - oxyCODONE (ROXICODONE) 5 mg/5 mL oral solution Take 5 mL by mouth every 4 hours as needed for up to 94 days. TAKE 1 TEASPOON(S) (5ML) EVERY SIX(6) TO EIGHT(8) HOURS NEEDED FOR PAIN. - meloxicam (MOBIC) 15 mg tablet Take 15 mg by mouth. - omeprazole (PRILOSEC) 20 mg capsule Take 2 capsules by mouth once daily. - gabapentin (NEURONTIN) 300 mg capsule Take 1 capsule by mouth as directed for 30 days. Take one pill (300mg) every morning and every afternoon and take two pills (600mg at night) - rivastigmine (EXELON) 13.3 mg/24 hour patch 1 Patch once daily. - aspirin, enteric coated (ASPIRIN, ENTERIC COATED) 81 mg EC tablet Take 162 mg by mouth. - Blood-Glucose Meter (TRUE METRIX GLUCOSE METER) [facility] Use to test 3 times a day - blood sugar diagnostic (BLOOD GLUCOSE TEST) test strip Use as instructed - Lancets lancets Use as instructed - cetirizine (ZYRTEC) 10 mg tablet Take 10 mg by mouth once daily. - biotin 5 mg tab Take 5 mg by mouth once daily. - docusate sodium (COLACE) 100 mg capsule Take 100 mg by mouth daily at bedtime. - melatonin 10 mg tab Take 1 tablet by mouth daily at bedtime. - metformin HCl (METFORMIN ORAL) Take 1,000 mg by mouth once daily. - cloNIDine HCl (CATAPRES) 0.1 mg tablet Take 0.1 mg by mouth daily at bedtime. - ATORVASTATIN 80 mg tablet Take 80 mg by mouth once daily. - IPRATROPIUM BROMIDE 0.06 % nasal spray Use 1 [place] in the nose as needed. - KETOCONAZOLE 2 % shampoo Apply 1 application to affected area once daily as needed. - LAMOTRIGINE 200 mg tablet Take (more content not included)... Normal [facility] 04-12-2023 [facility] Telephone (RANDALL) SEYMOUR LUCIA ([id number]) 1940 F Date Time Provider Department 04/12/23 CON SALMON During your visit today, we recorded the following information about you: Con Salmon RN 04/12/2023 11:31 AM Signed Dorina from [facility] reports that the pt does not currently have a PCP. Pt has been referred to them for in home physical therapy. Home health asks if you will follow pt for [facility] services. WILL Vigil Rebecca, RN 04/12/2023 1:03 PM Signed Yanci Churchill MD You 58 minutes ago (12:00 PM) We can. Thanks. Con Salmon RN 04/12/2023 1:03 PM Signed Dorina @ [facility] Home Health notified. Con Salmon RN Allergies As of Date: 04/12/2023 (No Known Allergies) Date Reviewed: 04/11/2023 Reviewed by: Chichi Gonsalez PA-C - Fully Assessed Reason for Visit: Care Coordination [3492] Cmt: Home Health Prescriptions as of 04/12/2023 - predniSONE (DELTASONE) 20 mg tablet Take 1 tablet by mouth once daily for 5 days. - hydrocortisone (CORTEF) 10 mg tablet Take two (2) tablets by mouth in the morning and one (1) tablet by mouth in the evening. - OLANZapine (ZYPREXA) 5 mg tablet Take 1 tablet by mouth daily at bedtime. - ALPRAZolam (XANAX) 0.5 mg tablet Take 1 tablet by mouth three times daily as needed for up to 90 days. - osimertinib (TAGRISSO) 80 mg tablet Take 1 tablet (80 mg) by mouth once daily. - promethazine (PHENERGAN) 6.25 mg/5 mL syrup TAKE 5 ML TO 10 ML BY MOUTH EVERY 6 HOURS NEEDED - metoprolol succinate ER (TOPROL XL) 25 mg 24 hr tablet - bisacodyl EC (DULCOLAX) 5 mg EC tablet Bisacodyl Bisacodyl Active 10 MG Oral Daily 0 November 11, 2018 10:25am 11-11-2018 [facility] ([id number]) - dexamethasone sodium phosphate (DECADRON) 4 mg/mL injection Dexamethasone Dexamethasone Sodium Phosphate Active 4 MG IV Push Daily 0 November 11, 2018 10:25am 11-11-2018 [facility] ([id number]) - diphenhydrAMINE (BENADRYL) 50 mg/mL injection diphenhydrAMINE Diphenhydramine Hcl Active 25 MG IV Push Q6H 0 November 11, 2018 10:25am 11-11-2018 [facility] ([id number]) - insulin aspart U-100 (NOVOLOG) 100 unit/mL (3 mL) Insulin, Aspart, Human Insulin Aspart U-100 Active 0 UNITS Subcutaneous 3X/Day with meals and bedtime 0 November 11, 2018 10:25am 11-11-2018 [facility] ([id number]) - ketorolac (TORADOL) 30 mg/mL (1 mL) soln Ketorolac Ketorolac Active 15 MG IV Push Q6H 0 November 11, 2018 10:28am 11-11-2018 [facility] ([id number]) - labetalol (NORMODYNE) 5 mg/mL injection Labetalol Labetalol Active 5 MG IV Push Q4H 0 November 11, 2018 10:28am 11-11-2018 [facility] ([id number]) - nystatin (MYCOSTATIN) 100,000 unit/mL suspension Nystatin Nystatin Active 063944 UNIT Oral Four times daily 0 November 11, 2018 10:28am 11-11-2018 [facility] ([id number]) - pantoprazole (PROTONIX) 40 mg injection pantoprazole Pantoprazole Active 40 MG IV Push Daily 0 November 11, 2018 10:29am 11-11-2018 [facility] ([id number]) - lisinopril (ZESTRIL, PRINIVIL) 20 mg tablet - nitroglycerin sublingual (NITROQUICK) 0.4 mg SL tablet Dissolve 0.4 mg under the tongue. - QUEtiapine (SEROQUEL) 25 mg tablet Take 25 mg by mouth as needed. Take 3 tabs at bedtime and 100 mg daily - oxyCODONE (ROXICODONE) 5 mg/5 mL oral solution Take 5 mL by mouth every 4 hours as needed for up to 94 days. TAKE 1 TEASPOON(S) (5ML) EVERY SIX(6) TO EIGHT(8) HOURS NEEDED FOR PAIN. - meloxicam (MOBIC) 15 mg tablet Take 15 mg by mouth. - omeprazole (PRILOSEC) 20 mg capsule Take 2 capsules by mouth once daily. - gabapentin (NEURONTIN) 300 mg capsule Take 1 capsule by mouth as directed for 30 days. Take one pill (300mg) every morning and every afternoon and take two pills (600mg at night) - rivastigmine (EXELON) 13.3 mg/24 hour patch 1 Patch once daily. - aspirin, enteric coated (ASPIRIN, ENTERIC COATED) 81 mg EC tablet Take 162 mg by mouth. - Blood-Glucose Meter (TRUE METRIX GLUCOSE METER) [facility] Use to test 3 times a day - blood sugar diagnostic (BLOOD GLUCOSE TEST) test strip Use as instructed - Lancets lancets Use as instructed - cetirizine (ZYRTEC) 10 mg tablet Take 10 mg by mouth once daily. - biotin 5 mg tab Take 5 mg by mouth once daily. - docusate sodium (COLACE) 100 mg capsule Take 100 mg by mouth daily at bedtime. - melatonin 10 mg tab Take 1 tablet by mouth daily at bedtime. - metformin HCl (METFORMIN ORAL) Take 1,000 mg by mouth once daily. - cloNIDine HCl (CATAPRES) 0.1 mg tablet Take 0.1 mg by mouth daily at bedtime. - ATORVASTATIN 80 mg tablet Take 80 mg by mouth once daily. - IPRATROPIUM BROMIDE 0.06 % nasal spray Use 1 [place] in the nose as needed. - KETOCONAZOLE 2 % shampoo Apply 1 application to affected area once daily as needed. (more content not included)... Normal [facility] 04-11-2023 SHIRAN Telephone (RANDALL) SEYMOUR LUCIA ([id number]) 1940 F Date Time Provider Department 04/11/23 CON SALMON During your visit today, we recorded the following information about you: Con Salmon RN 04/11/2023 1:17 PM Signed Pt's daughter calls to report that the pt was recently admitted to [facility] for an observation stay due to dehydration and hypokalemia. Daughter notes the pt is still fatigued and weak. Daughter asks if pt's hydrocortisone could be increased to see if this will help. Notes that they have a family republican this weekend and they would like her to feel good for it. Pt currently takes 20 mg in AM and 10 in the evening. Maria D: Please scan pt's records from [facility]. Thanks! WILL Vigil Kasra, MD 04/11/2023 1:25 PM Signed I am not so sure that will help. But she can take 20 mg of Prednisone daily for 5 days and then go back to the same Hydrocortisone dosing Con Salmon RN 04/11/2023 1:27 PM Signed Have her hold the Hydrocortisone while taking Prednisone, correct? WILL Vigil Rebecca, RN 04/11/2023 4:[address] Churchill: Hold hydrocortisone while taking Prednisone. May resume once complete. Dr Churchill/Chichi: Script for prednisone pended. WILL Vigil Mindy M, PA-C 04/11/2023 4:36 PM Signed The following approved medication requests have been transmitted electronically. Requested Prescriptions Signed Prescriptions Disp Refills predniSONE (DELTASONE) 20 mg tablet 5 tablet 0 Sig: Take 1 tablet by mouth once daily for 5 days. Authorizing Provider: CHICHI GONSALEZ PA-C Sessler, Rebecca, RN 04/11/2023 4:59 PM Signed Pt's daughter notified and verbalizes understanding. Disposition: per Dr Churchill, patient directed to: Manage at home. Provided instructions and will call back. Pt will resume hydrocortisone once course of prednisone is complete. 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 - hydrocortisone (CORTEF) 10 mg tablet Take two (2) tablets by mouth in the morning and one (1) tablet by mouth in the evening. - OLANZapine (ZYPREXA) 5 mg tablet Take 1 tablet by mouth daily at bedtime. - ALPRAZolam (XANAX) 0.5 mg tablet Take 1 tablet by mouth three times daily as needed for up to 90 days. - osimertinib (TAGRISSO) 80 mg tablet Take 1 tablet (80 mg) by mouth once daily. - promethazine (PHENERGAN) 6.25 mg/5 mL syrup TAKE 5 ML TO 10 ML BY MOUTH EVERY 6 HOURS NEEDED - metoprolol succinate ER (TOPROL XL) 25 mg 24 hr tablet - bisacodyl EC (DULCOLAX) 5 mg EC tablet Bisacodyl Bisacodyl Active 10 MG Oral Daily 0 November 11, 2018 10:11-11-2018 [facility] ([id number]) - dexamethasone sodium phosphate (DECADRON) 4 mg/mL injection Dexamethasone Dexamethasone Sodium Phosphate Active 4 MG IV Push Daily 0 November 11, 2018 10:11-11-2018 [facility] ([id number]) - diphenhydrAMINE (BENADRYL) 50 mg/mL injection diphenhydrAMINE Diphenhydramine Hcl Active 25 MG IV Push Q6H 0 November 11, 2018 10:11-11-2018 [facility] ([id number]) - insulin aspart U-100 (NOVOLOG) 100 unit/mL (3 mL) Insulin, Aspart, Human Insulin Aspart U-100 Active 0 UNITS Subcutaneous 3X/Day with meals and bedtime 0 November 11, 2018 10:11-11-2018 [facility] ([id number]) - ketorolac (TORADOL) 30 mg/mL (1 mL) soln Ketorolac Ketorolac Active 15 MG IV Push Q6H 0 November 11, 2018 10:11-11-2018 [facility] ([id number]) - labetalol (NORMODYNE) 5 mg/mL injection Labetalol Labetalol Active 5 MG IV Push Q4H 0 November 11, 2018 10:11-11-2018 [facility] ([id number]) - nystatin (MYCOSTATIN) 100,000 unit/mL suspension Nystatin Nystatin Active 410044 UNIT Oral Four times daily 0 November 11, 2018 10:11-11-2018 [facility] ([id number]) - pantoprazole (PROTONIX) 40 mg injection pantoprazole Pantoprazole Active 40 MG IV Push Daily 0 November 11, 2018 10:29am 11-11-2018 [facility] ([id number]) - lisinopril (ZESTRIL, PRINIVIL) 20 mg tablet - nitroglycerin sublingual (NITROQUICK) 0.4 mg SL tablet Dissolve 0.4 mg under the tongue. - QUEtiapine (SEROQUEL) 25 mg tablet Take 25 mg by mouth as needed. Take 3 tabs at bedtime and 100 mg daily - oxyCODONE (ROXICODONE) 5 mg/5 mL oral solution Take 5 mL by mouth every 4 hours as needed for up to 94 days. TAKE 1 TEASPOON(S) (5ML) EVERY SIX (more content not included)... Normal [facility] 04-05-2023 CNPN Telephone (HEMASA) SEYMOUR LUCIA ([id number]) 1940 F Date Time Provider Department 04/05/23 HARRY BRANNON During your visit today, we recorded the following information about you: Harry Brannon RN 04/05/2023 1:24 PM Signed Call received from Dorina at [facility] stating they received a request from [facility] for pt to get set up with physical therapy, and they are needed a physician to order this for her. They have no physicians listed on file for the pt except Dr Churchill. Notified Dorina that Dr Lexi Escobar is her PCP and they will have her order the PT. Harry Brannon RN Allergies As of Date: 04/05/2023 (No Known Allergies) Date Reviewed: 02/13/2023 Reviewed by: Yanci Churchill MD - Fully Assessed Reason for Visit: Care Coordination [3491] Cmt: Physical therapy Prescriptions as of 04/05/2023 - hydrocortisone (CORTEF) 10 mg tablet Take two (2) tablets by mouth in the morning and one (1) tablet by mouth in the evening. - OLANZapine (ZYPREXA) 5 mg tablet Take 1 tablet by mouth daily at bedtime. - ALPRAZolam (XANAX) 0.5 mg tablet Take 1 tablet by mouth three times daily as needed for up to 90 days. - osimertinib (TAGRISSO) 80 mg tablet Take 1 tablet (80 mg) by mouth once daily. - promethazine (PHENERGAN) 6.25 mg/5 mL syrup TAKE 5 ML TO 10 ML BY MOUTH EVERY 6 HOURS NEEDED - metoprolol succinate ER (TOPROL XL) 25 mg 24 hr tablet - bisacodyl EC (DULCOLAX) 5 mg EC tablet Bisacodyl Bisacodyl Active 10 MG Oral Daily 0 November 11, 2018 10:2511-11-2018 [facility] ([id number]) - dexamethasone sodium phosphate (DECADRON) 4 mg/mL injection Dexamethasone Dexamethasone Sodium Phosphate Active 4 MG IV Push Daily 0 November 11, 2018 10:2511-11-2018 [facility] ([id number]) - diphenhydrAMINE (BENADRYL) 50 mg/mL injection diphenhydrAMINE Diphenhydramine Hcl Active 25 MG IV Push Q6H 0 November 11, 2018 10:2511-11-2018 [facility] ([id number]) - insulin aspart U-100 (NOVOLOG) 100 unit/mL (3 mL) Insulin, Aspart, Human Insulin Aspart U-100 Active 0 UNITS Subcutaneous 3X/Day with meals and bedtime 0 November 11, 2018 10:2511-11-2018 [facility] ([id number]) - ketorolac (TORADOL) 30 mg/mL (1 mL) soln Ketorolac Ketorolac Active 15 MG IV Push Q6H 0 November 11, 2018 10:2811-11-2018 [facility] ([id number]) - labetalol (NORMODYNE) 5 mg/mL injection Labetalol Labetalol Active 5 MG IV Push Q4H 0 November 11, 2018 10:2811-11-2018 [facility] ([id number]) - nystatin (MYCOSTATIN) 100,000 unit/mL suspension Nystatin Nystatin Active 216392 UNIT Oral Four times daily 0 November 11, 2018 10:28am 11-11-2018 [facility] ([id number]) - pantoprazole (PROTONIX) 40 mg injection pantoprazole Pantoprazole Active 40 MG IV Push Daily 0 November 11, 2018 10:29am 11-11-2018 [facility] ([id number]) - lisinopril (ZESTRIL, PRINIVIL) 20 mg tablet - nitroglycerin sublingual (NITROQUICK) 0.4 mg SL tablet Dissolve 0.4 mg under the tongue. - QUEtiapine (SEROQUEL) 25 mg tablet Take 25 mg by mouth as needed. Take 3 tabs at bedtime and 100 mg daily - oxyCODONE (ROXICODONE) 5 mg/5 mL oral solution Take 5 mL by mouth every 4 hours as needed for up to 94 days. TAKE 1 TEASPOON(S) (5ML) EVERY SIX(6) TO EIGHT(8) HOURS NEEDED FOR PAIN. - meloxicam (MOBIC) 15 mg tablet Take 15 mg by mouth. - omeprazole (PRILOSEC) 20 mg capsule Take 2 capsules by mouth once daily. - gabapentin (NEURONTIN) 300 mg capsule Take 1 capsule by mouth as directed for 30 days. Take one pill (300mg) every morning and every afternoon and take two pills (600mg at night) - rivastigmine (EXELON) 13.3 mg/24 hour patch 1 Patch once daily. - aspirin, enteric coated (ASPIRIN, ENTERIC COATED) 81 mg EC tablet Take 162 mg by mouth. - Blood-Glucose Meter (TRUE METRIX GLUCOSE METER) [facility] Use to test 3 times a day - blood sugar diagnostic (BLOOD GLUCOSE TEST) test strip Use as instructed - Lancets lancets Use as instructed - cetirizine (ZYRTEC) 10 mg tablet Take 10 mg by mouth once daily. - biotin 5 mg tab Take 5 mg by mouth once daily. - docusate sodium (COLACE) 100 mg capsule Take 100 mg by mouth daily at bedtime. - melatonin 10 mg tab Take 1 tablet by mouth daily at bedtime. - metformin HCl (METFORMIN ORAL) Take 1,000 mg by mouth once daily. - cloNIDine HCl (CATAPRES) 0.1 mg tablet Take 0.1 mg by mouth daily at bedtime. - ATORVASTATIN 80 mg tablet Take 80 mg by mouth once daily. - IPRATROPIUM BROMIDE 0.06 % nasal spray Use 1 [place] in the nose as needed. - KETOCONAZOLE 2 % shampoo Apply 1 application to affected area once daily as needed. - LAMOTRIGINE 200 mg tablet Take 200 mg by mouth daily at bedtime. - NAMENDA 10 mg tablet Take 10 mg by mouth twice daily. - TOPR (more content not included)... Normal [facility] Glucose Poct Glucometerson 0 02-26-2023 Glucose [Mass/Vol] 62 mg/dL Normal [facility] Comment on above: Result Comment: [facility] Glucose Reference Range is dependent on time and content of last meal. Glucose of more than 200 mg/dL in a nonstressed, ambulatory subject supports the diagnosis of Diabetes Mellitus. PERFORMED BY: [facility] [address] [place] [address] PATHOLOGIST TOOL TURRET LATHE SET UP OPERATOR VIMLA LEBLANC M.D. Performed By: #### G STEVEN #### Point of Care testing , Jeffrey 02-26-2023 L ------- Specimen: [id number] Received: 02/26/23 Status: JESUS Terry Num: [id number] Spec Type: Surgical Subm Dr: Fei Olsen MD Tissues: A Colon Biopsy (GASTRIC BX) Procedures: HE/2, Gross/Micro L4 Age/ Patient Sex Location Account Attending Physician Seymour Lucia 83/[facility] [id number] Fei Olsen MD SPEC NUM: [id number] RECD: 02/26/23 STATUS: JESUS VERA NUM: [id number] XAVI: 02/26/[address] [facility] [address]: Fei Olsen MD ENTERED: 02/26/23 DR: MADY TYPE: Surgical DEPT: S ENTERED BY: [id number] RECV BY: [id number] ORDERED: HE/2, Gross/Micro L4 ORDERED: HE/2, Gross/Micro L4 Pathological Diagnosis Stomach, gastric, biopsy: - Chronic gastritis, mild, nonspecific. - Negative for Helicobacter pylori on H E stain. Clinical Information Dysphagia, change in bowel habits, rule out H pylori Gross Description Received in formalin labeled with the patient's name, number and gastric biopsy are two fragments of soft romeo tissue averaging 0.3 x 0.3 x 0.2 cm. Entirely submitted in one cassette labeled A1. Microscopic Description Two H E slides reviewed. The microscopic examination confirms the diagnosis. CPT Codes 45899 Specimen: [id number] Received: 02/26/23 Status: JESUS Vera Num: [id number] Spec Type: Surgical Subm Dr: Fei Olsen MD Tissues: A Colon Biopsy (GASTRIC BX) Procedures: RUTHANN/Jossie Anton/Jarrett L4 Patient: Seymour Lucia [id number] (Continued) Signed (signature on file) Gricel Kirkland MD 02/28/23 114 [facility] CNPNon 02-19-2023 SHIRAN Telephone (HEMASA) SEYMOUR LUCIA ([id number]) 1940 F Date Time Provider Department 02/19/23 HARRY BRANNON During your visit today, we recorded the following information about you: Harry Brannon RN 02/19/2023 11:31 AM Signed Call received from pt's daughter stating pt needs to be seen sooner by Dr Mariee, and they need a call from our office stating this. Daughter states they aren't able to get pt in until the end of March, and pt needs to be seen urgently because she is struggling to get her bowel movements out. Per daughter, pt feels like her muscles aren't working in her upper or lower GI tract, and pt is having problems with swallowing as well as passing her stool. Call placed to Deja at Dr Olsen's office to get appointment scheduled sooner. Deja states she will send a message to the doctor and call me back with an update. admission nurse coordinator number provided to Deja. WILL Jeong RN 02/19/2023 3:23 PM Signed Call received from Deja at Dr Olsen's office stating they are able to get pt in on March 07 at 10 am. Pt will need photo ID, insurance info, list of meds, and she will have to fill out forms there. Call placed to daughter and informed her of this appointment. She states she spoke with Deja and they have actually moved her appointment up to 02/26 for both upper and lower endoscopies. Maria D: can you make a note to get records from Dr Olsen's office after procedure on 02/26. Thanks! Harry Brannon RN Allergies As of Date: 02/19/2023 (No Known Allergies) Date Reviewed: 02/13/2023 Reviewed by: Yanci Churcihll MD - Fully Assessed Reason for Visit: Care Coordination [2818] Cmt: Appointment request Prescriptions as of 02/19/2023 - OLANZapine (ZYPREXA) 5 mg tablet Take 1 tablet by mouth daily at bedtime. - hydrocortisone (CORTEF) 10 mg tablet Take two (2) tablets by mouth in the morning and one (1) tablet by mouth in the evening. - ALPRAZolam (XANAX) 0.5 mg tablet Take 1 tablet by mouth three times daily as needed for up to 90 days. - osimertinib (TAGRISSO) 80 mg tablet Take 1 tablet (80 mg) by mouth once daily. - promethazine (PHENERGAN) 6.25 mg/5 mL syrup TAKE 5 ML TO 10 ML BY MOUTH EVERY 6 HOURS NEEDED - metoprolol succinate ER (TOPROL XL) 25 mg 24 hr tablet - bisacodyl EC (DULCOLAX) 5 mg EC tablet Bisacodyl Bisacodyl Active 10 MG Oral Daily 0 November 11, 2018 10:11-11-2018 [facility] ([id number]) - dexamethasone sodium phosphate (DECADRON) 4 mg/mL injection Dexamethasone Dexamethasone Sodium Phosphate Active 4 MG IV Push Daily 0 November 11, 2018 10:11-11-2018 [facility] ([id number]) - diphenhydrAMINE (BENADRYL) 50 mg/mL injection diphenhydrAMINE Diphenhydramine Hcl Active 25 MG IV Push Q6H 0 November 11, 2018 10:11-11-2018 [facility] ([id number]) - insulin aspart U-100 (NOVOLOG) 100 unit/mL (3 mL) Insulin, Aspart, Human Insulin Aspart U-100 Active 0 UNITS Subcutaneous 3X/Day with meals and bedtime 0 November 11, 2018 10:11-11-2018 [facility] ([id number]) - ketorolac (TORADOL) 30 mg/mL (1 mL) soln Ketorolac Ketorolac Active 15 MG IV Push Q6H 0 November 11, 2018 10:11-11-2018 [facility] ([id number]) - labetalol (NORMODYNE) 5 mg/mL injection Labetalol Labetalol Active 5 MG IV Push Q4H 0 November 11, 2018 10:11-11-2018 [facility] ([id number]) - nystatin (MYCOSTATIN) 100,000 unit/mL suspension Nystatin Nystatin Active 436336 UNIT Oral Four times daily 0 November 11, 2018 10:11-11-2018 [facility] ([id number]) - pantoprazole (PROTONIX) 40 mg injection pantoprazole Pantoprazole Active 40 MG IV Push Daily 0 November 11, 2018 10:29am 11-11-2018 [facility] ([id number]) - lisinopril (ZESTRIL, PRINIVIL) 20 mg tablet - nitroglycerin sublingual (NITROQUICK) 0.4 mg SL tablet Dissolve 0.4 mg under the tongue. - QUEtiapine (SEROQUEL) 25 mg tablet Take 25 mg by mouth as needed. Take 3 tabs at bedtime and 100 mg daily - oxyCODONE (ROXICODONE) 5 mg/5 mL oral solution Take 5 mL by mouth every 4 hours as needed for up to 94 days. TAKE 1 TEASPOON(S) (5ML) EVERY SIX(6) TO EIGHT(8) HOURS NEEDED FOR PAIN. - meloxicam (MOBIC) 15 mg tablet Take 15 mg by mouth. - omeprazole (PRILOSEC) 20 mg capsule Take 2 capsules by mouth once daily. - gabapentin (NEURONTIN) 300 mg capsule Take 1 capsule by mouth as directed for 30 days. Take one pill (300mg) every morning and every afternoon and take two pills (600mg at night) - rivastigmine (EXELON) 13.3 mg/24 hour patch 1 Patch once daily. - aspirin, enteric coated (ASPIRIN, ENTERIC COATED) 81 mg EC tablet Take 162 mg by mouth. - Blood-Glucose Meter (TRUE METRIX GLUCOSE METER) [facility] Use to test 3 times a day - blood sugar diagnostic (BLOOD GLUCOSE (more content not included)... [facility] (SP) Office (H EMASA) SEYMOUR LUCIA ([id number]) 1940 F Date Time Provider Department 02/13/23 2:15 PM YANCI CHURCHILL During your visit today, we recorded the following information about you: Temperature Pulse Respiration Blood pressure 97.3 degrees 79/minute 16/minute 129/63 Weight Height 62.3 kg 1.63 m Yanci Churchill MD 02/13/2023 2:36 PM Signed PATIENT NAME: Seymour Lucia CLINIC NO.: [id number] ATTENDING PHYSICIAN: Yanci Churchill MD DATE OF SERVICE: February 13, 2023 Some of the elements of this note have been copied from my previous progress note dated 03/07/2022. All the information has been reviewed carefully. Dear Dr. James, here is an update on a follow up visit on female Seymour Lucia at the clinic February 13, 2023 Diagnosis: 1. 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 2. ? 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 Radiation T8-T10 10/03- 11/05/2018-- 3000 cGy 2. GKRS- 11/20/2018-- AREA TREATED: 1) Right frontal. 2) Right temporal. 3) Left anterior temporal. 4) Left posterior temporal. 5) Left cerebellar. 3. Osimertinib 10/2018 4. Radiation to L3-L5 02/21-02/25/2019 HPI: Seymour Lucia is a 82 year old year old female here for follow up. Doing well and complaining of dysphagia and also constipatrion. Denies any abdominal pain and also denies any CUELLO. 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 REVIEW OF SYSTEMS GENERAL: No weight loss, malaise or fevers. No night sweats. HEENT: Negative for headaches, No changes in hearing or vision, no nose bleeds or other nasal problems. RESPIRATORY: Negative for cough, wheezing and shortness of breath CARDIOVASCULAR: Negative for chest pain, leg swelling and palpitations GI: Negative for abdominal discomfort, blood in stools or black stools and change in bowel habits : Negative for dysuria, frequency and incontinence MUSCULOSKELETAL: Negative for joint pain or swelling, back pain, and muscle pain. SKIN: Negative for lesions, rash, and itching. HEMATOLOGY/LYMPHOLOGY Negative for prolonged bleeding, bruising easily, and swollen nodes. NEURO: Negative for numbness or tingling of hands/feet. No weakness. PHYSICAL EXAMINATION: BP 129/63 Pulse 79 Temp (Src) 97.3 (Temporal) Resp 16 Ht 5' 4.173 (1.63m) Wt 137 lb 6.4 oz (62.3kg) SpO2 95% BMI 23.46 kg/(m2). 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 Up and about > 50% of waking hrs. Patient in NAD. Skin: Skin color, texture, turgor normal. No rashes or lesions. Eyes: Anicteric sclera. Pupils are equally round and reactive to light. Extraocular movements are intact. Lymph Nodes: No cervical, supraclavicular, axillary or inguinal adenopathy. Oropharynx: Lips, mucosa, and tongue normal. Back: No pain to percussion. Negative SLR test Lungs clear to auscultation, No wheezing or rhonchi Heart: RRR without murmur, gallop, or rubs. Abdomen soft, non-tender. No masses, organomegaly Extremities: No deformities. No edema Neuro: Gait and speech normal. Reflexes normal and symmetric. Muscular strength intact. Sensation grossly intact. Rectal: Deferred : Deferred LABS: Glucose (mg/dL) Date Value 02/08/2023 85 06/14/2021 90 Potassium (mmol/L) Date Value 02/08/2023 4.0 06/14/2021 3.7 Sodium (mmol/L) Date Value 02/08/2023 140 06/14/2021 143 Chloride (mmol/L) Date Value 02/08/2023 103 06/14/2021 109 CO2 (mmol/L) Date Value 02/08/2023 31 06/14/2021 28 Creatinine (mg/dL) Date Value 02/08/2023 0.88 06/14/2021 1.00 BUN (mg/dL) Date Value 02/08/2023 17 06/14/2021 20 Anion Gap (mmol/L) Date Value 02/08/2023 6 06/14/2021 6 Calcium (mg/dL) Date Value 06/14/2021 9.7 Calcium, Total (mg/dL) Date Value 02/08/2023 9.5 Protein, Total (g/dL) Date Value (more content not included)... Normal [facility] CNPNon 02-13-2023 CNPN Telephone (NCCAP) SEYMOUR LUCIA ([id number]) 1940 F Date Time Provider Department 02/13/23 YANCI CHURCHILL NCCAP During your visit today, we recorded the following information about you: Sherry Krueger Sec 02/13/2023 2:42 PM Signed Refer to Dr Olsen. [facility] Dx Constipation. His office to call the patient after review of records. Maria D, Please fax records Peter, Please follow up on this appt. Jaye Dixon Pss 02/14/2023 7:58 AM Signed Maria D: Information ready for you. Jaye Dixon Pss Mansi Zamudio [facility] 02/14/2023 8:31 AM Signed Records faxed to Dr. Olsen. Harry Brannon, WILL 2023 1:44 PM Signed Pt's daughter calls requesting an update on this. Notified her that records were faxed to their office yesterday and they would be reaching out to pt to schedule appointment. Dr Olsen's office number provided to daughter. Harry Brannon RN Jaye Dixon Pss 02/21/2023 9:11 AM Signed Called [facility] spoke with Anitha. She states they have received this referral and have patient scheduled for EGD and Colonoscopy with Dr Olsen on 02/26/23. Jaye Dixon Pss Allergies As of Date: 02/13/2023 (No Known Allergies) Date Reviewed: 02/13/2023 Reviewed by: Yanci Churchill MD - Fully Assessed Reason for Visit: Future Appointment [256] Prescriptions as of 02/21/2023 - OLANZapine (ZYPREXA) 5 mg tablet Take 1 tablet by mouth daily at bedtime. - hydrocortisone (CORTEF) 10 mg tablet Take two (2) tablets by mouth in the morning and one (1) tablet by mouth in the evening. - ALPRAZolam (XANAX) 0.5 mg tablet Take 1 tablet by mouth three times daily as needed for up to 90 days. - osimertinib (TAGRISSO) 80 mg tablet Take 1 tablet (80 mg) by mouth once daily. - promethazine (PHENERGAN) 6.25 mg/5 mL syrup TAKE 5 ML TO 10 ML BY MOUTH EVERY 6 HOURS NEEDED - metoprolol succinate ER (TOPROL XL) 25 mg 24 hr tablet - bisacodyl EC (DULCOLAX) 5 mg EC tablet Bisacodyl Bisacodyl Active 10 MG Oral Daily 0 November 11, 2018 10:2511-11-2018 [facility] ([id number]) - dexamethasone sodium phosphate (DECADRON) 4 mg/mL injection Dexamethasone Dexamethasone Sodium Phosphate Active 4 MG IV Push Daily 0 November 11, 2018 10:2511-11-2018 [facility] ([id number]) - diphenhydrAMINE (BENADRYL) 50 mg/mL injection diphenhydrAMINE Diphenhydramine Hcl Active 25 MG IV Push Q6H 0 November 11, 2018 10:2511-11-2018 [facility] ([id number]) - insulin aspart U-100 (NOVOLOG) 100 unit/mL (3 mL) Insulin, Aspart, Human Insulin Aspart U-100 Active 0 UNITS Subcutaneous 3X/Day with meals and bedtime 0 November 11, 2018 10:2511-11-2018 [facility] ([id number]) - ketorolac (TORADOL) 30 mg/mL (1 mL) soln Ketorolac Ketorolac Active 15 MG IV Push Q6H 0 November 11, 2018 10:2811-11-2018 [facility] ([id number]) - labetalol (NORMODYNE) 5 mg/mL injection Labetalol Labetalol Active 5 MG IV Push Q4H 0 November 11, 2018 10:2811-11-2018 [facility] ([id number]) - nystatin (MYCOSTATIN) 100,000 unit/mL suspension Nystatin Nystatin Active 371985 UNIT Oral Four times daily 0 November 11, 2018 10:2811-11-2018 [facility] ([id number]) - pantoprazole (PROTONIX) 40 mg injection pantoprazole Pantoprazole Active 40 MG IV Push Daily 0 November 11, 2018 10:2911-11-2018 [facility] ([id number]) - lisinopril (ZESTRIL, PRINIVIL) 20 mg tablet - nitroglycerin sublingual (NITROQUICK) 0.4 mg SL tablet Dissolve 0.4 mg under the tongue. - QUEtiapine (SEROQUEL) 25 mg tablet Take 25 mg by mouth as needed. Take 3 tabs at bedtime and 100 mg daily - oxyCODONE (ROXICODONE) 5 mg/5 mL oral solution Take 5 mL by mouth every 4 hours as needed for up to 94 days. TAKE 1 TEASPOON(S) (5ML) EVERY SIX(6) TO EIGHT(8) HOURS NEEDED FOR PAIN. - meloxicam (MOBIC) 15 mg tablet Take 15 mg by mouth. - omeprazole (PRILOSEC) 20 mg capsule Take 2 capsules by mouth once daily. - gabapentin (NEURONTIN) 300 mg capsule Take 1 capsule by mouth as directed for 30 days. Take one pill (300mg) every morning and every afternoon and take two pills (600mg at night) - rivastigmine (EXELON) 13.3 mg/24 hour patch 1 Patch once daily. - aspirin, enteric coated (ASPIRIN, ENTERIC COATED) 81 mg EC tablet Take 162 mg by mouth. - Blood-Glucose Meter (TRUE METRIX GLUCOSE METER) [facility] Use to test 3 times a day - blood sugar diagnostic (BLOOD GLUCOSE TEST) test strip Use as instructed - Lancets lancets Use as instructed - cetirizine (ZYRTEC) 10 mg tablet Take 10 mg by mouth once daily. - biotin 5 mg tab Take 5 mg by mouth once daily. - docusate sodium (COLACE) 100 mg capsule Take 100 mg by mouth daily at bedtime. - melatonin 10 mg tab Take 1 tablet by mouth daily at bedtime. - metformin HCl (METFORMIN ORAL) Take 1,000 mg by mouth once daily (more content not included)... Normal [facility] 02-09-2023 CNPN Telephone (HEMASA) SEYMOUR LUCIA ([id number]) 1940 F Date Time Provider Department 02/09/23 HARRY BRANNON During your visit today, we recorded the following information about you: Harry Brannon RN 02/09/2023 1:04 PM Signed ----- Message from Yanci Churchill MD sent at 02/09/2023 9:04 AM EDT ----- Call with stable CT Harry Brannon RN 02/09/2023 1:08 PM Signed Pt's daughter notified of results Harry Brannon RN Allergies As of Date: 02/09/2023 (No Known Allergies) Date Reviewed: 11/20/2022 Reviewed by: Chichi Gonsalez PA-C - Fully Assessed Reason for Visit: Care Coordination [1243] Cmt: CT results Prescriptions as of 02/09/2023 - osimertinib (TAGRISSO) 80 mg tablet Take 1 tablet (80 mg) by mouth once daily. - OLANZapine (ZYPREXA) 5 mg tablet TAKE 1 TABLET BY MOUTH ONCE DAILY AT BEDTIME - promethazine (PHENERGAN) 6.25 mg/5 mL syrup TAKE 5 ML TO 10 ML BY MOUTH EVERY 6 HOURS NEEDED - hydrocortisone (CORTEF) 10 mg tablet Take two (2) tablets by mouth in the morning and one (1) tablet by mouth in the evening. - iv contrast (will be provided with radiology test) CT ABD/PEL -Inject, intravenously, once for 1 dose.No IV access, insert saline lock prior to the beginning of sedation, infusion, injection of imaging exam. Discontinue saline lock post exam. If Pt. has a central line or IVAD, may access for administration according to line specific nursing protocol. Once exam is complete flush line and de-access according to line specific nursing protocol in the CT contrast administration guidelines link. - iv contrast (will be provided with radiology test) CT Chest W -Inject, intravenously, once for 1 dose.No IV access, insert saline lock prior to the beginning of sedation, infusion, injection of imaging exam. Discontinue saline lock post exam. If Pt. has a central line or IVAD, may access for administration according to line specific nursing protocol. Once exam is complete flush line and de-access according to line specific nursing protocol in the CT contrast administration guidelines link. - metoprolol succinate ER (TOPROL XL) 25 mg 24 hr tablet - bisacodyl EC (DULCOLAX) 5 mg EC tablet Bisacodyl Bisacodyl Active 10 MG Oral Daily 0 November 11, 2018 10:25am 11-11-2018 [facility] ([id number]) - dexamethasone sodium phosphate (DECADRON) 4 mg/mL injection Dexamethasone Dexamethasone Sodium Phosphate Active 4 MG IV Push Daily 0 November 11, 2018 10:25am 11-11-2018 [facility] ([id number]) - diphenhydrAMINE (BENADRYL) 50 mg/mL injection diphenhydrAMINE Diphenhydramine Hcl Active 25 MG IV Push Q6H 0 November 11, 2018 10:2511-11-2018 [facility] ([id number]) - insulin aspart U-100 (NOVOLOG) 100 unit/mL (3 mL) Insulin, Aspart, Human Insulin Aspart U-100 Active 0 UNITS Subcutaneous 3X/Day with meals and bedtime 0 November 11, 2018 10:25am 11-11-2018 [facility] ([id number]) - ketorolac (TORADOL) 30 mg/mL (1 mL) soln Ketorolac Ketorolac Active 15 MG IV Push Q6H 0 November 11, 2018 10:28am 11-11-2018 [facility] ([id number]) - labetalol (NORMODYNE) 5 mg/mL injection Labetalol Labetalol Active 5 MG IV Push Q4H 0 November 11, 2018 10:28am 11-11-2018 [facility] ([id number]) - nystatin (MYCOSTATIN) 100,000 unit/mL suspension Nystatin Nystatin Active 678888 UNIT Oral Four times daily 0 November 11, 2018 10:2811-11-2018 [facility] ([id number]) - pantoprazole (PROTONIX) 40 mg injection pantoprazole Pantoprazole Active 40 MG IV Push Daily 0 November 11, 2018 10:29am 11-11-2018 [facility] ([id number]) - lisinopril (ZESTRIL, PRINIVIL) 20 mg tablet - nitroglycerin sublingual (NITROQUICK) 0.4 mg SL tablet Dissolve 0.4 mg under the tongue. - QUEtiapine (SEROQUEL) 25 mg tablet Take 25 mg by mouth as needed. Take 3 tabs at bedtime and 100 mg daily - oxyCODONE (ROXICODONE) 5 mg/5 mL oral solution Take 5 mL by mouth every 4 hours as needed for up to 94 days. TAKE 1 TEASPOON(S) (5ML) EVERY SIX(6) TO EIGHT(8) HOURS NEEDED FOR PAIN. - meloxicam (MOBIC) 15 mg tablet Take 15 mg by mouth. - omeprazole (PRILOSEC) 20 mg capsule Take 2 capsules by mouth once daily. - gabapentin (NEURONTIN) 300 mg capsule Take 1 capsule by mouth as directed for 30 days. Take one pill (300mg) every morning and every afternoon and take two pills (600mg at night) - rivastigmine (EXELON) 13.3 mg/24 hour patch 1 Patch once daily. - ALPRAZolam (XANAX) 0.5 mg tablet Take 0.5 mg by mouth. - aspirin, enteric coated (ASPIRIN, ENTERIC COATED) 81 mg EC tablet Take 162 mg by mouth. - Blood-Glucose Meter (TRUE METRIX GLUCOSE METER) [facility] Use to test 3 times a day - blood sugar diagnostic (BLOOD GLUCOSE TEST) test strip Use as instructed - Lancets lancets Use as instructed - gabriela (more content not included)... Normal [facility] CBC W Auto Differential pane l (Bld)on 02-08-2023 Basophils (Bld) [#/Vol] 0.03 10*3/uL Normal <0.11 [facility] Comment on above: Order Comment: Speci men Type: BLOOD SPECIMENOrdering Facility: [facility] Address: [address] [place] [address] Performed By: #### 5 7021-8 ####[facility] LABCLIA [id number] [place] [address] Basophils/100 WBC (Bld) 0.4 % Normal [facility] Comment on above: Order Comment: Speci men Type: BLOOD SPECIMENOrdering Facility: [facility] Address: [address] [place] [address] Performed By: #### 5 7021-8 ####[facility] LABCLIA [id number] [place] [address] Differential cell count method Nom (Bld) Auto Normal [facility] Comment on above: Order Comment: Speci men Type: BLOOD SPECIMENOrdering Facility: [facility] Address: [address] [address] Performed By: #### 5 7021-8 ####[facility] LABCLIA [id number] [place] [address] Eosinophils (Bld) [#/Vol] 1.02 10*3/uL High <0.46 [facility] Comment on above: Order Comment: Speci men Type: BLOOD SPECIMENOrdering Facility: [facility] Address: [address] [address] Performed By: #### 5 7021-8 ####[facility] LABCLIA [id number] [place] [address] Eosinophils/100 WBC (Bld) 14.4 % Normal [facility] Comment on above: Order Comment: Speci men Type: BLOOD SPECIMENOrdering Facility: [facility] Address: [address] [place] [address] Performed By: #### 5 7021-8 ####[facility] LABCLIA [id number] [place] [address] Erythrocyte distribution width (RBC) [Ratio] 18.7 % High 11.5-15.0 [facility] Comment on above: Order Comment: Speci men Type: BLOOD SPECIMENOrdering Facility: [facility] Address: [address] [place] [address] Performed By: #### 5 7021-8 ####[facility] LABCLIA [id number] [place] [address] Hematocrit (Bld) [Volume fraction] 31.1 % Low 36.0-46.0 [facility] Comment on above: Order Comment: Speci men Type: BLOOD SPECIMENOrdering Facility: [facility] Address: [address] [place] [address] Performed By: #### 5 7021-8 ####[facility] LABCLIA [id number] [place] [address] Hemoglobin (Bld) [Mass/Vol] 9.2 g/dL Low 11.5-15.5 [facility] Comment on above: Order Comment: Speci men Type: BLOOD SPECIMENOrdering Facility: [facility] Address: [address] [place] [address] Performed By: #### 5 7021-8 ####[facility] LABIA [id number] [place] [address] Immature granulocytes (Bld) [#/Vol] 10*3/uL Normal <0.10 [facility] Comment on above: Order Comment: Speci men Type: BLOOD SPECIMENOrdering Facility: [facility] Address: [address] [address] Performed By: #### 5 7021-8 ####[facility] LABCLIA [id number] [place] [address] Immature granulocytes/100 WBC (Bld) 0.3 % Normal [facility] Comment on above: Order Comment: Speci men Type: BLOOD SPECIMENOrdering Facility: [facility] Address: [address] [place] [address] Performed By: #### 5 7021-8 ####[facility] LABCLIA [id number] [place] [address] Lymphocytes (Bld) [#/Vol] 1.74 10*3/uL Normal 1.00-4.00 [facility] Comment on above: Order Comment: Speci men Type: BLOOD SPECIMENOrdering Facility: [facility] Address: [address] [place] [address] Performed By: #### 5 7021-8 ####[facility] LABIA [id number] [place] [address] Lymphocytes/100 WBC (Bld) 24.5 % Normal [facility] Comment on above: Order Comment: Speci men Type: BLOOD SPECIMENOrdering Facility: [facility] Address: [address] [place] [address] Performed By: #### 5 7021-8 ####[facility] LABCLIA [id number] [place] [address] MCH (RBC) [Entitic mass] 25.0 pg Low 26.0-34.0 [facility] Comment on above: Order Comment: Speci men Type: BLOOD SPECIMENOrdering Facility: [facility] Address: [address] [place] [address] Performed By: #### 5 7021-8 ####[facility] LABIA [id number] [place] [address] MCHC (RBC) [Mass/Vol] 29.6 g/dL Low 30.5-36.0 [facility] Comment on above: Order Comment: Speci men Type: BLOOD SPECIMENOrdering Facility: [facility] Address: [address] [place] [address] Performed By: #### 5 7021-8 ####[facility] LABCLIA [id number] [place] [address] MCV (RBC) [Entitic vol] 84.5 fL Normal 80.0-100.0 [facility] Comment on above: Order Comment: Speci men Type: BLOOD SPECIMENOrdering Facility: [facility] Address: [address] [place] [address] Performed By: #### 5 7021-8 ####[facility] LABCLIA [id number] [place] [address] Monocytes (Bld) [#/Vol] 0.76 10*3/uL Normal <0.87 [facility] Comment on above: Order Comment: Speci men Type: BLOOD SPECIMENOrdering Facility: [facility] Address: [address] [place] [address] Performed By: #### 5 7021-8 ####[facility] LABCLIA [id number] [place] [address] Monocytes/100 WBC (Bld) 10.7 % Normal [facility] Comment on above: Order Comment: Speci men Type: BLOOD SPECIMENOrdering Facility: [facility] Address: [address] [place] [address] Performed By: #### 5 7021-8 ####[facility] LABIA [id number] [place] [address] Neutrophils (Bld) [#/Vol] 3.53 10*3/uL Normal 1.45-7.50 [facility] Comment on above: Order Comment: Speci men Type: BLOOD SPECIMENOrdering Facility: [facility] Address: [address] [place] [address] Performed By: #### 5 7021-8 ####[facility] LABCLIA [id number] [place] [address] Neutrophils/100 WBC (Bld) 49.7 % Normal [facility] Comment on above: Order Comment: Speci men Type: BLOOD SPECIMENOrdering Facility: [facility] Address: [address] [place] [address] Performed By: #### 5 7021-8 ####[facility] LABCLIA [id number] [place] [address] Nucleated RBC (Bld) [#/Vol] 10*3/uL Normal <0.01 [facility] Comment on above: Order Comment: Speci men Type: BLOOD SPECIMENOrdering Facility: [facility] Address: [address] [place] [address] Performed By: #### 5 7021-8 ####[facility] LABCLIA [id number] [place] [address] Nucleated RBC/100 WBC (Bld) [Ratio] 0.0 /100 WBC Normal [facility] Comment on above: Order Comment: Speci men Type: BLOOD SPECIMENOrdering Facility: [facility] Address: [address] [place] [address] Performed By: #### 5 7021-8 ####[facility] LABCLIA [id number] [place] [address] Platelet mean volume (Bld) [Entitic vol] 10.2 fL Normal 9.0-12.7 [facility] Comment on above: Order Comment: Speci men Type: BLOOD SPECIMENOrdering Facility: [facility] Address: [address] [place], [place] [address] Performed By: #### 5 7021-8 ####[facility] LABCLIA [id number] [place] [address] Platelets (Bld) [#/Vol] 200 10*3/uL Normal 150-400 [facility] Comment on above: Order Comment: Speci men Type: BLOOD SPECIMENOrdering Facility: [facility] Address: [address] [place] [address] Performed By: #### 5 7021-8 ####[facility] LABIA [id number] [place] [address] RBC (Bld) [#/Vol] 3.68 10*6/uL Low 3.90-5.20 [facility] Comment on above: Order Comment: Speci men Type: BLOOD SPECIMENOrdering Facility: [facility] Address: [address] [place] [address] Performed By: #### 5 7021-8 ####[facility] LABIA [id number] [place] [address] WBC (Bld) [#/Vol] 7.10 10*3/uL Normal 3.70-11.00 [facility] Comment on above: Order Comment: Speci men Type: BLOOD SPECIMENOrdering Facility: [facility] Address: [address] [place] [address] Performed By: #### 5 7021-8 ####[facility] LABIA [id number] [place] [address] CT ABD/PEL W IVCONon 02-08- 023 CT ABD/PEL W IVCON * * *Final Report* * * DATE OF EXAM: Feb 08 2023 2:55PM [facility] 0530 - CT ABD/PEL W IVCON / PROCEDURE REASON: Malignant neoplasm of overlapping sites of lung, unspecified laterality (HCC) * * * * Physician Interpretation * * * * RESULT: EXAMINATION: CT ABDOMEN AND PELVIS WITH IV CONTRAST CLINICAL HISTORY: Malignant neoplasm of the lung. TECHNIQUE: CT of the abdomen and pelvis was performed using standard technique, scanning from just above the dome of the diaphragm to the symphysis pubis. MQ: CTAP_3 Contrast: IV: 100 ml of Omnipaque 300 Oral: 500 ml of dilute Omnipaque 240 CT Radiation dose: Integrated Dose-length product (DLP) for this visit = 854 mGy*cm. CT Dose Reduction Employed: Automated exposure control (AEC) COMPARISON: CT abdomen/pelvis 12/06/2021; 04/21/2021; 10/20/2020; 10/31/2019 RESULT: Liver: Normal liver morphology. No suspicious hepatic mass. Biliary: The gallbladder is absent. There is unchanged mild intrahepatic and moderate extrahepatic biliary ductal dilatation. Spleen: Subcentimeter hypodensities within the spleen are unchanged, too small to characterize, but likely angiomatous lesions. No splenomegaly. Pancreas: No mass or duct dilation. Adrenals: No mass. Kidneys: The kidneys enhance symmetrically. No suspicious renal mass. No collecting system dilatation. GI tract: The bowel is normal in caliber and without evidence of wall thickening or obstruction. There are diffuse colonic diverticula, without associated inflammation. The appendix is normal. Lymph nodes: No abdominal or pelvic lymphadenopathy. Mesentery/Peritoneum: No ascites or mass. Retroperitoneum: No mass. Vasculature: - Abdominal aorta and iliac arteries: Atherosclerotic calcifications without aneurysm. - Celiac and SMA: Atherosclerotic calcifications at the origins. - Portal venous system (SMV, splenic vein, portal vein and branches): Patent. - Hepatic veins: Patent. Pelvis: No mass, ascites or fluid collection. The rectum and urinary bladder are unremarkable. Bones/Soft Tissues: Degenerative changes involve the hips and lumbar spine. No destructive lytic or blastic osseous abnormality. Lower thorax: A chest CT performed will be reported separately. Arcgis Developer (topogram) images: No additional findings. IMPRESSION: 1. No evidence of metastatic disease within the abdomen/pelvis. 2. Unchanged mild intrahepatic and moderate extrahepatic biliary ductal dilatation, of uncertain etiology and significance, given chronicity. 3. Please refer to concurrently acquired and separately reported chest CT for findings related to the thorax. Transcribe Date/Time: Feb 08 2023 4:12P Dictated by: VILMA RUBI MD This examination was interpreted and the report reviewed and electronically signed by: VILMA RUBI MD on Feb 08 2023 4:30PM EST Thank you for allowing us to participate in the care of your patient. Should there be any questions regarding this interpretation, please call [phone]. If you are unable to reach us at the number above, please feel free to contact [facility] at [phone]. [id number] Normal [facility] CT CHEST W IVCONon 3 CT CHEST W IVCON * * *Final Report* * * DATE OF EXAM: Feb 08 2023 2:55PM [facility] 0539 - CT CHEST W IVCON / PROCEDURE REASON: Malignant neoplasm of unspecified part of unspecified bronchus or lung (HCC) * * * * Physician Interpretation * * * * RESULT: EXAMINATION: CHEST CT WITH CONTRAST CLINICAL HISTORY: Malignant neoplasm of the lung. Technique: Spiral CT acquisition of the chest from the thoracic inlet to the upper abdomen following IV contrast. MQ: CTCW_6 Contrast: 100 mL Omnipaque [address] Radiation dose: Integrated Dose-length product (DLP) for this visit = 854 mGy*cm CT Dose Reduction Employed: Automated exposure control (AEC) Comparison: CT chest 12/06/2021; 04/21/2021; 10/20/2020; 10/31/2019 RESULT: Limitations: None. Lines, tubes, and devices: The tip of a right chest wall port extends to the superior cavoatrial junction. Lung parenchyma and airways: There is mild bibasilar juxtapleural subsegmental atelectasis. A left upper lobe paramediastinal nodule is unchanged and measures 1 x 1.4 cm on series 3, image 72). There is unchanged bandlike opacification extending anterolaterally from this nodule, likely representing scarring/fibrosis. A 0.8 cm right lower lobe groundglass nodule (series 3, image 87) is unchanged. No enlarging suspicious pulmonary nodule is identified. Pleural space: No pleural effusion. No pleural thickening. Lower neck, lymph nodes, and mediastinum: Unchanged subcentimeter nodularity and calcification of the right thyroid lobe. There is no supraclavicular, axillary, mediastinal or hilar lymphadenopathy. Heart, pericardium, and thoracic vessels: The thoracic aorta and main pulmonary artery are normal in caliber. The cardiac chambers are normal in size. Coronary artery atherosclerotic calcifications are noted, although the study is not optimized for coronary assessment. No pericardial effusion or thickening. Bones and soft tissues: Degenerative change involves the thoracic spine. No destructive lytic or blastic osseous abnormality. Upper abdomen: Please refer to concurrently acquired and separately reported abdomen CT for findings related to the upper abdomen. Arcgis Developer (topogram) images: No additional findings. IMPRESSION: 1. Since 12/06/2021, unchanged 1.4 cm left upper lobe paramediastinal nodule and right lower lobe 0.8 cm groundglass nodule. 2. No lymphadenopathy. 3. Please refer to concurrently acquired and separately reported abdomen CT for findings related to the upper abdomen. Transcribe Date/Time: Feb 08 2023 4:19P Dictated by: VILMA RUBI MD This examination was interpreted and the report reviewed and electronically signed by: VILMA RUBI MD on Feb 08 2023 4:28PM EST Thank you for allowing us to participate in the care of your patient. Should there be any questions regarding this interpretation, please call [phone]. If you are unable to reach us at the number above, please feel free to contact [facility] at [phone]. [id number] Normal [facility] Comprehensive metabolic 2000 panelon 02-08-2023 Albumin [Mass/Vol] 3.5 g/dL Low 3.9-4.9 [facility] Comment on above: Order Comment: Speci men Type: BLOOD SPECIMENOrdering Facility: [facility] Address: [address] [address] Performed By: #### 2 4323-8 ####[facility] LABIA [id number] [place] [address] ALP [Catalytic activity/Vol] 355 U/L High 34-123 [facility] Comment on above: Order Comment: Speci men Type: BLOOD SPECIMENOrdering Facility: [facility] Address: [address] [address] Performed By: #### 2 4323-8 ####[facility] LABCLIA [id number] [place] [address] ALT [Catalytic activity/Vol] 38 U/L Normal 7-38 [facility] Comment on above: Order Comment: Speci men Type: BLOOD SPECIMENOrdering Facility: [facility] Address: [address] [address] Performed By: #### 2 4323-8 ####[facility] LABCLIA [id number] [place] [address] Anion gap [Moles/Vol] 6 mmol/L Low 9-18 [facility] Comment on above: Order Comment: Speci men Type: BLOOD SPECIMENOrdering Facility: [facility] Address: [address] [place] [address] Performed By: #### 2 4323-8 ####[facility] LABCLIA [id number] [place] [address] AST [Catalytic activity/Vol] 41 U/L High 13-35 [facility] Comment on above: Order Comment: Speci men Type: BLOOD SPECIMENOrdering Facility: [facility] Address: [address] [place] [address] Performed By: #### 2 4323-8 ####[facility] LABCLIA [id number] [place] [address] Bilirubin [Mass/Vol] 0.2 mg/dL Normal 0.2-1.3 [facility] Comment on above: Order Comment: Speci men Type: BLOOD SPECIMENOrdering Facility: [facility] Address: [address] [place] [address] Performed By: #### 2 4323-8 ####[facility] LABCLIA [id number] [place] [address] Calcium [Mass/Vol] 9.5 mg/dL Normal 8.5-10.2 [facility] Comment on above: Order Comment: Speci men Type: BLOOD SPECIMENOrdering Facility: [facility] Address: [address] [place] [address] Performed By: #### 2 4323-8 ####[facility] LABCLIA [id number] [place] [address] Chloride [Moles/Vol] 103 mmol/L Normal 97-105 [facility] Comment on above: Order Comment: Speci men Type: BLOOD SPECIMENOrdering Facility: [facility] Address: [address] [address] Performed By: #### 2 4323-8 ####[facility] LABCLIA [id number] [place] [address] CO2 [Moles/Vol] 31 mmol/L High 22-30 [facility] Comment on above: Order Comment: Speci men Type: BLOOD SPECIMENOrdering Facility: [facility] Address: [address] [place] [address] Performed By: #### 2 4323-8 ####[facility] LABCLIA [id number] [place] [address] Creatinine [Mass/Vol] 0.88 mg/dL Normal 0.58-0.96 [facility] Comment on above: Order Comment: Speci men Type: BLOOD SPECIMENOrdering Facility: [facility] Address: [address] [place] [address] Performed By: #### 2 4323-8 ####[facility] LABCLIA [id number] [place] [address] ESTIMATED GLOMERULAR FILTRATION RATE 65 mL/min/1.73m??? Normal >=60 [facility] Comment on above: Order Comment: Speci men Type: BLOOD SPECIMENOrdering Facility: [facility] Address: [address] [place] [address] Result Comment: Katelyn mated Glomerular Filtration Rate (eGFR) is calculated using the 2020 CKD-EPI creatinine equation. This equation utilizes serum creatinine, sex, and age as parameters. The creatinine assay has traceable calibration to isotope dilution-mass spectrometry. Refer to KDIGO guidelines for clinical interpretation. In patients with unstable renal function, e.g. those with acute kidney injury, the eGFR may not accurately reflect actual GFR. Performed By: #### 2 4323-8 ####[facility] LABCLIA [id number] [place] [address] Glucose [Mass/Vol] 85 mg/dL Normal 74-99 [facility] Comment on above: Order Comment: Speci men Type: BLOOD SPECIMENOrdering Facility: [facility] Address: [address] [place], [place] [address] Result Comment: The [place] [employer] (ADA) provides guidance for cutoff values for fasting glucose and random glucose. The ADA defines fasting as no caloric intake for at least 8 hours. Fasting plasma glucose results between 100 to 125 mg/dL indicate increased risk for diabetes (prediabetes). Fasting plasma glucose results greater than or equal to 126 mg/dL meet the criteria for diagnosis of diabetes. In the absence of unequivocal hyperglycemia, results should be confirmed by repeat testing. In a patient with classic symptoms of hyperglycemia or hyperglycemic crisis, random plasma glucose results greater than or equal to 200 mg/dL meet the criteria for diagnosis of diabetes. Reference: Standards of Medical Care in Diabetes 2016, [place] [employer]. Diabetes Care. 2016.39(Suppl 1). Performed By: #### 2 4323-8 ####[facility] LABCLIA [id number] [place] [address] Potassium [Moles/Vol] 4.0 mmol/L Normal 3.7-5.1 [facility] Comment on above: Order Comment: [facility] Type: BLOOD SPECIMENOrdering Facility: [facility] Address: [address] [place] [address] Performed By: #### 2 4323-8 ####[facility] LABCLIA [id number] [place] [address] Protein [Mass/Vol] 6.7 g/dL Normal 6.3-8.0 [facility] Comment on above: Order Comment: Speci men Type: BLOOD SPECIMENOrdering Facility: [facility] Address: [address] [place] [address] Performed By: #### 2 4323-8 ####[facility] LABCLIA [id number] [place] [address] Sodium [Moles/Vol] 140 mmol/L Normal 136-144 [facility] Comment on above: Order Comment: Speci men Type: BLOOD SPECIMENOrdering Facility: [facility] Address: [address] [place], [place] [address] Performed By: #### 2 4323-8 ####[facility] LABCLIA [id number] [place] [address] Urea nitrogen [Mass/Vol] 17 mg/dL Normal 7-21 [facility] Comment on above: Order Comment: Speci men Type: BLOOD SPECIMENOrdering Facility: [facility] Address: [address] [place] [address] [place] [address] Performed By: #### 2 4323-8 ####[facility] LABCLIA [id number] [place] [address] TSH SerPl-aCncon 02-08-2023 TSH Qn 1.440 m[IU]/L Normal 0.270-4.200 [facility] Comment on above: Order Comment: Speci men Type: BLOOD SPECIMENOrdering Facility: [facility] Address: [place] [address] Performed By: #### 3 016-3 ####[facility] LABCLIA [id number] [facility] [place] [id number] [facility] CNPMayelin 01-23-2023 LORI Telephone (HEMTSA) SEYMOUR LUCIA ([id number]) 1940 F Date Time Provider Department 01/23/23 REJI MCKINLEY During your visit today, we recorded the following information about you: Reji Mckinley RN 01/23/2023 2:34 PM Addendum Pt scheduled for CT 02/08 with follow up 02/13. No labs are ordered. I have pended labs as previously obtained, please sign if agreeable. 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 - OLANZapine (ZYPREXA) 5 mg tablet TAKE 1 TABLET BY MOUTH ONCE DAILY AT BEDTIME - promethazine (PHENERGAN) 6.25 mg/5 mL syrup TAKE 5 ML TO 10 ML BY MOUTH EVERY 6 HOURS NEEDED - hydrocortisone (CORTEF) 10 mg tablet Take two (2) tablets by mouth in the morning and one (1) tablet by mouth in the evening. - iv contrast (will be provided with radiology test) CT ABD/PEL -Inject, intravenously, once for 1 dose.No IV access, insert saline lock prior to the beginning of sedation, infusion, injection of imaging exam. Discontinue saline lock post exam. If Pt. has a central line or IVAD, may access for administration according to line specific nursing protocol. Once exam is complete flush line and de-access according to line specific nursing protocol in the CT contrast administration guidelines link. - iv contrast (will be provided with radiology test) CT Chest W -Inject, intravenously, once for 1 dose.No IV access, insert saline lock prior to the beginning of sedation, infusion, injection of imaging exam. Discontinue saline lock post exam. If Pt. has a central line or IVAD, may access for administration according to line specific nursing protocol. Once exam is complete flush line and de-access according to line specific nursing protocol in the CT contrast administration guidelines link. - metoprolol succinate ER (TOPROL XL) 25 mg 24 hr tablet - bisacodyl EC (DULCOLAX) 5 mg EC tablet Bisacodyl Bisacodyl Active 10 MG Oral Daily 0 November 11, 2018 10:25am 11-11-2018 [facility] ([id number]) - dexamethasone sodium phosphate (DECADRON) 4 mg/mL injection Dexamethasone Dexamethasone Sodium Phosphate Active 4 MG IV Push Daily 0 November 11, 2018 10:11-11-2018 [facility] ([id number]) - diphenhydrAMINE (BENADRYL) 50 mg/mL injection diphenhydrAMINE Diphenhydramine Hcl Active 25 MG IV Push Q6H 0 November 11, 2018 10:11-11-2018 [facility] ([id number]) - insulin aspart U-100 (NOVOLOG) 100 unit/mL (3 mL) Insulin, Aspart, Human Insulin Aspart U-100 Active 0 UNITS Subcutaneous 3X/Day with meals and bedtime 0 November 11, 2018 10:11-11-2018 [facility] ([id number]) - ketorolac (TORADOL) 30 mg/mL (1 mL) soln Ketorolac Ketorolac Active 15 MG IV Push Q6H 0 November 11, 2018 10:2811-11-2018 [facility] ([id number]) - labetalol (NORMODYNE) 5 mg/mL injection Labetalol Labetalol Active 5 MG IV Push Q4H 0 November 11, 2018 10:2811-11-2018 [facility] ([id number]) - nystatin (MYCOSTATIN) 100,000 unit/mL suspension Nystatin Nystatin Active 091976 UNIT Oral Four times daily 0 November 11, 2018 10:2811-11-2018 [facility] ([id number]) - pantoprazole (PROTONIX) 40 mg injection pantoprazole Pantoprazole Active 40 MG IV Push Daily 0 November 11, 2018 10:2911-11-2018 [facility] ([id number]) - lisinopril (ZESTRIL, PRINIVIL) 20 mg tablet - nitroglycerin sublingual (NITROQUICK) 0.4 mg SL tablet Dissolve 0.4 mg under the tongue. - QUEtiapine (SEROQUEL) 25 mg tablet Take 25 mg by mouth as needed. Take 3 tabs at bedtime and 100 mg daily - oxyCODONE (ROXICODONE) 5 mg/5 mL oral solution Take 5 mL by mouth every 4 hours as needed for up to 94 days. TAKE 1 TEASPOON(S) (5ML) EVERY SIX(6) TO EIGHT(8) HOURS NEEDED FOR PAIN. - meloxicam (MOBIC) 15 mg tablet Take 15 mg by mouth. - omeprazole (PRILOSEC) 20 mg capsule Take 2 capsules by mouth once daily. - gabapentin (NEURONTIN) 300 mg capsule Take 1 capsule by mouth as directed for 30 days. Take one pill (300mg) every morning and every afternoon and take two pills (600mg at night) - rivastigmine (EXELON) 13.3 mg/24 hour patch 1 Patch once daily. - ALPRAZolam (XANAX) 0.5 mg tablet Take 0.5 mg by mouth. - aspirin, enteric coated (ASPIRIN, ENTERIC COATED) 81 mg EC tablet Take 162 mg by mouth. (more content not included)... Normal [facility] 01-09-2023 CNPN Telephone (HEMASA) SEYMOUR LUCIA ([id number]) 1940 F Date Time Provider Department 01/09/23 CON SALMON During your visit today, we recorded the following information about you: Con Salmon RN 01/09/2023 3:25 PM Signed Message received from Edgard Trimble. Notes the pt has not had a recent f/u or labs. Last RV w/ labs was in February of 2022. Pt was to return in 3 months, but cancelled that appointment. Specialty pharmacy has been filling her Tagrisso in the meantime, but voices concerns that there is no follow up. Dr Churchill: When would you like to see pt for follow up? WILL Vigil MD 01/10/2023 4:32 PM Signed She shoukd see me next 3-4 weeks. She just doesn't show up and cancels. Please have our pharmacty follow up with refills Con Salmon RN 01/10/2023 4:41 PM Signed Clerical: Please call pt or pt's daughter w/ an appointment. Pharmacy: Please see message below. Thanks! Con Salmon RN Graciela Muller Katelesley 01/11/2023 10:16 AM Addendum Spoke to Rosemary, daughter, and scheduled patient on 01/30/2023 lab@ 3:15 pm JORGE @3:30 pm. Graciela Bhakta Allergies As of Date: 01/09/2023 (No Known Allergies) Date Reviewed: 11/20/2022 Reviewed by: Chichi Gonsalez PA-C - Fully Assessed Reason for Visit: Care Coordination [0147] Cmt: Appointment Prescriptions as of 01/18/2023 - osimertinib (TAGRISSO) 80 mg tablet Take 1 tablet (80 mg) by mouth once daily. - OLANZapine (ZYPREXA) 5 mg tablet TAKE 1 TABLET BY MOUTH ONCE DAILY AT BEDTIME - promethazine (PHENERGAN) 6.25 mg/5 mL syrup TAKE 5 ML TO 10 ML BY MOUTH EVERY 6 HOURS NEEDED - hydrocortisone (CORTEF) 10 mg tablet Take two (2) tablets by mouth in the morning and one (1) tablet by mouth in the evening. - iv contrast (will be provided with radiology test) CT ABD/PEL -Inject, intravenously, once for 1 dose.No IV access, insert saline lock prior to the beginning of sedation, infusion, injection of imaging exam. Discontinue saline lock post exam. If Pt. has a central line or IVAD, may access for administration according to line specific nursing protocol. Once exam is complete flush line and de-access according to line specific nursing protocol in the CT contrast administration guidelines link. - iv contrast (will be provided with radiology test) CT Chest W -Inject, intravenously, once for 1 dose.No IV access, insert saline lock prior to the beginning of sedation, infusion, injection of imaging exam. Discontinue saline lock post exam. If Pt. has a central line or IVAD, may access for administration according to line specific nursing protocol. Once exam is complete flush line and de-access according to line specific nursing protocol in the CT contrast administration guidelines link. - metoprolol succinate ER (TOPROL XL) 25 mg 24 hr tablet - bisacodyl EC (DULCOLAX) 5 mg EC tablet Bisacodyl Bisacodyl Active 10 MG Oral Daily 0 November 11, 2018 10:2511-11-2018 [facility] ([id number]) - dexamethasone sodium phosphate (DECADRON) 4 mg/mL injection Dexamethasone Dexamethasone Sodium Phosphate Active 4 MG IV Push Daily 0 November 11, 2018 10:2511-11-2018 [facility] ([id number]) - diphenhydrAMINE (BENADRYL) 50 mg/mL injection diphenhydrAMINE Diphenhydramine Hcl Active 25 MG IV Push Q6H 0 November 11, 2018 10:2511-11-2018 [facility] ([id number]) - insulin aspart U-100 (NOVOLOG) 100 unit/mL (3 mL) Insulin, Aspart, Human Insulin Aspart U-100 Active 0 UNITS Subcutaneous 3X/Day with meals and bedtime 0 November 11, 2018 10:2511-11-2018 [facility] ([id number]) - ketorolac (TORADOL) 30 mg/mL (1 mL) soln Ketorolac Ketorolac Active 15 MG IV Push Q6H 0 November 11, 2018 10:2811-11-2018 [facility] ([id number]) - labetalol (NORMODYNE) 5 mg/mL injection Labetalol Labetalol Active 5 MG IV Push Q4H 0 November 11, 2018 10:2811-11-2018 [facility] ([id number]) - nystatin (MYCOSTATIN) 100,000 unit/mL suspension Nystatin Nystatin Active 936717 UNIT Oral Four times daily 0 November 11, 2018 10:2811-11-2018 [facility] ([id number]) - pantoprazole (PROTONIX) 40 mg injection pantoprazole Pantoprazole Active 40 MG IV Push Daily 0 November 11, 2018 10:2911-11-2018 [facility] ([id number]) - lisinopril (ZESTRIL, PRINIVIL) 20 mg tablet - nitroglycerin sublingual (NITROQUICK) 0.4 mg SL tablet Dissolve 0.4 mg under the tongue. - QUEtiapine (SEROQUEL) 25 mg tablet Take 25 mg by mouth as needed. Take 3 tabs at bedtime and 100 mg daily - oxyCODONE (ROXICODONE) 5 mg/5 mL oral solution Take 5 mL by mouth every 4 hours as needed for up to 94 days. TAKE 1 TEASPOON(S) (5ML) EVERY SIX(6) TO EIGHT(8) HOURS NEEDED FOR PAIN. - meloxicam (MOBIC) 15 mg tablet Take 15 mg by mouth. - omeprazole (PRILOSEC) 20 (more content not included)... Normal [facility]illon 12-23-2022 Refill [id number] Adela Lucia ma N 1940 F Date Provider Department Center 12/23/2022 [id number] [facility] PSYCH Lydia Heal No family history on file Reason for Visit and Comments: Med Refill [112154] Normal [facility] CBC AUTO DIFFon 12-11-2022 BASO # 0.1 103/ul Normal 0.0-0.1 [facility] Comment on above: Performed By: #### C BC #### [facility] [address] [address] [address] Bashir Champion Basophils/100 WBC (Bld) 0.5 % Normal 0.2-2.0 [facility] Comment on above: Performed By: #### C BC #### [facility] [address] [address] [address] Bashir Champion EO # 0.6 103/ul Normal 0.0-0.7 [facility] Comment on above: Performed By: #### C BC #### [facility] [address] [address] [address] Bashir Champion Eosinophils/100 WBC (Bld) 6.0 % Normal 0.9-7.0 [facility] Comment on above: Performed By: #### C BC #### [facility] [address] [address] [address] Bashir Champion Erythrocyte distribution width (RBC) [Ratio] 19.3 % Critically high 11.0-15.0 [facility] Comment on above: Performed By: #### C BC #### [facility] [address] [place] [address] Dr. Bashir Champion Hematocrit (Bld) [Volume fraction] 37.4 % Normal 36.0-48.0 [facility] Comment on above: Performed By: #### C BC #### [facility] [address] [address] [address] Bashir Champion Hemoglobin (Bld) [Mass/Vol] 11.1 g/dL Critically low 12.0-16.0 [facility] Comment on above: Performed By: #### C BC #### [facility] [address] [address] [address] Bashir Champion IG # 0.03 10e3/ul Normal 0.00-0.03 [facility] Comment on above: Performed By: #### C BC #### [facility] [address] [place] [address] Dr. Bashir Champion IG % 0.3 % Normal 0.0-0.5 [facility] Comment on above: Performed By: #### C BC #### [facility] [address] [place] [address] Dr. Bashir Champion LYMPH # 2.0 103/ul Normal 1.2-3.8 [facility] Comment on above: Performed By: #### C BC #### [facility] [address] [place] [address] Dr. Bashir Champion Lymphocytes/100 WBC (Bld) 20.7 % Normal 20.5-60.0 [facility] Comment on above: Performed By: #### C BC #### [facility] [address] [place] [address] Dr. Bashir Champion MANUAL DIFF REQ NO Normal [facility] Comment on above: Performed By: #### C BC #### [facility] [address] [address] [address] Bashir Champion MCH (RBC) [Entitic mass] 24.0 pg Critically low 26.7-34.0 [facility] Comment on above: Performed By: #### C BC #### [facility] [address] [address] [address] Bashir Champion MCHC (RBC) [Mass/Vol] 29.7 g/dL Critically low 29.9-35.2 [facility] Comment on above: Performed By: #### C BC #### [facility] [address] [address] [address] Bashir Champion MCV (RBC) [Entitic vol] 80.8 fL Critically low 81.0-99.0 [facility] Comment on above: Performed By: #### C BC #### [facility] [address] [address] [address] Bashir Champion MONO # 1.1 103/ul Critically high 0.3-0.8 [facility] Comment on above: Performed By: #### C BC #### [facility] [address] [address] [address] Bashir Champion Monocytes/100 WBC (Bld) 11.5 % Normal 1.7-12.0 [facility] Comment on above: Performed By: #### C BC #### [facility] [address] [place] [address] Dr. Bashir Champion NEUT # 5.8 103/ul Normal 1.4-6.5 [facility] Comment on above: Performed By: #### C BC #### [facility] [address] [place] [address] Dr. Bashir Champion Neutrophils/100 WBC (Bld) 61.0 % Normal 43.0-75.0 [facility] Comment on above: Performed By: #### C BC #### [facility] [address] [place] [address] Dr. Bashir Champion Platelet mean volume (Bld) [Entitic vol] 10.5 fL Normal 9.5-13.5 [facility] Comment on above: Performed By: #### C BC #### [facility] [address] [place] [address] Dr. Bashir Champion PLT 278 103/ul Normal 150-450 [facility] Comment on above: Performed By: #### C BC #### [facility] [address] [address] [address] Bashir Champion RBC 4.63 106/ul Normal 4.20-5.40 [facility] Comment on above: Performed By: #### C BC #### [facility] [address] [place] [address] Dr. Bashir Champion WBC 9.5 103/ul Normal 4.0-11.0 [facility] Comment on above: Performed By: #### C BC #### [facility] [address] [address] [address] Bashir Champion PROF 14(COMP METB)on 023 Albumin [Mass/Vol] 2.8 g/dL Critically low 3.4-5.0 [facility] Comment on above: Performed By: #### C MP #### [facility] [address] [place] [address] Dr. Bashir Champion Albumin/Globulin [Mass ratio] 0.7 {ratio} Normal [facility] Comment on above: Performed By: #### C MP #### [facility] [address] [place] [address] Dr. Bashir Champion ALP [Catalytic activity/Vol] 427 U/L Critically high 46-116 [facility] Comment on above: Performed By: #### C MP #### [facility] [address] [place] [address] Dr. Bashir Champion ALT [Catalytic activity/Vol] 44 U/L Normal 14-59 [facility] Comment on above: Performed By: #### C MP #### [facility] [address] [place] [address] Dr. Bashir Champion Anion gap [Moles/Vol] 12.3 mmol/L Normal [facility] Comment on above: Performed By: #### C MP #### [facility] [address] [place] [address] Dr. Bashir Champion AST [Catalytic activity/Vol] 48 U/L Critically high 15-37 [facility] Comment on above: Performed By: #### C MP #### [facility] [address] [place] [address] Dr. Bashir Champion Bilirubin [Mass/Vol] 0.3 mg/dL Normal 0.2-1.0 [facility] Comment on above: Performed By: #### C MP #### [facility] [address] [address] [address] Bashir Champion Calcium [Mass/Vol] 9.0 mg/dL Normal 8.5-10.1 [facility] Comment on above: Performed By: #### C MP #### [facility] [address] [place] [address] Dr. Bashir Champion Chloride [Moles/Vol] 105 mmol/L Normal 98-107 [facility] Comment on above: Performed By: #### C MP #### [facility] [address] [address] [address] Bashir Champion CO2 [Moles/Vol] 30.5 mmol/L Normal 21.0-32.0 [facility] Comment on above: Performed By: #### C MP #### [facility] [address] [place] [address] Dr. Bashir Champion Creatinine [Mass/Vol] 1.07 mg/dL Critically high 0.55-1.02 [facility] Comment on above: Performed By: #### C MP #### [facility] [address] [place] [address] Dr. Bashir Champion EGFR-AF [place] 59 mL/min/1.73m2 Critically low >=60 [facility] Comment on above: Performed By: #### C MP #### [facility] [address] [place] [address] Dr. Bashir Champion EGFR-NON AF [place] 49 mL/min/1.73m2 Critically low >=60 [facility] Comment on above: Performed By: #### C MP #### [facility] [address] [place] [address] Dr. Bashir Champion Globulin (S) [Mass/Vol] 4.3 g/dL Normal [facility] Comment on above: Performed By: #### C MP #### [facility] [address] [place] [address] Dr. Bashir Champion Glucose [Mass/Vol] 93 mg/dL Normal 74-106 [facility] Comment on above: Performed By: #### C MP #### [facility] [address] [place] [address] Dr. Bashir Champion Potassium [Moles/Vol] 3.8 mmol/L Normal 3.5-5.1 [facility] Comment on above: Performed By: #### C MP #### [facility] [address] [address] [address] Bashir Champion Protein [Mass/Vol] 7.1 g/dL Normal 6.4-8.2 [facility] Comment on above: Performed By: #### C MP #### [facility] [address] [address] [address] Bashir Champion Sodium [Moles/Vol] 144 mmol/L Normal 136-145 [facility] Comment on above: Performed By: #### C MP #### [facility] [address] [address] [address] Bashir Champion Urea nitrogen [Mass/Vol] 13.0 mg/dL Normal 7.0-18.0 [facility] Comment on above: Performed By: #### C MP #### [facility] [address] [address] [address] Bashir Champion Urea nitrogen/Creatini ne [Mass ratio] 12.1 mg/mg Normal [facility] Comment on above: Performed By: #### C MP #### [facility] [address] [address] [address] Bashir Champion XR ABD FLAT UP_PA Patricia 12-11 XR ABD FLAT UP_PA CH EXAM: XR ABD FLAT Up_ pa CH HISTORY: CONSTIPATION, UNSPECIFIED COMPARISON: 2013 TECHNIQUE: Chest X-ray AP, 1 view FINDINGS: Support devices: Right jugular approach Mediport catheter terminates near the cavoatrial junction. Lungs/pleura: No consolidation, effusion, or pneumothorax. Heart and mediastinum: Normal contours. Bones: No acute abnormality identified. Impression: No radiographic evidence of acute cardiopulmonary process. Electronically authenticated by: JUDAH GOMEZ Date: 2022-12-11 21:49 Normal [facility] MRI BRAIN WO/W IVCONon 11-14 [facility] CBC W Auto Differential pane l (Bld)on 03-07-2022 Abs Immature Gran 0.06 k/uL <0.10 k/uL [facility] Basophils (Bld) [#/Vol] 0.03 10*3/uL <0.11 k/uL [facility] Basophils/100 WBC (Bld) 0.3 % [facility] Differential cell count method Nom (Bld) Auto [facility] Eosinophils (Bld) [#/Vol] 1.42 10*3/uL High <0.46 k/uL [facility] Eosinophils/100 WBC (Bld) 13.3 % [facility] Erythrocyte distribution width (RBC) [Ratio] 17.6 % High 11.5 - 15.0 % [facility] Hematocrit (Bld) [Volume fraction] 32.7 % Low 36.0 - 46.0 % [facility] Hemoglobin (Bld) [Mass/Vol] 9.7 g/dL Low 11.5 - 15.5 g/dL [facility] Immature Gran % 0.6 % [facility] Lymphocytes (Bld) [#/Vol] 1.45 10*3/uL 1.00 - 4.00 k/uL [facility] Lymphocytes/100 WBC (Bld) 13.6 % [facility] MCH (RBC) [Entitic mass] 24.7 pg Low 26.0 - 34.0 pg [facility] MCHC (RBC) [Mass/Vol] 29.7 g/dL Low 30.5 - 36.0 g/dL [facility] MCV (RBC) [Entitic vol] 83.2 fL 80.0 - 100.0 fL [facility] Monocytes (Bld) [#/Vol] 1.08 10*3/uL High <0.87 k/uL [facility] Monocytes/100 WBC (Bld) 10.1 % [facility] Neutrophils (Bld) [#/Vol] 6.64 10*3/uL 1.45 - 7.50 k/uL [facility] Neutrophils/100 WBC (Bld) 62.1 % [facility] Nucleated RBC (Bld) [#/Vol] 10*3/uL <0.01 k/uL [facility] Nucleated RBC/100 WBC (Bld) [Ratio] 0.0 /100 WBC [facility] Platelet mean volume (Bld) [Entitic vol] 10.2 fL 9.0 - 12.7 fL [facility] Platelets (Bld) [#/Vol] 220 10*3/uL 150 - 400 k/uL [facility] RBC (Bld) [#/Vol] 3.93 10*6/uL 3.90 - 5.2 0 m/uL [facility] WBC (Bld) [#/Vol] 10.68 10*3/uL 3.70 - 11 .00 k/uL [facility] Comprehensive metabolic 2000 panelon 03-07-2022 Albumin [Mass/Vol] 3.5 g/dL Low 3.9 - 4.9 g/dL [facility] ALP [Catalytic activity/Vol] 197 U/L High 34 - 123 U/L [facility] ALT [Catalytic activity/Vol] 24 U/L 7 - 38 U/L [facility] Anion gap [Moles/Vol] 9 mmol/L 9 - 18 mmol/L [facility] AST [Catalytic activity/Vol] 28 U/L 13 - 35 U/L [facility] Bilirubin [Mass/Vol] 0.2 mg/dL 0.2 - 1.3 mg/dL [facility] Calcium [Mass/Vol] 9.3 mg/dL 8.5 - 10.2 mg/dL [facility] Chloride [Moles/Vol] 103 mmol/L 97 - 105 mmol/L [facility] CO2 [Moles/Vol] 26 mmol/L 22 - 30 mmol/L [facility] Creatinine [Mass/Vol] 1.28 mg/dL High 0.58 - 0.96 mg/dL [facility] Estimated Glomerular Filtration Rate 42 mL/min/1.73m Low >=60 mL/min/1.73m [facility] [facility] Glucose [Mass/Vol] 136 mg/dL High 74 - 99 mg/dL [facility] Potassium [Moles/Vol] 4.0 mmol/L 3.7 - 5.1 mmol/L [facility] Protein [Mass/Vol] 6.2 g/dL Low 6.3 - 8.0 g/dL [facility] Sodium [Moles/Vol] 138 mmol/L 136 - 144 mmol/L [facility] Urea nitrogen [Mass/Vol] 26 mg/dL High 7 - 21 mg/dL [facility] Q - CBC W/DIFF AND PLTon BASOABS 28 cells/uL Normal 0-200 [facility] Comment on above: Order Comment: [facility] performed at: [employer] [facility], [address] , [address] [place] [address], [address] [place] [address], Receiving Supervisor: Luther López MD [facility] Collection Date/Time: [facility] Results Received Date/Time: [facility] Reported Date/Time: FASTING: NO Performed By: #### 3 [id number], 968T, [id number], [id number] #### [facility] Default [address] [place] [address] Basophils/100 WBC (Bld) 0.3 % Normal [facility] Specialist Comment on above: Order Comment: [facility] performed at: [employer] [facility], [address] [place] [address], [address] [place] [address], [address] [place] [address], Receiving Supervisor: Luther López MD [facility] Collection Date/Time: [facility] Results Received Date/Time: [facility] Reported Date/Time: FASTING: NO Performed By: #### 3 [id number], 968T, [id number], 42A #### [facility] [address] [place] [address] EOSABS 1592 cells/uL High 15-500 [facility] Comment on above: Order Comment: [facility] performed at: [employer] [facility], 5 [facility], [address] [place] [address], [address] [place] [address], Receiving Supervisor: Luther López MD [facility] Collection Date/Time: [facility] Results Received Date/Time: [facility] Reported Date/Time: FASTING: NO Performed By: #### 3 [id number], 968T, [id number], [id number] #### [facility] [address] [place] [address] Eosinophils/100 WBC (Bld) 17.3 % Normal [facility] Specialist Comment on above: Order Comment: [facility] performed at: [employer] [facility], [address] , [address] [place] [address], [address] [place] [address], Receiving Supervisor: Luther López MD [facility] Collection Date/Time: [facility] Results Received Date/Time: [facility] Reported Date/Time: FASTING: NO Performed By: #### 3 [id number], 968T, [id number], [id number] #### [facility] [address] [place] [address] Erythrocyte distribution width (RBC) [Ratio] 15.2 % High 11.0-15.0 [facility] Comment on above: Order Comment: [facility] performed at: [employer] [facility], [address] [place] [address], [address] [place] [address], [address] [place] [address], Receiving Supervisor: Luther López MD [facility] Collection Date/Time: [facility] Results Received Date/Time: [facility] Reported Date/Time: FASTING: NO Performed By: #### 3 [id number], 968T, [id number], [id number] #### [facility] [address] [place] [address] Hematocrit (Bld) [Volume fraction] 35.1 % Normal 35.0-45.0 [facility] Comment on above: Order Comment: [facility] performed at: [employer] [facility], [address] [place] [address], [address] [place] [address], [address] [place] [address], Receiving Supervisor: Luther López MD [facility] Collection Date/Time: [facility] Results Received Date/Time: [facility] Reported Date/Time: FASTING: NO Performed By: #### 3 [id number], 968T, [id number], [id number] #### [facility] [address] [place] [address] Hemoglobin (Bld) [Mass/Vol] 10.8 g/dL Low 11.7-15.5 [facility] Comment on above: Order Comment: [facility] performed at: [employer] [facility], [address] [place] [address], [address] [place] [address], [address] [place] [address], Receiving Supervisor: Luther López MD [facility] Collection Date/Time: [facility] Results Received Date/Time: [facility] Reported Date/Time: FASTING: NO Performed By: #### 3 [id number], 968T, [id number], [id number] #### [facility] [address] [place] [address] Lymphocytes (Bld) [#/Vol] 1.693 10*3/uL Normal 850-3900 [facility] Specialist Comment on above: Order Comment: [facility] performed at: [employer] [facility], 5 [facility], [address] [place] [address], [address] [place] [address], Receiving Supervisor: Luther López MD [facility] Collection Date/Time: [facility] Results Received Date/Time: [facility] Reported Date/Time: FASTING: NO Performed By: #### 3 [id number], 968T, [id number], [id number] #### [facility] [address] [place] [address] Lymphocytes/100 WBC (Bld) 18.4 % Normal [facility] Comment on above: Order Comment: [facility] performed at: [employer] [facility], [address] [place] [address], [address] [place] [address], [address] [place] [address], Receiving Supervisor: Luther López MD [facility] Collection Date/Time: [facility] Results Received Date/Time: [facility] Reported Date/Time: FASTING: NO Performed By: #### 3 [id number], 968T, [id number], [id number] #### [facility] [address] [place] [address] MCH (RBC) [Entitic mass] 25.5 pg Low 27.0-33.0 [facility] Comment on above: Order Comment: [facility] performed at: [employer] [facility], [address] [place] [address], [address] [place] [address], [address] [place] [address], Receiving Supervisor: Luther López MD [facility] Collection Date/Time: [facility] Results Received Date/Time: [facility] Reported Date/Time: FASTING: NO Performed By: #### 3 [id number], 968T, [id number], [id number] #### [facility] [address] [place] [address] MCHC (RBC) [Mass/Vol] 30.8 g/dL Low 32.0-36.0 [facility] Comment on above: Order Comment: [facility] performed at: [employer] [facility], [address] [place] [address], [address] [place] [address], [id number], Receiving Supervisor: Luther López MD [facility] Collection Date/Time: [facility] Results Received Date/Time: [facility] Reported Date/Time: FASTING: NO Performed By: #### 3 [id number], 968T, [id number], [id number] #### [facility] [address] [place] [address] MCV (RBC) [Entitic vol] 82.8 fL Normal 80.0-100.0 [facility] Comment on above: Order Comment: [facility] performed at: [employer] [facility], [address] [place] [address], [address] [place] [address], [address] [place] [address], Receiving Supervisor: Luther López MD [facility] Collection Date/Time: [facility] Results Received Date/Time: [facility] Reported Date/Time: FASTING: NO Performed By: #### 3 [id number], 968T, [id number], [id number] #### [facility] [address] [place] [address] MONOABS 929 cells/uL Normal 200-950 [facility] Comment on above: Order Comment: [facility] performed at: [employer] [facility], [address] [place] [address], [address] [place] [address], [address] [place] [address], Receiving Supervisor: Luther López MD [facility] Collection Date/Time: [facility] Results Received Date/Time: [facility] Reported Date/Time: FASTING: NO Performed By: #### 3 [id number], 968T, [id number], [id number] #### [facility] [address] [place] [address] Monocytes/100 WBC (Bld) 10.1 % Normal [facility] Specialist Comment on above: Order Comment: [facility] performed at: [employer] [facility], [address] , [address] [place] [address], [address] [place] [address], Receiving Supervisor: Luther López MD [facility] Collection Date/Time: [facility] Results Received Date/Time: [facility] Reported Date/Time: FASTING: NO Performed By: #### 3 [id number], 968T, 83157S, 42A #### [facility] [address] [place] [address] Neutrophils (Bld) [#/Vol] 4.959 10*3/uL Normal 4035-3523 [facility] Specialist Comment on above: Order Comment: [facility] performed at: [employer] [facility], [address] , [address] [place] [address], [address] [place] [address], Receiving Supervisor: Luther López MD [facility] Collection Date/Time: [facility] Results Received Date/Time: [facility] Reported Date/Time: FASTING: NO Performed By: #### 3 [id number], 968T, 03070D, 42A #### [facility] Default [address] [place] [address] Neutrophils/100 WBC (Bld) 53.9 % Normal [facility] Specialist Comment on above: Order Comment: [facility] performed at: [employer] [facility], [address] , [address] [place] [address], [address] [place] [address], Receiving Supervisor: Luther López MD [facility] Collection Date/Time: [facility] Results Received Date/Time: [facility] Reported Date/Time: FASTING: NO Performed By: #### 3 [id number], 968T, [id number], 42A #### [facility] [address] [place] [address] Platelet mean volume (Bld) [Entitic vol] 11.8 fL Normal 7.5-12.5 [facility] Comment on above: Order Comment: [facility] performed at: [employer] [facility], 5 [facility], [address] [place] [address], [address] [place] [address], Receiving Supervisor: Luther López MD [facility] Collection Date/Time: [facility] Results Received Date/Time: [facility] Reported Date/Time: FASTING: NO Performed By: #### 3 [id number], 968T, [id number], 42A #### [facility] Default [address] [place] [address] Platelets (Bld) [#/Vol] 246 10*3/uL Normal 140-400 [facility] Comment on above: Order Comment: [facility] performed at: [employer] [facility], [address] [place] [address], [address] [place] [address], [address] [place] [address], Receiving Supervisor: Luther López MD [facility] Collection Date/Time: [facility] Results Received Date/Time: [facility] Reported Date/Time: FASTING: NO Performed By: #### 3 6127, 968T, [id number], 42A #### [facility] [address] [place] [address] RBC (Bld) [#/Vol] 4.24 10*6/uL Normal 3.80-5.10 [facility] Comment on above: Order Comment: [facility] performed at: [employer] [facility], 5 [facility], [address] [place] [address], [address] [place] [address], Receiving Supervisor: Luther López MD [facility] Collection Date/Time: [facility] Results Received Date/Time: [facility] Reported Date/Time: FASTING: NO Performed By: #### 3 [id number], 968T, [id number], [id number] #### [facility] Default [address] [place] [address] WBC (Bld) [#/Vol] 9.2 10*3/uL Normal 3.8-10.8 [facility] Specialist Comment on above: Order Comment: [facility] performed at: [employer] [facility], [address] [place] [address], [address] [place] [address], [address] [place] [address], Receiving Supervisor: Luther López MD [facility] Collection Date/Time: [facility] Results Received Date/Time: [facility] Reported Date/Time: FASTING: NO Performed By: #### 3 [id number], 968T, [id number], 42A #### [facility] Default [address] [place] [address] Q - COMPREHENSIVE METABOLIC PANEL W/EGFRon 10-21-2021 Albumin [Mass/Vol] 3.6 g/dL Normal 3.6-5.1 [facility] Comment on above: Order Comment: [facility] performed at: [employer] [facility], [address] [place] [address], [address] [place] [address], [address] [place] [address], Receiving Supervisor: Luther López MD [facility] Collection Date/Time: [facility] Results Received Date/Time: [facility] Reported Date/Time: FASTING: NO Performed By: #### 3 6127, 968T, [id number], 42A #### [facility] Default [address] [place] [address] Albumin/Globulin [Mass ratio] 1.4 {ratio} Normal 1.0-2.5 [facility] Comment on above: Order Comment: [facility] performed at: [employer] [facility], [address] [place] [address], [address] [place] [address], [address] [place] [address], Receiving Supervisor: Luther López MD [facility] Collection Date/Time: [facility] Results Received Date/Time: [facility] Reported Date/Time: FASTING: NO Performed By: #### 3 6127, 968T, 76123H, 42A #### [facility] Default [address] [place] [address] ALP [Catalytic activity/Vol] 160 U/L High 37-153 [facility] Comment on above: Order Comment: [facility] performed at: [employer] [facility], [address] [place] [address], [address] [place] [address], [address] [place] [address], Receiving Supervisor: Luther López MD [facility] Collection Date/Time: [facility] Results Received Date/Time: [facility] Reported Date/Time: FASTING: NO Performed By: #### 3 6127, 968T, 77974V, 42A #### [facility] Default [address] [place] [address] ALT [Catalytic activity/Vol] 22 U/L Normal 6-29 [facility] Comment on above: Order Comment: [facility] performed at: [employer] [facility], [address] [place] [address], [address] [place] [address], [address] [place] [address], Receiving Supervisor: Luther López MD [facility] Collection Date/Time: [facility] Results Received Date/Time: [facility] Reported Date/Time: FASTING: NO Performed By: #### 3 6127, 968T, [id number], 42A #### [facility] Default [address] [place] [address] AST [Catalytic activity/Vol] 27 U/L Normal 10-35 [facility] Comment on above: Order Comment: [facility] performed at: [employer] [facility], [address] [place] [address], [address] [place] [address], [address] [place] [address], Receiving Supervisor: Luther López MD [facility] Collection Date/Time: [facility] Results Received Date/Time: [facility] Reported Date/Time: FASTING: NO Performed By: #### 3 6127, 968T, 09212R, 42A #### [facility] Default [address] [place] [address] Calcium [Mass/Vol] 9.4 mg/dL Normal 8.6-10.4 [facility] Comment on above: Order Comment: [facility] performed at: [employer] [facility], [address] [place] [address], [address] [place] [address], [address] [place] [address], Receiving Supervisor: Luther López MD [facility] Collection Date/Time: [facility] Results Received Date/Time: [facility] Reported Date/Time: FASTING: NO Performed By: #### 3 6127, 968T, [id number], 42A #### [facility] Default [address] [place] [address] Chloride [Moles/Vol] 106 mmol/L Normal 98-110 [facility] Comment on above: Order Comment: [facility] performed at: [employer] [facility], [address] [place] [address], [address] [place] [address], [address] [place] [address], Receiving Supervisor: Luther López MD [facility] Collection Date/Time: [facility] Results Received Date/Time: [facility] Reported Date/Time: FASTING: NO Performed By: #### 3 6127, 968T, [id number], 42A #### [facility] Default [address] [place] [address] CO2 [Moles/Vol] 25 mmol/L Normal 20-32 [facility] Comment on above: Order Comment: [facility] performed at: [employer] [facility], [address] [place] [address], [address] [place] [address], [address] [place] [address], Receiving Supervisor: Luther López MD [facility] Collection Date/Time: [facility] Results Received Date/Time: [facility] Reported Date/Time: FASTING: NO Performed By: #### 3 6127, 968T, 18044L, 42A #### [facility] Default [address] [place] [address] Creatinine [Mass/Vol] 1.05 mg/dL High 0.60-0.88 [facility] Comment on above: Order Comment: [facility] performed at: [employer], [employer] [facility], [address], [address] [place] [address], Receiving Supervisor: Luther López MD [facility] Collection Date/Time: [facility] Results Received Date/Time: [facility] Reported Date/Time: FASTING: NO Result Comment: For patients >49 years of age, the reference limit for Creatinine is approximately 13% higher for people identified as -Serbian. Performed By: #### 3 6127, 968T, 52561W, 42A #### [facility] Default [address] [place] [address] eGFRAA ([facility]) 57 mL/min/1.73m2 Low > OR = 60 [facility] Specialist Comment on above: Order Comment: [facility] performed at: [employer] [facility], [address] [place] [address], [address] [place] [address], Receiving Supervisor: Luther López MD [facility] Collection Date/Time: [facility] Results Received Date/Time: [facility] Reported Date/Time: FASTING: NO Performed By: #### 3 6127, 968T, [id number], 42A #### [facility] Default [address] [place] [address] eGFRNAA ([facility]) 49 mL/min/1.73m2 Low > OR = 60 [facility] Specialist Comment on above: Order Comment: [facility] performed at: [employer] [facility], [address] [facility], [address] [place] [address], [address] [place] [address], Receiving Supervisor: Luther López MD [facility] Collection Date/Time: [facility] Results Received Date/Time: [facility] Reported Date/Time: FASTING: NO Performed By: #### 3 6127, 968T, 63053N, 42A #### [facility] Default [address] [place] [address] Globulin (S) [Mass/Vol] 2.6 g/dL Normal 1.9-3.7 [facility] Comment on above: Order Comment: [facility] performed at: [employer] [facility], [address] [place] [address], [address] [place] [address], [address] [place] [address], Receiving Supervisor: Luther López MD [facility] Collection Date/Time: [facility] Results Received Date/Time: [facility] Reported Date/Time: FASTING: NO Performed By: #### 3 6127, 968T, 80863N, 42A #### [facility] Default [address] [place] [address] Glucose [Mass/Vol] 127 mg/dL Normal 65-139 [place] [facility] Comment on above: Order Comment: [facility] performed at: [employer] [facility], [address] [place] [address], [address] [place] [address], [address] [place] [address], Receiving Supervisor: Luther López MD [facility] Date/Time: [facility] Results Received Date/Time: [facility] Reported Date/Time: FASTING: NO Result Comment: Non-fasting reference interval For someone without known diabetes, a glucose value >125 mg/dL indicates that they may have diabetes and this should be confirmed with a follow-up test. Performed By: #### 3 6127, 968T, 07833W, 42A #### [facility] Default [address] [place] [address] Potassium [Moles/Vol] 3.8 mmol/L Normal 3.5-5.3 [facility] [place] [facility] Comment on above: Order Comment: [facility] performed at: [employer] [facility], [address] [place] [address], [address] [place] [address], [address] [place] [address], Receiving Supervisor: Luther López MD [facility] Date/Time: [facility] Results Received Date/Time: [facility] Reported Date/Time: FASTING: NO Performed By: #### 3 6127, 968T, [id number], 42A #### [facility] Default [address] [place] [address] Protein [Mass/Vol] 6.2 g/dL Normal 6.1-8.1 [facility] [place] [facility] Comment on above: Order Comment: [facility] performed at: [employer] [facility], [address] [place] [address], [address] [place] [address], [address] [place] [address], Receiving Supervisor: Luther López MD [facility] Date/Time: [facility] Results Received Date/Time: [facility] Reported Date/Time: FASTING: NO Performed By: #### 3 6127, 968T, 75325A, 42A #### [facility] Default [address] [place] [address] Sodium [Moles/Vol] 143 mmol/L Normal 135-146 [facility] Comment on above: Order Comment: [facility] performed at: [employer] [facility], 5 [facility], [address] [place] [address], [address] [place] [address], Receiving Supervisor: Luther López MD [facility] Date/Time: [facility] Results Received Date/Time: [facility] Reported Date/Time: FASTING: NO Performed By: #### 3 6127, 968T, [id number], 42A #### [facility] Default [address] [place] [address] TBIL <0.3 Normal 0.2-1.2 [place] [facility] Comment on above: Order Comment: [facility] performed at: [employer] [facility], [address] [place] [address], [address] [place] [address], [address] [place] [address], Receiving Supervisor: Luther López MD [facility] Date/Time: [facility] Results Received Date/Time: [facility] Reported Date/Time: FASTING: NO Performed By: #### 3 [id number], 968T, 62483P, 42A #### [facility] Default [address] [place] [address] Urea nitrogen [Mass/Vol] 19 mg/dL Normal 7-25 [facility] [place] [facility] Comment on above: Order Comment: [facility] performed at: [employer] [facility], [address] [place] [address], [address] [place] [address], [address] [place] [address], Receiving Supervisor: Luther López MD [facility] Date/Time: [facility] Results Received Date/Time: [facility] Reported Date/Time: FASTING: NO Performed By: #### 3 [id number], 968T, 72831H, 42A #### [facility] Default [address] [place] [address] Urea nitrogen/Creatini ne [Mass ratio] 18 mg/mg Normal 6-22 [facility] Comment on above: Order Comment: [facility] performed at: [employer] [facility], [address] [place] [address], [address] [place] [address], [address] [place] [address], Receiving Supervisor: Luther López MD [facility] Date/Time: [facility] Results Received Date/Time: [facility] Reported Date/Time: FASTING: NO Performed By: #### 3 [id number], 968T, 77617S, 42A #### [facility] Default [address] [place] [address] Q - Lipid Panelon 10-21-2021 Cholesterol [Mass/Vol] 164 mg/dL Normal <200 [facility] Comment on above: Order Comment: [facility] performed at: [employer] [facility], [address] [place] [address], [address] [place] [address], [address] [place] [address], Receiving Supervisor: Luther López MD [facility] Date/Time: [facility] Results Received Date/Time: [facility] Reported Date/Time: FASTING: NO Performed By: #### 3 6127, 968T, 95660Y, 42A #### [facility] Default [address] [place] [address] Cholesterol in HDL [Mass/Vol] 68 mg/dL Normal > OR = 50 [facility] Comment on above: Order Comment: [facility] performed at: [employer] [facility], [address] [place] [address], [address] [place] [address], [address] [place] [address], Receiving Supervisor: Luther López MD [facility] Date/Time: [facility] Results Received Date/Time: [facility] Reported Date/Time: FASTING: NO Performed By: #### 3 [id number], 968T, [id number], 42A #### [facility] Default [address] [place] [address] Cholesterol in LDL [Mass/Vol] 75 mg/dL Normal [facility] Comment on above: Order Comment: [facility] performed at: [employer] [employer] [facility], [address] [facility], [address] [place] [address], [phone], Receiving Supervisor: Luther López MD [facility] Collection Date/Time: [facility] Results Received Date/Time: [facility] Reported Date/Time: FASTING: NO Result Comment: Refe rence range: <100 Desirable range <100 mg/dL for primary prevention; <70 mg/dL for patients with CHD or diabetic patients with > or = 2 CHD risk factors. LDL-C is now calculated using the Frank-Mirian calculation, which is a validated novel method providing better accuracy than the Friedewald equation in the estimation of LDL-C. Frank SS et al. ABDIRAHMAN. 2013;310(19): 8861-2677 (http://education.Mattermark.Roundbox/faq/KID862) Performed By: #### 3 [id number], 968T, [id number], 42A #### [facility] Default [address] [place] [address] Cholesterol.total /Cholesterol in HDL [Mass ratio] 2.4 {ratio} Normal <5.0 [facility] Vamp Creaser Comment on above: Order Comment: [facility] Testing performed at: [employer], [employer] [facility], [address] [facility], [address] [place] [address], [phone], Receiving Supervisor: Luther López MD [facility] Collection Date/Time: [facility] Results Received Date/Time: [facility] Reported Date/Time: FASTING: NO Performed By: #### 3 [id number], 968T, [id number], [id number] #### [facility] Default [address] [place] [address] NON HDL CHOLESTEROL 96 mg/dL (calc) Normal <130 [facility] Vamp Creaser Comment on above: Order Comment: [facility] Testing performed at: [employer] [facility], [address] [facility], [address] [place] [address], [phone], Receiving Supervisor: Luther López MD [facility] Collection Date/Time: [facility] Results Received Date/Time: [facility] Reported Date/Time: FASTING: NO Result Comment: For patients with diabetes plus 1 major ASCVD risk factor, treating to a non-HDL-C goal of <100 mg/dL (LDL-C of <70 mg/dL) is considered a therapeutic option. Performed By: #### 3 [id number], 968T, [id number], [id number] #### [facility] [address] [place] [address] Triglyceride [Mass/Vol] 119 mg/dL Normal <150 [facility] Vamp Creaser Comment on above: Order Comment: [facility] Testing performed at: [employer] [facility], [address] [place] [address], [address] [place] [address], [address] [place] [address], Receiving Supervisor: Luther López MD [facility] Collection Date/Time: [facility] Results Received Date/Time: [facility] Reported Date/Time: FASTING: NO Performed By: #### 3 [id number], [id number], [id number], [id number] #### [facility] [address] [place] [address] Q - TSH WITH REFLEX TO FREE T4on 10-21-2021 TSH W/REFLEX TO FT4 1.38 mIU/L Normal 0.40-4.50 [facility] Vamp Creaser Comment on above: Order Comment: [facility] Testing performed at: [employer] [facility], [address] [facility], [address] [place] [address], [phone], Receiving Supervisor: Luther López MD [facility] Collection Date/Time: [facility] Results Received Date/Time: [facility] Reported Date/Time: FASTING: NO Performed By: #### 3 [id number], 968T, [id number], [id number] #### [facility] [address] [place] [address] Vital Signs Date Time Vital Sign Value Performing Clinician Deann pimentel 10-09-2023 15:42-0500 Body height 163 cm Yanci Churchill MD Work Phone: [facility] 10-09-2023 15:42-0500 Body temperature 97.59 [degF] Yanci Churchill MD Work Phone: [facility] 10-09-2023 15:42-0500 Body weight 56.2 kg Yanci Churchill MD Work Phone: [facility] 10-09-2023 15:42-0500 Diastolic blood pressure 79 mm[Hg] Yanci Churchill MD Work Phone: [facility] 10-09-2023 15:42-0500 Heart rate 78 /min Yanci Churchill MD Work Phone: [facility] 10-09-2023 15:42-0500 Respiratory rate 16 /min Yanci Churchill MD Work Phone: [facility] 10-09-2023 15:42-0500 SaO2% (BldA) [Mass fraction] 97 % Yanci Churchill MD Work Phone: [facility] 10-09-2023 15:42-0500 Systolic blood pressure 123 mm[Hg] Yanci Churchill MD Work Phone: [facility] 07-17-2023 15:17-0500 Body height 163 cm Chongqing [employer] BOAT RENTAL CLERK.COMMUNICATIONS EQUIPMENT OPERATOR Work Phone: [facility] 07-17-2023 15:17-0500 Body temperature 97.39 [degF] Bettina Bundridge BOAT RENTAL CLERK.COMMUNICATIONS EQUIPMENT OPERATOR Work Phone: [facility] 07-17-2023 15:17-0500 Body weight 57.88 kg Bettina Bundridge BOAT RENTAL CLERK.COMMUNICATIONS EQUIPMENT OPERATOR Work Phone: [facility] 07-17-2023 15:17-0500 Diastolic blood pressure 69 mm[Hg] Bettina Bundridge BOAT RENTAL CLERK.COMMUNICATIONS EQUIPMENT OPERATOR Work Phone: [facility] 07-17-2023 15:17-0500 Heart rate 67 /min Bettina Bundridge BOAT RENTAL CLERK.COMMUNICATIONS EQUIPMENT OPERATOR Work Phone: [facility] 07-17-2023 15:17-0500 Respiratory rate 16 /min Bettina Bundridge BOAT RENTAL CLERK.COMMUNICATIONS EQUIPMENT OPERATOR Work Phone: [facility] 07-17-2023 15:17-0500 SaO2% (BldA) [Mass fraction] 96 % Bettina Bundridge BOAT RENTAL CLERK.COMMUNICATIONS EQUIPMENT OPERATOR Work Phone: [facility] 07-17-2023 15:17-0500 Systolic blood pressure 141 mm[Hg] Bettina Bundridge BOAT RENTAL CLERK.COMMUNICATIONS EQUIPMENT OPERATOR Work Phone: [facility] 07-17-2023 13:55-0500 Body temperature 97.81 [degF] Chair Glendora Work Phone: [facility] 07-17-2023 13:55-0500 Diastolic blood pressure 80 mm[Hg] Chair Pily Work Phone: [facility] 07-17-2023 13:55-0500 Heart rate 80 /min Chair Pily Work Phone: [facility] 07-17-2023 13:55-0500 Respiratory rate 18 /min Chair Pily Work Phone: [facility] 07-17-2023 13:55-0500 SaO2% (BldA) [Mass fraction] 96 % Chair Glendora Work Phone: [facility] 07-17-2023 13:55-0500 Systolic blood pressure 125 mm[Hg] Chair Glendora Work Phone: [facility] 02-13-2023 14:09-0400 Body height 163 cm Yanci Churchill MD Work Phone: [facility] 02-13-2023 14:09-0400 Body temperature 97.3 [degF] Yanci Churchill MD Work Phone: [facility] 02-13-2023 14:09-0400 Body weight 62.32 kg Yanci Churchill MD Work Phone: [facility] 02-13-2023 14:09-0400 Diastolic blood pressure 63 mm[Hg] Yanci Churchill MD Work Phone: [facility] 02-13-2023 14:09-0400 Heart rate 79 /min Yanci Churchill MD Work Phone: [facility] 02-13-2023 14:09-0400 Respiratory rate 16 /min Yanci Churchill MD Work Phone: [facility] 02-13-2023 14:09-0400 SaO2% (BldA) [Mass fraction] 95 % Yanci Churchill MD Work Phone: [facility] 02-13-2023 14:09-0400 Systolic blood pressure 129 mm[Hg] Yanci Churchill MD Work Phone: [facility] 05-31-2022 13:12-0400 Diastolic blood pressure 72 mm[Hg] Chair Glendora Work Phone: [facility] 05-31-2022 13:12-0400 Heart rate 67 /min Chair Glendora Work Phone: [facility] 05-31-2022 13:12-0400 Respiratory rate 18 /min Chair Pily Work Phone: [facility] 05-31-2022 13:12-0400 SaO2% (BldA) [Mass fraction] 97 % Chair Pily Work Phone: [facility] 05-31-2022 13:12-0400 Systolic blood pressure 130 mm[Hg] Chair Glendora Work Phone: [facility] 05-31-2022 13:02-0400 Body weight 65 kg Chair Pily Work Phone: [facility] 05-24-2022 13:15-0400 Diastolic blood pressure 58 mm[Hg] Chair Glendora Work Phone: [facility] 05-24-2022 13:15-0400 Heart rate 73 /min Chair Pily Work Phone: [facility] 05-24-2022 13:15-0400 Respiratory rate 18 /min Chair Glendora Work Phone: [facility] 05-24-2022 13:15-0400 SaO2% (BldA) [Mass fraction] 95 % Chair Pily Work Phone: [facility] 05-24-2022 13:15-0400 Systolic blood pressure 118 mm[Hg] Chair Pily Work Phone: [facility] 05-17-2022 13:15-0400 Body temperature 98.2 [degF] Chair Pily Work Phone: [facility] 05-17-2022 13:15-0400 Diastolic blood pressure 67 mm[Hg] Chair Glendora Work Phone: [facility] 05-17-2022 13:15-0400 Heart rate 64 /min Chair Glendora Work Phone: [facility] 05-17-2022 13:15-0400 Respiratory rate 18 /min Chair Glendora Work Phone: [facility] 05-17-2022 13:15-0400 SaO2% (BldA) [Mass fraction] 94 % Chair Glendora Work Phone: [facility] 05-17-2022 13:15-0400 Systolic blood pressure 116 mm[Hg] Chair Glendora Work Phone: [facility] 05-03-2022 13:15-0400 Body temperature 97.9 [degF] Chair Pily Work Phone: [facility] 05-03-2022 13:15-0400 Diastolic blood pressure 69 mm[Hg] Chair Glendora Work Phone: [facility] 05-03-2022 13:15-0400 Heart rate 66 /min Chair Glendora Work Phone: [facility] 05-03-2022 13:15-0400 Respiratory rate 18 /min Chair Pily Work Phone: [facility] 05-03-2022 13:15-0400 SaO2% (BldA) [Mass fraction] 95 % Chair Glendora Work Phone: [facility] 05-03-2022 13:15-0400 Systolic blood pressure 137 mm[Hg] Chair Pily Work Phone: [facility] 04-25-2022 13:43-0400 Diastolic blood pressure 65 mm[Hg] Chair Glendora Work Phone: [facility] 04-25-2022 13:43-0400 Heart rate 66 /min Chair Glendora Work Phone: [facility] 04-25-2022 13:43-0400 Respiratory rate 18 /min Chair Glendora Work Phone: [facility] 04-25-2022 13:43-0400 SaO2% (BldA) [Mass fraction] 93 % Chair Glendora Work Phone: [facility] 04-25-2022 13:43-0400 Systolic blood pressure 120 mm[Hg] Chair Glendora Work Phone: [facility] 04-17-2022 14:25-0400 Diastolic blood pressure 79 mm[Hg] Chair Glendora Work Phone: [facility] 04-17-2022 14:25-0400 Heart rate 68 /min Chair Pily Work Phone: [facility] 04-17-2022 14:25-0400 Respiratory rate 16 /min Chair Glendora Work Phone: [facility] 04-17-2022 14:25-0400 SaO2% (BldA) [Mass fraction] 95 % Chair Pily Work Phone: [facility] 04-17-2022 14:25-0400 Systolic blood pressure 161 mm[Hg] Chair Pily Work Phone: [facility] 04-04-2022 16:30-0400 Diastolic blood pressure 78 mm[Hg] Chair Pily Work Phone: [facility] 04-04-2022 16:30-0400 Systolic blood pressure 138 mm[Hg] Chair Glendora Work Phone: [facility] 04-04-2022 14:16-0400 Body temperature 97.81 [degF] Chair Glendora Work Phone: [facility] 04-04-2022 14:16-0400 Heart rate 76 /min Chair Pily Work Phone: [facility] 04-04-2022 14:16-0400 Respiratory rate 18 /min Chair Glendora Work Phone: [facility] 04-04-2022 14:16-0400 SaO2% (BldA) [Mass fraction] 94 % Chair Pily Work Phone: [facility] 03-07-2022 15:48-0400 Body height 163 cm Yanci Churchill MD Work Phone: [facility] 03-07-2022 15:48-0400 Body temperature 97 [degF] Yanci Churchill MD Work Phone: [facility] 03-07-2022 15:48-0400 Body weight 65.41 kg Yanci Churchill MD Work Phone: [facility] 03-07-2022 15:48-0400 Diastolic blood pressure 60 mm[Hg] Yanci Churchill MD Work Phone: [facility] 03-07-2022 15:48-0400 Heart rate 68 /min Yanci Churchill MD Work Phone: [facility] 03-07-2022 15:48-0400 Respiratory rate 16 /min Yanci Churchill MD Work Phone: [facility] 03-07-2022 15:48-0400 SaO2% (BldA) [Mass fraction] 95 % Yanci Churchill MD Work Phone: [facility] 03-07-2022 15:48-0400 Systolic blood pressure 125 mm[Hg] Yanci Churchill MD Work Phone: [facility] 03-07-2022 13:34-0400 Body temperature 96.6 [degF] Chair Glendora Work Phone: [facility] 03-07-2022 13:34-0400 Diastolic blood pressure 70 mm[Hg] Chair Glendora Work Phone: [facility] 03-07-2022 13:34-0400 Heart rate 69 /min Chair Pily Work Phone: [facility] 03-07-2022 13:34-0400 Respiratory rate 18 /min Chair Glendora Work Phone: [facility] 03-07-2022 13:34-0400 SaO2% (BldA) [Mass fraction] 94 % Chair Pily Work Phone: [facility] 03-07-2022 13:34-0400 Systolic blood pressure 124 mm[Hg] Chair Pily Work Phone: [facility] 02-13-2022 14:45-0400 Body temperature 97.7 [degF] Chair Glendora Work Phone: [facility] 02-13-2022 14:45-0400 Diastolic blood pressure 79 mm[Hg] Chair Pily Work Phone: [facility] 02-13-2022 14:45-0400 Heart rate 67 /min Chair Glendora Work Phone: [facility] 02-13-2022 14:45-0400 Respiratory rate 16 /min Chair Glendora Work Phone: [facility] 02-13-2022 14:45-0400 SaO2% (BldA) [Mass fraction] 100 % Chair Glendora Work Phone: [facility] 02-13-2022 14:45-0400 Systolic blood pressure 99 mm[Hg] Chair Pily Work Phone: [facility] 01-26-2022 14:06-0400 Body temperature 98.71 [degF] Chair Pily Work Phone: [facility] 01-26-2022 14:06-0400 Diastolic blood pressure 76 mm[Hg] Chair Pily Work Phone: [facility] 01-26-2022 14:06-0400 Heart rate 68 /min Chair Glendora Work Phone: [facility] 01-26-2022 14:06-0400 Respiratory rate 18 /min Chair Glendora Work Phone: [facility] 01-26-2022 14:06-0400 SaO2% (BldA) [Mass fraction] 94 % Chair Pily Work Phone: [facility] 01-26-2022 14:06-0400 Systolic blood pressure 127 mm[Hg] Chair Glendora Work Phone: [facility] 01-20-2022 13:35-0400 Body temperature 98.91 [degF] Chair Pily Work Phone: [facility] 01-20-2022 13:35-0400 Diastolic blood pressure 63 mm[Hg] Chair Pily Work Phone: [facility] 01-20-2022 13:35-0400 Heart rate 65 /min Chair Glendora Work Phone: [facility] 01-20-2022 13:35-0400 Respiratory rate 16 /min Chair Glendora Work Phone: [facility] 01-20-2022 13:35-0400 SaO2% (BldA) [Mass fraction] 95 % Chair Pily Work Phone: [facility] 01-20-2022 13:35-0400 Systolic blood pressure 131 mm[Hg] Chair Glendora Work Phone: [facility] 12-06-2021 14:25-0400 Diastolic blood pressure 81 mm[Hg] Chair Glendora Work Phone: [facility] 12-06-2021 14:25-0400 Heart rate 70 /min Chair Glendora Work Phone: [facility] 12-06-2021 14:25-0400 Respiratory rate 16 /min Chair Nascimento Work Phone: [facility] 12-06-2021 14:25-0400 SaO2% (BldA) [Mass fraction] 95 % Chair Glendora Work Phone: [facility] 12-06-2021 14:25-0400 Systolic blood pressure 154 mm[Hg] Chair Pily Work Phone: [facility] 12-06-2021 12:25-0400 Body temperature 97.3 [degF] Chair Alvaradoy Work Phone: [facility] Encounters Encounter Date Encounter Type Care Provider Facility Start: 01-03-2024 Refill Yanci Churchill MD Work Phone: Hematology/Oncology Comment on above: Refill Request Start: 12-27-2023 Specialty Pharmacy Sigrid Mcdaniel [facility] Comment on above: SPP Oral Oncology/he matology - Medication Refill (Tagrisso) Start: 12-26-2023 Refill Yanci Churchill MD Work Phone: Hematology/Oncology Comment on above: Refill Request Start: 12-15-2023 Refill Yanci Churchill MD Work Phone: Hematology/Oncology Comment on above: Refill Request Start: 12-09-2023 Refill Yanci Churchill MD Work Phone: Hematology/Oncology Comment on above: Refill Request Start: 12-03-2023 Telephone encounter Harry Brannon RN Work Phone: Hematology/Oncology Comment on above: Care Coordination (U TI) Start: 11-27-2023 ambulatory Nakia Bautista [facility] Start: 10-31-2023 Specialty Pharmacy CurranChaparrita Izquierdo [facility] Comment on above: SPP Oral Oncology/he matology - Medication Refill (Tagrisso 80mg) Start: 10-19-2023 Telephone encounter Yanci orellana MD Work Phone: [facility] Comment on above: Future Appointment Start: 10-11-2023 Telephone encounter Con diez RN Work Phone: Hematology/Oncology Comment on above: Care Coordination (E levated Blood Pressure) Start: 10-09-2023 End: 10-10-2023 ambulatory LEXI Jay ESCOBAR Facility:[facility] Start: 10-09-2023 End: 10-09-2023 [facility] Start: 10-09-2023 End: 10-09-2023 ambulatory Yanci Churchill MD Work Phone: Hematology/Oncology Comment on above: 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, unspecified laterality (HCC) (Primary Dx); Neoplastic malignant related fatigue Impaired glucose luis f erance (Primary Dx); Old myocardial infarction; 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, unspecified laterality (HCC) Start: 10-09-2023 End: 10-09-2023 Patient encounter procedure Yanci Churchill MD Work Phone: [facility] Start: 10-09-2023 Clinisync Result Encounter Generic External Data Provider [facility] External Department Unsolicited Start: 10-09-2023 Clinisync Result Encounter Generic External Data Provider [facility] External Department Unsolicited Start: 10-08-2023 Telephone encounter Lexi sutton MD Work Phone: [facility] Start: 10-01-2023 Specialty Pharmacy Magdy Izquierdo [facility] Comment on above: SPP Oral Oncology/he matology - Medication Refill (Tagrisso) Start: 09-17-2023 End: 09-18-2023 ambulatory PAIGE SERNA Not Available Start: 09-12-2023 End: 09-13-2023 ambulatory LEXI ESCOBAR Facility:[facility] Start: 08-24-2023 End: 08-25-2023 ambulatory [facility] Facility:[facility] Start: 08-16-2023 Telephone encounter Harry Brannon RN Work Phone: Hematology/Oncology Comment on above: Care Coordination (S can results) Start: 08-15-2023 End: 08-15-2023 ambulatory [facility] Facility:[facility] Start: 08-08-2023 Specialty Pharmacy Yuni Richards [facility] Comment on above: SPP Oral Oncology/he matology - Medication Refill (Tagrisso 80mg) Start: 08-07-2023 Telephone encounter Con diez RN Work Phone: Hematology/Oncology Comment on above: Care Coordination (B ack Pain) Start: 08-02-2023 Telephone encounter Bettina Tang APRN.COMMUNICATIONS EQUIPMENT OPERATOR Work Phone: Palliative Medicine Comment on above: Medication Problem Start: 08-01-2023 Refill Bettina waller BOAT RENTAL CLERK.COMMUNICATIONS EQUIPMENT OPERATOR Work Phone: Hematology/Oncology Comment on above: Opened In Error Patient Update Start: 07-17-2023 End: 07-17-2023 Patient encounter procedure Bettina Tang BOAT RENTAL CLERK.COMMUNICATIONS EQUIPMENT OPERATOR Work Phone: Palliative Medicine Comment on above: Palliative care by s pecialist (Primary Dx); 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, unspecified laterality (HCC); Malignant neoplasm metastatic to brain (HCC); Malaise and fatigue Start: 07-17-2023 End: 07-18-2023 ambulatory Chair Leif Nascimento Work Phone: Hematology/Oncology Comment on above: 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 Comment on above: Medication Problem Start: 07-09-2023 Refill Lexi King [facility] Comment on above: Care Coordination (O n call follow up) Start: 07-05-2023 Specialty Pharmacy Yuni Richards [facility] Comment on above: SPP Oral Oncology/he matology - Medication Refill (tagrisso) Start: 06-14-2023 End: 06-14-2023 [facility] Start: 06-08-2023 Specialty Pharmacy Yuni Richards [facility] Comment on above: SPP Oral Oncology/he matology - Medication Refill (Tagrisso 80mg) Start: 06-04-2023 Telephone encounter Harry Brannon RN Work Phone: Hematology/Oncology Comment on above: Care Coordination (M edication question) Start: 05-14-2023 Refill Yanci Churchill MD Work Phone: Hematology/Oncology Comment on above: Refill Request Start: 05-08-2023 Specialty Pharmacy Yuni Richards [facility] Comment on above: SPP Oral Oncology/he matology - Medication Refill (Tagrisso 80mg.) Start: 05-01-2023 Telephone encounter Harry Brannon RN Work Phone: Hematology/Oncology Comment on above: Care Coordination (M edication request) Start: 04-20-2023 Telephone encounter Harry Brannon RN Work Phone: Hematology/Oncology Comment on above: Care Coordination (C ancellation of home health/PT) Start: 04-12-2023 Telephone encounter Con diez RN Work Phone: Hematology/Oncology Comment on above: Care Coordination (H ome Health) Start: 04-05-2023 Telephone encounter Harry Brannon RN Work Phone: Hematology/Oncology Comment on above: Care Coordination (P hysical therapy) Start: 03-30-2023 Refill Monica DaveySpencer willard [facility] Work Phone: Hematology/Oncology Comment on above: Refill Request Start: 03-28-2023 Refill Gavi Prabhakar [facility] Work Phone: [facility] Comment on above: Refill Request Start: 03-12-2023 Specialty Pharmacy Damien Corona Ph [facility] Comment on above: SPP Oral Oncology/he matology - Medication Refill (Tagrisso) Start: 02-26-2023 End: 02-26-2023 ambulatory Fei Maddenana Facility:[facility] Start: 02-14-2023 Specialty Pharmacy Damien Corona Ph [facility] Comment on above: SPP Oral Oncology/he matology - Medication Refill (Tagrisso 80mg.) Start: 02-13-2023 End: 02-13-2023 ambulatory YANCI CHURCHILL Facility:[facility] Start: 02-13-2023 End: 02-13-2023 ambulatory Yanci Churchill MD Work Phone: Hematology/Oncology Comment on above: 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 Comment on above: Future Appointment Start: 02-09-2023 Telephone encounter Harry Brannon RN Work Phone: Hematology/Oncology Comment on above: Care Coordination (C T results) Start: 02-08-2023 End: 02-08-2023 ambulatory YANCI CHURCHILL Facility:[facility] Start: 12-27-2022 Specialty Pharmacy Damien Corona [facility] Comment on above: SPP Oral Oncology/he matology - Medication Refill (Tagrisso) Start: 12-26-2022 Refill Yanci Churchill MD Work Phone: Hematology/Oncology Comment on above: Refill Request Start: 12-11-2022 End: 12-12-[address] SAMMIE RICHARDS . Facility: Start: 11-28-2022 Specialty Pharmacy Damien Corona [facility] Comment on above: SPP Oral Oncology/he matology - Medication Refill (Tagrisso) Start: 11-20-2022 Telephone encounter Harry Brannon RN Work Phone: Hematology/Oncology Comment on above: Care Coordination (c ough) Start: 11-14-2022 End: 11-14-2022 Subsequent hospital visit by physician Mri 6 Radio Main Q (I-Stat/1.5t/3t) Work Phone: MRI Q Comment on above: Brain metastases (HC C) [C79.31] Start: 10-31-2022 Specialty Pharmacy [facility] Comment on above: SPP Oral Oncology/he matology - Medication Refill (Tagrisso 80mg) Start: 10-02-2022 Specialty Pharmacy Gavi Godoy [facility] Comment on above: SPP Oral Oncology/he matology - Medication Refill (Tagrisso) Start: 08-03-2022 Specialty Pharmacy Damien Corona [facility] Comment on above: SPP Oral Oncology/he matology - Medication Refill (Tagrisso) Start: 07-03-2022 Refill Yanci Churchill MD Work Phone: Hematology/Oncology Comment on above: Refill Request Start: 06-14-2022 End: 06-14-2022 ambulatory Leif Nascimento Work Phone: Hematology/Oncology Comment on above: 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, unspecified laterality (HCC) (Primary Dx) Start: 05-17-2022 End: 05-17-2022 ambulatory Chair [address] [place] Work Phone: Hematology/Oncology Comment on above: 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, unspecified laterality (HCC) (Primary Dx) Start: 05-09-2022 Telephone encounter Vickie ariza APRN.CNP Work Phone: [facility]ly [facility] [place] Comment on above: Results Start: 05-03-2022 End: 05-03-2022 ambulatory Chair 21 [place] Work Phone: Hematology/Oncology Comment on above: 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, unspecified laterality (HCC) (Primary Dx) Start: 05-02-2022 Specialty Pharmacy Damien Corona Ph [facility] Comment on above: SPP Oral Oncology/he matology - Medication Refill (Tagrisso 80mg) Start: 04-25-2022 End: 04-25-2022 ambulatory Chair 21 [place] Work Phone: Hematology/Oncology Comment on above: 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, unspecified laterality (HCC) (Primary Dx) Start: 04-17-2022 End: 04-17-2022 ambulatory Chair 21 [place] Work Phone: Hematology/Oncology Comment on above: 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, unspecified laterality (HCC) (Primary Dx) Start: 04-04-2022 End: 04-04-2022 ambulatory Chair 21 [place] Work Phone: Hematology/Oncology Comment on above: 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, unspecified laterality (HCC) (Primary Dx) Start: 04-03-2022 Specialty Pharmacy Damien Corona Ph [facility] Comment on above: SPP Oral Oncology/he matology - Medication Refill (Tagrisso 80mg) IV Fluids Request Start: 03-28-2022 End: 03-28-2022 Subsequent hospital visit by physician Mri Main Ca (1.5t) Work Phone: Radiology Comment on above: Brain metastases (HC C) [C79.31] Start: 03-07-2022 End: 03-07-2022 ambulatory Yanci Churchill MD Work Phone: Hematology/Oncology Comment on above: 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, unspecified laterality (HCC) (Primary Dx); Malignant neoplasm of overlapping sites of lung, unspecified laterality (HCC); Malignant neoplasm of unspecified part of unspecified bronchus or lung (HCC) Start: 03-07-2022 End: 03-07-2022 Patient encounter procedure Yanci Churchill MD Work Phone: PILY Start: 03-07-2022 End: 03-07-2022 ambulatory Chair Leif Pily Work Phone: Hematology/Oncology Comment on above: 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, unspecified laterality (HCC) (Primary Dx) Refill Request Start: 03-06-2022 Telephone encounter Harry Brannon RN Work Phone: Hematology/Oncology Comment on above: Care Coordination (I V fluid request) Start: 03-02-2022 Specialty Pharmacy Damien Corona Ph [facility] Comment on above: SPP Oral Oncology/he matology - Medication Refill (Tagrisso 80mg) Start: 02-13-2022 End: 02-13-2022 ambulatory Chair 21 [address] Work Phone: Hematology/Oncology Comment on above: 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, unspecified laterality (HCC) (Primary Dx) Start: 02-07-2022 Telephone encounter Harry Brannon RN Work Phone: Hematology/Oncology Comment on above: Care Coordination (I V fluid request) Start: 01-30-2022 Specialty Pharmacy Damien Corona [facility] Comment on above: SPP Oral Oncology/he matology - Medication Refill (Tagrisso) Start: 01-26-2022 End: 01-26-2022 ambulatory Chair 21 [address] Work Phone: Hematology/Oncology Comment on above: 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, unspecified laterality (HCC) (Primary Dx) Start: 01-20-2022 Telephone encounter Harry Brannon RN Work Phone: Hematology/Oncology Comment on above: Care Coordination (I V fluid request) Start: 01-20-2022 End: 01-20-2022 ambulatory Chair 21 [address] Work Phone: Hematology/Oncology Comment on above: 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, unspecified laterality (HCC) (Primary Dx) Start: 12-27-2021 Specialty Pharmacy Damien Corona Ph [facility] Comment on above: SPP Oral Oncology/he matology - Medication Refill (Tagrisso 80mg) Start: 12-26-2021 Refill Yanci Churchill MD Work Phone: Hematology/Oncology Comment on above: Refill Request Start: 12-07-2021 Telephone encounter Harry Brannon RN Work Phone: Hematology/Oncology Comment on above: Care Coordination (s can results) Lab Orders Start: 12-06-2021 End: 12-06-2021 ambulatory Chair 15 [address] Work Phone: Hematology/Oncology Comment on above: 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, unspecified laterality (HCC) (Primary Dx) Start: 11-29-2021 Refill Yanci Churchill MD Work Phone: Hematology/Oncology Comment on above: Refill Request Start: 11-29-2021 Specialty Pharmacy Damien Corona Ph [facility] Comment on above: SPP Oral Oncology/he matology - Medication Refill (Tagrisso) Start: 11-22-2021 Telephone encounter Nakia Crowley RN R adiology [facility] Comment on above: Lab Orders Procedures Date Procedure Procedure Detail Performing Clinician Start: 10-09-2023 [facility] CBC W AUTO DIFF BLD Generic External Data Provider Start: 11-14-2022 Mri brain brain stem w/o w/contrast material Vickie Sanderson APRN.COMMUNICATIONS EQUIPMENT OPERATOR Work Phone: Start: 03-07-2022 Blood count complete auto&auto difrntl wbc Yanci Churchill MD Work Phone: Plan of Treatment Date Care Activity Detail Author Start: 10-09-2026 [facility] Start: 08-24-2026 [facility] Start: 02-08-2026 DIABETES SCREEN DIABETES SCREEN [facility] Start: 02-08-2026 [facility] Start: 03-07-2025 DIABETES SCREEN DIABETES SCREEN [facility] Start: 02-21-2025 Glaucoma screening Diabetes: R etinopathy Screening [facility] Start: 09-17-2024 Medicare Annual Wellness (AWV) Medicare Annual Wellness (AWV) [facility] Start: 06-14-2024 DIABETES SCREEN DIABETES SCREEN [facility] Start: 04-27-2024 Influenza vaccination Influenz a Vaccine (Season Ended) [facility] Start: 04-08-2024 End: 04-08-2024 Follow-up encounter 04/08/2024 2:45 PM EDT Visit (SP) Office Hematology/Oncology [address] [place] [address] [place] [address] Yanci Churchill MD [address] [place] [address] [place] [address] 6 month follow up lab Hematology/Oncology Comment on above: 6 month follow up la b Start: 04-08-2024 End: 04-08-2024 Patient encounter procedure 04/08/2024 2:30 PM EDT Office Visit [facility] [address] [place] [address] [place] [address] [address] [facility] Comment on above: 6 month follow up la b Start: 04-08-2024 End: 07-08-2024 CBC W Auto Differential panel - Blood CBC + DIFF Lab Routine 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, unspecified laterality (HCC) Expected: 04/08/2024 (Approximate), Expires: 07/08/2024 [facility] Work Phone: Comment on above: Expected: 04/08/2024 (Approximate), Expires: 07/08/2024 Start: 04-08-2024 End: 07-08-2024 Comprehensive metabolic 2000 panel - Serum or Plasma COMP METABOLIC PANEL Lab Routine 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, unspecified laterality (HCC) Expected: 04/08/2024 (Approximate), Expires: 07/08/2024 [facility] Work Phone: Comment on above: Expected: 04/08/2024 (Approximate), Expires: 07/08/2024 Start: 04-08-2024 End: 11-07-2024 MR Brain WO and W contrast IV MRI BRAIN WO/W IVCON Radiology Routine 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, unspecified laterality (HCC) Expected: 04/08/2024, Expires: 11/07/2024 [facility] Work Phone: Comment on above: Expected: 04/08/2024 , Expires: 11/07/2024 Start: 04-08-2024 End: 11-07-2024 PET+CT Guidance for localization of tumor of Skull base to mid-thigh-- W [id number] IV NM PET/CT SKULL-THIGH SUBSEQUENT Radiology Routine 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, unspecified laterality (HCC) Expected: 04/08/2024, Expires: 11/07/2024 [facility] Work Phone: Comment on above: Expected: 04/08/2024 , Expires: 11/07/2024 Start: 12-31-2023 End: 12-31-2023 Specialty Pharmacy [facility] Comment on above: Refill - Tagrisso [3 0DS Speak to Radha] refill request 12/25 Refill - Tagrisso [3 0DS Speak to Radha] lvm 12/26 Start: 12-27-2023 End: 12-27-2023 Specialty Pharmacy 12/27/2023 12:00 PM EDT Specialty Pharmacy [facility] [id number] [place] [address] Pharmacist, [facility] [address] [place] [address] Refill - Tagrisso [30DS Speak to Radha] [facility] Comment on above: Refill - Tagrisso [3 0DS Speak to Radha] Start: 10-23-2023 End: 01-22-2024 Comprehensive metabolic 2000 panel - Serum or Plasma COMP METABOLIC PANEL Lab Routine 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, unspecified laterality (HCC) Expected: 10/23/2023 (Approximate), Expires: 01/22/2024 [facility] Work Phone: Comment on above: Expected: 10/23/2023 (Approximate), Expires: 01/22/2024 Start: 10-09-2023 End: 01-08-2024 CBC W Auto Differential panel - Blood CBC + DIFF Lab Routine 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, unspecified laterality (HCC) Expected: 10/09/2023, Expires: 01/08/2024 [facility] Work Phone: Comment on above: Expected: 10/09/2023 , Expires: 01/08/2024 Start: 10-09-2023 End: 01-08-2024 Hemoglobin A1c in Blood HGB A1C Lab Routine 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 Expected: 10/09/2023, Expires: 01/08/2024 [facility] Work Phone: Comment on above: Expected: 10/09/2023 , Expires: 01/08/2024 Start: 10-09-2023 End: 01-08-2024 Lipid 1996 panel - Serum or Plasma LIPID PANEL BASIC Lab Routine 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 Expected: 10/09/2023, Expires: 01/08/2024 [facility] Work Phone: Comment on above: Expected: 10/09/2023 , Expires: 01/08/2024 Start: 08-27-2023 Advance Directive Discussion Advance Directive Discussion [facility] Start: 08-27-2023 Behavioral Health Screening Behavioral Health Screening [facility] Start: 08-27-2023 Depression Assessment Depression Ass essment [facility] Start: 08-15-2023 End: 10-15-2023 CBC W Auto Differential panel - Blood CBC + DIFF Lab Routine 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, unspecified laterality (HCC) Expected: 08/15/2023 (Approximate), Expires: 10/15/2023 [facility] Work Phone: Comment on above: Expected: 08/15/2023 (Approximate), Expires: 10/15/2023 Start: 08-15-2023 End: 10-15-2023 Comprehensive metabolic 2000 panel - Serum or Plasma COMP METABOLIC PANEL Lab Routine 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, unspecified laterality (HCC) Expected: 08/15/2023 (Approximate), Expires: 10/15/2023 [facility] Work Phone: Comment on above: Expected: 08/15/2023 (Approximate), Expires: 10/15/2023 Start: 04-27-2023 Covid-19 Vaccine ( season) Covid-19 Vaccine () [facility] Start: 04-27-2023 Influenza vaccination C [facility] Start: 11-06-2022 End: 06-08-2023 Mri brain brain stem w/o w/contrast material MRI BRAIN WO/W IVCON Radiology Routine Brain metastases (HCC) Expected: 11/06/2022, Expires: 06/08/2023 [facility] Work Phone: Comment on above: Expected: 11/06/2022 , Expires: 06/08/2023 Start: 08-27-2022 ADVANCE DIRECTIVE DISCUSSION ADVANCE DIRECTIVE DISCUSSION [facility] Start: 08-27-2022 DEPRESSION ASSESSMENT DEPRESSION ASS ESSMENT [facility] Start: 06-07-2022 End: 08-07-2022 CBC W Auto Differential panel - Blood CBC + DIFF Lab Routine 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, unspecified laterality (HCC) Malignant neoplasm of overlapping sites of lung, unspecified laterality (HCC) Expected: 06/07/2022 (Approximate), Expires: 08/07/2022 [facility] Work Phone: Comment on above: Expected: 06/07/2022 (Approximate), Expires: 08/07/2022 Start: 06-07-2022 End: 08-07-2022 Comprehensive metabolic 2000 panel - Serum or Plasma COMP METABOLIC PANEL Lab Routine 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, unspecified laterality (HCC) Malignant neoplasm of overlapping sites of lung, unspecified laterality (HCC) Expected: 06/07/2022 (Approximate), Expires: 08/07/2022 [facility] Work Phone: Comment on above: Expected: 06/07/2022 (Approximate), Expires: 08/07/2022 Start: 06-07-2022 End: 04-07-2023 Ct abdomen & pelvis w/contrast material CT ABD/PEL W IVCON Radiology Routine Malignant neoplasm of overlapping sites of lung, unspecified laterality (HCC) Expected: 06/07/2022, Expires: 04/07/2023 [facility] Work Phone: Comment on above: Expected: 06/07/2022 , Expires: 04/07/2023 Start: 06-07-2022 End: 04-07-2023 Ct thorax w/contrast material CT CHEST W IVCON Radiology Routine Malignant neoplasm of unspecified part of unspecified bronchus or lung (HCC) Expected: 06/07/2022, Expires: 04/07/2023 [facility] Work Phone: Comment on above: Expected: 06/07/2022 , Expires: 04/07/2023 Start: 04-27-2022 Influenza vaccination INFLUENZA (#1) [facility] Start: 04-02-2022 Urine microalbumin profile [facility] Start: 03-27-2022 Mri brain brain stem w/o w/contrast material MRI BRAIN WO/W IVCON Radiology Routine Brain metastases (HCC) Expected: 03/27/2022 [facility] Work Phone: Comment on above: Expected: 03/27/2022 Start: 03-07-2022 End: 05-07-2022 Thyrotropin [Units/volume] in Serum or Plasma [facility] Work Phone: Comment on above: Expected: 03/07/2022 , Expires: 05/07/2022 Start: 01-18-2022 Hemoglobin A1c measurement Diabetes: Hemoglobin A1C [facility] Start: 12-13-2021 End: 02-12-2022 CBC W Auto Differential panel - Blood CBC + DIFF Lab Routine 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, unspecified laterality (HCC) Expected: 12/13/2021, Expires: 02/12/2022 [facility] Work Phone: Comment on above: Expected: 12/13/2021 , Expires: 02/12/2022 Start: 12-06-2021 End: 02-05-2022 CREATININE BLD CREATININE BLD Lab Routine Malignant neoplasm of unspecified part of unspecified bronchus or lung (HCC) Expected: 12/06/2021, Expires: 02/05/2022 [facility] Work Phone: Comment on above: Expected: 12/06/2021 , Expires: 02/05/2022 Start: 08-27-2021 ADVANCE DIRECTIVE DISCUSSION ADVANCE DIRECTIVE DISCUSSION [facility] Start: 08-27-2021 DEPRESSION ASSESSMENT DEPRESSION ASS ESSMENT [facility] Start: 04-15-2021 COVID-19 VACCINE (3 - Booster for Pfizer series) COVID-19 VACCINE (3 - Booster for Pfizer series) [facility] Start: 01-08-2021 COVID-19 VACCINE (3 - Booster for Pfizer series) COVID-19 VACCINE (3 - Booster for Pfizer series) [facility] Start: 01-08-2021 COVID-19 VACCINE (3 - Pfizer series) COVID-19 VACCINE (3 - Pfizer series) [facility] Start: 12-11-2020 COVID-19 VACCINE (3 - Pfizer risk 4-dose series) COVID-19 VACCINE (3 - Pfizer risk 4-dose series) [facility] Start: 12-11-2020 COVID-19 VACCINE (3 - Pfizer risk series) COVID-19 VACCINE (3 - Pfizer risk series) [facility] Start: 06-14-2016 Pneumococcal Vaccine : 65+ (2 - PPSV23 or PCV20) Pneumococcal Vaccine: 65+ (2 - PPSV23 or PCV20) [facility] Start: 06-14-2016 Pneumococcal Vaccine : 65+ (2 of 2 - PPSV23 or PCV20) Pneumococcal Vaccine: 65+ (2 of 2 - PPSV23 or PCV20) [facility] Start: 06-14-2016 PNEUMOCOCCAL: 65+ (2 - PPSV23 if available, else PCV20) PNEUMOCOCCAL: 65+ (2 - PPSV23 if available, else PCV20) [facility] Start: 06-14-2016 PNEUMOCOCCAL: 65+ (2 - PPSV23 or PCV20) PNEUMOCOCCAL: 65+ (2 - PPSV23 or PCV20) [facility] Start: 08-09-2015 Pneumococcal Vaccine : 65+ Years (2 - PPSV23 or PCV20) Pneumococcal Vaccine: 65+ Years (2 - PPSV23 or PCV20) [facility] Start: 08-09-2015 SHINGRIX VACCINE (1 of 2) SHINGRIX VACCINE (1 of 2) [facility] Start: 08-09-2015 SHINGRIX VACCINE (2 of 3) SHINGRIX VACCINE (2 of 3) [facility] Start: 02-16-2004 BONE DENSITY BONE DENSITY [facility] Start: 02-16-2004 Bone Density Screening Bone Density Screening [facility] Start: 02-16-2004 PNEUMOVAX AGE 65 AND OVER WITH 5YR LOOKBACK (#1) PNEUMOVAX AGE 65 AND OVER WITH 5YR LOOKBACK (#1) [facility] Start: 02-16-2004 Screening for osteoporosis Bone Density Screening [facility] Start: 1999 RSV Vaccine (1 - 1-d ose 60+ series) RSV Vaccine (1 - 1-dose 60+ series) [facility] Start: 1945 PNEUMOCOCCAL: 65+ (1 - PCV) PNEUMOCOCCAL: 65+ (1 - PCV) [facility] End: 09-05-2024 NM PET/CT SKULL-THIGH SUBSEQUENT NM PET/CT SKULL-THIGH SUBSEQUENT Radiology Routine 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, unspecified laterality (HCC) 1 Occurrences starting 08/07/2023 until 09/05/2024 [facility] Work Phone: Comment on above: 1 Occurrences starti ng 08/07/2023 until 09/05/2024 [facility] Immunizations Immunization Date Immunization Notes Care Provider Tayo camara 10-21-2021 influenza, injectabl e, quadrivalent, preservative free Chair Nascimento Work Phone: [facility] 10-21-2021 influenza virus vacc ine, unspecified formulation Yuni Richards [facility] 11-13-2020 COVID-19 vaccine, ag e 12+ yr (PFIZER-BIONTECH - PURPLE TOP) Nakia Crowley RN [facility] 10-23-2020 COVID-19 vaccine, ag e 12+ yr (PFIZER-BIONTECH - PURPLE TOP) Nakia Crowley RN [facility] 08-13-2020 influenza, seasonal, injectable, preservative free Nakia Corwley RN [facility] 08-14-2019 influenza, high dose seasonal, preservative-free Nakia Crowley RN [facility] 10-16-2018 influenza, high dose seasonal, preservative-free Nakia Crowley RN [facility] 06-14-2015 influenza, high dose seasonal, preservative-free Nakia Crowley RN [facility] 06-14-2015 pneumococcal conjuga te vaccine, 13 valent Nakia Crowley RN [facility] 06-14-2015 zoster vaccine, live Nakia Crowley RN [facility] 04-02-2012 tetanus toxoid, redu jacquelyn diphtheria toxoid, and acellular pertussis vaccine, adsorbed Nakia Crowley RN [facility] Payers Date Payer Category Payer Unknown [id number] 2023 Unknown BCBS BCBS [id number] 2023-Present [phone] [address] [place] [address] [id number] 2023 Self-pay 2021 Medicare AETNA MEDICARE A ETNA MEDICARE PPO [id number] 2021-Present [phone] [address] [place] [address] PPO [id number] 2004 Medicare [id number] 2004 Medicare [id number] 1959 Medicare [id number] 1939 Unknown [id number] 1939 Unknown [id number] Unknown [id number] Social History Date Type Detail Facility [facility]: [facility] Start: 09-25-1954 End: 09-25-1972 History of tobacco use Current smoker [facility] Start: 09-25-1954 End: 09-25-1972 History of tobacco use Cigarette Smoker [facility] Start: 11-16-2021 End: 07-17-2023 Alcohol intake Current non-drinker of alcohol (finding) [facility] Start: 1940 Sex Assigned At Not on file C [facility] Start: 11-06-2021 End: 05-31-2022 Exposure to SARS-CoV-2 (event) Not sure [facility] Work Phone: Start: 03-18-2022 End: 05-08-2022 Exposure to SARS-CoV-2 (event) Unable to assess [facility] Start: 09-25-2018 End: 12-29-2022 Cigarettes smoked current (pack per day) - Reported 2 [facility] Start: 09-25-2018 Tobacco use and exposure Smokeless tobacco non-user [facility] Work Phone: Start: 12-29-2022 End: 02-13-2023 Tobacco use panel [facility] Adult Depression Screening Assessment 1 [facility] Tobacco smoking stat [facility] Tobacco smoking consumption unknown [facility] Medical Equipment Procedure Code Equipment Code Equipment Origin al Text Equipment Identifier Dates Lens Iol +23 Joe p Acrsf Iq - [id number] Start: 06-10-2013 Lens Iol +22.5 D iop Acrsf Iq - [id number] Start: 06-17-2013 Port [employer] I sp [employer] 8fr [employer] Implantable Infusion Custom - [id number] Start: 02-26-2020 Use as instructed [id number] , [id number] Start: 11-08-2018 Comment on above: Use as instructed Clinical Notes 11-13-2018 to 12-27-2023 Telephone Encounter - Harry Brannon RN - 12/03/2023 8:51 AM EDTTelephone Encounter - Sherry Garcia - 10/19/2023 9:15 AM Yanci Colon MD - 10/09/2023 3:56 PM ESTPatient Instructions Note Date & Type Note Facility 12-27-2023 Note HNO ID: [id number] Author: GAVI GODOY [facility] Service: ? Author Type: ? Type: Progress Notes Filed: 01/02/2024 15:01 Note Text: [facility] Refill Assessment Medication(s): Tagrisso No new clinical information to review since last SPP refill encounter. Next OV scheduled 04/08/24. ALLERGIES No Known Allergies Patient's current medication list and adherence status to current therapy were reviewed by Specialty Pharmacy clinical pharmacist to identify any new drug interactions or non-compliance to therapy. Therapy continues to be appropriate for disease, patient response, and medical condition. Verification of therapeutic benefit and effectiveness with current therapy was completed. Adverse events, barriers in adherence, and side effects were assessed and addressed if applicable. Will proceed with refill with no changes in therapy - patient progressing towards achieving therapeutic goals based on medication-specific laboratory parameters, disease state markers and outcomes. Gavi Godoy, PharmD Clinical Pharmacist, Oncology [facility] P: , F: Pool: P [facility] Pool #: [id number] 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 Patient confirmed: Yes Med/dose confirmed: Yes Supplies needed: No supplies needed Missed doses: No Estimated days supply on hand: (daughter was at work not sure of how many mother had left) Copay amount: 2.01 Payment confirmed: Yes Delivery method: FedEx Signature required: Waived on patient request Delivery address: [address] [place] [address] Delivery date: 01/04/24 Questions or concerns for the pharmacist?: No Current Outpatient Medications on File Prior to Visit Medication Sig osimertinib (TAGRISSO) 80 mg tablet Take 1 tablet (80 mg) by mouth once daily. ALPRAZolam (XANAX) 0.5 mg tablet Take 1 tablet by mouth three times a day as needed for up to 30 days. OLANZapine (ZYPREXA) 5 mg tablet take 1 tablet by mouth once daily at bedtime promethazine (PHENERGAN) 6.25 mg/5 mL syrup TAKE 5 TO 10 ML BY MOUTH EVERY 6 HOURS NEEDED hydrocortisone (CORTEF) 10 mg tablet Take two (2) tablets by mouth in the morning and one (1) tablet by mouth in the evening. methylphenidate (RITALIN) 20 mg tablet Take 0.5 tablets by mouth two times a day for 30 days. osimertinib (TAGRISSO) 80 mg tablet Take 1 tablet (80 mg) by mouth once daily. metoprolol succinate ER (TOPROL XL) 25 mg 24 hr tablet bisacodyl EC (DULCOLAX) 5 mg EC tablet Bisacodyl Bisacodyl Active 10 MG Oral Daily 0 November 11, 2018 10:11-11-2018 [facility] ([id number]) diphenhydrAMINE (BENADRYL) 50 mg/mL injection diphenhydrAMINE Diphenhydramine Hcl Active 25 MG IV Push Q6H 0 November 11, 2018 10:11-11-2018 [facility] ([id number]) insulin aspart U-100 (NOVOLOG) 100 unit/mL (3 mL) Insulin, Aspart, Human Insulin Aspart U-100 Active 0 UNITS Subcutaneous 3X/Day with meals and bedtime 0 November 11, 2018 10:11-11-2018 [facility] ([id number]) labetalol (NORMODYNE) 5 mg/mL injection Labetalol Labetalol Active 5 MG IV Push Q4H 0 November 11, 2018 10:2811-11-2018 [facility] ([id number]) nystatin (MYCOSTATIN) 100,000 unit/mL suspension Nystatin Nystatin Active 769610 UNIT Oral Four times daily 0 November 11, 2018 10:11-11-2018 [facility] ([id number]) pantoprazole (PROTONIX) 40 mg injection pantoprazole Pantoprazole Active 40 MG IV Push Daily 0 November 11, 2018 10:2911-11-2018 [facility] ([id number]) lisinopril (ZESTRIL, PRINIVIL) 20 mg tablet nitroglycerin sublingual (NITROQUICK) 0.4 mg SL tablet Dissolve 0.4 mg under the tongue. QUEtiapine (SEROQUEL) 25 mg tablet Take 25 mg by mouth as needed. Take 3 tabs at bedtime and 100 mg daily omeprazole (PRILOSEC) 20 mg capsule Take 2 capsules by mouth once daily. gabapentin (NEURONTIN) 300 mg capsule Take 1 capsule by mouth as directed for 30 days. Take one pill (300mg) every morning and every afternoon and take two pills (600mg at night) rivastigmine (EXELON) 13.3 mg/24 hour patch 1 Patch once daily. aspirin, enteric coated (ASPIRIN, ENTERIC COATED) 81 mg EC tablet Take 162 mg by mouth. Blood-Glucose Meter (TRUE METRIX GLUCOSE METER) [facility] Use to test 3 times a day blood sugar diagnostic (BLOOD GLUCOSE TEST) test strip Use as instructed Lancets lancets Use as instructed cetirizine (ZYRTEC) 10 mg tablet Take 10 mg by mouth once daily. biotin 5 mg tab Take 5 mg by mouth once daily. docusate sodium (COLACE) 100 mg capsule Take 100 mg by mouth daily at bedtime. melatonin 10 mg tab Take 1 tablet by mouth daily at bedtime. metformin HCl (METFORMIN ORAL) Take 1,000 mg by mouth once daily. ATORVASTATIN 80 mg tablet Take 80 mg by mouth once daily. IPRATROPIUM BROMIDE 0.06 % nasal spray Use 1 [place] in the nose as needed. KETOCONAZOLE 2 % shampoo Apply 1 application to affecte (more content not included)... [facility] 12-03-2023 Miscellaneous Notes Pt's daughter called Dr Richter over the weekend stating she did an at home urine test and pt has a UTI. Called and spoke with daughter who states bactrim was called into their pharmacy and pt is feeling better already. Daughter states pt has been wearing her depends more over the last couple of weeks, but feels it was because of her UTI. Will continue to monitor for now. Harry Brannon RN documented in this encounter [facility] 11-27-2023 Note HNO ID: [id number] Author: NAKIA BAUTISTA RPh Service: ? Author Type: ? Type: Progress Notes Filed: 12/03/2023 08:42 Note Text: [facility] Refill Assessment Medication(s): Tagrisso No new clinical information to review since last SPP refill encounter. Next OV scheduled 04/08. ALLERGIES No Known Allergies Patient's current medication list and adherence status to current therapy were reviewed by Specialty Pharmacy clinical pharmacist to identify any new drug interactions or non-compliance to therapy. Therapy continues to be appropriate for disease, patient response, and medical condition. Verification of therapeutic benefit and effectiveness with current therapy was completed. Adverse events, barriers in adherence, and side effects were assessed and addressed if applicable. Will proceed with refill with no changes in therapy - patient progressing towards achieving therapeutic goals based on medication-specific laboratory parameters, disease state markers and outcomes. Nakia Bautista, PharmD, BCACP Clinical Pharmacist, Oncology [facility] P: , F: Pool: P [facility] Pool #: [id number] 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 Patient confirmed: Yes Med/dose confirmed: Yes Supplies needed: No supplies needed Missed doses: No Estimated days supply on hand: 6 Copay amount: 33 Copay form of payment: Credit card on file Payment confirmed: Yes Delivery method: FedEx Signature required: Waived on patient request Delivery address: [address] [place] [address], [facility], [id number] Delivery date: 12/05/23 Questions or concerns for the pharmacist?: No Current Outpatient Medications on File Prior to Visit Medication Sig promethazine (PHENERGAN) 6.25 mg/5 mL syrup TAKE 5 TO 10 ML BY MOUTH EVERY 6 HOURS NEEDED OLANZapine (ZYPREXA) 5 mg tablet Take 1 tablet by mouth daily at bedtime. hydrocortisone (CORTEF) 10 mg tablet Take two (2) tablets by mouth in the morning and one (1) tablet by mouth in the evening. methylphenidate (RITALIN) 20 mg tablet Take 0.5 tablets by mouth two times a day for 30 days. osimertinib (TAGRISSO) 80 mg tablet Take 1 tablet (80 mg) by mouth once daily. osimertinib (TAGRISSO) 80 mg tablet Take 1 tablet (80 mg) by mouth once daily. metoprolol succinate ER (TOPROL XL) 25 mg 24 hr tablet bisacodyl EC (DULCOLAX) 5 mg EC tablet Bisacodyl Bisacodyl Active 10 MG Oral Daily 0 November 11, 2018 10:11-11-2018 [facility] ([id number]) diphenhydrAMINE (BENADRYL) 50 mg/mL injection diphenhydrAMINE Diphenhydramine Hcl Active 25 MG IV Push Q6H 0 November 11, 2018 10:2511-11-2018 [facility] ([id number]) insulin aspart U-100 (NOVOLOG) 100 unit/mL (3 mL) Insulin, Aspart, Human Insulin Aspart U-100 Active 0 UNITS Subcutaneous 3X/Day with meals and bedtime 0 November 11, 2018 10:2511-11-2018 [facility] ([id number]) labetalol (NORMODYNE) 5 mg/mL injection Labetalol Labetalol Active 5 MG IV Push Q4H 0 November 11, 2018 10:2811-11-2018 [facility] ([id number]) nystatin (MYCOSTATIN) 100,000 unit/mL suspension Nystatin Nystatin Active 329872 UNIT Oral Four times daily 0 November 11, 2018 10:2811-11-2018 [facility] ([id number]) pantoprazole (PROTONIX) 40 mg injection pantoprazole Pantoprazole Active 40 MG IV Push Daily 0 November 11, 2018 10:2911-11-2018 [facility] ([id number]) lisinopril (ZESTRIL, PRINIVIL) 20 mg tablet nitroglycerin sublingual (NITROQUICK) 0.4 mg SL tablet Dissolve 0.4 mg under the tongue. QUEtiapine (SEROQUEL) 25 mg tablet Take 25 mg by mouth as needed. Take 3 tabs at bedtime and 100 mg daily omeprazole (PRILOSEC) 20 mg capsule Take 2 capsules by mouth once daily. gabapentin (NEURONTIN) 300 mg capsule Take 1 capsule by mouth as directed for 30 days. Take one pill (300mg) every morning and every afternoon and take two pills (600mg at night) rivastigmine (EXELON) 13.3 mg/24 hour patch 1 Patch once daily. aspirin, enteric coated (ASPIRIN, ENTERIC COATED) 81 mg EC tablet Take 162 mg by mouth. Blood-Glucose Meter (TRUE METRIX GLUCOSE METER) [facility] Use to test 3 times a day blood sugar diagnostic (BLOOD GLUCOSE TEST) test strip Use as instructed Lancets lancets Use as instructed cetirizine (ZYRTEC) 10 mg tablet Take 10 mg by mouth once daily. biotin 5 mg tab Take 5 mg by mouth once daily. docusate sodium (COLACE) 100 mg capsule Take 100 mg by mouth daily at bedtime. melatonin 10 mg tab Take 1 tablet by mouth daily at bedtime. metformin HCl (METFORMIN ORAL) Take 1,000 mg by mouth once daily. ATORVASTATIN 80 mg tablet Take 80 mg by mouth once daily. IPRATROPIUM BROMIDE 0.06 % nasal spray Use 1 [place] in the nose as needed. KETOCONAZOLE 2 % shampoo Apply 1 application to affected area once daily as needed. LAMOTRIGINE 200 mg tablet Take 200 mg by mouth daily at bedtime. NAMENDA 10 mg tablet T (more content not included)... [facility] 10-31-2023 Note HNO ID: [id number] Author: NAKIA BAUTISTA RPh Service: ? Author Type: ? Type: Progress Notes Filed: 11/06/2023 06:15 Note Text: [facility] Refill Assessment Medication(s): Tagisso Reviewed OV note on 10/09. Foot care for paronychia and if not improved podiatry consult.Plan for scans in 6 months. Labs reviewed. Next clinic visit scheduled 04/08. ALLERGIES No Known Allergies Patient's current medication list and adherence status to current therapy were reviewed by Specialty Pharmacy clinical pharmacist to identify any new drug interactions or non-compliance to therapy. Therapy continues to be appropriate for disease, patient response, and medical condition. Verification of therapeutic benefit and effectiveness with current therapy was completed. Adverse events, barriers in adherence, and side effects were assessed and addressed if applicable. Will proceed with refill with no changes in therapy - patient progressing towards achieving therapeutic goals based on medication-specific laboratory parameters, disease state markers and outcomes. Nakia Bautista, PharmD, BCACP Clinical Pharmacist, Oncology [facility] P: , F: Pool: P [facility] Pool #: [id number] 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 Patient confirmed: Yes Med/dose confirmed: Yes Supplies needed: No supplies needed Missed doses: No Estimated days supply on hand: 7 Copay amount: 33 Copay form of payment: Credit card on file Payment confirmed: Yes Delivery method: FedEx Signature required: Waived on patient request Delivery address: [address] [place] [id number] Delivery date: 11/07/23 Questions or concerns for the pharmacist?: No [facility] Visit Assessment - Hematology/Oncology: Ivent complete: No Assessment to use: Refill Vaccination Assessment: Date of influenza vaccination reminder: 06/12/2023 Date of most recent vaccination assessment: 06/12/2023 Refill Assessment: Lab monitoring inclusive of CBC, Chem-7, and other labs as pertinent for therapy: Yes Chemo cycle timing assessment: N/A Screening for infection: Yes Adverse reactions and mitigation: Yes Medication changes and interaction assessment: Yes Assessment of injection issues: N/A Additional Assessment: Assessment of continued need for prophylactic medications at regular intervals: Yes Radiology procedure timing to assess for disease progression: Yes Scheduled future appointments: Yes Susuaustin Gonzalez [facility] 10-19-2023 Miscellaneous Notes Patients Daughter did not want to schedule her MRI Brain, Pet scan or follow up when the patient was at check out. I gave her my name and phone number and she said she would call me to schedule. I have not heard from her as of today 10-19-23. Seymour has been scheduled for her 6 month follow up as to not be missed. documented in this encounter [facility] 10-11-2023 Miscellaneous Notes FYI: Voicemail message received from David, from [facility]. Reports that the pt's BP was 191/90 while he was there today. Pt was asymptomatic. Pt had not taken any of her medications prior her assessment. Reports that physical therapy was held. Family was not interested in taking pt to ER for eval. Pt was going to take her medications and then recheck her BP a little while later. Call placed to David. No answer. Message left on his secure voicemail thanking him for the update, but also noting that we do not manage pt's hypertension. Advised she reach out to her PCP or prescribing physician if her BP remains elevated. Requested David return our call to confirm he received this message. Con Salmon RN documented in this encounter [facility] 10-09-2023 Note HNO ID: [id number] Author: YANCI CHURCHILL MD Service: ? Author Type: Physician Type: Progress Notes Filed: 10/09/2023 16:13 Note Text: PATIENT NAME: Seymour Lucia [facility] NO.: [id number] ATTENDING PHYSICIAN: Yanci Churchill MD DATE OF SERVICE: October 09, 2023 Some of the elements of this note have been copied from my previous progress note dated 02/13/2023. All the information has been reviewed carefully. Dear Dr. James, here is an update on a follow up visit on female Seymour Lucia at the clinic October 09, 2023 Diagnosis: 1. 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 2. ? 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 Radiation T8-T10 10/03- 11/05/2018-- 3000 cGy 2. GKRS- 11/20/2018-- AREA TREATED: 1) Right frontal. 2) Right temporal. 3) Left anterior temporal. 4) Left posterior temporal. 5) Left cerebellar. 3. Osimertinib 10/2018 4. Radiation to L3-L5 02/21-02/25/2019 HPI: Seymour Lucia is a 83 year old year old female here for follow up. She is weaker but has been feeling reasonably well and is working with PT as well. 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 REVIEW OF SYSTEMS GENERAL: No weight loss, malaise or fevers. No night sweats. HEENT: Negative for headaches, No changes in hearing or vision, no nose bleeds or other nasal problems. RESPIRATORY: Negative for cough, wheezing and shortness of breath CARDIOVASCULAR: Negative for chest pain, leg swelling and palpitations GI: Negative for abdominal discomfort, blood in stools or black stools and change in bowel habits : Negative for dysuria, frequency and incontinence MUSCULOSKELETAL: Negative for joint pain or swelling, back pain, and muscle pain. SKIN: Negative for lesions, rash, and itching. HEMATOLOGY/LYMPHOLOGY Negative for prolonged bleeding, bruising easily, and swollen nodes. NEURO: Negative for numbness or tingling of hands/feet. No weakness. PHYSICAL EXAMINATION: BP 123/79 Pulse 78 Temp (Src) 97.6 (Temporal) Resp 16 Ht 5' 4.173 (1.63m) Wt 123 lb 14.4 oz (56.2kg) SpO2 97% BMI 21.15 kg/(m2). 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 Up and about > 50% of waking hrs. Patient in NAD. Skin: Skin color, texture, turgor normal. No rashes or lesions. Eyes: Anicteric sclera. Pupils are equally round and reactive to light. Extraocular movements are intact. Lymph Nodes: No cervical, supraclavicular, axillary or inguinal adenopathy. Oropharynx: Lips, mucosa, and tongue normal. Back: No pain to percussion. Negative SLR test Lungs clear to auscultation, No wheezing or rhonchi Heart: RRR without murmur, gallop, or rubs. Abdomen soft, non-tender. No masses, organomegaly Extremities: No deformities. No edema Neuro: Gait and speech normal. Reflexes normal and symmetric. Muscular strength intact. Sensation grossly intact. Rectal: Deferred : Deferred LABS: Glucose (mg/dL) Date Value 08/24/2023 83 06/14/2021 90 Potassium (mmol/L) Date Value 08/24/2023 4.7 06/14/2021 3.7 Sodium (mmol/L) Date Value 08/24/2023 142 06/14/2021 143 Chloride (mmol/L) Date Value 08/24/2023 102 06/14/2021 109 CO2 (mmol/L) Date Value 08/24/2023 27 06/14/2021 28 Creatinine (mg/dL) Date Value 08/24/2023 0.85 06/14/2021 1.00 BUN (mg/dL) Date Value 08/24/2023 18 06/14/2021 20 Anion Gap (mmol/L) Date Value 08/24/2023 13 06/14/2021 6 Calcium (mg/dL) Date Value 06/14/2021 9.7 Calcium, Total (mg/dL) Date Value 08/24/2023 10.0 Protein, Total (g/dL) Date Value 08/24/2023 7.0 06/14/2021 6.2 Albumin (g/dL) Date Value 08/24/2023 3.3 06/14/2021 3.8 Bilirubin, Total (mg/dL) Date Value 08/24/2023 0.3 06/14/2021 0.2 Alkaline Phosphatase (U/L) Date Value 08/24/2023 847 06/14/2021 99 AST Date Value 08/24/2023 Comment: Unable to assay due (more content not included)... [facility] 10-09-2023 History of Present illness Narrative PATIENT NAME: Seymour Lucia CLINIC NO.: [id number] ATTENDING PHYSICIAN: Yanci Churchill MD DATE OF SERVICE: October 09, 2023 Some of the elements of this note have been copied from my previous progress note dated 02/13/2023. All the information has been reviewed carefully. Dear Dr. James, here is an update on a follow up visit on female Seymour Lucia at the clinic October 09, 2023 Diagnosis: 1. 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 2. ? 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 Radiation T8-T10 10/03- 11/05/2018-- 3000 cGy 2. GKRS- 11/20/2018-- AREA TREATED: 1) Right frontal. 2) Right temporal. 3) Left anterior temporal. 4) Left posterior temporal. 5) Left cerebellar. 3. Osimertinib 10/2018 4. Radiation to L3-L5 02/21-02/25/2019 HPI: Seymour Lucia is a 83 year old year old female here for follow up. She is weaker but has been feeling reasonably well and is working with PT as well. 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 REVIEW OF SYSTEMS GENERAL: No weight loss, malaise or fevers. No night sweats. HEENT: Negative for headaches, No changes in hearing or vision, no nose bleeds or other nasal problems. RESPIRATORY: Negative for cough, wheezing and shortness of breath CARDIOVASCULAR: Negative for chest pain, leg swelling and palpitations GI: Negative for abdominal discomfort, blood in stools or black stools and change in bowel habits : Negative for dysuria, frequency and incontinence MUSCULOSKELETAL: Negative for joint pain or swelling, back pain, and muscle pain. SKIN: Negative for lesions, rash, and itching. HEMATOLOGY/LYMPHOLOGY Negative for prolonged bleeding, bruising easily, and swollen nodes. NEURO: Negative for numbness or tingling of hands/feet. No weakness. PHYSICAL EXAMINATION: BP 123/79 Pulse 78 Temp (Src) 97.6 (Temporal) Resp 16 Ht 5' 4.173 (1.63m) Wt 123 lb 14.4 oz (56.2kg) SpO2 97% BMI 21.15 kg/(m^2). 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 Up and about > 50% of waking hrs. Patient in NAD. Skin: Skin color, texture, turgor normal. No rashes or lesions. Eyes: Anicteric sclera. Pupils are equally round and reactive to light. Extraocular movements are intact. Lymph Nodes: No cervical, supraclavicular, axillary or inguinal adenopathy. Oropharynx: Lips, mucosa, and tongue normal. Back: No pain to percussion. Negative SLR test Lungs clear to auscultation, No wheezing or rhonchi Heart: RRR without murmur, gallop, or rubs. Abdomen soft, non-tender. No masses, organomegaly Extremities: No deformities. No edema Neuro: Gait and speech normal. Reflexes normal and symmetric. Muscular strength intact. Sensation grossly intact. Rectal: Deferred : Deferred LABS: Glucose (mg/dL) Date Value 08/24/2023 83 06/14/2021 90 Potassium (mmol/L) Date Value 08/24/2023 4.7 06/14/2021 3.7 Sodium (mmol/L) Date Value 08/24/2023 142 06/14/2021 143 Chloride (mmol/L) Date Value 08/24/2023 102 06/14/2021 109 CO2 (mmol/L) Date Value 08/24/2023 27 06/14/2021 28 Creatinine (mg/dL) Date Value 08/24/2023 0.85 06/14/2021 1.00 BUN (mg/dL) Date Value 08/24/2023 18 06/14/2021 20 Anion Gap (mmol/L) Date Value 08/24/2023 13 06/14/2021 6 Calcium (mg/dL) Date Value 06/14/2021 9.7 Calcium, Total (mg/dL) Date Value 08/24/2023 10.0 Protein, Total (g/dL) Date Value 08/24/2023 7.0 06/14/2021 6.2 Albumin (g/dL) Date Value 08/24/2023 3.3 06/14/2021 3.8 Bilirubin, Total (mg/dL) Date Value 08/24/2023 0.3 06/14/2021 0.2 Alkaline Phosphatase (U/L) Date Value 08/24/2023 847 06/14/2021 99 AST Date Value 08/24/2023 Comment: Unable to assay due to interference from hemolysis. Suggest reorder as clinically indicated. 06/14/2021 16 U/L ALT Date Value 08/24/2023 Comment: Unable to assay due to interference from hemolysis. Suggest reorder as clinically indicated. 06/14/2021 9 U/L WBC Date Value Ref Range Status 08/24/2023 11.35 (H) 3.70 - 11.00 k/uL Final RBC Date Value Ref Range Status 08/24/2023 4.12 3.90 - 5.20 m/uL Final Hemoglobin Date Value Ref Range Status 08/24/2023 11.0 (L) 11.5 - 15.5 g/dL Final Hematocrit Date Value Ref Range Status 08/24/2023 37.2 36.0 - 46.0 % Final MCV Date Value Ref Range Status 08/24/2023 90.3 80.0 - 100.0 fL Final MCH Date Value Ref Range Status 08/24/2023 26.7 26.0 - 34.0 pg Final MCHC Date Value Ref Range Status 08/24/2023 29.6 (L) 30.5 - 36.0 g/dL Final RDW-CV Date Value Ref Range Status 08/24/2023 19.6 (H) 11.5 - 15.0 % Final Platelet Count Date Value Ref Range Status 08/24/2023 263 150 - 400 k/uL Final MPV Date Value Ref Range Status 08/24/2023 10.8 9.0 - 12.7 fL Final Abs Neut Date Value Ref Range Status 08/24/2023 7.61 (H) 1.45 - 7.50 k/uL Final Lymphocytes % Date Value Ref Range Status 08/24/2023 18.9 % Final Abs Lymph Date Value Ref Range Status 08/24/2023 2.14 1.00 - 4.00 k/uL Final Monocytes % Date Value Ref Range Status 08/24/2023 9.2 % Final Abs [place] Date Value Ref Range Status 08/24/2023 1.04 (H) <0.87 k/uL Final Abs Eosin Date Value Ref Range Status 08/24/2023 0.44 <0.46 k/uL Final Basophils % Date Value Ref Range Status 08/24/2023 0.3 % Final Abs Baso Date Value Ref Range Status 08/24/2023 0.03 <0.11 k/uL Final PATH: CT guided T9 vertebral body biopsy: A. BONE LESION, VERTEBRAL, FINE NEEDLE ASPIRATE(THINPREP AND CELL BLOCK) Positive for malignant cells. Metastatic non-small cell carcinoma. BRAF No variant detected [Reference Sequence: ([id number])]. EGFR - A sequence change c.2573T>G (p.L858R) in exon 21 was detected at approximately 54% allelic proportion (depth of coverage at change 3377) [Reference Sequence: ([id number])]. HER2 (ERBB2) - No variant detected [Reference sequence: (NM_[id number])]. KRAS - No variant detected [Reference Sequence: ([id number])]. MET- No variant detected [Reference Sequence: ([id number])]. Imaging: MRI of the Brain 03/01/2020: Stable punctate focus of enhancement in the right posterior temporal lobe without associated edema. This may represent a tiny residual metastasis versus small vessel. Otherwise normal MRI brain. No new intracranial lesions. MRI Brain 10/20/2020: 1. No acute intracranial findings. 2. No evidence of intracranial metastatic disease. 3. MRI of the brain is within normal limits for age. CT of the chest and Abdomen and Pelvis 10/20/2020: No metastasis in the abdomen or pelvis. No significant change in biliary ductal dilatation of indeterminate etiology 1. Continued decrease in size of left upper lobe nodule with adjacent postradiation scarring and parenchymal retraction. No findings of recurrent lung cancer. 2. Stable 7 mm groundglass nodule in right lower lobe. This could represent an indolent neoplastic lesion in adenocarcinoma spectrum or atypical adenomatoid hyperplasia. No new lung nodules. 3. No significant lymph node enlargement in the thorax. MRI of the brain February 24, 2021: No change in the left Meckel's cave lesion compared to multiple prior examinations, likely incidental schwannoma. No new intracranial enhancement to indicate residual or recurrent intracranial metastasis. CT scan of the chest abdomen and pelvis April 21, 2021: 1. Stable CT of the chest. Unchanged appearance of left upper lobe nodular opacity measuring up to 1.2 cm in size. 2. Stable appearance of right lower lobe groundglass opacity. No new or enlarging nodules are seen. 3. No evidence of bulky intrathoracic lymphadenopathy. 1. No definite findings to suggest abdominal or pelvic metastatic disease. 2. Intrahepatic and extra hepatic biliary ductal dilation, similar to prior exam. Findings are greater than expected status post cholecystectomy. Recommend correlation with LFTs. If clinically warranted, consider further evaluation with ERCP or MRCP. 3. Colonic diverticulosis without evidence of diverticulitis. MRI Brain 10/2021: No pathologic enhancement in the brain parenchyma to suggest new or recurrent intra-axial or leptomeningeal metastases. Stable 3 mm focus of enhancement in the left Meckel's cave compatible with a small schwannoma CT of the Chest and Abdomen and Pelvis 11/2021: 1. No CT evidence for metastatic disease to the abdomen or pelvis. 2. Stable appearance to intrahepatic and extrahepatic biliary dilation, likely postoperative in nature 1. 1.3 x 1.0 cm nodular focus at the anteromedial aspect of the left upper lobe, stable from prior study of 04/21/2021. Additional 7 mm right lower lobe groundglass opacity, unchanged. 2. No substantial intrathoracic adenopathy is identified. MRI brain 10/2022: Stable subcentimeter nodular enhancing lesion within the left Meckel's cave, possibly reflecting small schwannoma. No evidence of abnormal intracranial enhancement otherwise CT Scan of the Chest and Abdomen and Pelvis 01/2023: 1. Since 12/06/2021, unchanged 1.4 cm left upper lobe paramediastinal nodule and right lower lobe 0.8 cm groundglass nodule. 2. No lymphadenopathy. 1. No evidence of metastatic disease within the abdomen/pelvis. 2. Unchanged mild intrahepatic and moderate extrahepatic biliary ductal dilatation, of uncertain etiology and significance, given chronicity MRI Brain 07/2023: No apparent intracranial metastatic disease. Stable small focus of enhancement in the left Meckel's cave presumably representing a small schwannoma. PET Scan 07/2023: Head and Neck: * No evidence of FDG avid neoplastic process Chest: * 1.4 cm left upper lobe hypermetabolic persistent nodule is suspicious for a neoplastic process. Tissue sampling/follow-up/treatment, as clinically indicated. ACTIONABLE RESULT * 0.8 cm right lower lobe groundglass is not avid. Recommend attention on follow-up studies to exclude low metabolic rate/adenocarcinoma spectrum lesion * Right lower lobe paravertebral uptake is favored to be inflammatory, and assessing follow-up studies Abdomen and pelvis: * No evidence of FDG avid neoplastic process Musculoskeletal: * No neoplastic hypermetabolic lesions Assessment and Plan: Seymour Lucia is a 83 year old year old female here for follow up. 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 Post Spine radiation and also GKRS in 10/2018 and has been on Osimertinib since 10/2018 with good response. She is doing well with good tolerance of the Osimertinib, except for some nailbed changes which are stable. Last imaging of the Brain 07/2023 and extracranial disease 07/2023 with no progression See back in 6 months with repeat imaging and [facility] as well. Foot care for paronychia and if not improved podiatry consult Continue PT Thank you for the kind referral. If there are any questions and or concerns please do not hesitate to contact me at [phone]. Yanci Churchill MD Hematology/Medical Oncology [facility] [place] CC: Sal James MD I spent a total of 30 minutes on the date of the service which included preparing to see the patient, [id number] patient care, completing clinical documentation, obtaining and/or reviewing separately obtained history, performing a medically appropriate examination, counseling and educating the patient/family/caregiver and ordering medications, tests, or procedures. documented in this encounter [facility] 10-08-2023 Telephone encounter Note Medication Reg Flagged Flubomazole and Atorvastatin - please call [phone]- David PT from Home health [facility] 10-08-2023 Miscellaneous Notes Medication Reg Flagged Flubomazole and Atorvastatin - please call [phone]- David PT from Home health documented in this encounter [facility] 10-01-2023 Note HNO ID: [id number] Author: YUNI RICHARDS RPh Service: ? Author Type: ? Type: Progress Notes Filed: 10/04/2023 08:30 Note Text: [facility] Refill Assessment Medication(s): Tagrisso No new clinical information to review since last SPP refill encounter. Next OV scheduled 10/09 with labs. Patient declined to hold shipment for this visit to be reviewed. Will proceed with delivery per her wishes and will review at next fill ALLERGIES No Known Allergies Patient's current medication list and adherence status to current therapy were reviewed by Specialty Pharmacy clinical pharmacist to identify any new drug interactions or non-compliance to therapy. Therapy continues to be appropriate for disease, patient response, and medical condition. Verification of therapeutic benefit and effectiveness with current therapy was completed. Adverse events, barriers in adherence, and side effects were assessed and addressed if applicable. Will proceed with refill with no changes in therapy - patient progressing towards achieving therapeutic goals based on medication-specific laboratory parameters, disease state markers and outcomes. Yuni Richards, PharmD Clinical Pharmacist, Oncology [facility] P: ; F: Pool: P [facility] Pool #: [id number] 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 Patient confirmed: Yes Med/dose confirmed: Yes Supplies needed: No supplies needed Missed doses: No Estimated days supply on hand: 10 Copay amount: 33 Copay form of payment: Credit card on file Payment confirmed: Yes Delivery method: FedEx Signature required: Waived on patient request Delivery address: [address] [place] [address] Delivery date: 10/05/23 Questions or concerns for the pharmacist?: No [facility] Visit Assessment - Hematology/Oncology: Ivent complete: No Assessment to use: Refill Vaccination Assessment: Date of influenza vaccination reminder: 06/12/2023 Date of most recent vaccination assessment: 06/12/2023 Refill Assessment: Lab monitoring inclusive of CBC, Chem-7, and other labs as pertinent for therapy: Yes Chemo cycle timing assessment: N/A Screening for infection: Yes Adverse reactions and mitigation: Yes Medication changes and interaction assessment: Yes Assessment of injection issues: N/A Additional Assessment: Assessment of continued need for prophylactic medications at regular intervals: Yes Radiology procedure timing to assess for disease progression: Yes Scheduled future appointments: Yes Micheline Shafer [facility] 10-01-2023 History of Present illness Narrative [facility] Assessment Medication(s): Tagrisso Patient's current medication list and adherence status to current therapy were reviewed by Specialty Pharmacy clinical pharmacist to identify any new drug interactions or non-compliance to therapy. Therapy continues to be appropriate for disease, patient response, and medical condition. Verification of therapeutic benefit and effectiveness with current therapy was completed. Adverse events, barriers in adherence, and side effects were assessed and addressed if applicable. Will proceed with refill with no changes in therapy - patient progressing towards achieving therapeutic goals based on medication-specific laboratory parameters, disease state markers and outcomes. 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 Patient confirmed: Yes Med/dose confirmed: Yes Supplies needed: No supplies needed Missed doses: No Estimated days supply on hand: 10 Copay amount: 33 Copay form of payment: Credit card on file Payment confirmed: Yes Delivery method: FedEx Signature required: Waived on patient request Delivery address: [address] [place] [address] Delivery date: 10/05/23 Questions or concerns for the pharmacist?: No [facility] Visit Assessment - Hematology/Oncology: Assessment to use: Refill Vaccination Assessment: Date of influenza vaccination reminder: 06/12/2023 Date of most recent vaccination assessment: 06/12/2023 Micheline Shafer documented in this encounter [facility] 09-12-2023 Note HNO ID: [id number] Author: VICKIE SANDERSON APRN.COMMUNICATIONS EQUIPMENT OPERATOR Service: ? Author Type: Nurse Practitioner Type: Progress Notes Filed: 09/12/2023 08:36 Note Text: [facility] TELE-HEALTH VISIT PROGRESS NOTE This is a virtual visit using [employer]; unable to connect via [employer] video visit. It required patient-provider interaction for the medical decision making as documented below. I have communicated my name and active licensure. The patient's identity and physical location were verified at the time of this visit. Either the patient or their legal commercial representative has been informed of the risks and benefits of -- and alternatives to -- treatment through a remote evaluation and consents to proceed with the evaluation remotely. Persons Present: Patient AND daughter (Radha) Chief Complaint/Reason: Brain mets HPI: Seymour Lucia is a 83 year old right-handed female who is here for a follow-up visit for lung adenocarcinoma with brain metastasis. She is s/p GKRS by Dr. Bijan Muhammad and Dr. Delfino Lunsford as outlined below: 11/20/18: GKRS to 1) Right frontal 2) Right temporal 3) Left anterior temporal 4) Left posterior temporal 5) Left cerebellar. Primary cancer site : Lung Primary oncologist: Dr. Yanci Churchill Current systemic treatment : Osimertinib Current steroids: Prednisone 20 mg daily Interval history: 09/12/23 Pending PT. Recently started Ritalin and Prednisone. Concerned about possible progression of disease reported on PET scan. Physical examination: + Patient is drowsy with eyes closed in bed; clinical update provided by daughter Data Reviewed: Most recent imaging IMPRESSION: No apparent intracranial metastatic disease. Stable small focus of enhancement in the left Meckel's cave presumably representing a small schwannoma. College Advisor: PSC[employer] Transcribe Date/Time: Aug 24 2023 7:18P Dictated by : SALLIE LOPEZ MD This examination was interpreted and the report reviewed and electronically signed by: ASLLIE LOPEZ MD on Aug 24 2023 7:26PM EST * * *Final Report* * * DATE OF EXAM: Aug 24 2023 5:18PM [facility]VM 0295 - MRI BRAIN WO/W IVCON / PROCEDURE REASON: multiple diagnoses * * * * Physician Interpretation * * * * EXAMINATION: MRI BRAIN WO/W IVCON Clinical history provided by the ordering clinician via order question and clinical decision support entries: Primary neoplasm/metastasis/postop F/U. Brain metastases Schwannoma. 1. Lung cancer with brain mets s/p GKRS 11/20/18 to 5 lesions 2. Enhancing lesion within the Left Meckel's cave, likely schwannoma 6 mo f/up. TECHNIQUE: Intracranial mass brain MRI protocol without and with contrast including diffusion. MQ: [id number]_2 Contrast: 11 mL Dotarem IV COMPARISON: 11/14/2022. RESULT: Acute Change: No abnormal restricted diffusion to suggest an acute infarct. Hemorrhage: No evidence of prior parenchymal hemorrhage on the susceptibility weighted images. Mass Lesion/ Mass Effect: Stable 5 x 3 x 4 mm focus of enhancement within the left Meckel's cave (series 16, image 32), presumably representing a small schwannoma. No apparent abnormal intracranial enhancement elsewhere and no significant mass effect. Chronic Change: Stable minimal burden of presumed chronic microvascular ischemic change in the supratentorial white matter. Parenchyma: There is mild generalized parenchymal volume loss. The brain parenchyma is otherwise within normal limits of signal intensity and morphology. Ventricles: Ventricular calibers are commensurate with the parenchymal volume and normal in configuration. Skull Base: Hypothalamic and pituitary region are grossly normal. Craniocervical junction is normal. No significant marrow replacement process. Vasculature: Major intracranial arterial structures, and dural venous sinuses show typical flow void, suggesting patency by spin echo criteria. Other: The visualized paranasal sinuses and mastoid air cells are clear. Bilateral pseudophakia. The orbits are otherwise unremarkable. Edentulous with dentures in place. The extracranial soft tissues are within normal limits. KPS: 50 MEDICAL DECISION MAKING Assessment/Plan: 1. Brain mets s/p GKRS 11/20/18 to 5 lesions 2. Enhancing lesion within the Left Meckel's cave, likely schwannoma - New MRI brain scan shows no apparent intracranial metastatic disease - Recommend follow up appointment with a new MRI brain scan in 6 months - Advised patient's daughter to contact me with POC update after visit with oncology - Reviewed signs and symptoms that would prompt sooner evaluation - She has our contact information and was advised to call if new symptoms, questions or concerns arise prior to next scheduled visit. - All questions were answered. Portions of this note have been copied and updated appropriately. I spent a total of 15 minutes on the date of the service (more content not included)... [facility] 09-07-2023 Note HNO ID: [id number] Author: YUNI RICHARDS RPh Service: ? Author Type: ? Type: Progress Notes Filed: 09/07/2023 14:42 Note Text: [facility] Assessment Medication(s): Tagrisso No new clinic notes to review since last SPP refill encounter. Labs from 08/24 reviewed. MRI of brain on 08/24 reviewed - stable Next OV not currently scheduled. ALLERGIES No Known Allergies Patient's current medication list and adherence status to current therapy were reviewed by Specialty Pharmacy clinical pharmacist to identify any new drug interactions or non-compliance to therapy. Therapy continues to be appropriate for disease, patient response, and medical condition. Verification of therapeutic benefit and effectiveness with current therapy was completed. Adverse events, barriers in adherence, and side effects were assessed and addressed if applicable. Will proceed with refill with no changes in therapy - patient progressing towards achieving therapeutic goals based on medication-specific laboratory parameters, disease state markers and outcomes. Yuni Richards, PharmD Clinical Pharmacist, Oncology [facility] P: ; F: Pool: P [facility] Pool #: [id number] 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 Patient confirmed: Yes Med/dose confirmed: Yes Supplies needed: No supplies needed Missed doses: No Estimated days supply on hand: 3 Copay amount: 33 Copay form of payment: Credit card on file Payment confirmed: Yes Delivery method: FedEx Signature required: Waived on patient request Delivery address: [address] [place] [address] Delivery date: 09/08/23 Questions or concerns for the pharmacist?: No [facility] Visit Assessment - Hematology/Oncology: Ivent complete: No Assessment to use: Refill Vaccination Assessment: Date of influenza vaccination reminder: 06/12/2023 Date of most recent vaccination assessment: 06/12/2023 Refill Assessment: Lab monitoring inclusive of CBC, Chem-7, and other labs as pertinent for therapy: Yes Chemo cycle timing assessment: N/A Screening for infection: Yes Adverse reactions and mitigation: Yes Medication changes and interaction assessment: Yes Assessment of injection issues: N/A Additional Assessment: Assessment of continued need for prophylactic medications at regular intervals: Yes Radiology procedure timing to assess for disease progression: Yes Scheduled future appointments: Yes Annalise Ward [facility] 08-24-2023 Note HNO ID: [id number] Author: Girish Kitchen RT(R) Service: ? Author Type: Technologist Type: Progress Notes Filed: 08/24/2023 5:03 PM Note Text: Radiology Service Progress Note PATIENT NAME: Seymour Lucia DATE OF SERVICE: August 24, 2023 TIME: 5:02 PM PATIENT IDENTITY VERIFICATION COMPLETED USING TWO (2) IDENTIFIERS: Name and Date of confirmed by patient verbally and Name and Date of confirmed by identification band. FALL SCREENING: Has the patient had 2 falls in the last year or 1 fall with injury or currently using an Ambulatory Assistive Device (Walker, Cane, Wheelchair, Crutches, etc.)? Yes, Patient High Risk for Falls What interventions were put in place to prevent falls during this visit? [place] Falls Risk Wristband Applied PATIENT GENDER DATA: Female. status: : No status: NO. PATIENT RELEVANT IMPLANT DATA REVIEWED: Yes RADIOLOGY DEPARTMENT: MR; Exam(s) Completed: Head: Routine Brain PERIPHERAL IV DATA: Site assessment: Clean,Dry and Intact, Site disposition Discontinued SIGNED BY: RT Isadora(R) August 24, 2023 5:02 PM [facility] 08-24-2023 Note HNO ID: [id number] Author: Enedina Cornejo RN Service: Nursing Author Type: Registered Nurse Type: Progress Notes Filed: 08/24/2023 4:25 PM Note Text: Radiology Service Progress Note DATE OF SERVICE: August 24, 2023 TIME: 4:19 PM PATIENT WEIGHT: 121LBS PATIENT IDENTITY VERIFICATION COMPLETED USING TWO (2) STANDARD IDENTIFIERS: Name and Date of confirmed by patient verbally. FALL SCREENING: Has the patient had 2 falls in the last year or 1 fall with injury or currently using an Ambulatory Assistive Device (Walker, Cane, Wheelchair, Crutches, etc.)? No PATIENT GENDER DATA: Female. status: : No status: NO. ALLERGIES: Reviewed and unchanged CONTRAST ALLERGY: No EXAM: MRI - CONTRAST TYPE: GROUP II IV SITE: Ambulatory: A power injectable Mediport was accessed in the Right chest with a 0.75 inch 20 gauge needle. Blood Return, Flushed easily with normal saline, Good Blood Return Post Injection, and No Complications IV SITE APPEARANCE: Clean,Dry and Intact SIGNATURE: Enedina Cornejo RN PATIENT NAME: Seymour Lucia DATE: August 24, 2023 TIME: 4:19 PM [facility] 08-16-2023 Miscellaneous Notes Pt's daughter notified of results. Daughter would like to pursue physical therapy and states there's a gentleman that texts her that pt was set up with in the past but never came out to see the patient. Daughter states he has all of her insurance info and she would like him to see her. Daughter states she will text him since he's in contact with her often and will call our office if she needs anything further. Harry Brannon RN ----- Message from Yanci Churchill MD sent at 08/16/2023 9:58 AM EST ----- Please call with disease with control documented in this encounter [facility] 08-15-2023 Note HNO ID: [id number] Author: Con Koehler RT(Chloe) Service: ? Author Type: Technologist Type: Progress Notes Filed: 08/15/2023 10:07 AM Note Text: RADIOLOGY SERVICE PROGRESS NOTE SERVICE DATE: 08/15/2023 SERVICE TIME: 10:07 AM PATIENT IDENTITY VERIFICATION COMPLETED USING TWO (2) STANDARD IDENTIFIERS: Name and Date of confirmed by patient verbally POST EXAM PIV STATUS: Discontinued PROCEDURE TYPE: NM INJECT: PET/CT BODY SCAN. 6.0 mCi F18 FDG. No other medications given.. ADMINISTRATION TIME: 922 PATIENT DISCHARGED TO: Ambulatory patient, left [place] department area. A Diagnostic radioactive procedure has taken place, with no further precautions necessary other than routine body substance precautions. More information regarding radiation safety can be found using this link: [email or web address] SIGNATURE: RT Stella(R) PATIENT NAME: Seymour Lucia DATE: August 15, 2023 TIME: 10:07 AM PAGER/CONTACT #: [facility] 08-15-2023 Note HNO ID: [id number] Author: Nakia Mariscal RN Service: ? Author Type: Registered Nurse Type: Progress Notes Filed: 08/15/2023 9:28 AM Note Text: Radiology Service Progress Note DATE OF SERVICE: August 15, 2023 TIME: 9:27 AM PATIENT IDENTITY VERIFICATION COMPLETED USING TWO (2) STANDARD IDENTIFIERS: Name and Date of confirmed by patient verbally. FALL SCREENING: Has the patient had 2 falls in the last year or 1 fall with injury or currently using an Ambulatory Assistive Device (Walker, Cane, Wheelchair, Crutches, etc.)? No PATIENT GENDER DATA: Female. status: : No status: NO. ALLERGIES: Reviewed and unchanged CONTRAST ALLERGY: No EXAM: CT -CONTRAST INDUCED NEPHROPATHY RISK FACTORS: Not applicable CREATININE: Creatinine Date Value Ref Range Status 02/08/2023 0.88 0.58 - 0.96 mg/dL Final 03/07/2022 1.28 (H) 0.58 - 0.96 mg/dL Final 12/06/2021 0.99 (H) 0.58 - 0.96 mg/dL Final Estimated Glomerular Filtration Rate Date Value Ref Range Status 02/08/2023 65 >=60 mL/min/1.73m? Final Comment: Estimated Glomerular Filtration Rate (eGFR) is calculated using the 2020 CKD-EPI creatinine equation. This equation utilizes serum creatinine, sex, and age as parameters. The creatinine assay has traceable calibration to isotope dilution-mass spectrometry. Refer to KDIGO guidelines for clinical interpretation. In patients with unstable renal function, e.g. those with acute kidney injury, the eGFR may not accurately reflect actual GFR. eGFR- Date Value Ref Range Status 06/14/2021 >60 Final P.O.C.T. RESULTS: POC done: Yes, See Lab Tab August 15, 2023 TREATMENT: No Hydration needed. IV SITE: Ambulatory: A peripheral IV was started in the Right forearm with a Angio cath: 24 gauge. IV SITE APPEARANCE: Clean,Dry and Intact SIGNATURE: Nakia Mariscal RN PATIENT NAME: Seymour Lucia DATE: August 15, 2023 TIME: 9:27 AM [facility] 08-08-2023 Miscellaneous Notes Pt's daughter, Radha, notified of script and verbalizes understanding. Con Salmon RN Call placed to pt's daughter, Radha. No answer. Message left requesting call back. Con Salmon RN I sent two weeks of [place] 5/325 mg po take every 8 hours prn pain to [facility] in [facility] [place]/Nithya: We've ordered a PET to be done, but could you advise on pt's need for stronger pain medication? Currently taking only Tylenol for her back pain. Con Salmon RN Can Pall med address the pain and fatigue please,. Thanks Dr Churchill: Pt's daughter calls again requesting something stronger than tylenol for her mother's back pain. Pt has been seeing Pall Med for fatigue and malaise. Do you want to address her pain or would you like to defer this to pall med? Con Salmon RN We got a cancellation on 08/15/2023@8:45 am spoke to Radha, patient's daughter, she accepted the earlier appointment. Rescheduled appointment to 08/15/2023@8:45 am for PET scan. Graciela Muller Yony Spoke to Radha, daughter, & scheduled the PET scan in [place] on 08/21/2023@10:45 am. If we get any cancellations radiology will call her. Radha verbalized undestanding. Graciela Muller Yony Pt's daughter notified and verbalizes understanding. Order pended. Clerical: Pt's daughter would like the PET scheduled the same day as her CT on 08/24. Please call Radha w/ the appointment. Dr Churchill: Pt has only been taking Tylenol for her pain. Daughter requesting something stronger. Pt follows w/ [facility], but for fatigue. Would you like Pall Med to advise on pain medication as well? Con Salmon RN Please schedule for a PET scan Pt's daughter calls w/ concerns of pt's persisting middle back pain. Notes that the pain radiates around to her side/front. States they informed pall med who suggested she may need imaging, but advised they contact our office for orders. Please advise. Con Salmon RN documented in this encounter [facility] 08-08-2023 Note HNO ID: [id number] Author: Miri Heredia Service: ? Author Type: ? Type: Progress Notes Filed: 08/09/2023 11:59 AM Note Text: [facility] Ref[facility] Assessment Medication(s): Tagrisso 80mg No new clinical information to review since last SPP refill encounter. Next OV scheduled 08/14 with labs. ALLERGIES No Known Allergies Patient's current medication list and adherence status to current therapy were reviewed by Specialty Pharmacy clinical pharmacist to identify any new drug interactions or non-compliance to therapy. Therapy continues to be appropriate for disease, patient response, and medical condition. Verification of therapeutic benefit and effectiveness with current therapy was completed. Adverse events, barriers in adherence, and side effects were assessed and addressed if applicable. Will proceed with refill with no changes in therapy - patient progressing towards achieving therapeutic goals based on medication-specific laboratory parameters, disease state markers and outcomes. Yuni Richards, KelleyD Clinical Pharmacist, Oncology [facility] P: ; F: Pool: P [facility] ON[facility] Pool #: [id number] 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 Patient confirmed: Yes Med/dose confirmed: Yes Supplies needed: No supplies needed Missed doses: Yes Count of missed doses: 1 Reason for missed doses: vomit Estimated days supply on hand: 9 Copay amount: 38.7 Copay form of payment: Credit card on file Payment confirmed: Yes Delivery method: FedEx Signature required: Waived on patient request Delivery address: [address] [place] [address], [id number] Delivery date: 08/10/23 Questions or concerns for the pharmacist?: No [facility] Visit Assessment - Hematology/Oncology: Ivent complete: No Assessment to use: Refill Vaccination Assessment: Date of influenza vaccination reminder: 06/12/2023 Date of most recent vaccination assessment: 06/12/2023 Refill Assessment: Lab monitoring inclusive of CBC, Chem-7, and other labs as pertinent for therapy: Yes Chemo cycle timing assessment: N/A Screening for infection: Yes Adverse reactions and mitigation: Yes Medication changes and interaction assessment: Yes Assessment of injection issues: N/A Additional Assessment: Current MPR %: 97 Assessment of continued need for prophylactic medications at regular intervals: Yes Radiology procedure timing to assess for disease progression: Yes Scheduled future appointments: Yes Miri Heredia [facility] 08-08-2023 History of Present illness Narrative [facility] Specialty Refill Assessment Medication(s): Tagrisso 80mg Patient's current medication list and adherence status to current therapy were reviewed by Specialty Pharmacy clinical pharmacist to identify any new drug interactions or non-compliance to therapy. Therapy continues to be appropriate for disease, patient response, and medical condition. Verification of therapeutic benefit and effectiveness with current therapy was completed. Adverse events, barriers in adherence, and side effects were assessed and addressed if applicable. Will proceed with refill with no changes in therapy - patient progressing towards achieving therapeutic goals based on medication-specific laboratory parameters, disease state markers and outcomes. 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 Patient confirmed: Yes Med/dose confirmed: Yes Supplies needed: No supplies needed Missed doses: Yes Count of missed doses: 1 Reason for missed doses: vomit Estimated days supply on hand: 9 Copay amount: 38.7 Copay form of payment: Credit card on file Payment confirmed: Yes Delivery method: FedEx Signature required: Waived on patient request Delivery address: [address] [place] [address], [address] Delivery date: 08/10/23 Questions or concerns for the pharmacist?: No [facility] Visit Assessment - Hematology/Oncology: Assessment to use: Refill Vaccination Assessment: Date of influenza vaccination reminder: 06/12/2023 Date of most recent vaccination assessment: 06/12/2023 Miri Heredia documented in this encounter [facility] 08-02-2023 Miscellaneous Notes Pall med nurse called to daughter Radha and relayed that Rx was sent to pharmacy. 20 mg Methylphenidate - give 1/2 tab (10 mg) twice a day. Daughter verbalized understanding. Ingrid Goldman RNCC Picking Machine Operator I ordered 20 mg tabs, she can use a half tab bid. Pharmacist Mansi at [facility] only has 20 mg Ritalin available, national shortage/allocation of all Ritalin strengths and pharmacies are receiving limited supplies, national mandatory allocation from sheep herder. Pharmacist also states that and no insurance will allow 4 tabs of Ritalin a day. Dose must be changed to 10 mg or 20 mg. But pharmacist did not know of any pharmacies carrying the 10 mg tabs, family would have to call around if 10 mg strength is needed but pharmacist Mansi could dispense at 20 mg prescription. Please review and advise. Ingrid Goldman, RN Seymour Lucia('s) pharmacy: [facility] is calling Bettina Tang NP, BOAT RENTAL CLERK.COMMUNICATIONS EQUIPMENT OPERATOR today regarding Medication Problem Cannot get 5 or 10mg in supply and insurance will not pay for 4 tabs/day. Please advise. Patient has been identified by name and birthdate. Pharmacy: [phone] Julieth Gonzalez August 02, 2023 documented in this encounter [facility] 08-01-2023 Miscellaneous Notes I would recommend they reach out to oncology about imaging as she has a history of radiation to both lumbar and thoracic areas. If Seymour is tolerating current dose well, she can try 10 mg bid prn. I sent a refill to [facility] Seymour Lucia('s) daughter radha is calling Bettina Tang NP, BOAT RENTAL CLERK.COMMUNICATIONS EQUIPMENT OPERATOR today regarding Patient Update Patient has been identified by name and birthdate. Duration of symptoms: Seymour's daughter is calling and had mentioned that the ritalin was working well for Seymour. Wasn't sure about increasing it. Also mentioned that seymour's middle of her back is still bothering her, like there is a knot. Not sure about getting an xray. Requesting response back: call on cell [phone] (cell) Mariza Fields August 01, 2023 documented in this encounter [facility] 07-17-2023 Note HNO ID: [id number] Author: Bettina Tang APRN.COMMUNICATIONS EQUIPMENT OPERATOR Service: ? Author Type: Nurse Practitioner Type: Progress Notes Filed: 07/17/2023 4:17 PM Note Text: PALLIATIVE MEDICINE INITIAL CONSULT SERVICE DATE: 07/17/2023 Referring Physician: Yanci Churchill [address] [place], [place] [id number] Medical Oncologist: Yanci Churchill MD Primary Physician: Lexi Escobar MD REASON FOR CONSULT: Symptom Management Subjective Seymour Lucia is a 83 year old female with history of 1. 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 Adrenal Insufficiency by Dr. Puentes on hydrocortisone replacement Met with Seymour and her daughter, alert, oriented, NAD. Daughter is a retired hospice DON. Progressive fatigue and weakness, having difficulty walking even with her walker, attempts exercise at home with pedal chin strap maker and stretch bands. Family would like her to work with PT, but they do not feel it is safe for her to work with them as she is so weak. Appetite is poor, has lost several pounds in the last month. Has chronic nausea that is relieved with phenergan. Seymour has sulfured with severe anxiety and agitation due to dementia progression, she is on multiple medications provided by PCP and symptoms are well controlled.However many of the medications are sedating, but these have worked best for seymour. Her daughter is interested in a trial of ritalin to see if it could allow Seymour the energy to get through the holidays and participate in PT. 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 Last stent was in 2009 CURRENT MEDICATIONS: osimertinib (TAGRISSO) 80 mg tabletTake 1 tablet (80 mg) by mouth once daily.Disp: 30 tabletRfl: 5 osimertinib (TAGRISSO) 80 mg tabletTake 1 tablet (80 mg) by mouth once daily.Disp: 30 tabletRfl: 5 predniSONE (DELTASONE) 20 mg tabletTake 1 tablet by mouth once daily.Disp: 30 tabletRfl: 1 promethazine (PHENERGAN) 6.25 mg/5 mL syrupTAKE 5 ML TO 10 ML BY MOUTH EVERY 6 HOURS NEEDEDDisp: 120 mLRfl: 0 OLANZapine (ZYPREXA) 5 mg tablettake 1 tablet by mouth once daily at bedtimeDisp: 90 tabletRfl: 0 hydrocortisone (CORTEF) 10 mg tabletTake two (2) tablets by mouth in the morning and one (1) tablet by mouth in the evening.Disp: 270 tabletRfl: 2 metoprolol succinate ER (TOPROL XL) 25 mg 24 hr tabletDisp: Rfl: bisacodyl EC (DULCOLAX) 5 mg EC tabletBisacodyl Bisacodyl Active 10 MG Oral Daily 0 November 11, 2018 10:2511-11-2018 [facility] ([id number])Disp: Rfl: dexamethasone sodium phosphate (DECADRON) 4 mg/mL injectionDexamethasone Dexamethasone Sodium Phosphate Active 4 MG IV Push Daily 0 November 11, 2018 10:25am 11-11-2018 [facility] ([id number])Disp: Rfl: diphenhydrAMINE (BENADRYL) 50 mg/mL injectiondiphenhydrAMINE Diphenhydramine Hcl Active 25 MG IV Push Q6H 0 November 11, 2018 10:2511-11-2018 [facility] ([id number])Disp: Rfl: insulin aspart U-100 (NOVOLOG) 100 unit/mL (3 mL)Insulin, Aspart, Human Insulin Aspart U-100 Active 0 UNITS Subcutaneous 3X/Day with meals and bedtime 0 November 11, 2018 10:25am 11-11-2018 [facility] ([id number])Disp: Rfl: ketorolac (TORADOL) 30 mg/mL (1 mL) solnKetorolac Ketorolac Active 15 MG IV Push Q6H 0 November 11, 2018 10:28am 11-11-2018 [facility] ([id number])Disp: Rfl: labetalol (NORMODYNE) 5 mg/mL injectionLabetalol Labetalol Active 5 MG IV Push Q4H 0 November 11, 2018 10:28am 11-11-2018 [facility] ([id number])Disp: Rfl: nystatin (MYCOSTATIN) 100,000 unit/mL suspensionNystatin Nystatin Active 784209 UNIT Oral Four times daily 0 November 11, 2018 10:28am 11-11-2018 [facility] ([id number])Disp: Rfl: pantoprazole (PROTONIX) 40 mg injectionpantoprazole Pantoprazole Active 40 MG IV Push Daily 0 November 11, 2018 10:29am 11-11-2018 [facility] ([id number])Disp: Rfl: lisinopril (ZESTRIL, PRINIVIL) 20 mg tabletDisp: Rfl: nitroglycerin sublingual (NITROQUICK) 0.4 mg SL tabletDissolve 0.4 mg under the tongue.Disp: Rfl: QUEtiapine (SEROQUEL) 25 mg tabletTake 25 mg by mouth as needed. Take 3 tabs at bedtime and 100 mg daily Disp: Rfl: oxyCODONE (ROXICODONE) 5 mg/5 mL oral solutionTake 5 mL by mouth every 4 hours as needed for up to 94 days. TAKE 1 TEASPOO (more content not included)... [facility] 07-17-2023 Instructions Bettina Tang APRN.SHIRA - 07/17/2023 3:49 PM EST Bettina Tang CNP Department of Palliative and Supportive Care Palliative Care - Specialty services in symptom management and support For questions or prescription refills, call: [phone] Sunday - Sunday 9AM-5PM MODESTA Dunbar, RN - Coarse Wire Drawer Please call 3-5 days in advance for medication refills Evenings, Weekends, Holidays: [phone] (ask for palliative medicine on-call provider) For appointments, cancellations or reschedule, call: [phone] documented in this encounter [facility] 07-17-2023 History of Present illness Narrative PALLIATIVE MEDICINE INITIAL CONSULT SERVICE DATE: 07/17/2023 Referring Physician: Yanci Churchill [address] [facility] [address] Medical Oncologist: Yanci Churchill MD Primary Physician: Lexi Escobar MD REASON FOR CONSULT: Symptom Management Subjective Seymour Lucia is a 83 year old female with history of 1. 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 Adrenal Insufficiency by Dr. Puentes on hydrocortisone replacement Met with Seymour and her daughter, alert, oriented, NAD. Daughter is a retired hospice DON. Progressive fatigue and weakness, having difficulty walking even with her walker, attempts exercise at home with pedal chin strap maker and stretch bands. Family would like her to work with PT, but they do not feel it is safe for her to work with them as she is so weak. Appetite is poor, has lost several pounds in the last month. Has chronic nausea that is relieved with phenergan. Seymour has sulfured with severe anxiety and agitation due to dementia progression, she is on multiple medications provided by PCP and symptoms are well controlled.However many of the medications are sedating, but these have worked best for seymour. Her daughter is interested in a trial of ritalin to see if it could allow Seymour the energy to get through the holidays and participate in PT. 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 Last stent was in 2009 CURRENT MEDICATIONS: osimertinib (TAGRISSO) 80 mg tablet^Take 1 tablet (80 mg) by mouth once daily.^Disp: 30 tablet^Rfl: 5 osimertinib (TAGRISSO) 80 mg tablet^Take 1 tablet (80 mg) by mouth once daily.^Disp: 30 tablet^Rfl: 5 predniSONE (DELTASONE) 20 mg tablet^Take 1 tablet by mouth once daily.^Disp: 30 tablet^Rfl: 1 promethazine (PHENERGAN) 6.25 mg/5 mL syrup^TAKE 5 ML TO 10 ML BY MOUTH EVERY 6 HOURS NEEDED^Disp: 120 mL^Rfl: 0 OLANZapine (ZYPREXA) 5 mg tablet^take 1 tablet by mouth once daily at bedtime^Disp: 90 tablet^Rfl: 0 hydrocortisone (CORTEF) 10 mg tablet^Take two (2) tablets by mouth in the morning and one (1) tablet by mouth in the evening.^Disp: 270 tablet^Rfl: 2 metoprolol succinate ER (TOPROL XL) 25 mg 24 hr tablet^^Disp: ^Rfl: bisacodyl EC (DULCOLAX) 5 mg EC tablet^Bisacodyl Bisacodyl Active 10 MG Oral Daily 0 November 11, 2018 10:2511-11-2018 [facility] ([id number])^Disp: ^Rfl: dexamethasone sodium phosphate (DECADRON) 4 mg/mL injection^Dexamethasone Dexamethasone Sodium Phosphate Active 4 MG IV Push Daily 0 November 11, 2018 10:2511-11-2018 [facility] ([id number])^Disp: ^Rfl: diphenhydrAMINE (BENADRYL) 50 mg/mL injection^diphenhydrAMINE Diphenhydramine Hcl Active 25 MG IV Push Q6H 0 November 11, 2018 10:25am 11-11-2018 [facility] ([id number])^Disp: ^Rfl: insulin aspart U-100 (NOVOLOG) 100 unit/mL (3 mL)^Insulin, Aspart, Human Insulin Aspart U-100 Active 0 UNITS Subcutaneous 3X/Day with meals and bedtime 0 November 11, 2018 10:25am 11-11-2018 [facility] ([id number])^Disp: ^Rfl: ketorolac (TORADOL) 30 mg/mL (1 mL) soln^Ketorolac Ketorolac Active 15 MG IV Push Q6H 0 November 11, 2018 10:2811-11-2018 [facility] ([id number])^Disp: ^Rfl: labetalol (NORMODYNE) 5 mg/mL injection^Labetalol Labetalol Active 5 MG IV Push Q4H 0 November 11, 2018 10:28am 11-11-2018 [facility] ([id number])^Disp: ^Rfl: nystatin (MYCOSTATIN) 100,000 unit/mL suspension^Nystatin Nystatin Active [id number] UNIT Oral Four times daily 0 November 11, 2018 10:28am 11-11-2018 [facility] ([id number])^Disp: ^Rfl: pantoprazole (PROTONIX) 40 mg injection^pantoprazole Pantoprazole Active 40 MG IV Push Daily 0 November 11, 2018 10:29am 11-11-2018 [facility] ([id number])^Disp: ^Rfl: lisinopril (ZESTRIL, PRINIVIL) 20 mg tablet^^Disp: ^Rfl: nitroglycerin sublingual (NITROQUICK) 0.4 mg SL tablet^Dissolve 0.4 mg under the tongue.^Disp: ^Rfl: QUEtiapine (SEROQUEL) 25 mg tablet^Take 25 mg by mouth as needed. Take 3 tabs at bedtime and 100 mg daily ^Disp: ^Rfl: oxyCODONE (ROXICODONE) 5 mg/5 mL oral solution^Take 5 mL by mouth every 4 hours as needed for up to 94 days. TAKE 1 TEASPOON(S) (5ML) EVERY SIX(6) TO EIGHT(8) HOURS NEEDED FOR PAIN.^Disp: 450 mL^Rfl: 0 meloxicam (MOBIC) 15 mg tablet^Take 15 mg by mouth.^Disp: ^Rfl: omeprazole (PRILOSEC) 20 mg capsule^Take 2 capsules by mouth once daily.^Disp: 60 capsule^Rfl: 11 gabapentin (NEURONTIN) 300 mg capsule^Take 1 capsule by mouth as directed for 30 days. Take one pill (300mg) every morning and every afternoon and take two pills (600mg at night)^Disp: 120 capsule^Rfl: 0 rivastigmine (EXELON) 13.3 mg/24 hour patch^1 Patch once daily. ^Disp: ^Rfl: aspirin, enteric coated (ASPIRIN, ENTERIC COATED) 81 mg EC tablet^Take 162 mg by mouth.^Disp: ^Rfl: Blood-Glucose Meter (TRUE METRIX GLUCOSE METER) [facility]^Use to test 3 times a day^Disp: 1 Each^Rfl: 0 blood sugar diagnostic (BLOOD GLUCOSE TEST) test strip^Use as instructed^Disp: 1 Bottle^Rfl: 11 Lancets lancets^Use as instructed^Disp: 100 Each^Rfl: 5 cetirizine (ZYRTEC) 10 mg tablet^Take 10 mg by mouth once daily.^Disp: ^Rfl: biotin 5 mg tab^Take 5 mg by mouth once daily.^Disp: ^Rfl: docusate sodium (COLACE) 100 mg capsule^Take 100 mg by mouth daily at bedtime.^Disp: ^Rfl: melatonin 10 mg tab^Take 1 tablet by mouth daily at bedtime.^Disp: ^Rfl: metformin HCl (METFORMIN ORAL)^Take 1,000 mg by mouth once daily.^Disp: ^Rfl: cloNIDine HCl (CATAPRES) 0.1 mg tablet^Take 0.1 mg by mouth daily at bedtime. ^Disp: ^Rfl: ATORVASTATIN 80 mg tablet^Take 80 mg by mouth once daily. ^Disp: ^Rfl: IPRATROPIUM BROMIDE 0.06 % nasal spray^Use 1 [place] in the nose as needed. ^Disp: ^Rfl: KETOCONAZOLE 2 % shampoo^Apply 1 application to affected area once daily as needed. ^Disp: ^Rfl: LAMOTRIGINE 200 mg tablet^Take 200 mg by mouth daily at bedtime. ^Disp: ^Rfl: NAMENDA 10 mg tablet^Take 10 mg by mouth twice daily. ^Disp: ^Rfl: TOPROL XL 50 mg 24 hr tablet^Take 50 mg by mouth once daily. ^Disp: ^Rfl: VENLAFAXINE 50 mg tablet^Take 50 mg by mouth twice daily. ^Disp: ^Rfl: ALLERGIES: ALLERGIES No Known Allergies FAMILY HISTORY: FAMILY HISTORY Problem Relation Age of Onset Kidney Disease Mother other (lung cancer) Father Thyroid Cancer Sister SOCIAL HISTORY: Drug Use: No Alcohol Use: No Tobacco Use: 2 packs/day, for 18 years. Quit 09/25/1972. Types: Cigarettes REVIEW OF SYSTEMS: Modified ESAS ([place] Symptom Assessment Scale): Information Provided By: Patient and Family member Pain: Mild Nausea: Mild Loss of Appetite: Mild Constipation: None Shortness of Breath: None Drowsiness: None Tiredness: Moderate Depression: None Anxiety: Mild Review of Systems Constitutional: Positive for activity change and fatigue. Negative for appetite change and unexpected weight change. HENT: Negative for trouble swallowing and voice change. Eyes: Negative for pain, discharge and visual disturbance. Respiratory: Negative for cough, chest tightness and shortness of breath. Cardiovascular: Negative for chest pain, palpitations and leg swelling. Gastrointestinal: Negative for abdominal distention, abdominal pain, blood in stool, constipation, diarrhea and nausea. Endocrine: Negative for polyuria. Genitourinary: Negative for difficulty urinating, dysuria, enuresis and hematuria. Skin: Negative. Neurological: Negative for dizziness, tremors, speech difficulty, weakness and headaches. Psychiatric/Behavioral: Negative for confusion, sleep disturbance and suicidal ideas. The patient is not nervous/anxious. All other systems reviewed and are negative. Objective ECOG PERFORMANCE STATUS: 3- Capable of only limited selfcare, confined to bed/chair > 50% of waking hrs. PHYSICAL EXAMINATION: Vital signs: BP 141/69 Pulse 67 Temp 36.3 C (97.4 F) (Temporal) Resp 16 Ht 163 cm (5' 4.17 ) Wt 57.9 kg (127 lb 9.6 oz) SpO2 96% BMI 21.78 kg/m Last 1 Encounter Temp Readings: Date: Temp: Temp Src: 07/17/2023 36.6 C (97.8 F) Oral Last 1 Encounter Resp Readings: Date: Resp: 07/17/2023 18 Last 1 Encounter Pulse Readings: Date: Pulse: 07/17/2023 80 Last 1 Encounter BP Readings: Date: BP: 07/17/2023 125/80 Physical Exam HENT: Head: Normocephalic and atraumatic. Jaw: There is normal jaw occlusion. Right Ear: Hearing and external ear normal. Left Ear: Hearing and external ear normal. Nose: Nose normal. Mouth/Throat: Lips: [place]. Mouth: Mucous membranes are moist. No oral lesions. Eyes: General: Lids are normal. Gaze aligned appropriately. Extraocular Movements: Extraocular movements intact. Conjunctiva/sclera: Conjunctivae normal. Neck: Thyroid: No thyroid mass. Cardiovascular: Rate and Rhythm: Normal rate and regular rhythm. Pulses: Normal pulses. Heart sounds: Normal heart sounds. Pulmonary: Effort: Pulmonary effort is normal. Abdominal: General: Abdomen is flat. Bowel sounds are normal. Palpations: Abdomen is soft. Musculoskeletal: General: No swelling, tenderness or deformity. Normal range of motion. Right shoulder: Normal. Left shoulder: Normal. Right upper arm: Normal. Left upper arm: Normal. Cervical back: Full passive range of motion without pain. Right lower leg: No edema. Left lower leg: No edema. Skin: General: Skin is warm and dry. Capillary Refill: Capillary refill takes less than 2 seconds. Findings: No rash. Neurological: General: No focal deficit present. Mental Status: She is alert and oriented to person, place, and time. Psychiatric: Attention and Perception: Attention normal. Mood and Affect: Mood normal. Speech: Speech normal. Behavior: Behavior normal. Behavior is cooperative. Thought Content: Thought content normal. Cognition and Memory: Cognition and memory normal. Judgment: Judgment normal. DATA: Diagnostic tests reviewed for today's visit: Most recent labs and imaging results. Estimated Creatinine Clearance: 41.4 mL/min (based on SCr of 0.88 mg/dL). Opioid Management: No Assessment & Plan (Z51.5) Palliative care by specialist (primary encounter diagnosis) - Introduced philosophy of palliative medicine - Discussed services offered by [facility] - Provided support to family - Offered contact infor for uncontrolled symptoms (C34.90) 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, unspecified laterality (HCC) (C79.31) Malignant neoplasm metastatic to brain (HCC) - follow with oncology (R53.81, R53.83) Malaise and fatigue - likely multifactorial , medications, advanced age and disease, deconditioning - trial of ritalin 5 mg po prn fatigue morning and afternoon - Would recommend Home PT even now - Continue to exercise as tolerated - increase protein in diet Some elements copied from oncology note on 02/16, the elements have been updated and all reflect current decision making from today, 07/17/2023. Existence of Advance Directives: Unknown Next Visit:6-8 Weeks in person Recommendations will be communicated back to the consulting service by way of shared electronic medical record. I spent a total of 45 minutes on the date of the service which included preparing to see the patient, [id number] patient care, completing clinical documentation, obtaining and/or reviewing separately obtained history, performing a medically appropriate examination, counseling and educating the patient/family/caregiver, ordering medications, tests, or procedures, independently interpreting results (not separately reported), and communicating results to the patient/family/caregiver. Bettina Tang AGED OR DISABLED CARE WORKER, BOAT RENTAL CLERK.COMMUNICATIONS EQUIPMENT OPERATOR July 17, 2023 3:21 PM This note may have been partially generated using the [employer] voice recognition system. While every effort was made to correct voice recognition errors, kindly be aware that some errors may occasionally occur. documented in this encounter [facility] 07-17-2023 Miscellaneous Notes Patient added and Radha notified. Thanks! Amber Her Orders signed Chichi Gonsalez PA-C Pt's daughter calls requesting pt to get IV fluids today at 2 pm. Pt has had some nausea, phenergan is helping. Did have some vomiting on Sunday and had to cancel her appointment here. Would like to boost her up for Thanksgiving. Spoke with [facility] and they will be able to give IV fluids today at 2. KK/MM: Please place orders PSS: please call daughter at [phone] and schedule. Thanks Harry Brannon, WILL documented in this encounter [facility] 07-10-2023 Miscellaneous Notes [facility] received prescription(s) for Tagrisso on 07/10/23. Unfortunately, we do not carry or service specialty medications. Please send RX directly to [facility] (phone: [phone]) for processing. Thank you! [facility] [phone] (phone) [phone] (fax) documented in this encounter [facility] [facility] Miscellaneous Notes Seymour is scheduled to see Uma Tang ([facility]) this Sunday, 07/13 at 8:30am. Appointment confirmed with caregiver, Radha. She is in agreement. Thanks, Elinor Thompson Pt's daughter called [facility] consultant physician over the weekend and never heard back from anyone. Daughter states pt needs a refill on her phenergan and prednisone, and they would also like a pall med consult. Daughter states pt does much better on the prednisone and she has stopped the hydrocortisone because it just isn't working anymore. Scripts pending your sig as well as pall med consult. PSS: please schedule pt with Uma here. Requested Prescriptions Pending Prescriptions Disp Refills predniSONE (DELTASONE) 20 mg tablet 30 tablet 1 Sig: Take 1 tablet by mouth once daily. promethazine (PHENERGAN) 6.25 mg/5 mL syrup 120 mL 0 Sig: TAKE 5 ML TO 10 ML BY MOUTH EVERY 6 HOURS NEEDED Please review and advise. Harry Brannon RN documented in this encounter [facility] 07-05-2023 Note HNO ID: [id number] Author: Corey Ho Service: ? Author Type: ? Type: Progress Notes Filed: 07/17/2023 9:37 AM Note Text: [facility] Specialty Refill Assessment Medication(s): tagrisso No new clinical information to review since last SPP refill encounter. Next OV scheduled 08/14. ALLERGIES No Known Allergies Patient's current medication list and adherence status to current therapy were reviewed by Specialty Pharmacy clinical pharmacist to identify any new drug interactions or non-compliance to therapy. Therapy continues to be appropriate for disease, patient response, and medical condition. Verification of therapeutic benefit and effectiveness with current therapy was completed. Adverse events, barriers in adherence, and side effects were assessed and addressed if applicable. Will proceed with refill with no changes in therapy - patient progressing towards achieving therapeutic goals based on medication-specific laboratory parameters, disease state markers and outcomes. Yuni Richards, KelleyD Clinical Pharmacist, Oncology [facility] P: ; F: Pool: P [facility] Pool #: [id number] 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 Patient confirmed: Yes Med/dose confirmed: Yes Supplies needed: No supplies needed Missed doses: No Estimated days supply on hand: 6 Copay amount: 38.7 Copay form of payment: Credit card on file Payment confirmed: Yes Delivery method: FedEx Signature required: Waived on patient request Delivery address: [address] [place] [id number] Delivery date: 07/18/23 Questions or concerns for the pharmacist?: No [facility] Visit Assessment - Hematology/Oncology: Ivent complete: No Assessment to use: Refill Vaccination Assessment: Date of influenza vaccination reminder: 06/12/2023 Date of most recent vaccination assessment: 06/12/2023 Refill Assessment: Lab monitoring inclusive of CBC, Chem-7, and other labs as pertinent for therapy: Yes Chemo cycle timing assessment: N/A Screening for infection: Yes Adverse reactions and mitigation: Yes Medication changes and interaction assessment: Yes Assessment of injection issues: N/A Additional Assessment: Assessment of continued need for prophylactic medications at regular intervals: Yes Radiology procedure timing to assess for disease progression: Yes Scheduled future appointments: Yes Corey Ho [facility] 06-14-2023 Note Department of Psychi atry Outpatient Progress Note Time In: 2:00 Time Out: 2:30 Present At Visit: Patient and Caregiver Clinician Location: Clinician in office Patient Location: In office SUBJECTIVE CC: Chief Complaint Patient presents with Med Management HPI: Seymour Lucia is a 83 y.o. female presenting to the [facility] for a follow up appointment.She has a diagnosis of bipolar mood disorder as well as mild dementia.Overall the past few years she also being treated for lung cancer.She came today with her daughter and both her and the patient reported stable mental status on current medications and despite treatment for cancer.patient is alesrt and very pleasant,denied any acute problems with her mood and she acknowledge her memory problems .She lives with her daughter and she has a very good care. Daughter reported episodic shakiness that could be related to anxiety that is a bit more a of new symptom. --- Onset/Timing: more then 20 years ago Context: Severity: moderate --- Mood: No anhedonia, No crying spells, No excessive excitement, No hopelessness, No increased energy, No irritability, and No suicidal ideations Anxiety: No compulsive behavior and No generalized worry Trauma/Abuse: No abuse reported Cognition: No paranoia and No wandering Sleep: Not hypersomnolent and No insomnia Lifestyle Habits: Structured routine of day --- Individualized Service Plan (ISP): Treatment Plan Revision Date: 06/14/23 Review Date: 06/14/24 Service Provider: kahlil powers md Service Frequency: 6+ Weeks Patient's Needs: stable mood Strengths or Assets: supportive family,cooperative Patient's Stated Goals: stable mood In opioid treatment or medication-assisted treatment?: No Goal (Required): stable mood Required Objective: Patient will achieve/maintain a PHQ-9 score of Mild (0-4) over the next year. Mood Objective: Patient will report satisfaction with symptoms of depression or mood at each visit over the next 12 months. Anxiety Objective: Patient will report satisfaction with symptoms of anxiety at each visit over the next 12 months. General Objective: Patient will report adherence to medication recommendations at each visit over the next 12 months. Progress Toward ISP Goals/Objectives: achieved --- Therapeutic Intervention(s): Assessed Mood, Assessed Thinking, Assessed Safety, Discussed Medications, Reviewed Vitals, and Reviewed Medications Response to Intervention: Agreeable --- Psychosocial update: --- Medical update (eg, other health issues, other medication changes): treated for lung cancer --- Medication Compliance: Greater than 90% OARRS: Reviewed, no concerns noted MEDICAL REVIEW OF SYSTEMS Review of Systems OBJECTIVE Rating Scales Today's SAHARA-7 score was: SAHARA-7 Total Score: 2 Today's PHQ-9 score was: Mental Status Exam Level of Alertness: alert Appearance: appears stated age and dressed appropriately Eye Contact: normal Build/Stature: normal weight Posture: good posture Muscle Tone: normal Gait and Ambulation: in wheelchair Station: N/A Attitude Toward Examiner: cooperative and pleasant Behavior: normal Speech: coherent reciprocal Language: expressive normal and receptive normal Mood: euthymic Affect: appropriate and congruent Thought Process: goal-directed Thought Content: no delusions, no hallucinations, and no homicidal ideation Orientation: oriented to person, oriented to place, and oriented to time Attention and Concentration: able to focus Memory: able to comment on events and conversation content appropriate Abstraction: Proverbs: Not assessed Abstraction: Object Similarities: Not assessed Estimated Intelligence: average Insight: intact Judgment: social judgment intact Reliability: somewhat reliable Vitals and Weight Visit Vitals BP 124/82 Pulse 77 60.3kg Current Medications Current Outpatient Medications: clonazePAM (KlonoPIN) 0.5 mg tablet, Take 0.5 tablets (0.25 mg) by mouth in the morning, at noon, and at bedtime., Disp: 45 tablet, Rfl: 3 cloNIDine (Catapres) 0.1 mg tablet, Take 1 tablet (0.1 mg) by mouth at bedtime., Disp: 90 tablet, Rfl: 1 lamoTRIgine (LaMICtal) 200 mg tablet, Take 1 tablet (200 mg) by mouth at bedtime., Disp: 90 tablet, Rfl: 3 memantine (Namenda) 10 mg tablet, Take 1 tablet (10 mg) by mouth in the morning and at bedtime., Disp: 180 tablet, Rfl: 0 QUEtiapine (SEROquel) 100 mg tablet, Take 1 tablet (100 mg) by mouth at bedtime., Disp: 90 tablet, Rfl: 0 QUEtiapine (SEROquel) 25 mg tablet, TAKE 2 TABLETS DAILY AT BEDTIME, Disp: 180 tablet, Rfl: 1 rivastigmine (Exelon) 13.3 mg/24 hour, APPLY 1 PATCH TOPICALLY ONCE DAILY DIRECTED, Disp: 90 patch, Rfl: 1 Most Recent Labwork No results found for: WBC, HCT, HGB, PLT No results found for: NA, K, CL, BUN, CREATININE, CALCIUM, MG, AST, ALT, PROT, ALBUMIN No (more content not included)... [facility] 06-14-2023 Note [id number] Adela Lucia ma N 1940 F Date Provider Department Center 06/14/2023 KAHLIL DINH [facility] Lydia Heal No family history on file Level of Service:00383 NM OFFICE/OUTPATIENT ESTABLISHED LOW MDM 20-29 MIN Reason for Visit and Comments: Med Management [[id number]] [facility] 06-08-2023 Note HNO ID: [id number] Author: Corey Ho Service: ? Author Type: ? Type: Progress Notes Filed: 06/12/2023 12:32 PM Note Text: [facility] Specialty Refill Assessment Medication(s): tagrisso No new clinical information to review since last SPP refill encounter. Next OV scheduled 08/14/23. ALLERGIES No Known Allergies Patient's current medication list and adherence status to current therapy were reviewed by Specialty Pharmacy clinical pharmacist to identify any new drug interactions or non-compliance to therapy. Therapy continues to be appropriate for disease, patient response, and medical condition. Verification of therapeutic benefit and effectiveness with current therapy was completed. Adverse events, barriers in adherence, and side effects were assessed and addressed if applicable. Will proceed with refill with no changes in therapy - patient progressing towards achieving therapeutic goals based on medication-specific laboratory parameters, disease state markers and outcomes. Gavi Godoy, PharmD Clinical Pharmacist, Oncology [facility] P: , F: Pool: P [facility] Pool #: [id number] 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 Patient confirmed: Yes Med/dose confirmed: Yes Supplies needed: No supplies needed Missed doses: No Estimated days supply on hand: 5 Copay amount: 38.7 Copay form of payment: Credit card on file Payment confirmed: Yes Delivery method: FedEx Signature required: Waived on patient request Delivery address: [address] [place] [address] Delivery date: 06/14/23 Questions or concerns for the pharmacist?: No [facility] Visit Assessment - Hematology/Oncology: Ivent complete: No Assessment to use: Refill Vaccination Assessment: Annual influenza vaccination reminder: Yes Date of influenza vaccination reminder: 06/12/2023 Vaccination assessment completed: Yes Date of most recent vaccination assessment: 06/12/2023 Refill Assessment: Lab monitoring inclusive of CBC, Chem-7, and other labs as pertinent for therapy: Yes Chemo cycle timing assessment: N/A Screening for infection: Yes Adverse reactions and mitigation: Yes Medication changes and interaction assessment: Yes Assessment of injection issues: N/A Additional Assessment: Assessment of continued need for prophylactic medications at regular intervals: Yes Radiology procedure timing to assess for disease progression: Yes Scheduled future appointments: Yes Corey Ho [facility] 06-04-2023 Miscellaneous Notes I agree. She may need a repeat MRI of the brain Call received from daughter stating pt has been doing a lot of head bobbing and legs/arms shaking lately. Pt is on several medications for dementia and daughter feels that there's probably a plateau in her medications, but is asking if it could possibly be a side effect from the osimertinib. Spoke with Sridhar in pharmacy who doesn't see anything listed on package insert that would be a side effect from osimertinib. Pt's daughter states pt has an appointment with her dementia doctor on 06/14/23 regarding symptoms she's having. Harry Brannon RN documented in this encounter [facility] 05-08-2023 Note HNO ID: [id number] Author: Miri Heredia Service: ? Author Type: ? Type: Progress Notes Filed: 05/10/2023 6:40 AM Note Text: [facility] Refill Assessment Medication(s): Tagrisso No new clinical information to review since last SPP refill encounter. Next OV scheduled 08/14. ALLERGIES No Known Allergies Patient's current medication list and adherence status to current therapy were reviewed by Specialty Pharmacy clinical pharmacist to identify any new drug interactions or non-compliance to therapy. Therapy continues to be appropriate for disease, patient response, and medical condition. Verification of therapeutic benefit and effectiveness with current therapy was completed. Adverse events, barriers in adherence, and side effects were assessed and addressed if applicable. Will proceed with refill with no changes in therapy - patient progressing towards achieving therapeutic goals based on medication-specific laboratory parameters, disease state markers and outcomes. Nakia Bautista, KelleyD, BCACP Clinical Pharmacist, Oncology [facility] P: , F: Pool: P [facility] Pool #: [id number] 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 Patient confirmed: Yes Med/dose confirmed: Yes Supplies needed: No supplies needed Missed doses: No Estimated days supply on hand: 7 Copay amount: 38.7 Copay form of payment: Credit card on file Payment confirmed: Yes Delivery method: FedEx Signature required: Waived on patient request Delivery address: [address] [place] [address], [id number] Delivery date: 05/11/23 Questions or concerns for the pharmacist?: No [facility] Visit Assessment - Hematology/Oncology: Ivent complete: No Assessment to use: Refill Vaccination Assessment: Date of influenza vaccination reminder: 05/08/2022 Date of most recent vaccination assessment: 05/08/2022 Refill Assessment: Lab monitoring inclusive of CBC, Chem-7, and other labs as pertinent for therapy: Yes Chemo cycle timing assessment: N/A Screening for infection: Yes Adverse reactions and mitigation: Yes Medication changes and interaction assessment: Yes Assessment of injection issues: N/A Additional Assessment: Assessment of continued need for prophylactic medications at regular intervals: Yes Radiology procedure timing to assess for disease progression: Yes Scheduled future appointments: Yes Miri Heredia [facility] 05-01-2023 Miscellaneous Notes Pt's daughter notified. Harry Brannon RN sent Call received from pt's daughter requesting prednisone to have on hand at home as needed for pt when she has her weaker days. Pt continues to take hydrocortisone now, but this isn't as effective anymore and pt needs something else for the days when he's weaker. Daughter states pt has had more falls and could really using something else. Please advise Harry Brannon RN documented in this encounter [facility] 04-20-2023 Miscellaneous Notes Pt was initially ordered home health by [facility]. Call was received for us to be the attending for this and Dr Churchill agreed. Call received from David physical therapist at [facility], stating they have reached out to pt/daughter several times over the last couple of weeks and they are not going to initiate home health/PT at this time due to several attempts and no response. Will be available in the future if any needs arise. Harry Brannon RN documented in this encounter [facility] 04-12-2023 Miscellaneous Notes Dorina @ [facility] notified. Con Salmon RN Images from the original note were not included. Yanci Churchill MD You 58 minutes ago (12:00 PM) We can. Thanks. Dorina from [facility] reports that the pt does not currently have a PCP. Pt has been referred to them for in home physical therapy. [facility] asks if you will follow pt for [facility] services. Con Salmon RN documented in this encounter [facility] 04-11-2023 Note HNO ID: [id number] Author: Miri Heredia Service: ? Author Type: ? Type: Progress Notes Filed: 04/17/2023 9:32 AM Note Text: [facility]ty Refill Assessment Medication(s): Tagrisso No new clinical information to review since last SPP refill encounter. Next OV scheduled 08/14 with labs ALLERGIES No Known Allergies Patient's current medication list and adherence status to current therapy were reviewed by Specialty Pharmacy clinical pharmacist to identify any new drug interactions or non-compliance to therapy. Therapy continues to be appropriate for disease, patient response, and medical condition. Verification of therapeutic benefit and effectiveness with current therapy was completed. Adverse events, barriers in adherence, and side effects were assessed and addressed if applicable. Will proceed with refill with no changes in therapy - patient progressing towards achieving therapeutic goals based on medication-specific laboratory parameters, disease state markers and outcomes. Yuni Richards, KelleyD Clinical Pharmacist, Oncology [facility] P: ; F: Pool: P [facility] Pool #: [id number] 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 Patient confirmed: Yes Med/dose confirmed: Yes Supplies needed: No supplies needed Missed doses: Yes Count of missed doses: 2 Reason for missed doses: forgot Estimated days supply on hand: 8 Copay amount: 38.7 Copay form of payment: Credit card on file Payment confirmed: Yes Delivery method: FedEx Signature required: Waived on patient request Delivery address: [address] [place] [address], [place], [address] Delivery date: 04/18/23 Questions or concerns for the pharmacist?: No [facility] Visit Assessment - Hematology/Oncology: Ivent complete: No Assessment to use: Refill Vaccination Assessment: Date of influenza vaccination reminder: 05/08/2022 Date of most recent vaccination assessment: 05/08/2022 Refill Assessment: Lab monitoring inclusive of CBC, Chem-7, and other labs as pertinent for therapy: Yes Chemo cycle timing assessment: N/A Screening for infection: Yes Adverse reactions and mitigation: Yes Medication changes and interaction assessment: Yes Assessment of injection issues: N/A Additional Assessment: Current MPR %: 97 Assessment of continued need for prophylactic medications at regular intervals: Yes Radiology procedure timing to assess for disease progression: Yes Scheduled future appointments: Yes Miri Heredia [facility] 04-05-2023 Miscellaneous Notes Call received from Dorina at [facility] stating they received a request from [facility] for pt to get set up with physical therapy, and they are needed a physician to order this for her. They have no physicians listed on file for the pt except Dr Churchill. Notified Dorina that Dr Lexi Escobar is her PCP and they will have her order the PT. Harry Brannon RN documented in this encounter [facility] 03-12-2023 Note HNO ID: [id number] Author: Janet Beck (Clinical Scientist) Service: ? Author Type: ? Type: Progress Notes Filed: 03/13/2023 7:30 AM Note Text: [facility] Refill Assessment Medication(s): Tagrisso No new clinical information to review since last SPP refill encounter. Next OV scheduled 08/14. ALLERGIES No Known Allergies Patient's current medication list and adherence status to current therapy were reviewed by Specialty Pharmacy clinical pharmacist to identify any new drug interactions or non-compliance to therapy. Therapy continues to be appropriate for disease, patient response, and medical condition. Verification of therapeutic benefit and effectiveness with current therapy was completed. Adverse events, barriers in adherence, and side effects were assessed and addressed if applicable. Will proceed with refill with no changes in therapy - patient progressing towards achieving therapeutic goals based on medication-specific laboratory parameters, disease state markers and outcomes. Damien Awad, PharmD, AAHIVP Clinical Pharmacist, Oncology [facility] P: ; F: Pool: P [facility] Pool #: [id number] 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 Patient confirmed: Yes Med/dose confirmed: Yes Supplies needed: No supplies needed Missed doses: No Estimated days supply on hand: 9 Copay amount: 38.7 Copay form of payment: Credit card on file Payment confirmed: Yes Delivery method: FedEx Signature required: Waived on patient request Delivery address: [address] [place] [address] Delivery date: 03/14/23 Questions or concerns for the pharmacist?: No [facility] Visit Assessment - Hematology/Oncology: Ivent complete: No Assessment to use: Refill Vaccination Assessment: Date of influenza vaccination reminder: 05/08/2022 Date of most recent vaccination assessment: 05/08/2022 Refill Assessment: Lab monitoring inclusive of CBC, Chem-7, and other labs as pertinent for therapy: Yes Chemo cycle timing assessment: N/A Screening for infection: Yes Adverse reactions and mitigation: Yes Medication changes and interaction assessment: Yes Assessment of injection issues: N/A Additional Assessment: Assessment of continued need for prophylactic medications at regular intervals: Yes Radiology procedure timing to assess for disease progression: Yes Scheduled future appointments: Yes Janet Beck (Clinical Scientist) [facility] 03-12-2023 History of Present illness Narrative [facility] Special[facility] Refill Assessment Medication(s): Tagrisso Patient's current medication list and adherence status to current therapy were reviewed by Specialty Pharmacy clinical pharmacist to identify any new drug interactions or non-compliance to therapy. Therapy continues to be appropriate for disease, patient response, and medical condition. Verification of therapeutic benefit and effectiveness with current therapy was completed. Adverse events, barriers in adherence, and side effects were assessed and addressed if applicable. Will proceed with refill with no changes in therapy - patient progressing towards achieving therapeutic goals based on medication-specific laboratory parameters, disease state markers and outcomes. 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 Patient confirmed: Yes Med/dose confirmed: Yes Supplies needed: No supplies needed Missed doses: No Estimated days supply on hand: 9 Copay amount: 38.7 Copay form of payment: Credit card on file Payment confirmed: Yes Delivery method: FedEx Signature required: Waived on patient request Delivery address: [address] [place] [address] Delivery date: 03/14/23 Questions or concerns for the pharmacist?: No [facility] Visit Assessment - Hematology/Oncology: Assessment to use: Refill Vaccination Assessment: Date of influenza vaccination reminder: 05/08/2022 Date of most recent vaccination assessment: 05/08/2022 Janet Beck ([employer]) documented in this encounter [facility] 02-21-2023 Miscellaneous Notes Ryan Wood Neri spoke with Anitha. She states they have received this referral and have patient scheduled for EGD and Colonoscopy with Dr Olsen on 02/26/23. Jaye Dixon Pss Pt's daughter calls requesting an update on this. Notified her that records were faxed to their office yesterday and they would be reaching out to pt to schedule appointment. Dr Olsen's office number provided to daughter. Harry Brannon, RN Records faxed to Dr. Olsen. Maria D: Information ready for you. Jaye Dixon Pss Refer to Dr Olsen. Pily FLOOD Dx Constipation. His office to call the patient after review of records. Maria D, Please fax records Peter, Please follow up on this appt. documented in this encounter [facility] 02-14-2023 Note HNO ID: [id number] Author: Yelena Landin Service: ? Author Type: ? Type: Progress Notes Filed: 02/16/2023 11:31 AM Note Text: [facility] Refill Assessment Medication(s): Tagrisso Reviewed OV note on 02/13. Labs reviewed. Next clinic visit scheduled 08/14. ALLERGIES No Known Allergies Patient's current medication list and adherence status to current therapy were reviewed by Specialty Pharmacy clinical pharmacist to identify any new drug interactions or non-compliance to therapy. Therapy continues to be appropriate for disease, patient response, and medical condition. Verification of therapeutic benefit and effectiveness with current therapy was completed. Adverse events, barriers in adherence, and side effects were assessed and addressed if applicable. Will proceed with refill with no changes in therapy - patient progressing towards achieving therapeutic goals based on medication-specific laboratory parameters, disease state markers and outcomes. Damien Awad, PharmD, AAHIVP Clinical Pharmacist, Oncology [facility] P: ; F: Pool: P [facility] Pool #: [id number] 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 Patient confirmed: Yes Med/dose confirmed: Yes Supplies needed: No supplies needed Missed doses: No Estimated days supply on hand: 1 Next cycle/dose due: 02/17/23 Copay amount: 38.7 Copay form of payment: Credit card on file (Same card as last month- [id number]) Payment confirmed: Yes Delivery method: FedEx Signature required: No Delivery address: [address] [place] [address] Delivery date: 02/17/23 Questions or concerns for the pharmacist?: No [facility] Visit Assessment - Hematology/Oncology: Ivent complete: No Assessment to use: Refill Vaccination Assessment: Date of influenza vaccination reminder: 05/08/2022 Date of most recent vaccination assessment: 05/08/2022 Refill Assessment: Lab monitoring inclusive of CBC, Chem-7, and other labs as pertinent for therapy: Yes Chemo cycle timing assessment: N/A Screening for infection: Yes Adverse reactions and mitigation: Yes Medication changes and interaction assessment: Yes Assessment of injection issues: N/A Additional Assessment: Assessment of continued need for prophylactic medications at regular intervals: Yes Radiology procedure timing to assess for disease progression: Yes Scheduled future appointments: Yes Yelena Landin CPhT, Inflammatory/Allergy [facility] [phone] [facility] 02-14-2023 Note HNO ID: [id number] Author: Yelena Landin Service: ? Author Type: ? Type: Progress Notes Filed: 02/16/2023 10:06 AM Note Text: [facility] Refill Assessment Medication(s): Tagrisso Patient's current medication list and adherence status to current therapy were reviewed by Specialty Pharmacy clinical pharmacist to identify any new drug interactions or non-compliance to therapy. Therapy continues to be appropriate for disease, patient response, and medical condition. Verification of therapeutic benefit and effectiveness with current therapy was completed. Adverse events, barriers in adherence, and side effects were assessed and addressed if applicable. Will proceed with refill with no changes in therapy - patient progressing towards achieving therapeutic goals based on medication-specific laboratory parameters, disease state markers and outcomes. 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 Patient confirmed: Yes Med/dose confirmed: Yes Supplies needed: No supplies needed Missed doses: No Estimated days supply on hand: 1 Next cycle/dose due: 02/17/23 Copay amount: 38.7 (CC [id number]) Copay form of payment: Credit card on file Payment confirmed: Yes Delivery method: FedEx Signature required: No Delivery address: [address] [place] [address] Delivery date: 02/17/23 Questions or concerns for the pharmacist?: No [facility] Visit Assessment - Hematology/Oncology: Assessment to use: Refill Vaccination Assessment: Date of influenza vaccination reminder: 05/08/2022 Date of most recent vaccination assessment: 05/08/2022 Yelena Landin CPhT, Inflammatory/Allergy [facility] [phone] [facility] 02-13-2023 Note HNO ID: [id number] Author: Yanci Churchill MD Service: ? Author Type: Physician Type: Progress Notes Filed: 02/13/2023 2:36 PM Note Text: PATIENT NAME: Seymour Lucia CLINIC NO.: [id number] ATTENDING PHYSICIAN: Yanci Churchill MD DATE OF SERVICE: February 13, 2023 Some of the elements of this note have been copied from my previous progress note dated 03/07/2022. All the information has been reviewed carefully. Dear Dr. James, here is an update on a follow up visit on female Seymour Lucia at the clinic February 13, 2023 Diagnosis: 1. 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 2. ? 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 Radiation T8-T10 10/03- 11/05/2018-- 3000 cGy 2. GKRS- 11/20/2018-- AREA TREATED: 1) Right frontal. 2) Right temporal. 3) Left anterior temporal. 4) Left posterior temporal. 5) Left cerebellar. 3. Osimertinib 10/2018 4. Radiation to L3-L5 02/21-02/25/2019 HPI: Seymour Lucia is a 82 year old year old female here for follow up. Doing well and complaining of dysphagia and also constipatrion. Denies any abdominal pain and also denies any CUELLO. 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 REVIEW OF SYSTEMS GENERAL: No weight loss, malaise or fevers. No night sweats. HEENT: Negative for headaches, No changes in hearing or vision, no nose bleeds or other nasal problems. RESPIRATORY: Negative for cough, wheezing and shortness of breath CARDIOVASCULAR: Negative for chest pain, leg swelling and palpitations GI: Negative for abdominal discomfort, blood in stools or black stools and change in bowel habits : Negative for dysuria, frequency and incontinence MUSCULOSKELETAL: Negative for joint pain or swelling, back pain, and muscle pain. SKIN: Negative for lesions, rash, and itching. HEMATOLOGY/LYMPHOLOGY Negative for prolonged bleeding, bruising easily, and swollen nodes. NEURO: Negative for numbness or tingling of hands/feet. No weakness. PHYSICAL EXAMINATION: BP 129/63 Pulse 79 Temp (Src) 97.3 (Temporal) Resp 16 Ht 5' 4.173 (1.63m) Wt 137 lb 6.4 oz (62.3kg) SpO2 95% BMI 23.46 kg/(m2). 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 Up and about > 50% of waking hrs. Patient in NAD. Skin: Skin color, texture, turgor normal. No rashes or lesions. Eyes: Anicteric sclera. Pupils are equally round and reactive to light. Extraocular movements are intact. Lymph Nodes: No cervical, supraclavicular, axillary or inguinal adenopathy. Oropharynx: Lips, mucosa, and tongue normal. Back: No pain to percussion. Negative SLR test Lungs clear to auscultation, No wheezing or rhonchi Heart: RRR without murmur, gallop, or rubs. Abdomen soft, non-tender. No masses, organomegaly Extremities: No deformities. No edema Neuro: Gait and speech normal. Reflexes normal and symmetric. Muscular strength intact. Sensation grossly intact. Rectal: Deferred : Deferred LABS: Glucose (mg/dL) Date Value 02/08/2023 85 06/14/2021 90 Potassium (mmol/L) Date Value 02/08/2023 4.0 06/14/2021 3.7 Sodium (mmol/L) Date Value 02/08/2023 140 06/14/2021 143 Chloride (mmol/L) Date Value 02/08/2023 103 06/14/2021 109 CO2 (mmol/L) Date Value 02/08/2023 31 06/14/2021 28 Creatinine (mg/dL) Date Value 02/08/2023 0.88 06/14/2021 1.00 BUN (mg/dL) Date Value 02/08/2023 17 06/14/2021 20 Anion Gap (mmol/L) Date Value 02/08/2023 6 06/14/2021 6 Calcium (mg/dL) Date Value 06/14/2021 9.7 Calcium, Total (mg/dL) Date Value 02/08/2023 9.5 Protein, Total (g/dL) Date Value 02/08/2023 6.7 06/14/2021 6.2 Albumin (g/dL) Date Value 02/08/2023 3.5 06/14/2021 3.8 Bilirubin, Total (mg/dL) Date Value 02/08/2023 0.2 06/14/2021 0.2 Alkaline Phosphatase (U/L) Date Value 02/08/2023 355 06/14/2021 99 AST (U/L) Date Value 02/08/2023 41 06/14/2021 16 ALT (U/L) [place] (more content not included)... [facility] 02-13-2023 History of Present illness Narrative PATIENT NAME: Seymour Lucia CLINIC NO.: [id number] ATTENDING PHYSICIAN: Yanci Churchill MD DATE OF SERVICE: February 13, 2023 Some of the elements of this note have been copied from my previous progress note dated 03/07/2022. All the information has been reviewed carefully. Dear Dr. James, here is an update on a follow up visit on female Seymour Lucia at the clinic February 13, 2023 Diagnosis: 1. 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 2. ? 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 Radiation T8-T10 10/03- 11/05/2018-- 3000 cGy 2. GKRS- 11/20/2018-- AREA TREATED: 1) Right frontal. 2) Right temporal. 3) Left anterior temporal. 4) Left posterior temporal. 5) Left cerebellar. 3. Osimertinib 10/2018 4. Radiation to L3-L5 02/21-02/25/2019 HPI: Seymour Lucia is a 82 year old year old female here for follow up. Doing well and complaining of dysphagia and also constipatrion. Denies any abdominal pain and also denies any CUELLO. 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 REVIEW OF SYSTEMS GENERAL: No weight loss, malaise or fevers. No night sweats. HEENT: Negative for headaches, No changes in hearing or vision, no nose bleeds or other nasal problems. RESPIRATORY: Negative for cough, wheezing and shortness of breath CARDIOVASCULAR: Negative for chest pain, leg swelling and palpitations GI: Negative for abdominal discomfort, blood in stools or black stools and change in bowel habits : Negative for dysuria, frequency and incontinence MUSCULOSKELETAL: Negative for joint pain or swelling, back pain, and muscle pain. SKIN: Negative for lesions, rash, and itching. HEMATOLOGY/LYMPHOLOGY Negative for prolonged bleeding, bruising easily, and swollen nodes. NEURO: Negative for numbness or tingling of hands/feet. No weakness. PHYSICAL EXAMINATION: BP 129/63 Pulse 79 Temp (Src) 97.3 (Temporal) Resp 16 Ht 5' 4.173 (1.63m) Wt 137 lb 6.4 oz (62.3kg) SpO2 95% BMI 23.46 kg/(m^2). 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 Up and about > 50% of waking hrs. Patient in NAD. Skin: Skin color, texture, turgor normal. No rashes or lesions. Eyes: Anicteric sclera. Pupils are equally round and reactive to light. Extraocular movements are intact. Lymph Nodes: No cervical, supraclavicular, axillary or inguinal adenopathy. Oropharynx: Lips, mucosa, and tongue normal. Back: No pain to percussion. Negative SLR test Lungs clear to auscultation, No wheezing or rhonchi Heart: RRR without murmur, gallop, or rubs. Abdomen soft, non-tender. No masses, organomegaly Extremities: No deformities. No edema Neuro: Gait and speech normal. Reflexes normal and symmetric. Muscular strength intact. Sensation grossly intact. Rectal: Deferred : Deferred LABS: Glucose (mg/dL) Date Value 02/08/2023 85 06/14/2021 90 Potassium (mmol/L) Date Value 02/08/2023 4.0 06/14/2021 3.7 Sodium (mmol/L) Date Value 02/08/2023 140 06/14/2021 143 Chloride (mmol/L) Date Value 02/08/2023 103 06/14/2021 109 CO2 (mmol/L) Date Value 02/08/2023 31 06/14/2021 28 Creatinine (mg/dL) Date Value 02/08/2023 0.88 06/14/2021 1.00 BUN (mg/dL) Date Value 02/08/2023 17 06/14/2021 20 Anion Gap (mmol/L) Date Value 02/08/2023 6 06/14/2021 6 Calcium (mg/dL) Date Value 06/14/2021 9.7 Calcium, Total (mg/dL) Date Value 02/08/2023 9.5 Protein, Total (g/dL) Date Value 02/08/2023 6.7 06/14/2021 6.2 Albumin (g/dL) Date Value 02/08/2023 3.5 06/14/2021 3.8 Bilirubin, Total (mg/dL) Date Value 02/08/2023 0.2 06/14/2021 0.2 Alkaline Phosphatase (U/L) Date Value 02/08/2023 355 06/14/2021 99 AST (U/L) Date Value 02/08/2023 41 06/14/2021 16 ALT (U/L) Date Value 02/08/2023 38 06/14/2021 9 WBC Date Value Ref Range Status 02/08/2023 7.10 3.70 - 11.00 k/uL Final RBC Date Value Ref Range Status 02/08/2023 3.68 (L) 3.90 - 5.20 m/uL Final Hemoglobin Date Value Ref Range Status 02/08/2023 9.2 (L) 11.5 - 15.5 g/dL Final Hematocrit Date Value Ref Range Status 02/08/2023 31.1 (L) 36.0 - 46.0 % Final MCV Date Value Ref Range Status 02/08/2023 84.5 80.0 - 100.0 fL Final MCH Date Value Ref Range Status 02/08/2023 25.0 (L) 26.0 - 34.0 pg Final MCHC Date Value Ref Range Status 02/08/2023 29.6 (L) 30.5 - 36.0 g/dL Final RDW-CV Date Value Ref Range Status 02/08/2023 18.7 (H) 11.5 - 15.0 % Final Platelet Count Date Value Ref Range Status 02/08/2023 200 150 - 400 k/uL Final MPV Date Value Ref Range Status 02/08/2023 10.2 9.0 - 12.7 fL Final Abs Neut Date Value Ref Range Status 02/08/2023 3.53 1.45 - 7.50 k/uL Final Lymphocytes % Date Value Ref Range Status 02/08/2023 24.5 % Final Abs Lymph Date Value Ref Range Status 02/08/2023 1.74 1.00 - 4.00 k/uL Final Monocytes % Date Value Ref Range Status 02/08/2023 10.7 % Final Abs [place] Date Value Ref Range Status 02/08/2023 0.76 <0.87 k/uL Final Eosinophils % Date Value Ref Range Status 02/08/2023 14.4 % Final Abs Eosin Date Value Ref Range Status 02/08/2023 1.02 (H) <0.46 k/uL Final Basophils % Date Value Ref Range Status 02/08/2023 0.4 % Final Abs Baso Date Value Ref Range Status 02/08/2023 0.03 <0.11 k/uL Final PATH: CT guided T9 vertebral body biopsy: A. BONE LESION, VERTEBRAL, FINE NEEDLE ASPIRATE(THINPREP AND CELL BLOCK) Positive for malignant cells. Metastatic non-small cell carcinoma. BRAF No variant detected [Reference Sequence: ([id number])]. EGFR - A sequence change c.2573T>G (p.L858R) in exon 21 was detected at approximately 54% allelic proportion (depth of coverage at change 3377) [Reference Sequence: ([id number])]. HER2 (ERBB2) - No variant detected [Reference sequence: ([id number])]. KRAS - No variant detected [Reference Sequence: ([id number])]. MET- No variant detected [Reference Sequence: ([id number])]. Imaging: MRI of the Brain 03/01/2020: Stable punctate focus of enhancement in the right posterior temporal lobe without associated edema. This may represent a tiny residual metastasis versus small vessel. Otherwise normal MRI brain. No new intracranial lesions. MRI Brain 10/20/2020: 1. No acute intracranial findings. 2. No evidence of intracranial metastatic disease. 3. MRI of the brain is within normal limits for age. CT of the chest and Abdomen and Pelvis 10/20/2020: No metastasis in the abdomen or pelvis. No significant change in biliary ductal dilatation of indeterminate etiology 1. Continued decrease in size of left upper lobe nodule with adjacent postradiation scarring and parenchymal retraction. No findings of recurrent lung cancer. 2. Stable 7 mm groundglass nodule in right lower lobe. This could represent an indolent neoplastic lesion in adenocarcinoma spectrum or atypical adenomatoid hyperplasia. No new lung nodules. 3. No significant lymph node enlargement in the thorax. MRI of the brain February 24, 2021: No change in the left Meckel's cave lesion compared to multiple prior examinations, likely incidental schwannoma. No new intracranial enhancement to indicate residual or recurrent intracranial metastasis. CT scan of the chest abdomen and pelvis April 21, 2021: 1. Stable CT of the chest. Unchanged appearance of left upper lobe nodular opacity measuring up to 1.2 cm in size. 2. Stable appearance of right lower lobe groundglass opacity. No new or enlarging nodules are seen. 3. No evidence of bulky intrathoracic lymphadenopathy. 1. No definite findings to suggest abdominal or pelvic metastatic disease. 2. Intrahepatic and extra hepatic biliary ductal dilation, similar to prior exam. Findings are greater than expected status post cholecystectomy. Recommend correlation with LFTs. If clinically warranted, consider further evaluation with ERCP or MRCP. 3. Colonic diverticulosis without evidence of diverticulitis. MRI Brain 10/2021: No pathologic enhancement in the brain parenchyma to suggest new or recurrent intra-axial or leptomeningeal metastases. Stable 3 mm focus of enhancement in the left Meckel's cave compatible with a small schwannoma CT of the Chest and Abdomen and Pelvis 11/2021: 1. No CT evidence for metastatic disease to the abdomen or pelvis. 2. Stable appearance to intrahepatic and extrahepatic biliary dilation, likely postoperative in nature 1. 1.3 x 1.0 cm nodular focus at the anteromedial aspect of the left upper lobe, stable from prior study of 04/21/2021. Additional 7 mm right lower lobe groundglass opacity, unchanged. 2. No substantial intrathoracic adenopathy is identified. MRI brain 10/2022: Stable subcentimeter nodular enhancing lesion within the left Meckel's cave, possibly reflecting small schwannoma. No evidence of abnormal intracranial enhancement otherwise CT Scan of the Chest and Abdomen and Pelvis 01/2023: 1. Since 12/06/2021, unchanged 1.4 cm left upper lobe paramediastinal nodule and right lower lobe 0.8 cm groundglass nodule. 2. No lymphadenopathy. 1. No evidence of metastatic disease within the abdomen/pelvis. 2. Unchanged mild intrahepatic and moderate extrahepatic biliary ductal dilatation, of uncertain etiology and significance, given chronicity Assessment and Plan: Seymour Lucia is a 82 year old year old female here for follow up. 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 Post Spine radiation and also GKRS in 10/2018 and has been on Osimertinib since 10/2018 with good response. She is doing well with good tolerance of the Osimertinib, except for some nailbed changes which are stable. Last imaging of the Brain 10/2022 and extracranial disease 01/2023 with no progression See back in 6 months with repeat imaging and [employer] disease followed by NS at [facility] and repeat Brain MRI in 04/2023 Refer to GI Thank you for the kind referral. If there are any questions and or concerns please do not hesitate to contact me at [phone]. Yanci Churchill MD Hematology/Medical Oncology [facility] CC: Sal James MD I spent a total of 30 minutes on the date of the service which included preparing to see the patient, [id number] patient care, completing clinical documentation, obtaining and/or reviewing separately obtained history, performing a medically appropriate examination, counseling and educating the patient/family/caregiver and ordering medications, tests, or procedures. documented in this encounter [facility] 02-09-2023 Miscellaneous Notes Pt's daughter notified of results Harry Brannon RN ----- Message from Yanci Churchill MD sent at 02/09/2023 9:04 AM EDT ----- Call with stable CT documented in this encounter [facility] 02-08-2023 Note HNO ID: [id number] Author: Kandice Silva RN Service: ? Author Type: Registered Nurse Type: Progress Notes Filed: 02/08/2023 3:46 PM Note Text: Radiology Service Progress Note DATE OF SERVICE: February 08, 2023 TIME: 3:33 PM PATIENT WEIGHT: 135 LBS PATIENT IDENTITY VERIFICATION COMPLETED USING TWO (2) STANDARD IDENTIFIERS: Name and Date of confirmed by patient verbally. FALL SCREENING: Has the patient had 2 falls in the last year or 1 fall with injury or currently using an Ambulatory Assistive Device (Walker, Cane, Wheelchair, Crutches, etc.)? No PATIENT GENDER DATA: Female. status: : No status: NO. ALLERGIES: Reviewed and unchanged CONTRAST ALLERGY: No EXAM: CT -CONTRAST INDUCED NEPHROPATHY RISK FACTORS: Patient age > 60 years and Diabetic: No CREATININE: Creatinine Date Value Ref Range Status 02/08/2023 0.88 0.58 - 0.96 mg/dL Final 03/07/2022 1.28 (H) 0.58 - 0.96 mg/dL Final 12/06/2021 0.99 (H) 0.58 - 0.96 mg/dL Final Estimated Glomerular Filtration Rate Date Value Ref Range Status 02/08/2023 65 >=60 mL/min/1.73m? Final Comment: Estimated Glomerular Filtration Rate (eGFR) is calculated using the 2020 CKD-EPI creatinine equation. This equation utilizes serum creatinine, sex, and age as parameters. The creatinine assay has traceable calibration to isotope dilution-mass spectrometry. Refer to KDIGO guidelines for clinical interpretation. In patients with unstable renal function, e.g. those with acute kidney injury, the eGFR may not accurately reflect actual GFR. eGFR- Date Value Ref Range Status 06/14/2021 >60 Final P.O.C.T. RESULTS: POC done: Yes, See Lab Tab February 08, 2023 TREATMENT: N/A and No Hydration needed. IV SITE: Ambulatory: A power injectable Mediport was accessed in the Right chest with a .75 inch 20 gauge needle. Blood Return, Flushed easily with normal saline, Good Blood Return Post Injection, Needle Removed, No Complications, and flushed with 20cc NS no Heparin IV SITE APPEARANCE: Clean,Dry and Intact SIGNATURE: Kandice Silva RN PATIENT NAME: Seymour Lucia DATE: February 08, 2023 TIME: 3:33 PM [facility] 02-08-2023 Note HNO ID: [id number] Author: RT Jordon(R) Service: Radiology Author Type: Technologist Type: Progress Notes Filed: 02/08/2023 2:54 PM Note Text: Radiology Service Progress Note PATIENT NAME: Seymour Lucia DATE OF SERVICE: February 08, 2023 TIME: 2:53 PM PATIENT IDENTITY VERIFICATION COMPLETED USING TWO (2) IDENTIFIERS: Name and Date of confirmed by patient verbally. FALL SCREENING: Has the patient had 2 falls in the last year or 1 fall with injury or currently using an Ambulatory Assistive Device (Walker, Cane, Wheelchair, Crutches, etc.)? Yes, Patient High Risk for Falls What interventions were put in place to prevent falls during this visit? Offered Assistance with Transfers/Clothing, Instructed Patient to Remain Seated (Not on Exam Table) Until Exam, and Increased Observations by Caregivers PATIENT GENDER DATA: Female. status: : No status: NO. PATIENT RELEVANT IMPLANT DATA REVIEWED: Not Applicable RADIOLOGY DEPARTMENT: CT; Exam(s) Completed: Chest Abdomen Pelvis PERIPHERAL IV DATA: Site assessment: Clean,Dry and Intact, Site disposition Discontinued power port accessed by [email or web address] SIGNED BY: RT Jordon(R) February 08, 2023 2:53 PM [facility] 11-20-2022 Miscellaneous Notes Pt's daughter called in over the weekend regarding pt having a cough. Dr Richter called in a script for augmentin to her pharmacy. Daughter states cough is getting better and pt is feeling much better. Daughter will call back to reschedule pt's appointment as she was scheduled to see Dr Churchill in June, this was cancelled, and pt hasn't been rescheduled. aHrry Brannon RN documented in this encounter [facility] 11-14-2022 History of Present illness Narrative Radiology Service Progress Note DATE OF SERVICE: November 14, 2022 TIME: 12:32 PM PATIENT WEIGHT: 143 LBS PATIENT IDENTITY VERIFICATION COMPLETED USING TWO (2) STANDARD IDENTIFIERS: Name and Date of confirmed by patient verbally. FALL SCREENING: Has the patient had 2 falls in the last year or 1 fall with injury or currently using an Ambulatory Assistive Device (Walker, Cane, Wheelchair, Crutches, etc.)? Yes, Patient High Risk for Falls What interventions were put in place to prevent falls during this visit? Yellow Falls Risk Wristband Applied, Instructed Patient to Call for Help if Needed, Offered Assistance with Transfers/Clothing, Instructed Patient to Remain Seated (Not on Exam Table) Until Exam, Increased Observations by Caregivers, Escorted to/from Restroom, and patient is wearing her own shoes and using a wheelchair while in the department. PATIENT GENDER DATA: Female. status: : No status: NO. ALLERGIES: Reviewed and unchanged CONTRAST ALLERGY: No EXAM: MRI - CONTRAST TYPE: GROUP II IV SITE: Ambulatory: A power injectable Mediport was accessed in the Right chest with a 1 inch 20 gauge needle. Blood Return, Flushed easily with normal saline, Good Blood Return Post Injection, Flushed with 20 cc saline, and No Complications IV SITE APPEARANCE: Clean,Dry and Intact SIGNATURE: Gregory Sun RN PATIENT NAME: Seymour Lucia DATE: November 14, 2022 TIME: 12:32 PM Radiology Service Progress Note PATIENT NAME: Seymour Lucia DATE OF SERVICE: November 14, 2022 TIME: 1:07 PM PATIENT IDENTITY VERIFICATION COMPLETED USING TWO (2) IDENTIFIERS: Name and Date of confirmed by patient verbally and Name and Date of confirmed by identification band. FALL SCREENING: Has the patient had 2 falls in the last year or 1 fall with injury or currently using an Ambulatory Assistive Device (Walker, Cane, Wheelchair, Crutches, etc.)? Yes, Patient High Risk for Falls What interventions were put in place to prevent falls during this visit? Yellow Falls Risk Wristband Applied, Instructed Patient to Call for Help if Needed, Offered Assistance with Transfers/Clothing, Instructed Patient to Remain Seated (Not on Exam Table) Until Exam, and Increased Observations by Caregivers PATIENT GENDER DATA: Female. status: : No status: NO. PATIENT RELEVANT IMPLANT DATA REVIEWED: Yes RADIOLOGY DEPARTMENT: MR; Exam(s) Completed: Head: Routine Brain PERIPHERAL IV DATA: Site assessment: Clean,Dry and Intact, Site disposition Discontinued SIGNED BY: RT Millie(R) November 14, 2022 1:07 PM documented in this encounter [facility] 10-02-2022 History of Present illness Narrative [facility] Specialty Refill Assessment Medication(s): tagrisso Patient's current medication list and adherence status to current therapy were reviewed by Specialty Pharmacy clinical pharmacist to identify any new drug interactions or non-compliance to therapy. Therapy continues to be appropriate for disease, patient response, and medical condition. Verification of therapeutic benefit and effectiveness with current therapy was completed. Adverse events, barriers in adherence, and side effects were assessed and addressed if applicable. Will proceed with refill with no changes in therapy - patient progressing towards achieving therapeutic goals based on medication-specific laboratory parameters, disease state markers and outcomes. 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 Patient confirmed: Yes Med/dose confirmed: Yes Supplies needed: No supplies needed Missed doses: No Estimated days supply on hand: 7 Copay amount: 40 Copay form of payment: Credit card on file Payment confirmed: Yes Delivery method: FedEx Signature required: No Delivery address: [address] [place] [address] Delivery date: 10/05/22 Questions or concerns for the pharmacist?: No [facility] Visit Assessment - Hematology/Oncology: Assessment to use: Refill Vaccination Assessment: Date of influenza vaccination reminder: 05/08/2022 Date of most recent vaccination assessment: 05/08/2022 Nakia Barraza CPhT [facility] Specialty Pharmacy, Oncology P: / F: documented in this encounter [facility] 06-07-2022 Miscellaneous Notes Thecihkis dtr called in this morning cxing her scans, I offered them 4 other appointment dates before Nov and she wouldn't take any of them I just wanted to make you aware if she calls in this is an FYI . Thanks! documented in this encounter [facility] 06-05-2022 History of Present illness Narrative [facility] Specialty Refill Assessment Medication(s): Tagrisso Patient's current medication list and adherence status to current therapy were reviewed by Specialty Pharmacy clinical pharmacist to identify any new drug interactions or non-compliance to therapy. Therapy continues to be appropriate for disease, patient response, and medical condition. Verification of therapeutic benefit and effectiveness with current therapy was completed. Adverse events, barriers in adherence, and side effects were assessed and addressed if applicable. Will proceed with refill with no changes in therapy - patient progressing towards achieving therapeutic goals based on medication-specific laboratory parameters, disease state markers and outcomes. 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 Patient confirmed: Yes Med/dose confirmed: Yes Supplies needed: No supplies needed Missed doses: No Estimated days supply on hand: 7 Copay amount: 43.5 Copay form of payment: Credit card on file Payment confirmed: Yes Delivery method: [employer] Delivery address: [address] [place] [id number] Delivery date: 06/09/22 Questions or concerns for the pharmacist?: No (Does not want SS sent due to upcoming OV and Labs) [facility] SPECIALTY CLINICAL ASSESSMENT - HEMATOLOGY ONCOLOGY V2 Gabby Castillo ([employer] [employer]) documented in this encounter [facility] 05-09-2022 Miscellaneous Notes Spoke to patient's daughter (Radha) to discuss results of recent MRI brain scan completed on 04/10/22. Recommend continued observation with a repeat MRI brain scan in 6 months (due Sep 2022). She reports that patient is doing well and functioning about the same as prior visit. She has our contact information and was advised to call if new symptoms, questions or concerns arise prior to next scheduled visit. All questions were answered. Vickie Sanderson APRN.CNP documented in this encounter [facility] 04-04-2022 History of Present illness Narrative BP 138/78 manual left arm Copy of med list given to patient so her family can review, make adjustments and bring in to next appointment Angela Sanon RN Patient reports profound fatigue and relates it to having no appetite her blood pressure was 92/68 manual left arm. Heart rate 76 bpm. When attempting to assess her home meds she states that her daughter manages them. WIll recheck her blood pressure after IV hydration and discuss with her daughter when she arrives for picking machine operator. Angela Sanon RN documented in this encounter [facility] 04-04-2022 Miscellaneous Notes Patient will be in today 04/04 for fluids. Called and spoke w/ Rosemary and notified infusion nurses. Amber Her Chichi gives the ok for pt to come in for IV fluids. Clerical: Please call pt's daughter, Rosemary, to schedule. Thanks! Con Salmon RN Pt's daughter requesting to bring pt in for routine hydration. Notes it helps w/ pt's fatigue. Denies any additional problems at this time. Would like to bring pt in either tomorrow or if you approve. Con Salmon RN Voicemail message received from pt's daughter requesting to schedule pt this week for IV fluids. Call placed to pt's daughter for further assessment. No answer. Message left requesting call back. Con Salmon RN documented in this encounter [facility] 03-07-2022 History of Present illness Narrative PATIENT NAME: Seymour Lucia CLINIC NO.: [id number] ATTENDING PHYSICIAN: Yanci Churchill MD DATE OF SERVICE: March 07, 2022 Some of the elements of this note have been copied from my previous progress note dated 06/14/2021. All the information has been reviewed carefully. Dear Dr. James, here is an update on a follow up visit on female Seymour Lucia at the clinic March 07, 2022 Diagnosis: 1. 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 2. ? 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 Radiation T8-T10 10/03- 11/05/2018-- 3000 cGy 2. GKRS- 11/20/2018-- AREA TREATED: 1) Right frontal. 2) Right temporal. 3) Left anterior temporal. 4) Left posterior temporal. 5) Left cerebellar. 3. Osimertinib 10/2018 4. Radiation to L3-L5 02/21-02/25/2019 HPI: Seymour Lucia is a 81 year old year old female here for follow up. Overall doing reasonably well. Denies fever chills night sweats. Denies any abdominal pains or headaches. She did have a follow-up MRI in February 2021 which was negative for [employer] progression. She also has noticed some nail bed changes mostly in her right hand. Denies any paronychia. 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 REVIEW OF SYSTEMS GENERAL: No weight loss, malaise or fevers. No night sweats. HEENT: Negative for headaches, No changes in hearing or vision, no nose bleeds or other nasal problems. RESPIRATORY: Negative for cough, wheezing and shortness of breath CARDIOVASCULAR: Negative for chest pain, leg swelling and palpitations GI: Negative for abdominal discomfort, blood in stools or black stools and change in bowel habits : Negative for dysuria, frequency and incontinence MUSCULOSKELETAL: Negative for joint pain or swelling, back pain, and muscle pain. SKIN: Negative for lesions, rash, and itching. HEMATOLOGY/LYMPHOLOGY Negative for prolonged bleeding, bruising easily, and swollen nodes. NEURO: Negative for numbness or tingling of hands/feet. No weakness. PHYSICAL EXAMINATION: BP 125/60 Pulse 68 Temp (Src) 97 (Temporal) Resp 16 Ht 5' 4.173 (1.63m) Wt 144 lb 3.2 oz (65.4kg) SpO2 95% BMI 24.62 kg/(m^2). 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 Up and about > 50% of waking hrs. Patient in NAD. Skin: Skin color, texture, turgor normal. No rashes or lesions. Eyes: Anicteric sclera. Pupils are equally round and reactive to light. Extraocular movements are intact. Lymph Nodes: No cervical, supraclavicular, axillary or inguinal adenopathy. Oropharynx: Lips, mucosa, and tongue normal. Back: No pain to percussion. Negative SLR test Lungs clear to auscultation, No wheezing or rhonchi Heart: RRR without murmur, gallop, or rubs. Abdomen soft, non-tender. No masses, organomegaly Extremities: No deformities. No edema Neuro: Gait and speech normal. Reflexes normal and symmetric. Muscular strength intact. Sensation grossly intact. Rectal: Deferred : Deferred LABS: Glucose (mg/dL) Date Value 03/07/2022 136 06/14/2021 90 Potassium (mmol/L) Date Value 03/07/2022 4.0 06/14/2021 3.7 Sodium (mmol/L) Date Value 03/07/2022 138 06/14/2021 143 Chloride (mmol/L) Date Value 03/07/2022 103 06/14/2021 109 CO2 (mmol/L) Date Value 03/07/2022 26 06/14/2021 28 Creatinine (mg/dL) Date Value 03/07/2022 1.28 06/14/2021 1.00 BUN (mg/dL) Date Value 03/07/2022 26 06/14/2021 20 Anion Gap (mmol/L) Date Value 03/07/2022 9 06/14/2021 6 Calcium (mg/dL) Date Value 06/14/2021 9.7 Calcium, Total (mg/dL) Date Value 03/07/2022 9.3 Protein, Total (g/dL) Date Value 03/07/2022 6.2 06/14/2021 6.2 Albumin (g/dL) Date Value 03/07/2022 3.5 06/14/2021 3.8 Bilirubin, Total (mg/dL) Date Value 03/07/2022 0.2 06/14/2021 0.2 Alkaline Phosphatase (U/L) Date Value 03/07/2022 197 06/14/2021 99 AST (U/L) Date Value 03/07/2022 28 06/14/2021 16 ALT (U/L) Date Value 03/07/2022 24 06/14/2021 9 WBC Date Value Ref Range Status 03/07/2022 10.68 3.70 - 11.00 k/uL Final RBC Date Value Ref Range Status 03/07/2022 3.93 3.90 - 5.20 m/uL Final Hemoglobin Date Value Ref Range Status 03/07/2022 9.7 (L) 11.5 - 15.5 g/dL Final Hematocrit Date Value Ref Range Status 03/07/2022 32.7 (L) 36.0 - 46.0 % Final MCV Date Value Ref Range Status 03/07/2022 83.2 80.0 - 100.0 fL Final MCH Date Value Ref Range Status 03/07/2022 24.7 (L) 26.0 - 34.0 pg Final MCHC Date Value Ref Range Status 03/07/2022 29.7 (L) 30.5 - 36.0 g/dL Final RDW-CV Date Value Ref Range Status 03/07/2022 17.6 (H) 11.5 - 15.0 % Final Platelet Count Date Value Ref Range Status 03/07/2022 220 150 - 400 k/uL Final MPV Date Value Ref Range Status 03/07/2022 10.2 9.0 - 12.7 fL Final Abs Neut Date Value Ref Range Status 03/07/2022 6.64 1.45 - 7.50 k/uL Final Lymph% Date Value Ref Range Status 03/07/2022 13.6 % Final Abs Lymph Date Value Ref Range Status 03/07/2022 1.45 1.00 - 4.00 k/uL Final [place]% Date Value Ref Range Status 03/07/2022 10.1 % Final Abs [place] Date Value Ref Range Status 03/07/2022 1.08 (H) <0.87 k/uL Final Eosin% Date Value Ref Range Status 03/07/2022 13.3 % Final Abs Eosin Date Value Ref Range Status 03/07/2022 1.42 (H) <0.46 k/uL Final Baso% Date Value Ref Range Status 03/07/2022 0.3 % Final Abs Baso Date Value Ref Range Status 03/07/2022 0.03 <0.11 k/uL Final PATH: CT guided T9 vertebral body biopsy: A. BONE LESION, VERTEBRAL, FINE NEEDLE ASPIRATE(THINPREP AND CELL BLOCK) Positive for malignant cells. Metastatic non-small cell carcinoma. BRAF No variant detected [Reference Sequence: ([id number])]. EGFR - A sequence change c.2573T>G (p.L858R) in exon 21 was detected at approximately 54% allelic proportion (depth of coverage at change 3377) [Reference Sequence: ([id number])]. HER2 (ERBB2) - No variant detected [Reference sequence: ([id number])]. KRAS - No variant detected [Reference Sequence: ([id number])]. MET- No variant detected [Reference Sequence: ([id number])]. Imaging: MRI of the Brain 03/01/2020: Stable punctate focus of enhancement in the right posterior temporal lobe without associated edema. This may represent a tiny residual metastasis versus small vessel. Otherwise normal MRI brain. No new intracranial lesions. MRI Brain 10/20/2020: 1. No acute intracranial findings. 2. No evidence of intracranial metastatic disease. 3. MRI of the brain is within normal limits for age. CT of the chest and Abdomen and Pelvis 10/20/2020: No metastasis in the abdomen or pelvis. No significant change in biliary ductal dilatation of indeterminate etiology 1. Continued decrease in size of left upper lobe nodule with adjacent postradiation scarring and parenchymal retraction. No findings of recurrent lung cancer. 2. Stable 7 mm groundglass nodule in right lower lobe. This could represent an indolent neoplastic lesion in adenocarcinoma spectrum or atypical adenomatoid hyperplasia. No new lung nodules. 3. No significant lymph node enlargement in the thorax. MRI of the brain February 24, 2021: No change in the left Meckel's cave lesion compared to multiple prior examinations, likely incidental schwannoma. No new intracranial enhancement to indicate residual or recurrent intracranial metastasis. CT scan of the chest abdomen and pelvis April 21, 2021: 1. Stable CT of the chest. Unchanged appearance of left upper lobe nodular opacity measuring up to 1.2 cm in size. 2. Stable appearance of right lower lobe groundglass opacity. No new or enlarging nodules are seen. 3. No evidence of bulky intrathoracic lymphadenopathy. 1. No definite findings to suggest abdominal or pelvic metastatic disease. 2. Intrahepatic and extra hepatic biliary ductal dilation, similar to prior exam. Findings are greater than expected status post cholecystectomy. Recommend correlation with LFTs. If clinically warranted, consider further evaluation with ERCP or MRCP. 3. Colonic diverticulosis without evidence of diverticulitis. MRI Brain 10/2021: No pathologic enhancement in the brain parenchyma to suggest new or recurrent intra-axial or leptomeningeal metastases. Stable 3 mm focus of enhancement in the left Meckel's cave compatible with a small schwannoma CT of the Chest and Abdomen and Pelvis 11/2021: 1. No CT evidence for metastatic disease to the abdomen or pelvis. 2. Stable appearance to intrahepatic and extrahepatic biliary dilation, likely postoperative in nature 1. 1.3 x 1.0 cm nodular focus at the anteromedial aspect of the left upper lobe, stable from prior study of 04/21/2021. Additional 7 mm right lower lobe groundglass opacity, unchanged. 2. No substantial intrathoracic adenopathy is identified. Assessment and Plan: Seymour Lucia is a 82 year old year old female here for follow up. 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 Post Spine radiation and also GKRS in 10/2018 and has been on Osimertinib since 10/2018 with good response. She is doing well with good tolerance of the Osimertinib, except for some nailbed changes which are stable. Last imaging of the Brain 10/2021 and extracranial disease 11/2021 with no progression See back in 3 months with repeat imaging and [employer] disease followed by NS at [facility] Hydration in clinic today. Follow up with neurosurgery as planned next month. Thank you for the kind referral. If there are any questions and or concerns please do not hesitate to contact me at [phone]. Yanci Churchill MD Hematology/Medical Oncology [facility] CC: Sal James MD I spent a total of 25 minutes on the date of the service which included preparing to see the patient, [id number] patient care, completing clinical documentation, obtaining and/or reviewing separately obtained history, performing a medically appropriate examination, counseling and educating the patient/family/caregiver and ordering medications, tests, or procedures. documented in this encounter [facility] 03-06-2022 Miscellaneous Notes Pt's daughter calls stating she would like to get IV fluids tomorrow before her appointment with Dr Churchill. Please sign for IV fluids. Pt's call transferred to PSS's to schedule before appointment since she isn't scheduled until 345. Harry Brannon, RN documented in this encounter [facility] 02-07-2022 Miscellaneous Notes Called and spoke with daughter Rosemary. Requested IV fluids for Sunday. She has been scheduled for 02/13. Amber Her Pt's daughter calls requesting IV fluids. Discussed with Dr Churchill who is agreeable to this. He states pt should be seen in follow up at some point as it's been 8 months since her last visit. Jorge: please place IV fluid orders PSS: ok to schedule for IV fluids and when pt is here we need to schedule follow up visit at some point. Harry Brannon RN documented in this encounter [facility] 01-20-2022 Miscellaneous Notes Thanks Orders placed. Katie Soto APRN.COMMUNICATIONS EQUIPMENT OPERATOR Call received from daughter stating pt is requesting IV fluids today before the weekend. Pt is having increased fatigue. Pt has her grandson's wedding next weekend and is hoping to get a pick me up from the fluids. Please order if you agree. Thanks Harry Brannon RN documented in this encounter [facility] 12-07-2021 Miscellaneous Notes Pt's daughter notified of scan results Harry Brannon RN ----- Message from Yanci Churchill MD sent at 12/07/2021 9:43 AM EDT ----- Call with stable CT please. No progression documented in this encounter [facility] 12-07-2021 Miscellaneous Notes New CBC order placed. Hope Hardy documented in this encounter [facility] 11-22-2021 Miscellaneous Notes Please sign pending Cre order for upcoming CT with contrast for Seymour Lucia [id number]. Thank you. documented in this encounter [facility] 11-13-2018 History of Past i llness Narrative Problem Noted Date Resolved Date Malnutrition of mild degree 11/13/201801/26 Delirium 11/12/2018 02/21/2019 Chest pain 11/11/2018 11/14/2018 Neoplasm related pain 10/16/2018 02/25/2019 documented as of this encounter (statuses as of 11/22/2021) [facility] History of Past illness Narrative* Problem Noted Date Resolved Date Malnutrition of mild degree 11/13/201801/26 Delirium 11/12/2018 02/21/2019 Chest pain 11/11/2018 11/14/2018 Neoplasm related pain 10/16/2018 02/25/2019 documented as of this encounter (statuses as of 11/29/2021) [facility] History of Past illness Narrative* Problem Noted Date Resolved Date Malnutrition of mild degree 11/13/201801/26 Delirium 11/12/2018 02/21/2019 Chest pain 11/11/2018 11/14/2018 Neoplasm related pain 10/16/2018 02/25/2019 documented as of this encounter (statuses as of 11/30/2021) [facility] History of Past illness Narrative* Problem Noted Date Resolved Date Malnutrition of mild degree 11/13/201801/26 Delirium 11/12/2018 02/21/2019 Chest pain 11/11/2018 11/14/2018 Neoplasm related pain 10/16/2018 02/25/2019 documented as of this encounter (statuses as of 12/06/2021) [facility] History of Past illness Narrative* Problem Noted Date Resolved Date Malnutrition of mild degree 11/13/201801/26 Delirium 11/12/2018 02/21/2019 Chest pain 11/11/2018 11/14/2018 Neoplasm related pain 10/16/2018 02/25/2019 documented as of this encounter (statuses as of 12/07/2021) [facility] History of Past illness Narrative* Problem Noted Date Resolved Date Malnutrition of mild degree 11/13/201801/26 Delirium 11/12/2018 02/21/2019 Chest pain 11/11/2018 11/14/2018 Neoplasm related pain 10/16/2018 02/25/2019 documented as of this encounter (statuses as of 12/14/2021) [facility] History of Past illness Narrative* Problem Noted Date Resolved Date Malnutrition of mild degree 11/13/201801/26 Delirium 11/12/2018 02/21/2019 Chest pain 11/11/2018 11/14/2018 Neoplasm related pain 10/16/2018 02/25/2019 documented as of this encounter (statuses as of 12/26/2021) [facility] History of Past illness Narrative* Problem Noted Date Resolved Date Malnutrition of mild degree 11/13/201801/26 Delirium 11/12/2018 02/21/2019 Chest pain 11/11/2018 11/14/2018 Neoplasm related pain 10/16/2018 02/25/2019 documented as of this encounter (statuses as of 12/27/2021) [address]20-2019 History of Past illness Narrative* Problem Noted Date Resolved Date Malnutrition of mild degree 11/13/201801/26 Delirium 11/12/2018 02/21/2019 Chest pain 11/11/2018 11/14/2018 Neoplasm related pain 10/16/2018 02/25/2019 documented as of this encounter (statuses as of 01/20/2022) [address]20-2019 History of Past illness Narrative* Problem Noted Date Resolved Date Malnutrition of mild degree 11/13/201801/26 Delirium 11/12/2018 02/21/2019 Chest pain 11/11/2018 11/14/2018 Neoplasm related pain 10/16/2018 02/25/2019 documented as of this encounter (statuses as of 01/20/2022) [address]20-2019 History of Past illness Narrative* Problem Noted Date Resolved Date Malnutrition of mild degree 11/13/201801/26 Delirium 11/12/2018 02/21/2019 Chest pain 11/11/2018 11/14/2018 Neoplasm related pain 10/16/2018 02/25/2019 documented as of this encounter (statuses as of 01/26/2022) [facility] History of Past illness Narrative* Problem Noted Date Resolved Date Malnutrition of mild degree 11/13/201801/26 Delirium 11/12/2018 02/21/2019 Chest pain 11/11/2018 11/14/2018 Neoplasm related pain 10/16/2018 02/25/2019 documented as of this encounter (statuses as of 01/30/2022) [facility] History of Past illness Narrative* Problem Noted Date Resolved Date Malnutrition of mild degree 11/13/201801/26 Delirium 11/12/2018 02/21/2019 Chest pain 11/11/2018 11/14/2018 Neoplasm related pain 10/16/2018 02/25/2019 documented as of this encounter (statuses as of 02/07/2022) [facility] History of Past illness Narrative* Problem Noted Date Resolved Date Malnutrition of mild degree 11/13/201801/26 Delirium 11/12/2018 02/21/2019 Chest pain 11/11/2018 11/14/2018 Neoplasm related pain 10/16/2018 02/25/2019 documented as of this encounter (statuses as of 02/13/2022) [facility]20[facility]2019 History of Past illness Narrative* Problem Noted Date Resolved Date Malnutrition of mild degree 11/13/201801/26 Delirium 11/12/2018 02/21/2019 Chest pain 11/11/2018 11/14/2018 Neoplasm related pain 10/16/2018 02/25/2019 documented as of this encounter (statuses as of 03/02/2022) [facility]2019 History of Past illness Narrative* Problem Noted Date Resolved Date Malnutrition of mild degree 11/13/201801/26 Delirium 11/12/2018 02/21/2019 Chest pain 11/11/2018 11/14/2018 Neoplasm related pain 10/16/2018 02/25/2019 documented as of this encounter (statuses as of 03/07/2022) [address]20-2019 History of Past illness Narrative* Problem Noted Date Resolved Date Malnutrition of mild degree 11/13/201801/26 Delirium 11/12/2018 02/21/2019 Chest pain 11/11/2018 11/14/2018 Neoplasm related pain 10/16/2018 02/25/2019 documented as of this encounter (statuses as of 03/07/2022) [address]20-2019 History of Past illness Narrative* Problem Noted Date Resolved Date Malnutrition of mild degree 11/13/201801/26 Delirium 11/12/2018 02/21/2019 Chest pain 11/11/2018 11/14/2018 Neoplasm related pain 10/16/2018 02/25/2019 documented as of this encounter (statuses as of 03/07/2022) [address]20-2019 History of Past illness Narrative* Problem Noted Date Resolved Date Malnutrition of mild degree 11/13/201801/26 Delirium 11/12/2018 02/21/2019 Chest pain 11/11/2018 11/14/2018 Neoplasm related pain 10/16/2018 02/25/2019 documented as of this encounter (statuses as of 03/15/2022) [address]20-2019 History of Past illness Narrative* Problem Noted Date Resolved Date Malnutrition of mild degree 11/13/201801/26 Delirium 11/12/2018 02/21/2019 Chest pain 11/11/2018 11/14/2018 Neoplasm related pain 10/16/2018 02/25/2019 documented as of this encounter (statuses as of 03/31/2022) [address]20-2019 History of Past illness Narrative* Problem Noted Date Resolved Date Malnutrition of mild degree 11/13/201801/26 Delirium 11/12/2018 02/21/2019 Chest pain 11/11/2018 11/14/2018 Neoplasm related pain 10/16/2018 02/25/2019 documented as of this encounter (statuses as of 04/03/2022) [address]20-2019 History of Past illness Narrative* Problem Noted Date Resolved Date Malnutrition of mild degree 11/13/201801/26 Delirium 11/12/2018 02/21/2019 Chest pain 11/11/2018 11/14/2018 Neoplasm related pain 10/16/2018 02/25/2019 documented as of this encounter (statuses as of 04/04/2022) [address]20-2019 History of Past illness Narrative* Problem Noted Date Resolved Date Malnutrition of mild degree 11/13/201801/26 Delirium 11/12/2018 02/21/2019 Chest pain 11/11/2018 11/14/2018 Neoplasm related pain 10/16/2018 02/25/2019 documented as of this encounter (statuses as of 04/04/2022) [address]20-2019 History of Past illness Narrative* Problem Noted Date Resolved Date Malnutrition of mild degree 11/13/201801/26 Delirium 11/12/2018 02/21/2019 Chest pain 11/11/2018 11/14/2018 Neoplasm related pain 10/16/2018 02/25/2019 documented as of this encounter (statuses as of 04/17/2022) [address]20-2019 History of Past illness Narrative* Problem Noted Date Resolved Date Malnutrition of mild degree 11/13/201801/26 Delirium 11/12/2018 02/21/2019 Chest pain 11/11/2018 11/14/2018 Neoplasm related pain 10/16/2018 02/25/2019 documented as of this encounter (statuses as of 04/25/2022) [address]20-2019 History of Past illness Narrative* Problem Noted Date Resolved Date Malnutrition of mild degree 11/13/201801/26 Delirium 11/12/2018 02/21/2019 Chest pain 11/11/2018 11/14/2018 Neoplasm related pain 10/16/2018 02/25/2019 documented as of this encounter (statuses as of 05/02/2022) [address]20-2019 History of Past illness Narrative* Problem Noted Date Resolved Date Malnutrition of mild degree 11/13/201801/26 Delirium 11/12/2018 02/21/2019 Chest pain 11/11/2018 11/14/2018 Neoplasm related pain 10/16/2018 02/25/2019 documented as of this encounter (statuses as of 05/03/2022) [address]20-2019 History of Past illness Narrative* Problem Noted Date Resolved Date Malnutrition of mild degree 11/13/201801/26 Delirium 11/12/2018 02/21/2019 Chest pain 11/11/2018 11/14/2018 Neoplasm related pain 10/16/2018 02/25/2019 documented as of this encounter (statuses as of 05/09/2022) [facility]2019 History of Past illness Narrative* Problem Noted Date Resolved Date Malnutrition of mild degree 11/13/201801/26 Delirium 11/12/2018 02/21/2019 Chest pain 11/11/2018 11/14/2018 Neoplasm related pain 10/16/2018 02/25/2019 documented as of this encounter (statuses as of 05/17/2022) [facility]2019 History of Past illness Narrative* Problem Noted Date Resolved Date Malnutrition of mild degree 11/13/201801/26 Delirium 11/12/2018 02/21/2019 Chest pain 11/11/2018 11/14/2018 Neoplasm related pain 10/16/2018 02/25/2019 documented as of this encounter (statuses as of 05/24/2022) [facility]2019 History of Past illness Narrative* Problem Noted Date Resolved Date Malnutrition of mild degree 11/13/201801/26 Delirium 11/12/2018 02/21/2019 Chest pain 11/11/2018 11/14/2018 Neoplasm related pain 10/16/2018 02/25/2019 documented as of this encounter (statuses as of 05/31/2022) [address]20-2019 History of Past illness Narrative* Problem Noted Date Resolved Date Malnutrition of mild degree 11/13/201801/26 Delirium 11/12/2018 02/21/2019 Chest pain 11/11/2018 11/14/2018 Neoplasm related pain 10/16/2018 02/25/2019 documented as of this encounter (statuses as of 06/05/2022) [address]20-2019 History of Past illness Narrative* Problem Noted Date Resolved Date Malnutrition of mild degree 11/13/201801/26 Delirium 11/12/2018 02/21/2019 Chest pain 11/11/2018 11/14/2018 Neoplasm related pain 10/16/2018 02/25/2019 documented as of this encounter (statuses as of 06/12/2022) [address]20-2019 History of Past illness Narrative* Problem Noted Date Resolved Date Malnutrition of mild degree 11/13/201801/26 Delirium 11/12/2018 02/21/2019 Chest pain 11/11/2018 11/14/2018 Neoplasm related pain 10/16/2018 02/25/2019 documented as of this encounter (statuses as of 06/14/2022) [facility]2019 History of Past illness Narrative* Problem Noted Date Resolved Date Malnutrition of mild degree 11/13/201801/26 Delirium 11/12/2018 02/21/2019 Chest pain 11/11/2018 11/14/2018 Neoplasm related pain 10/16/2018 02/25/2019 documented as of this encounter (statuses as of 07/03/2022) [facility]2019 History of Past illness Narrative* Problem Noted Date Resolved Date Malnutrition of mild degree 11/13/201801/26 Delirium 11/12/2018 02/21/2019 Chest pain 11/11/2018 11/14/2018 Neoplasm related pain 10/16/2018 02/25/2019 documented as of this encounter (statuses as of 08/03/2022) [facility]2019 History of Past illness Narrative* Problem Noted Date Resolved Date Malnutrition of mild degree 11/13/201801/26 Delirium 11/12/2018 02/21/2019 Chest pain 11/11/2018 11/14/2018 Neoplasm related pain 10/16/2018 02/25/2019 documented as of this encounter (statuses as of 10/02/2022) [facility]2019 History of Past illness Narrative* Problem Noted Date Resolved Date Malnutrition of mild degree 11/13/201801/26 Delirium 11/12/2018 02/21/2019 Chest pain 11/11/2018 11/14/2018 Neoplasm related pain 10/16/2018 02/25/2019 documented as of this encounter (statuses as of 10/31/2022) [facility]2019 History of Past illness Narrative* Problem Noted Date Resolved Date Malnutrition of mild degree 11/13/201801/26 Delirium 11/12/2018 02/21/2019 Chest pain 11/11/2018 11/14/2018 Neoplasm related pain 10/16/2018 02/25/2019 documented as of this encounter (statuses as of 11/15/2022) [address]20-2019 History of Past illness Narrative* Problem Noted Date Resolved Date Malnutrition of mild degree 11/13/201801/26 Delirium 11/12/2018 02/21/2019 Chest pain 11/11/2018 11/14/2018 Neoplasm related pain 10/16/2018 02/25/2019 documented as of this encounter (statuses as of 11/20/2022) [address]20-2019 History of Past illness Narrative* Problem Noted Date Resolved Date Malnutrition of mild degree 11/13/201801/26 Delirium 11/12/2018 02/21/2019 Chest pain 11/11/2018 11/14/2018 Neoplasm related pain 10/16/2018 02/25/2019 documented as of this encounter (statuses as of 11/28/2022) [address]20-2019 History of Past illness Narrative* Problem Noted Date Resolved Date Malnutrition of mild degree 11/13/201801/26 Delirium 11/12/2018 02/21/2019 Chest pain 11/11/2018 11/14/2018 Neoplasm related pain 10/16/2018 02/25/2019 documented as of this encounter (statuses as of 12/27/2022) [address]20-2019 History of Past illness Narrative* Problem Noted Date Resolved Date Malnutrition of mild degree 11/13/201801/26 Delirium 11/12/2018 02/21/2019 Chest pain 11/11/2018 11/14/2018 Neoplasm related pain 10/16/2018 02/25/2019 documented as of this encounter (statuses as of 12/27/2022) [address]20-2019 History of Past illness Narrative* Problem Noted Date Resolved Date Malnutrition of mild degree 11/13/201801/26 Delirium 11/12/2018 02/21/2019 Chest pain 11/11/2018 11/14/2018 Neoplasm related pain 10/16/2018 02/25/2019 documented as of this encounter (statuses as of 02/09/2023) [address]20-2019 History of Past illness Narrative* Problem Noted Date Resolved Date Malnutrition of mild degree 11/13/201801/26 Delirium 11/12/2018 02/21/2019 Chest pain 11/11/2018 11/14/2018 Neoplasm related pain 10/16/2018 02/25/2019 documented as of this encounter (statuses as of 02/14/2023) [address]20-2019 History of Past illness Narrative* Problem Noted Date Resolved Date Malnutrition of mild degree 11/13/2018 06/2 03/2019 Delirium 11/12/2018 02/21/2019 Chest pain 11/11/2018 11/14/2018 Neoplasm related pain 10/16/2018 02/25/2019 documented as of this encounter (statuses as of 02/14/2023) [address]20-2019 History of Past illness Narrative* Problem Noted Date Resolved Date Malnutrition of mild degree 11/13/201801/26 Delirium 11/12/2018 02/21/2019 Chest pain 11/11/2018 11/14/2018 Neoplasm related pain 10/16/2018 02/25/2019 documented as of this encounter (statuses as of 02/21/2023) [address]20-2019 History of Past illness Narrative* Problem Noted Date Diagnosed Date Resolved Date Malnutrition of mild degree 11/13/2018 02/21/2019 Delirium 11/12/2018 02/21/2019 Chest pain 11/11/2018 11/14/2018 Neoplasm related pain 10/16/20182018 documented as of this encounter (statuses as of 03/13/2023) [address]20-2019 History of Past illness Narrative* Problem Noted Date Diagnosed Date Resolved Date Malnutrition of mild degree 11/13/2018 02/21/2019 Delirium 11/12/2018 02/21/2019 Chest pain 11/11/2018 11/14/2018 Neoplasm related pain 10/16/20182018 documented as of this encounter (statuses as of 03/28/2023) [address]20-2019 History of Past illness Narrative* Problem Noted Date Diagnosed Date Resolved Date Malnutrition of mild degree 11/13/2018 02/21/2019 Delirium 11/12/2018 02/21/2019 Chest pain 11/11/2018 11/14/2018 Neoplasm related pain 10/16/20182018 documented as of this encounter (statuses as of 03/30/2023) [address]20-2019 History of Past illness Narrative* Problem Noted Date Diagnosed Date Resolved Date Malnutrition of mild degree 11/13/2018 02/21/2019 Delirium 11/12/2018 02/21/2019 Chest pain 11/11/2018 11/14/2018 Neoplasm related pain 10/16/20182018 documented as of this encounter (statuses as of 04/05/2023) [facility]2019 History of Past illness Narrative* Problem Noted Date Diagnosed Date Resolved Date Malnutrition of mild degree 11/13/2018 02/21/2019 Delirium 11/12/2018 02/21/2019 Chest pain 11/11/2018 11/14/2018 Neoplasm related pain 10/16/20182018 documented as of this encounter (statuses as of 04/12/2023) [facility]2019 History of Past illness Narrative* Problem Noted Date Diagnosed Date Resolved Date Malnutrition of mild degree 11/13/2018 02/21/2019 Delirium 11/12/2018 02/21/2019 Chest pain 11/11/2018 11/14/2018 Neoplasm related pain 10/16/20182018 documented as of this encounter (statuses as of 04/20/2023) [facility]2019 History of Past illness Narrative* Problem Noted Date Diagnosed Date Resolved Date Malnutrition of mild degree 11/13/2018 02/21/2019 Delirium 11/12/2018 02/21/2019 Chest pain 11/11/2018 11/14/2018 Neoplasm related pain 10/16/20182018 documented as of this encounter (statuses as of 05/02/2023) [facility]2019 History of Past illness Narrative* Problem Noted Date Diagnosed Date Resolved Date Malnutrition of mild degree 11/13/2018 02/21/2019 Delirium 11/12/2018 02/21/2019 Chest pain 11/11/2018 11/14/2018 Neoplasm related pain 10/16/20182018 documented as of this encounter (statuses as of 05/08/2023) [facility]2019 History of Past illness Narrative* Problem Noted Date Diagnosed Date Resolved Date Malnutrition of mild degree 11/13/2018 02/21/2019 Delirium 11/12/2018 02/21/2019 Chest pain 11/11/2018 11/14/2018 Neoplasm related pain 10/16/20182018 documented as of this encounter (statuses as of 05/14/2023) [facility]2019 History of Past illness Narrative* Problem Noted Date Diagnosed Date Resolved Date Malnutrition of mild degree 11/13/2018 02/21/2019 Delirium 11/12/2018 02/21/2019 Chest pain 11/11/2018 11/14/2018 Neoplasm related pain 10/16/20182018 documented as of this encounter (statuses as of 06/04/2023) [facility] History of Past illness Narrative* Problem Noted Date Diagnosed Date Resolved Date Malnutrition of mild degree 11/13/2018 02/21/2019 Delirium 11/12/2018 02/21/2019 Chest pain 11/11/2018 11/14/2018 Neoplasm related pain 10/16/20182018 documented as of this encounter (statuses as of 06/08/2023) [place] [address]-20-2019 History of Past illness Narrative* Problem Noted Date Diagnosed Date Resolved Date Malnutrition of mild degree 11/13/2018 02/21/2019 Delirium 11/12/2018 02/21/2019 Chest pain 11/11/2018 11/14/2018 Neoplasm related pain 10/16/20182018 documented as of this encounter (statuses as of 07/05/2023) [facility] History of Past illness Narrative* Problem Noted Date Diagnosed Date Resolved Date Malnutrition of mild degree 11/13/2018 02/21/2019 Delirium 11/12/2018 02/21/2019 Chest pain 11/11/2018 11/14/2018 Neoplasm related pain 10/16/20182018 documented as of this encounter (statuses as of 07/10/2023) [address]20-2019 History of Past illness Narrative* Problem Noted Date Diagnosed Date Resolved Date Malnutrition of mild degree 11/13/2018 02/21/2019 Delirium 11/12/2018 02/21/2019 Chest pain 11/11/2018 11/14/2018 Neoplasm related pain 10/16/20182018 documented as of this encounter (statuses as of 07/11/2023) [address]20-2019 History of Past illness Narrative* Problem Noted Date Diagnosed Date Resolved Date Malnutrition of mild degree 11/13/2018 02/21/2019 Delirium 11/12/2018 02/21/2019 Chest pain 11/11/2018 11/14/2018 Neoplasm related pain 10/16/20182018 documented as of this encounter (statuses as of 07/16/2023) [address]20-2019 History of Past illness Narrative* Problem Noted Date Diagnosed Date Resolved Date Malnutrition of mild degree 11/13/2018 02/21/2019 Delirium 11/12/2018 02/21/2019 Chest pain 11/11/2018 11/14/2018 Neoplasm related pain 10/16/20182018 documented as of this encounter (statuses as of 07/17/2023) [facility]2019 History of Past illness Narrative* Problem Noted Date Diagnosed Date Resolved Date Malnutrition of mild degree 11/13/2018 02/21/2019 Delirium 11/12/2018 02/21/2019 Chest pain 11/11/2018 11/14/2018 Neoplasm related pain 10/16/20182018 documented as of this encounter (statuses as of 07/18/2023) [address]20-2019 History of Past illness Narrative* Problem Noted Date Diagnosed Date Resolved Date Malnutrition of mild degree 11/13/2018 02/21/2019 Delirium 11/12/2018 02/21/2019 Chest pain 11/11/2018 11/14/2018 Neoplasm related pain 10/16/20182018 documented as of this encounter (statuses as of 07/18/2023) [address]20-2019 History of Past illness Narrative* Problem Noted Date Diagnosed Date Resolved Date Malnutrition of mild degree 11/13/2018 02/21/2019 Delirium 11/12/2018 02/21/2019 Chest pain 11/11/2018 11/14/2018 Neoplasm related pain 10/16/20182018 documented as of this encounter (statuses as of 08/01/2023) [address]20-2019 History of Past illness Narrative* Problem Noted Date Diagnosed Date Resolved Date Malnutrition of mild degree 11/13/2018 02/21/2019 Delirium 11/12/2018 02/21/2019 Chest pain 11/11/2018 11/14/2018 Neoplasm related pain 10/16/20182018 documented as of this encounter (statuses as of 08/01/2023) [address]20-2019 History of Past illness Narrative* Problem Noted Date Diagnosed Date Resolved Date Malnutrition of mild degree 11/13/2018 02/21/2019 Delirium 11/12/2018 02/21/2019 Chest pain 11/11/2018 11/14/2018 Neoplasm related pain 10/16/20182018 documented as of this encounter (statuses as of 08/02/2023) [facility] History of Past illness Narrative* Problem Noted Date Diagnosed Date Resolved Date Malnutrition of mild degree 11/13/2018 02/21/2019 Delirium 11/12/2018 02/21/2019 Chest pain 11/11/2018 11/14/2018 Neoplasm related pain 10/16/20182018 documented as of this encounter (statuses as of 08/09/2023) [facility] History of Past illness Narrative* Problem Noted Date Diagnosed Date Resolved Date Malnutrition of mild degree 11/13/2018 02/21/2019 Delirium 11/12/2018 02/21/2019 Chest pain 11/11/2018 11/14/2018 Neoplasm related pain 10/16/20182018 documented as of this encounter (statuses as of 08/09/2023) [facility] History of Past illness Narrative* Problem Noted Date Diagnosed Date Resolved Date Malnutrition of mild degree 11/13/2018 02/21/2019 Delirium 11/12/2018 02/21/2019 Chest pain 11/11/2018 11/14/2018 Neoplasm related pain 10/16/20182018 documented as of this encounter (statuses as of 08/17/2023) [address]20-2019 History of Past illness Narrative* Problem Noted Date Diagnosed Date Resolved Date Malnutrition of mild degree 11/13/2018 02/21/2019 Delirium 11/12/2018 02/21/2019 Chest pain 11/11/2018 11/14/2018 Neoplasm related pain 10/16/20182018 documented as of this encounter (statuses as of 10/02/2023) [address]20-2019 History of Past illness Narrative* Problem Noted Date Diagnosed Date Resolved Date Malnutrition of mild degree 11/13/2018 02/21/2019 Delirium 11/12/2018 02/21/2019 Chest pain 11/11/2018 11/14/2018 Neoplasm related pain 10/16/20182018 documented as of this encounter (statuses as of 10/09/2023) [address]20-2019 History of Past illness Narrative* Problem Noted Date Diagnosed Date Resolved Date Malnutrition of mild degree 11/13/2018 02/21/2019 Delirium 11/12/2018 02/21/2019 Chest pain 11/11/2018 11/14/2018 Neoplasm related pain 10/16/20182018 documented as of this encounter (statuses as of 10/09/2023) [facility] History of Past illness Narrative* Problem Noted Date Diagnosed Date Resolved Date Malnutrition of mild degree 11/13/2018 02/21/2019 Delirium 11/12/2018 02/21/2019 Chest pain 11/11/2018 11/14/2018 Neoplasm related pain 10/16/20182018 documented as of this encounter (statuses as of 10/12/2023) [facility] History of Past illness Narrative* Problem Noted Date Diagnosed Date Resolved Date Malnutrition of mild degree 11/13/2018 02/21/2019 Delirium 11/12/2018 02/21/2019 Chest pain 11/11/2018 11/14/2018 Neoplasm related pain 10/16/20182018 documented as of this encounter (statuses as of 10/19/2023) [facility] History of Past illness Narrative* Problem Noted Date Diagnosed Date Resolved Date Malnutrition of mild degree 11/13/2018 02/21/2019 Delirium 11/12/2018 02/21/2019 Chest pain 11/11/2018 11/14/2018 Neoplasm related pain 10/16/20182018 documented as of this encounter (statuses as of 10/31/2023) [facility] History of Past illness Narrative* Problem Noted Date Diagnosed Date Resolved Date Malnutrition of mild degree 11/13/2018 02/21/2019 Delirium 11/12/2018 02/21/2019 Chest pain 11/11/2018 11/14/2018 Neoplasm related pain 10/16/20182018 documented as of this encounter (statuses as of 11/28/2023) [facility] History of Past illness Narrative* Problem Noted Date Diagnosed Date Resolved Date Malnutrition of mild degree 11/13/2018 02/21/2019 Delirium 11/12/2018 02/21/2019 Chest pain 11/11/2018 11/14/2018 Neoplasm related pain 10/16/20182018 documented as of this encounter (statuses as of 12/03/2023) [facility] History of Past illness Narrative* Problem Noted Date Diagnosed Date Resolved Date Malnutrition of mild degree 11/13/2018 02/21/2019 Delirium 11/12/2018 02/21/2019 Chest pain 11/11/2018 11/14/2018 Neoplasm related pain 10/16/20182018 documented as of this encounter (statuses as of 12/11/2023) 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) Malignant neoplasm of bronchus and lung, unspecified site [facility] Diagnosis 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, unspecified laterality (HCC)- [facility] Diagnosis 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, unspecified laterality (HCC)- [facility] Diagnosis 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, unspecified laterality (HCC)- [facility] 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, unspecified laterality (HCC)- [facility] Diagnosis 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, unspecified laterality (HCC)- [facility] Diagnosis 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, unspecified laterality (HCC)- Primary Malignant neoplasm of overlapping sites of lung, unspecified laterality (HCC) Malignant neoplasm of unspecified part of unspecified bronchus or lung (HCC) [facility] Diagnosis 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, unspecified laterality (HCC)- [facility] 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, unspecified laterality (HCC)- [facility] Diagnosis 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, unspecified laterality (HCC)- [facility] Diagnosis 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, unspecified laterality (HCC)- [facility] Diagnosis 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, unspecified laterality (HCC)- [facility] Diagnosis 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 [facility] Diagnosis 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, unspecified laterality (HCC)- [facility] Diagnosis 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, unspecified laterality (HCC)- [facility] Diagnosis 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, unspecified laterality (HCC)- [facility] Diagnosis 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, unspecified laterality (HCC)- Primary [facility] Diagnosis 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) Malignant neoplasm of bronchus and lung, unspecified site [facility] Diagnosis 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, unspecified laterality (HCC)- Primary [facility] Diagnosis 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, unspecified laterality (HCC)- Primary [facility] Diagnosis 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 [facility] Diagnosis 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, unspecified laterality (HCC)- Primary Other constipation Dysphagia, unspecified type [facility] Diagnosis 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, unspecified laterality (HCC)- Primary [facility] Diagnosis 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) Malignant neoplasm of bronchus and lung, unspecified site [facility] 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, unspecified laterality (HCC)- Primary [facility] Diagnosis 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) Malignant neoplasm of bronchus and lung, unspecified site [facility] Diagnosis Palliative care by specialist- Primary 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, unspecified laterality (HCC) 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 Malaise and fatigue Other malaise and fatigue [facility] Diagnosis Malaise and fatigue Other malaise and fatigue [facility] Diagnosis Neoplastic malignant related fatigue- Primary Other malaise and fatigue Palliative care by specialist [facility] Diagnosis 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, unspecified laterality (HCC)- Primary 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) [facility] Diagnosis 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, unspecified laterality (HCC)- Primary Neoplastic malignant related fatigue Other malaise and fatigue [facility] Diagnosis Impaired glucose tolerance- Primary Impaired glucose tolerance test 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, unspecified laterality (HCC) [facility] Diagnosis 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, unspecified laterality (HCC) [facility] Diagnosis 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) Malignant neoplasm of bronchus and lung, unspecified site documented in this encounter [facility] for referral (narrative)* Diagnostic Procedure Only (Routine) - Authorized Specialty Diagnoses / Procedures Referred By Contac t Referred To Contact MOLECULAR & FUNCTIONAL IMAGING Diagnoses 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, unspecified laterality (HCC) Procedures NM PET/CT SKULL-THIGH SUBSEQUENT PET IMAGING CT ATTENUATION SKULL BASE MID-THIGH Yanci Churchill MD [address] [place] [phone] Molecular & Functional Imaging [address] [place] [address] Referral ID Status Reason Start Date Expiration Date Visits Requested Visits Authorized [id number] Authorized Auto-Generat ed Referral 3 09/05/2024 1 1 [facility] Summary Purpose Family History No Family History Records FoundNo Family History Records FoundNo Family History Records FoundNo Family History Records FoundNo Family History Records FoundNo Family History Records FoundNo Family History Records Found Advance Directives No Advanced Directives Records FoundDocuments on File Type Date Recorded Patient [employer] Executive Producer Expl 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 Advance Directive(s) 02/23/2020 3:15 PM Advance Directive(s) 11/14/2018 1:31 PM Advance Directive(s) 11/14/2018 1:30 PM Advance Directive(s) 11/12/2018 2:26 PM Advance Directive(s) 09/20/2018 7:09 PM Documents on File Type Date Recorded Patient [employer] Executive Producer Expl anation Advance Directive(s) 02/23/2020 3:15 PM Advance Directive(s) 11/14/2018 1:31 PM Advance Directive(s) 11/14/2018 1:30 PM Advance Directive(s) 11/12/2018 2:26 PM Advance Directive(s) 09/20/2018 7:09 PM Documents on File Type Date Recorded Patient [employer] Executive Producer Expl anation Advance Directive(s) 11/14/2018 1:30 PM Documents on File Type Date Recorded Patient [employer] Executive Producer Expl anation Advance Directive(s) 11/14/2018 1:30 PM Medications Administered Section Inactive Administered Medications - up to 3 most recent administrations Medication Order MAR Action Action Date Dose Rate Site NaCl 0.9% 1,000 mL INTRAVENOUS, at 500 mL/hr, Administer over 2 Hours, ONCE, 1 dose, On Sun12/06/21 at 1300 New Bag/Syringe/Bottle 12/06/2021 12:25 PM EDT 500 mL/hr Port Inactive Administered Medications - up to 3 most recent administrations Medication Order MAR Action Action Date Dose Rate Site NaCl 0.9% 1,000 mL INTRAVENOUS, at 500 mL/hr, Administer over 2 Hours, ONCE, 1 dose, On Sun01/20/22 at 1400 New Bag/Syringe/Bottle 01/20/2022 1:45 PM EDT 500 mL/hr Inactive Administered Medications - up to 3 most recent administrations Medication Order MAR Action Action Date Dose Rate Site NaCl 0.9% 1,000 mL INTRAVENOUS, at 500 mL/hr, Administer over 2 Hours, ONCE, 1 dose, On Sun01/26/22 at 1430 New Bag/Syringe/Bottle 01/26/2022 2:12 PM EDT 500 mL/hr Inactive Administered Medications - up to 3 most recent administrations Medication Order MAR Action Action Date Dose Rate Site NaCl 0.9% 1,000 mL INTRAVENOUS, at 500 mL/hr, Administer over 2 Hours, ONCE, 1 dose, On Sun02/13/22 at 1500 New Bag/Syringe/Bottle 02/13/2022 2:45 PM EDT 500 mL/hr Inactive Administered Medications - up to 3 most recent administrations Medication Order MAR Action Action Date Dose Rate Site NaCl 0.9% 1,000 mL INTRAVENOUS, at 500 mL/hr, Administer over 2 Hours, ONCE, 1 dose, On Sun03/07/22 at 1430 New Bag/Syringe/Bottle 03/07/2022 1:45 PM EDT 500 mL/hr Inactive Administered Medications - up to 3 most recent administrations Medication Order MAR Action Action Date Dose Rate Site NaCl 0.9% 1,000 mL INTRAVENOUS, at 500 mL/hr, Administer over 2 Hours, ONCE, 1 dose, On Sun04/04/22 at 1430 New Bag/Syringe/Bottle 04/04/2022 2:21 PM EDT 500 mL/hr Inactive Administered Medications - up to 3 most recent administrations Medication Order MAR Action Action Date Dose Rate Site NaCl 0.9% 1,000 mL INTRAVENOUS, at 500 mL/hr, Administer over 2 Hours, ONCE, 1 dose, On Sun04/17/22 at 1500 New Bag/Syringe/Bottle 04/17/2022 2:46 PM EDT 500 mL/hr Inactive Administered Medications - up to 3 most recent administrations Medication Order MAR Action Action Date Dose Rate Site NaCl 0.9% 1,000 mL INTRAVENOUS, at 500 mL/hr, Administer over 2 Hours, ONCE, 1 dose, On Sun04/25/22 at 1330 New Bag/Syringe/Bottle 04/25/2022 1:44 PM EDT 500 mL/hr Inactive Administered Medications - up to 3 most recent administrations Medication Order MAR Action Action Date Dose Rate Site NaCl 0.9% 1,000 mL INTRAVENOUS, at 500 mL/hr, Administer over 2 Hours, ONCE, 1 dose, On Sun05/03/22 at 1330 New Bag/Syringe/Bottle 05/03/2022 1:20 PM EDT 500 mL/hr Inactive Administered Medications - up to 3 most recent administrations Medication Order MAR Action Action Date Dose Rate Site NaCl 0.9% 1,000 mL INTRAVENOUS, at 500 mL/hr, Administer over 2 Hours, ONCE, 1 dose, On Sun05/17/22 at 1330 New Bag/Syringe/Bottle 05/17/2022 1:15 PM EDT 500 mL/hr Inactive Administered Medications - up to 3 most recent administrations Medication Order MAR Action Action Date Dose Rate Site NaCl 0.9% 1,000 mL INTRAVENOUS, at 500 mL/hr, Administer over 2 Hours, ONCE, 1 dose, On Sun05/24/22 at 1330 New Bag/Syringe/Bottle 05/24/2022 1:17 PM EDT 500 mL/hr Inactive Administered Medications - up to 3 most recent administrations Medication Order MAR Action Action Date Dose Rate Site NaCl 0.9% 1,000 mL INTRAVENOUS, at 500 mL/hr, Administer over 2 Hours, ONCE, 1 dose, On Sun05/31/22 at 1400 New Bag/Syringe/Bottle 05/31/2022 1:14 PM EDT 500 mL/hr Inactive Administered Medications - up to 3 most recent administrations Medication Order MAR Action Action Date Dose Rate Site NaCl 0.9% 1,000 mL INTRAVENOUS, at 500 mL/hr, Administer over 2 Hours, ONCE, 1 dose, On Sun06/14/22 at 1330 New Bag/Syringe/Bottle 06/14/2022 1:15 PM EDT 500 mL/hr Inactive Administered Medications - up to 3 most recent administrations Medication Order MAR Action Action Date Dose Rate Site NaCl 0.9% iv infusion 1,000 mL/hr (rounded to 999 mL/hr), INTRAVENOUS, Administer over 1 Hours, ONCE, 1 dose, On Sun07/17/23 at 1400 New Bag/Syringe/Bottle 07/17/2023 2:10 PM EST 1,000 mL/hr 999 mL/hr Reason for Referral Specialty Diagnoses / Procedures Referred By Carolina t Referred To Contact CT IMAGING Diagnoses Malignant neoplasm of unspecified part of unspecified bronchus or lung (HCC) Procedures CT CHEST W IVCON DIAGNOSTIC COMPUTED TOMOGRAPHY THORAX W/CONTRAST Yanci Churchill MD [address] [place] [address] [phone] [address] Imaging Referral ID Status Reason Start Date Expiration Date Visits Requested Visits Authorized [id number] Authorized Auto-Generat ed Referral 2 04/06/2023 1 1 Specialty Diagnoses / Procedures Referred By Contac t Referred To Contact CT IMAGING Diagnoses Malignant neoplasm of overlapping sites of lung, unspecified laterality (HCC) Procedures CT ABD/PEL W IVCON CT ABD & PELVIS W/CONTRAST Yanci Churchill MD [address] [place] [address] Ct Imaging Referral ID Status Reason Start Date Expiration Date Visits Requested Visits Authorized [id number] Pending Review Auto-Generat ed Referral 2 04/06/2023 1 1 Specialty Diagnoses / Procedures Referred By Contac t Referred To Contact MR IMAGING Diagnoses Brain metastases (HCC) Procedures MRI BRAIN WO/W IVCON MRI BRAIN BRAIN STEM W/O W/CONTRAST MATERIAL Vickie Sanderson, LON.COMMUNICATIONS EQUIPMENT OPERATOR [address] [place] [address] Mr Imaging Referral ID Status Reason Start Date Expiration Date Visits Requested Visits Authorized [id number] Pending Review Auto-Generat ed Referral 11/06/2022 06/08/2023 1 1 Referral ID Status Reason Start Date Expiration Date V isits Requested Visits Authorized [id number] Closed Auto-Generate d Referral 11/06/2022 06/08/2023 1 1 Specialty Diagnoses / Procedures Referred By Contac t Referred To Contact Gastroenterology Diagnoses Other constipation Dysphagia, unspecified type Procedures CONSULT TO GASTROENTEROLOGY OFFICE/OUTPATIENT [facility] 60-74 MINUTES Yanci Churchill MD [address] [place] [id number] Referral ID Status Reason Start Date Expiration Date Visits Requested Visits Authorized [id number] Pending Review PCP Requested Referral 02/13/2023 02/13/2024 1 1 Specialty Diagnoses / Procedures Referred By Contac t Referred To Contact Diagnoses 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, unspecified laterality (HCC) Procedures CONSULT TO PALLIATIVE CARE OFFICE/OUTPATIENT [facility] MDM 60-74 MINUTES Yanci Churchill MD [address] [place] [address] Referral ID Status Reason Start Date Expiration Date Visits Requested Visits Authorized [id number] Authorized PCP Requested Referral 3 07/08/2024 1 1 Specialty Diagnoses / Procedures Referred By Contac t Referred To Contact MR IMAGING Diagnoses 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, unspecified laterality (HCC) Procedures MRI BRAIN WO/W IVCON MRI BRAIN BRAIN STEM W/O W/CONTRAST MATERIAL Yanci Churchill MD [address] [place] [phone] Mr Imaging [place] [address] Referral ID Status Reason Start Date Expiration Date Visits Requested Visits Authorized [id number] Pending Review Auto-Generat ed Referral 04/08/2024 11/07/2024 1 1 Specialty Diagnoses / Procedures Referred By Contac t Referred To Contact MOLECULAR & FUNCTIONAL IMAGING Diagnoses 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, unspecified laterality (HCC) Procedures NM PET/CT SKULL-THIGH SUBSEQUENT PET IMAGING CT ATTENUATION SKULL BASE MID-THIGH Yanci Churchill MD [address] [place] [address] Molecular & Functional Imaging [address] [place] [address] Referral ID Status Reason Start Date Expiration Date Visits Requested Visits Authorized [id number] Pending Review Auto-Generat ed Referral 04/08/2024 11/07/2024 1 1 Additional Source Comments INFORMATION SOURCE (unrecogn ized section and content) DATE CREATED AUTHOR 10/25/2021 [facility] DATE CREATED AUTHOR AUTHOR'S ORGANIZ ATION 12/12/2022 [facility] DATE CREATED AUTHOR AUTHOR'S ORGANIZ ATION 03/03/2023 [facility] DATE CREATED AUTHOR AUTHOR'S ORGANIZ ATION 08/26/2023 [facility] DATE CREATED AUTHOR AUTHOR'S ORGANIZ ATION 09/22/2023 [facility] EPIC DATE CREATED AUTHOR AUTHOR'S ORGANIZ ATION 12/17/2023 [facility] DATE CREATED AUTHOR AUTHOR'S ORGANIZ ATION 01/04/2024 [facility] Source Comments (unrecognize d section and content) In the event this informatio n is protected by the Federal Confidentiality of Alcohol and Drug Abuse Patient Records regulations: The Federal rules restrict any use of the information to criminally investigate or prosecute any alcohol or drug abuse patient.[facility] event this information is protected by the Federal Confidentiality of Alcohol and Drug Abuse Patient Records regulations: The Federal rules restrict any use of the information to criminally investigate or prosecute any alcohol or drug abuse patient.[facility] the event this information is protected by the Federal Confidentiality of Alcohol and Drug Abuse Patient Records regulations: The Federal rules restrict any use of the information to criminally investigate or prosecute any alcohol or drug abuse patient.[facility] the event this information is protected by the Federal Confidentiality of Alcohol and Drug Abuse Patient Records regulations: The Federal rules restrict any use of the information to criminally investigate or prosecute any alcohol or drug abuse patient.[facility] the event this information is protected by the Federal Confidentiality of Alcohol and Drug Abuse Patient Records regulations: The Federal rules restrict any use of the information to criminally investigate or prosecute any alcohol or drug abuse patient.[facility] the event this information is protected by the Federal Confidentiality of Alcohol and Drug Abuse Patient Records regulations: The Federal rules restrict any use of the information to criminally investigate or prosecute any alcohol or drug abuse patient.[facility] the event this information is protected by the Federal Confidentiality of Alcohol and Drug Abuse Patient Records regulations: The Federal rules restrict any use of the information to criminally investigate or prosecute any alcohol or drug abuse patient.[facility] the event this information is protected by the Federal Confidentiality of Alcohol and Drug Abuse Patient Records regulations: The Federal rules restrict any use of the information to criminally investigate or prosecute any alcohol or drug abuse patient.[facility] the event this information is protected by the Federal Confidentiality of Alcohol and Drug Abuse Patient Records regulations: The Federal rules restrict any use of the information to criminally investigate or prosecute any alcohol or drug abuse patient.[facility] the event this information is protected by the Federal Confidentiality of Alcohol and Drug Abuse Patient Records regulations: The Federal rules restrict any use of the information to criminally investigate or prosecute any alcohol or drug abuse patient.[facility] the event this information is protected by the Federal Confidentiality of Alcohol and Drug Abuse Patient Records regulations: The Federal rules restrict any use of the information to criminally investigate or prosecute any alcohol or drug abuse patient.[facility] the event this information is protected by the Federal Confidentiality of Alcohol and Drug Abuse Patient Records regulations: The Federal rules restrict any use of the information to criminally investigate or prosecute any alcohol or drug abuse patient.[facility] the event this information is protected by the Federal Confidentiality of Alcohol and Drug Abuse Patient Records regulations: The Federal rules restrict any use of the information to criminally investigate or prosecute any alcohol or drug abuse patient.[facility] the event this information is protected by the Federal Confidentiality of Alcohol and Drug Abuse Patient Records regulations: The Federal rules restrict any use of the information to criminally investigate or prosecute any alcohol or drug abuse patient.[facility] the event this information is protected by the Federal Confidentiality of Alcohol and Drug Abuse Patient Records regulations: The Federal rules restrict any use of the information to criminally investigate or prosecute any alcohol or drug abuse patient.[facility] the event this information is protected by the Federal Confidentiality of Alcohol and Drug Abuse Patient Records regulations: The Federal rules restrict any use of the information to criminally investigate or prosecute any alcohol or drug abuse patient.[facility] the event this information is protected by the Federal Confidentiality of Alcohol and Drug Abuse Patient Records regulations: The Federal rules restrict any use of the information to criminally investigate or prosecute any alcohol or drug abuse patient.[facility]In the event this information is protected by the Federal Confidentiality of Alcohol and Drug Abuse Patient Records regulations: The Federal rules restrict any use of the information to criminally investigate or prosecute any alcohol or drug abuse patient.[facility] HospitalIn the event this information is protected by the Federal Confidentiality of Alcohol and Drug Abuse Patient Records regulations: The Federal rules restrict any use of the information to criminally investigate or prosecute any alcohol or drug abuse patient.[facility] HospitalIn the event this information is protected by the Federal Confidentiality of Alcohol and Drug Abuse Patient Records regulations: The Federal rules restrict any use of the information to criminally investigate or prosecute any alcohol or drug abuse patient.[facility] HospitalIn the event this information is protected by the Federal Confidentiality of Alcohol and Drug Abuse Patient Records regulations: The Federal rules restrict any use of the information to criminally investigate or prosecute any alcohol or drug abuse patient.[facility] HospitalIn the event this information is protected by the Federal Confidentiality of Alcohol and Drug Abuse Patient Records regulations: The Federal rules restrict any use of the information to criminally investigate or prosecute any alcohol or drug abuse patient.[facility] HospitalIn the event this information is protected by the Federal Confidentiality of Alcohol and Drug Abuse Patient Records regulations: The Federal rules restrict any use of the information to criminally investigate or prosecute any alcohol or drug abuse patient.[facility] HospitalIn the event this information is protected by the Federal Confidentiality of Alcohol and Drug Abuse Patient Records regulations: The Federal rules restrict any use of the information to criminally investigate or prosecute any alcohol or drug abuse patient.[facility]In the event this information is protected by the Federal Confidentiality of Alcohol and Drug Abuse Patient Records regulations: The Federal rules restrict any use of the information to criminally investigate or prosecute any alcohol or drug abuse patient.[facility]In the event this information is protected by the Federal Confidentiality of Alcohol and Drug Abuse Patient Records regulations: The Federal rules restrict any use of the information to criminally investigate or prosecute any alcohol or drug abuse patient.[facility] HospitalIn the event this information is protected by the Federal Confidentiality of Alcohol and Drug Abuse Patient Records regulations: The Federal rules restrict any use of the information to criminally investigate or prosecute any alcohol or drug abuse patient.[facility] HospitalIn the event this information is protected by the Federal Confidentiality of Alcohol and Drug Abuse Patient Records regulations: The Federal rules restrict any use of the information to criminally investigate or prosecute any alcohol or drug abuse patient.[facility] HospitalIn the event this information is protected by the Federal Confidentiality of Alcohol and Drug Abuse Patient Records regulations: The Federal rules restrict any use of the information to criminally investigate or prosecute any alcohol or drug abuse patient.[facility]In the event this information is protected by the Federal Confidentiality of Alcohol and Drug Abuse Patient Records regulations: The Federal rules restrict any use of the information to criminally investigate or prosecute any alcohol or drug abuse patient.[facility]In the event this information is protected by the Federal Confidentiality of Alcohol and Drug Abuse Patient Records regulations: The Federal rules restrict any use of the information to criminally investigate or prosecute any alcohol or drug abuse patient.[facility]In the event this information is protected by the Federal Confidentiality of Alcohol and Drug Abuse Patient Records regulations: The Federal rules restrict any use of the information to criminally investigate or prosecute any alcohol or drug abuse patient.[facility]In the event this information is protected by the Federal Confidentiality of Alcohol and Drug Abuse Patient Records regulations: The Federal rules restrict any use of the information to criminally investigate or prosecute any alcohol or drug abuse patient.[facility]In the event this information is protected by the Federal Confidentiality of Alcohol and Drug Abuse Patient Records regulations: The Federal rules restrict any use of the information to criminally investigate or prosecute any alcohol or drug abuse patient.[facility] HospitalIn the event this information is protected by the Federal Confidentiality of Alcohol and Drug Abuse Patient Records regulations: The Federal rules restrict any use of the information to criminally investigate or prosecute any alcohol or drug abuse patient.[facility] HospitalIn the event this information is protected by the Federal Confidentiality of Alcohol and Drug Abuse Patient Records regulations: The Federal rules restrict any use of the information to criminally investigate or prosecute any alcohol or drug abuse patient.[facility] HospitalIn the event this information is protected by the Federal Confidentiality of Alcohol and Drug Abuse Patient Records regulations: The Federal rules restrict any use of the information to criminally investigate or prosecute any alcohol or drug abuse patient.[facility] HospitalIn the event this information is protected by the Federal Confidentiality of Alcohol and Drug Abuse Patient Records regulations: The Federal rules restrict any use of the information to criminally investigate or prosecute any alcohol or drug abuse patient.[facility] HospitalIn the event this information is protected by the Federal Confidentiality of Alcohol and Drug Abuse Patient Records regulations: The Federal rules restrict any use of the information to criminally investigate or prosecute any alcohol or drug abuse patient.[facility] HospitalIn the event this information is protected by the Federal Confidentiality of Alcohol and Drug Abuse Patient Records regulations: The Federal rules restrict any use of the information to criminally investigate or prosecute any alcohol or drug abuse patient.[facility] HospitalIn the event this information is protected by the Federal Confidentiality of Alcohol and Drug Abuse Patient Records regulations: The Federal rules restrict any use of the information to criminally investigate or prosecute any alcohol or drug abuse patient.[facility] HospitalIn the event this information is protected by the Federal Confidentiality of Alcohol and Drug Abuse Patient Records regulations: The Federal rules restrict any use of the information to criminally investigate or prosecute any alcohol or drug abuse patient.[facility] HospitalIn the event this information is protected by the Federal Confidentiality of Alcohol and Drug Abuse Patient Records regulations: The Federal rules restrict any use of the information to criminally investigate or prosecute any alcohol or drug abuse patient.[facility] HospitalIn the event this information is protected by the Federal Confidentiality of Alcohol and Drug Abuse Patient Records regulations: The Federal rules restrict any use of the information to criminally investigate or prosecute any alcohol or drug abuse patient.[facility] HospitalIn the event this information is protected by the Federal Confidentiality of Alcohol and Drug Abuse Patient Records regulations: The Federal rules restrict any use of the information to criminally investigate or prosecute any alcohol or drug abuse patient.[facility] HospitalIn the event this information is protected by the Federal Confidentiality of Alcohol and Drug Abuse Patient Records regulations: The Federal rules restrict any use of the information to criminally investigate or prosecute any alcohol or drug abuse patient.[facility] HospitalIn the event this information is protected by the Federal Confidentiality of Alcohol and Drug Abuse Patient Records regulations: The Federal rules restrict any use of the information to criminally investigate or prosecute any alcohol or drug abuse patient.[facility] HospitalIn the event this information is protected by the Federal Confidentiality of Alcohol and Drug Abuse Patient Records regulations: The Federal rules restrict any use of the information to criminally investigate or prosecute any alcohol or drug abuse patient.[facility] HospitalIn the event this information is protected by the Federal Confidentiality of Alcohol and Drug Abuse Patient Records regulations: The Federal rules restrict any use of the information to criminally investigate or prosecute any alcohol or drug abuse patient.[facility] HospitalIn the event this information is protected by the Federal Confidentiality of Alcohol and Drug Abuse Patient Records regulations: The Federal rules restrict any use of the information to criminally investigate or prosecute any alcohol or drug abuse patient.[facility] HospitalIn the event this information is protected by the Federal Confidentiality of Alcohol and Drug Abuse Patient Records regulations: The Federal rules restrict any use of the information to criminally investigate or prosecute any alcohol or drug abuse patient.[facility] HospitalIn the event this information is protected by the Federal Confidentiality of Alcohol and Drug Abuse Patient Records regulations: The Federal rules restrict any use of the information to criminally investigate or prosecute any alcohol or drug abuse patient.[facility] HospitalIn the event this information is protected by the Federal Confidentiality of Alcohol and Drug Abuse Patient Records regulations: The Federal rules restrict any use of the information to criminally investigate or prosecute any alcohol or drug abuse patient.[facility] HospitalIn the event this information is protected by the Federal Confidentiality of Alcohol and Drug Abuse Patient Records regulations: The Federal rules restrict any use of the information to criminally investigate or prosecute any alcohol or drug abuse patient.[facility] HospitalIn the event this information is protected by the Federal Confidentiality of Alcohol and Drug Abuse Patient Records regulations: The Federal rules restrict any use of the information to criminally investigate or prosecute any alcohol or drug abuse patient.[facility] HospitalIn the event this information is protected by the Federal Confidentiality of Alcohol and Drug Abuse Patient Records regulations: The Federal rules restrict any use of the information to criminally investigate or prosecute any alcohol or drug abuse patient.[facility] HospitalIn the event this information is protected by the Federal Confidentiality of Alcohol and Drug Abuse Patient Records regulations: The Federal rules restrict any use of the information to criminally investigate or prosecute any alcohol or drug abuse patient.[facility] HospitalIn the event this information is protected by the Federal Confidentiality of Alcohol and Drug Abuse Patient Records regulations: The Federal rules restrict any use of the information to criminally investigate or prosecute any alcohol or drug abuse patient.[facility] HospitalIn the event this information is protected by the Federal Confidentiality of Alcohol and Drug Abuse Patient Records regulations: The Federal rules restrict any use of the information to criminally investigate or prosecute any alcohol or drug abuse patient.[facility] HospitalIn the event this information is protected by the Federal Confidentiality of Alcohol and Drug Abuse Patient Records regulations: The Federal rules restrict any use of the information to criminally investigate or prosecute any alcohol or drug abuse patient.[facility] HospitalIn the event this information is protected by the Federal Confidentiality of Alcohol and Drug Abuse Patient Records regulations: The Federal rules restrict any use of the information to criminally investigate or prosecute any alcohol or drug abuse patient.[facility] HospitalIn the event this information is protected by the Federal Confidentiality of Alcohol and Drug Abuse Patient Records regulations: The Federal rules restrict any use of the information to criminally investigate or prosecute any alcohol or drug abuse patient.[facility] HospitalIn the event this information is protected by the Federal Confidentiality of Alcohol and Drug Abuse Patient Records regulations: The Federal rules restrict any use of the information to criminally investigate or prosecute any alcohol or drug abuse patient.[facility] HospitalIn the event this information is protected by the Federal Confidentiality of Alcohol and Drug Abuse Patient Records regulations: The Federal rules restrict any use of the information to criminally investigate or prosecute any alcohol or drug abuse patient.[facility] HospitalIn the event this information is protected by the Federal Confidentiality of Alcohol and Drug Abuse Patient Records regulations: The Federal rules restrict any use of the information to criminally investigate or prosecute any alcohol or drug abuse patient.[facility] HospitalIn the event this information is protected by the Federal Confidentiality of Alcohol and Drug Abuse Patient Records regulations: The Federal rules restrict any use of the information to criminally investigate or prosecute any alcohol or drug abuse patient.[facility] HospitalIn the event this information is protected by the Federal Confidentiality of Alcohol and Drug Abuse Patient Records regulations: The Federal rules restrict any use of the information to criminally investigate or prosecute any alcohol or drug abuse patient.[facility] HospitalIn the event this information is protected by the Federal Confidentiality of Alcohol and Drug Abuse Patient Records regulations: The Federal rules restrict any use of the information to criminally investigate or prosecute any alcohol or drug abuse patient.[facility] HospitalIn the event this information is protected by the Federal Confidentiality of Alcohol and Drug Abuse Patient Records regulations: The Federal rules restrict any use of the information to criminally investigate or prosecute any alcohol or drug abuse patient.[facility] HospitalIn the event this information is protected by the Federal Confidentiality of Alcohol and Drug Abuse Patient Records regulations: The Federal rules restrict any use of the information to criminally investigate or prosecute any alcohol or drug abuse patient.[facility] HospitalIn the event this information is protected by the Federal Confidentiality of Alcohol and Drug Abuse Patient Records regulations: The Federal rules restrict any use of the information to criminally investigate or prosecute any alcohol or drug abuse patient.[facility] HospitalIn the event this information is protected by the Federal Confidentiality of Alcohol and Drug Abuse Patient Records regulations: The Federal rules restrict any use of the information to criminally investigate or prosecute any alcohol or drug abuse patient.[facility] HospitalIn the event this information is protected by the Federal Confidentiality of Alcohol and Drug Abuse Patient Records regulations: The Federal rules restrict any use of the information to criminally investigate or prosecute any alcohol or drug abuse patient.[facility] HospitalIn the event this information is protected by the Federal Confidentiality of Alcohol and Drug Abuse Patient Records regulations: The Federal rules restrict any use of the information to criminally investigate or prosecute any alcohol or drug abuse patient.[facility] HospitalIn the event this information is protected by the Federal Confidentiality of Alcohol and Drug Abuse Patient Records regulations: The Federal rules restrict any use of the information to criminally investigate or prosecute any alcohol or drug abuse patient.[facility] HospitalIn the event this information is protected by the Federal Confidentiality of Alcohol and Drug Abuse Patient Records regulations: The Federal rules restrict any use of the information to criminally investigate or prosecute any alcohol or drug abuse patient.[facility] HospitalIn the event this information is protected by the Federal Confidentiality of Alcohol and Drug Abuse Patient Records regulations: The Federal rules restrict any use of the information to criminally investigate or prosecute any alcohol or drug abuse patient.[facility] HospitalIn the event this information is protected by the Federal Confidentiality of Alcohol and Drug Abuse Patient Records regulations: The Federal rules restrict any use of the information to criminally investigate or prosecute any alcohol or drug abuse patient.[facility] HospitalIn the event this information is protected by the Federal Confidentiality of Alcohol and Drug Abuse Patient Records regulations: The Federal rules restrict any use of the information to criminally investigate or prosecute any alcohol or drug abuse patient.[facility] HospitalIn the event this information is protected by the Federal Confidentiality of Alcohol and Drug Abuse Patient Records regulations: The Federal rules restrict any use of the information to criminally investigate or prosecute any alcohol or drug abuse patient.[facility] HospitalIn the event this information is protected by the Federal Confidentiality of Alcohol and Drug Abuse Patient Records regulations: The Federal rules restrict any use of the information to criminally investigate or prosecute any alcohol or drug abuse patient.[facility] HospitalIn the event this information is protected by the Federal Confidentiality of Alcohol and Drug Abuse Patient Records regulations: The Federal rules restrict any use of the information to criminally investigate or prosecute any alcohol or drug abuse patient.[facility] HospitalIn the event this information is protected by the Federal Confidentiality of Alcohol and Drug Abuse Patient Records regulations: The Federal rules restrict any use of the information to criminally investigate or prosecute any alcohol or drug abuse patient.[facility] HospitalIn the event this information is protected by the Federal Confidentiality of Alcohol and Drug Abuse Patient Records regulations: The Federal rules restrict any use of the information to criminally investigate or prosecute any alcohol or drug abuse patient.[facility] HospitalIn the event this information is protected by the Federal Confidentiality of Alcohol and Drug Abuse Patient Records regulations: The Federal rules restrict any use of the information to criminally investigate or prosecute any alcohol or drug abuse patient.[facility] Reason for Visit (unrecogniz ed section and content) Reason Comments Radiology MRI Specialty Diagnoses / Procedures Referred By Contac t Referred To Contact MR IMAGING Diagnoses Brain metastases (HCC) Procedures MRI BRAIN WO/W IVCON MRI BRAIN BRAIN STEM W/O W/CONTRAST MATERIAL Vickie Sanderson, LON.COMMUNICATIONS EQUIPMENT OPERATOR [address] [place] [address] Mr Imaging Referral ID Status Reason Start Date Expiration Date V isits Requested Visits Authorized [id number] Closed Auto-Generate d Referral 11/06/2022 06/08/2023 1 1 Reason Comments Lab Orders Reason Onset Date Comments SPP Oral Oncology/hematology - Medication Refill 11/29/2021 [place] Reason Comments Refill Request Reason Comments Care Coordination scan results Reason Onset Date Comments SPP Oral Oncology/hematology - Medication Refill 12/27/2021 [place] 80mg Reason Comments Care Coordination IV fluid request Reason Onset Date Comments SPP Oral Oncology/hematology - Medication Refill 01/30/2022 [place] Reason Onset Date Comments SPP Oral Oncology/hematology - Medication Refill 03/02/2022 [place] 80mg Reason Comments Lung Cancer follow up Reason Onset Date Comments Refill Request 03/07/2022 Referral ID Status Reason Start Date Expiration Date Visits Requested Visits Authorized [id number] Authorized Auto-Generat ed Referral 03/27/2022 12/16/2022 1 1 Reason Onset Date Comments SPP Oral Oncology/hematology - Medication Refill 04/03/2022 [place] 80mg Reason Comments IV Fluids Request Reason Onset Date Comments SPP Oral Oncology/hematology - Medication Refill 05/02/2022 [place] 80mg Reason Comments Results Reason Onset Date Comments SPP Oral Oncology/hematology - Medication Refill 06/05/2022 [place] Reason Comments FYI-No Action Needed Reason Onset Date Comments SPP Oral Oncology/hematology - Medication Refill 08/03/2022 [place] Reason Onset Date Comments SPP Oral Oncology/hematology - Medication Refill 10/02/2022 [place] Reason Onset Date Comments SPP Oral Oncology/hematology - Medication Refill 10/31/2022 [place] 80mg Reason Comments Care Coordination cough Reason Onset Date Comments SPP Oral Oncology/hematology - Medication Refill 11/28/2022 [place] Reason Onset Date Comments SPP Oral Oncology/hematology - Medication Refill 12/27/2022 [place] Reason Comments Care Coordination CT results Reason Comments Lung Cancer Follow up after scan s Reason Onset Date Comments SPP Oral Oncology/hematology - Medication Refill 02/14/2023 Tag[place] 80mg. Reason Comments Future Appointment Reason Onset Date Comments SPP Oral Oncology/hematology - Medication Refill 03/12/2023 [place] Reason Onset Date Comments Refill Request 03/28/2023 Reason Onset Date Comments Refill Request 03/30/2023 Reason Comments Care Coordination Physical therapy Reason Comments Care Coordination Home Health Reason Comments Care Coordination Cancellation of home health/PT Reason Comments Care Coordination Medication request Reason Onset Date Comments SPP Oral Oncology/hematology - Medication Refill 05/08/2023 Tag[place] 80mg. Reason Comments Care Coordination Medication question Reason Onset Date Comments SPP Oral Oncology/hematology - Medication Refill 06/08/2023 [place] 80mg Reason Onset Date Comments SPP Oral Oncology/hematology - Medication Refill 07/05/2023 [place]ris[place] Reason Comments Medication Problem Reason Comments Care Coordination housecalls nurse follow up Reason Comments Lung Cancer Specialty Diagnoses / Procedures Referred By Contac t Referred To Contact Diagnoses 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, unspecified laterality (HCC) Procedures CONSULT TO PALLIATIVE CARE OFFICE/OUTPATIENT [facility] 60-74 MINUTES Yanci Churchill MD [address] [place], [place] [id number] Referral ID Status Reason Start Date Expiration Date V isits Requested Visits Authorized [id number] Closed PCP Requested Referral 07/09/2023 07/08/2024 1 1 Reason Onset Date Comments Opened In Error 08/01/2023 Reason Comments Patient Update Reason Onset Date Comments SPP Oral Oncology/hematology - Medication Refill 08/08/2023 Tag[place] 80mg Reason Comments Care Coordination Back Pain Reason Comments Care Coordination Scan results Reason Onset Date Comments SPP Oral Oncology/hematology - Medication Refill 10/01/2023 [place] Reason Comments Lung Cancer Reason Comments Care Coordination Elevated Blood Press ure Reason Onset Date Comments SPP Oral Oncology/hematology - Medication Refill 10/31/2023 Tag[place] 80mg Reason Comments Care Coordination UTI Reason Onset Date Comments SPP Oral Oncology/hematology - Medication Refill 12/27/2023 [place] Care Teams (unrecognized sec tion and content) 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 Relationship Specialty [place] [address] [place] [address] Physician Radiation Oncology 10/15/18 Harry Brannon RN [address] [address] Specialty Coarse Wire Drawer Hematology/Oncology 03/31/20 Yanci Churchill MD [address] [place] [address] Physician Hematology/Oncology 03/31/20 Chichi Gonsalez PAMadysonC [address] [address] Physician Php Developer Hematology/Oncology 03/31/20 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 Relationship Specialty [place] [address] [place] [address] Physician Radiation Oncology 10/15/18 Harry Brannon RN [address] [place] [address] Specialty Coarse Wire Drawer Hematology/Oncology 03/31/20 Yanci Churchill MD [address] [place] [address] Physician Hematology/Oncology 03/31/20 Chichi Gonsalez PAMadysonC [address] [place] [address] Physician Php Developer Hematology/Oncology 03/31/20 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 Relationship Specialty [place] [address] [place] [address] Physician Radiation Oncology 10/15/18 Harry Brannon RN [address] [place] [place] [address] Specialty Coarse Wire Drawer Hematology/Oncology 03/31/20 Yanci Churchill MD [address] [place] [address] Physician Hematology/Oncology 03/31/20 Chichi Gonsalez, PAMadysonC [address] [place] [address] Physician Php Developer Hematology/Oncology 03/31/20 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 Relationship Specialty [place] [address] [place] [address] Physician Radiation Oncology 10/15/18 Harry Brannon RN [address] [place] [address] Specialty Coarse Wire Drawer Hematology/Oncology 03/31/20 Yanci Churchill MD [address] [place] [address] Physician Hematology/Oncology 03/31/20 Chichi Gonsalez, PA-C [address] [place] [address] Physician Php Developer Hematology/Oncology 03/31/20 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 Relationship Specialty [place] [address] [place] [address] Physician Radiation Oncology 10/15/18 Harry Brannon RN [address] [place] [address] Specialty Coarse Wire Drawer Hematology/Oncology 03/31/20 Yanci Churchill MD [address] [place] [address] Physician Hematology/Oncology 03/31/20 Chichi Gonsalez PA-C [address] [place] [address] Physician Php Developer Hematology/Oncology 03/31/20 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 Relationship Specialty [place] [address] [place] [address] Physician Radiation Oncology 10/15/18 Harry Brannon, RN [address] [place] [address] Specialty Coarse Wire Drawer Hematology/Oncology 03/31/20 Yanci Churchill MD [address] [place] [address] Physician Hematology/Oncology 03/31/20 Chichi Gonsalez PA-C [address] [place] [place] [address] Physician Php Developer Hematology/Oncology 03/31/20 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 Relationship Specialty [place] [address] [place] [address] Physician Radiation Oncology 10/15/18 Harry Brannon, RN [address] [place] [place] [address] Specialty Coarse Wire Drawer Hematology/Oncology 03/31/20 Yanci Churchill MD [address] [facility] [place] [address] Physician Hematology/Oncology 03/31/20 Chichi Gonsalez PA-C [address] [place] [address] Physician Php Developer Hematology/Oncology 03/31/20 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 Relationship Specialty [place] [address] [place] [address] Physician Radiation Oncology 10/15/18 Harry Brannon RN [address] [facility] [place] [address] Specialty Coarse Wire Drawer Hematology/Oncology 03/31/20 Yanci Churchill MD [address] [place] [address] Physician Hematology/Oncology 03/31/20 Chichi Gonsalez, PAMadysonC [address] [facility] [place] [address] Physician Php Developer Hematology/Oncology 03/31/20 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 Relationship Specialty [place] [address] [place] [address] Physician Radiation Oncology 10/15/18 Harry Brannon RN [address] [facility] [place] [address] Specialty Coarse Wire Drawer Hematology/Oncology 03/31/20 Yanci Churchill MD [address] [place] [address] Physician Hematology/Oncology 03/31/20 Chichi Gonsalez, PAMadysonC [address] [facility] [place] [address] Physician Php Developer Hematology/Oncology 03/31/20 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 Relationship Specialty [place] [address] [place] [address] Physician Radiation Oncology 10/15/18 Harry Brannon RN [address] [address] Specialty Coarse Wire Drawer Hematology/Oncology 03/31/20 Yanci Churchill MD [address] [place] [address] Physician Hematology/Oncology 03/31/20 Chichi Gonsalez PA-C [address] [place] [address] Physician Php Developer Hematology/Oncology 03/31/20 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 Relationship Specialty [place] [address] [place] [address] Physician Radiation Oncology 10/15/18 Harry Brannon, RN [address] [place] [address] Specialty Coarse Wire Drawer Hematology/Oncology 03/31/20 Yanci Churchill MD [address] [place] [address] Physician Hematology/Oncology 03/31/20 Chichi Gonsalez PA-C [address] [place] [address] Physician Php Developer Hematology/Oncology 03/31/20 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 Relationship Specialty [place] [address] [place] [address] Physician Radiation Oncology 10/15/18 Harry Brannon, RN [address] [place] [address] Specialty Coarse Wire Drawer Hematology/Oncology 03/31/20 Yanci Churchill MD [address] [place] [address] Physician Hematology/Oncology 03/31/20 Chichi Gonsalez PA-C [address] [address] Physician Php Developer Hematology/Oncology 03/31/20 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 Relationship Specialty Start Date End Date Sal [place] [address] [place] [address] Physician Radiation Oncology 10/15/18 Harry Brannon, RN [address] [place] [place] [address] Specialty Coarse Wire Drawer Hematology/Oncology 03/31/20 Yanci Churchill MD [address] [place] [address] Physician Hematology/Oncology 03/31/20 Chichi Gonsalez, PA-C [address] [place] [address] Physician Php Developer Hematology/Oncology 03/31/20 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 Relationship Specialty [place] [address] [place] [address] Physician Radiation Oncology 10/15/18 Harry Brannon, RN [address] [place] [place] [address] Specialty Coarse Wire Drawer Hematology/Oncology 03/31/20 Yanci Churchill MD [address] [place] [address] Physician Hematology/Oncology 03/31/20 Chichi Gonsalez, PA-C [address] [place] [address] Physician Php Developer Hematology/Oncology 03/31/20 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 Relationship Specialty [place] [address] [place] [address] Physician Radiation Oncology 10/15/18 Harry Brannon RN [address] [place] [place] [address] Specialty Coarse Wire Drawer Hematology/Oncology 03/31/20 Yanci Churchill MD [address] [facility] [place] [address] Physician Hematology/Oncology 03/31/20 Chichi Gonsalez, PAMadysonC [address] [place] [address] Physician Php Developer Hematology/Oncology 03/31/20 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 Relationship Specialty [place] [address] [place] [address] Physician Radiation Oncology 10/15/18 Harry Brannon RN [address] [place] [address] Specialty Coarse Wire Drawer Hematology/Oncology 03/31/20 Yanci Churchill MD [address] [place] [address] Physician Hematology/Oncology 03/31/20 Chichi Gonsalez, PAMadysonC [address] [place] [place] [address] Physician Php Developer Hematology/Oncology 03/31/20 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 Relationship Specialty [place] [address] [place] [address] Physician Radiation Oncology 10/15/18 Harry Brannon RN [address] [place] [address] Specialty Coarse Wire Drawer Hematology/Oncology 03/31/20 Yanci Churchill MD [address] [place] [address] Physician Hematology/Oncology 03/31/20 Chichi Gonsalez PA-C [address] [facility] [place] [address] Physician Php Developer Hematology/Oncology 03/31/20 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 Relationship Specialty Start Date End Date Lexi Escobar MD [address] [place] [address] PCP - General Family Medicine 02/13/23 [place] [address] [place] [address] Physician Radiation Oncology 10/15/18 Harry Brannon, RN [address] [facility] [place] [address] Specialty Coarse Wire Drawer Hematology/Oncology 03/31/20 Yanci Churchill MD [address] [place] [address] Physician Hematology/Oncology 03/31/20 Chichi Gonsalez PA-C [address] [facility] [place] [address] Physician Php Developer Hematology/Oncology 03/31/20 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 Relationship Specialty Start Date End Date Lexi Escobar MD [address] [place] [address] PCP - General Family Medicine 02/13/23 [place] [address] [place] [address] Physician Radiation Oncology 10/15/18 Harry Brannon RN [address] [facility] [place] [address] Specialty Coarse Wire Drawer Hematology/Oncology 03/31/20 Yanci Churchill MD [address] [place] [address] Physician Hematology/Oncology 03/31/20 Chichi Gonsalez PA-C [address] [facility] [place] [address] Physician Php Developer Hematology/Oncology 03/31/20 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 Relationship Specialty Start Date End Date Lexi Escobar MD [address] [place] [address] PCP - General Family Medicine 02/13/23 [place] [address] [place] [address] Physician Radiation Oncology 10/15/18 Harry Brannon, RN [address] [place] [address] Specialty Coarse Wire Drawer Hematology/Oncology 03/31/20 Yanci Churchill MD [address] [facility] [place] [address] Physician Hematology/Oncology 03/31/20 Chichi Gonsalez PA-C [address] [facility] [place] [address] Physician Php Developer Hematology/Oncology 03/31/20 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 Relationship Specialty Start Date End Date Lexi Escobar MD [address] [place] [address] PCP - General Family Medicine 02/13/23 [place] [address] [place] [address] Physician Radiation Oncology 10/15/18 Harry Brannon, RN [address] [place] [address] Specialty Coarse Wire Drawer Hematology/Oncology 03/31/20 Yanci Churchill MD [address] [facility] [place] [address] Physician Hematology/Oncology 03/31/20 Chichi Gonsalez PA-C [address] [facility] [place] [address] Physician Php Developer Hematology/Oncology 03/31/20 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 Relationship Specialty Start Date End Date Lexi Escobar MD [address] [place] [address] PCP - General Family Medicine 02/13/23 [place] [address] [place] [address] Physician Radiation Oncology 10/15/18 Harry Brannon RN [address] [facility] [place] [address] Specialty Coarse Wire Drawer Hematology/Oncology 03/31/20 Yanci Churchill MD [address] [facility] [place] [address] Physician Hematology/Oncology 03/31/20 Chichi Gonsalez PA-C [address] [place] [address] Physician Php Developer Hematology/Oncology 03/31/20 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 Relationship Specialty Start Date End Date Lexi Escobar MD [address] [place] [address] PCP - General Family Medicine 02/13/23 [place] [address] [place] [address] Physician Radiation Oncology 10/15/18 Harry Brannon RN [address] [facility] [place] [address] Specialty Coarse Wire Drawer Hematology/Oncology 03/31/20 Yanci Churchill MD [address] [facility] [place] [address] Physician Hematology/Oncology 03/31/20 Chichi Gonsalez PA-C [address] [place] [place] [address] Physician Php Developer Hematology/Oncology 03/31/20 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 Relationship Specialty Start Date End Date Lexi Escobar MD [address] [place] [address] PCP - General Family Medicine 02/13/23 [place] [address] [place] [address] Physician Radiation Oncology 10/15/18 Harry Brannon RN [address] [facility] [place] [address] Specialty Coarse Wire Drawer Hematology/Oncology 03/31/20 Yanci Churchill MD [address] [facility] [place] [address] Physician Hematology/Oncology 03/31/20 Chichi Gonsalez PA-C [address] [facility] [place] [address] Physician Php Developer Hematology/Oncology 03/31/20 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 Relationship Specialty Start Date End Date Lexi Escobar MD [address] [place] [address] PCP - General Family Medicine 02/13/23 [place] [address] [place] [address] Physician Radiation Oncology 10/15/18 Harry Brannon RN [address] [facility] [place] [address] Specialty Coarse Wire Drawer Hematology/Oncology 03/31/20 Yanci Churchill MD [address] [place] [address] Physician Hematology/Oncology 03/31/20 Chichi Gonsalez PA-C [address] [facility] [place] [address] Physician Php Developer Hematology/Oncology 03/31/20 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 Relationship Specialty Start Date End Date Lexi Escobar MD [address] [place] [address] PCP - General Family Medicine 02/13/23 [place] [address] [place] [address] Physician Radiation Oncology 10/15/18 Harry Brannon RN [address] [facility] [place] [address] Specialty Coarse Wire Drawer Hematology/Oncology 03/31/20 Yanci Churchill MD [address] [facility] [place] [address] Physician Hematology/Oncology 03/31/20 Chichi Gonsalez PA-C [address] [facility] [place] [address] Physician Php Developer Hematology/Oncology 03/31/20 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 Relationship Specialty Start Date End Date Lexi Escobar MD [address] [place] [address] PCP - General Family Medicine 02/13/23 [place] [address] [place] [address] Physician Radiation Oncology 10/15/18 Harry Brannon, RN [address] [place] [address] Specialty Coarse Wire Drawer Hematology/Oncology 03/31/20 Yanci Churchill MD [address] [place] [address] Physician Hematology/Oncology 03/31/20 Chichi Gonsalez, PAMadysonC [address] [facility] [place] [address] Physician Php Developer Hematology/Oncology 03/31/20 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 Relationship Specialty Start Date End Date Lexi Escobar MD [address] [place] [address] PCP - General Family Medicine 02/13/23 [place] [address] [place] [address] Physician Radiation Oncology 10/15/18 Harry Brannon RN [address] [place] [address] Specialty Coarse Wire Drawer Hematology/Oncology 03/31/20 Yanci Churchill MD [address] [facility] [place] [address] Physician Hematology/Oncology 03/31/20 Chichi Gonsalez PA-C [address] [facility] [place] [address] Physician Php Developer Hematology/Oncology 03/31/20 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 Relationship Specialty Start Date End Date Lexi Escobar MD [address] [place] [address] PCP - General Family Medicine 02/13/23 [place] [address] [place] [address] Physician Radiation Oncology 10/15/18 Harry Brannon RN [address] [facility] [place] [address] Specialty Coarse Wire Drawer Hematology/Oncology 03/31/20 Yanci Churchill MD [address] [facility] [place] [address] Physician Hematology/Oncology 03/31/20 Chichi Gonsalez PA-C [address] [facility] [place] [address] Physician Php Developer Hematology/Oncology 03/31/20 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 Relationship Specialty Start Date End Date Lexi Escobar MD [address] [place] [address] PCP - General Family Medicine 02/13/23 [place] [address] [place] [address] Physician Radiation Oncology 10/15/18 Harry Brnanon RN [address] [facility] [place] [address] Specialty Coarse Wire Drawer Hematology/Oncology 03/31/20 Yanci Churchill MD [address] [facility] [place] [address] Physician Hematology/Oncology 03/31/20 Chichi Gonsalez PA-C [address] [facility] [place] [address] Physician Php Developer Hematology/Oncology 03/31/20 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 Relationship Specialty Start Date End Date Lexi Escobar MD [address] [place] [address] PCP - General Family Medicine 02/13/23 [place] [address] [place] [address] Physician Radiation Oncology 10/15/18 Harry Brannon RN [address] [facility] [place] [address] Specialty Coarse Wire Drawer Hematology/Oncology 03/31/20 Yanci Churchill MD [address] [place] [address] Physician Hematology/Oncology 03/31/20 Chichi Gonsalez PA-C [address] [facility] [place] [address] Physician Php Developer Hematology/Oncology 03/31/20 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 Relationship Specialty Start Date End Date Lexi Escobar MD [address] [place] [address] PCP - General Family Medicine 02/13/23 [place] [address] [place] [address] Physician Radiation Oncology 10/15/18 Harry Brannon RN [address] [place] [address] Specialty Coarse Wire Drawer Hematology/Oncology 03/31/20 Yanci Churchill MD [address] [place] [address] Physician Hematology/Oncology 03/31/20 Chichi Gonsalez PAMadysonC [address] [facility] [place] [address] Physician Php Developer Hematology/Oncology 03/31/20 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 Relationship Specialty Start Date End Date Lexi Escobar MD [address] [place] [address] PCP - General Family Medicine 01/02/23 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 Relationship Specialty Start Date End Date Lexi Escobar MD [address] [place] [address] PCP - General Family Medicine 02/13/23 [place] [address] [place] [address] Physician Radiation Oncology 10/15/18 Harry Brannon RN [address] [facility] [place] [address] Specialty Coarse Wire Drawer Hematology/Oncology 03/31/20 Yanci Churchill MD [address] [facility] [place] [address] Physician Hematology/Oncology 03/31/20 Chichi Gonsalez PA-C [address] [facility] [place] [address] Physician Php Developer Hematology/Oncology 03/31/20 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 Relationship Specialty Start Date End Date Lexi Escobar MD [address] [place] [address] PCP - General Family Medicine 02/13/23 [place] [address] [place] [address] Physician Radiation Oncology 10/15/18 Harry Brannon, RN [address] [facility] [place] [address] Specialty Coarse Wire Drawer Hematology/Oncology 03/31/20 Yanci Churchill MD [address] [place] [address] [place] [address] Physician Hematology/Oncology 03/31/20 Chichi Gonsalez, PAMadysonC [address] [place] [address] Physician Php Developer Hematology/Oncology 03/31/20 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 Relationship Specialty Start Date End Date Lexi Escobar MD [address] [place] [address] PCP - General Family Medicine 01/02/23 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 Relationship Specialty Start Date End Date Lexi Escobar MD [address] [place] [address] PCP - General Family Medicine 02/13/23 [place] [address] [place] [address] Physician Radiation Oncology 10/15/18 Harry Brannon RN [address] [place] [address] Specialty Coarse Wire Drawer Hematology/Oncology 03/31/20 Yanci Churchill MD [address] [facility] [address] Physician Hematology/Oncology 03/31/20 Chichi Gonsalez PA-C [address] [facility] [place] [address] Physician Php Developer Hematology/Oncology 03/31/20 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 Relationship Specialty Start Date End Date Lexi Escobar MD [address] [place] [address] PCP - General Family Medicine 02/13/23 [place] [address] [place] [address] Physician Radiation Oncology 10/15/18 Harry Brannon RN [address] [address] Specialty Coarse Wire Drawer Hematology/Oncology 03/31/20 Yanci Churchill MD [address] [facility] [place] [address] Physician Hematology/Oncology 03/31/20 Chichi Gonsalez PA-C [address] [facility] [place] [address] Physician Php Developer Hematology/Oncology 03/31/20 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 Relationship Specialty Start Date End Date Lexi Escobar MD [address] [place], [place] [address] PCP - General Family Medicine 02/13/23 [place] [address] [place] [address] Physician Radiation Oncology 10/15/18 Harry Brannon RN [address] [facility] [place] [address] Specialty Coarse Wire Drawer Hematology/Oncology 03/31/20 Yanci Churchill MD [address] [facility] [place] [address] Physician Hematology/Oncology 03/31/20 Chichi Gonsalez PA-C [address] [facility] [place] [address] Physician Php Developer Hematology/Oncology 03/31/20 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 Relationship Specialty Start Date End Date Lexi Escobar MD [address] [place] [address] PCP - General Family Medicine 02/13/23 [place] [address] [place] [address] Physician Radiation Oncology 10/15/18 Harry Brannon RN [address] [facility] [place] [address] Specialty Coarse Wire Drawer Hematology/Oncology 03/31/20 Yanci Churchill MD [address] [facility] [place] [address] Physician Hematology/Oncology 03/31/20 Chichi Gonsalez PA-C [address] [facility] [place] [address] Physician Php Developer Hematology/Oncology 03/31/20 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 Relationship Specialty Start Date End Date Lexi Escobar MD [address] [place] [address] PCP - General Family Medicine 02/13/23 [place] [address] [place] [address] Physician Radiation Oncology 10/15/18 Harry Brannon, WILL [address] [facility] [place] [address] Specialty Coarse Wire Drawer Hematology/Oncology 03/31/20 Yanci Churchill MD [address] [place] [address] Physician Hematology/Oncology 03/31/20 Chichi Gonsalez PAMadysonC [address] [place] [address] [place] [address] Physician Php Developer Hematology/Oncology 03/31/20 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 Relationship Specialty Start Date End Date Lexi Escobar MD [address] [facility] [place] [address] PCP - General Family Medicine 02/13/23 [place] [address] [place] [address] Physician Radiation Oncology 10/15/18 Harry Brannon RN [address] [facility] [place] [address] Specialty Coarse Wire Drawer Hematology/Oncology 03/31/20 Yanci Churchill MD [address] [facility] [place] [address] Physician Hematology/Oncology 03/31/20 Chichi Gonsalez PA-C [address] [facility] [address] Physician Php Developer Hematology/Oncology 03/31/20 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 Relationship Specialty Start Date End Date Lexi Escobar MD [address] [place] [address] PCP - General Family Medicine 02/13/23 [place] [address] [place] [address] Physician Radiation Oncology 10/15/18 Harry Brannon RN [address] [address] Specialty Coarse Wire Drawer Hematology/Oncology 03/31/20 Yanci Churchill MD [address] [facility] [place] [address] Physician Hematology/Oncology 03/31/20 Chichi Gonsalez PA-C [address] [place] [address] [place] [address] Physician Php Developer Hematology/Oncology 03/31/20 FOR RECORDS PERTAINING TO PATIENTS WHO ARE OR HAVE BEEN ENROLLED IN A CHEMICAL DEPENDENCY/SUBSTANCEABUSE PROGRAM, SOME INFORMATION MAY BE OMITTED. This clinical summary was aggregated from multiple sources. Caution should be exercised in using it in the provision of clinical care. This summary normalizes information from multiple sources, and as a consequence, information in this document may materially change the coding, format and clinical context of patient data. In addition, data may be omitted in some cases. CLINICAL DECISIONS SHOULD BE BASED ON THE PRIMARY CLINICAL RECORDS. [employer] [facility]. provides no warranty or guarantee of the accuracy or completeness of information in this document.
--- NOTE | 2024-01-18 19:35 | XR_ITS ---
The [address] [address] Patient Name: SEYMOUR MILAN MRN: [id number] date: 1940 Sex: F Assigned Patient Location: ER Current Patient Location: ER Accession/Order Number: [id number] Exam Date: 01/18/2024 20:05 Report Date: 01/18/2024 22:20 At the request of: NIKITA VALERO Procedure: XR acute abdomen series EXAM: XR acute abdomen series HISTORY: diarrhea COMPARISON: Acute abdominal series dated 01/15/2024 TECHNIQUE: Single frontal view of the chest as well as upright and supine views of the abdomen FINDINGS: Stable mild enlarged cardiac silhouette is seen. Right chest port is seen in place with distal tip projecting over the expected location of the cavoatrial junction. No obvious pneumothorax is seen. Mild prominence of the bronchovascular markings is seen, which may represent mild pulmonary edema and/or infectious process. Mild right lung base atelectasis versus small infiltrate is seen. No significant pleural effusion is seen. Air-fluid levels are seen within the colon, suggestive of diarrheal state. No air-filled distended loops of bowel is seen to suggest bowel obstruction. Scoliotic curvature of the lumbar spine is seen, with curvature to the right. Mild diffuse bony demineralization is seen. XR/XR acute abdomen series IMPRESSION: Mild prominence of the bronchovascular markings is seen, which may represent mild pulmonary edema and/or infectious process. Mild right lung base atelectasis versus small infiltrate is seen. Air-fluid levels are seen within the colon, suggestive of diarrheal state. Electronically authenticated by: NEEL KAHN Date: 01/18/2024 22:20
--- NOTE | 2024-01-18 19:48 | ED_ITS ---
Documented by User: Jose Alfredo Bojorquez MD 01/23/24 06:42 HPI HPI - General Adult General Chief complaint: Chest Pain Stated complaint: sob, cp Time Seen by Provider: 01/18/24 19:22 Source: patient and family Mode of arrival: Wheelchair Limitations: no limitations History of Present Illness HPI narrative: patient recently admitted for sepsis, hypotension, anemia, [place] and enteritis/diverticulitis. 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 Discharged home today and family states at home she was complaining of dyspnea and hypertension. Also diarrhea earlier this week had stop but had another episode today. No fever. On exam she would occ become anxious complaining of dyspnea. Labs returned and her troponin is trending up again and he BNP has increased. chest xray with vascular congestion. EKG with old AWMI but not acute changes. IV lasix ordered. Family informed and are deciding where they would like her transferred to. Related Data Home Medications ?Medication ?Instructions ?Recorded ?Confirmed alprazolam 0.5 mg tablet 0.5 mg PO TID PRN anxiety 04/03/23 01/19/24 aspirin 81 mg capsule 81 mg PO BID 04/03/23 01/19/24 atorvastatin 80 mg tablet 80 mg PO DAILY 04/03/23 01/19/24 docusate sodium 100 mg capsule 100 mg PO DAILY 04/03/23 01/19/24 (Colace) gabapentin 300 mg capsule 300 mg PO TID 04/03/23 01/19/24 hydrocortisone 10 mg tablet 10 mg PO .evening 04/03/23 01/19/24 hydrocortisone 10 mg tablet 20 mg PO .am 04/03/23 01/19/24 lamotrigine 200 mg tablet 200 mg PO .hs 04/03/23 01/19/24 lisinopril 20 mg tablet 20 mg PO DAILY 04/03/23 01/19/24 melatonin 10 mg capsule 10 mg PO DAILY 04/03/23 01/19/24 meloxicam 15 mg tablet 15 mg PO DAILY 04/03/23 01/19/24 memantine 10 mg PO BID dementia 04/03/23 01/19/24 metformin 1,000 mg tablet 1,000 mg PO BID 04/03/23 01/19/24 metoprolol succinate 25 mg 25 mg PO DAILY 04/03/23 01/19/24 tablet,extended release 24 hr nitroglycerin 0.4 mg sublingual 0.4 mg sublingual Q5M PRN chest 04/03/23 01/19/24 tablet pain olanzapine 5 mg tablet 5 mg PO .hs 04/03/23 01/19/24 omeprazole 20 mg capsule,delayed 20 mg PO DAILY 04/03/23 01/19/24 release osimertinib 80 mg tablet (Tagrisso) 80 mg PO DAILY 04/03/23 01/19/24 quetiapine 100 mg tablet 100 mg PO .hs 04/03/23 01/19/24 quetiapine 25 mg tablet 50 mg PO .hs 04/03/23 01/19/24 rivastigmine 13.3 mg/24 hour 13.3 mg transdermal DAILY 04/03/23 01/19/24 transdermal patch cetirizine 10 mg capsule (All Day 10 mg PO DAILY PRN allergy symptoms 04/04/23 01/19/24 Allergy (cetirizine)) clonidine HCl 0.1 mg tablet 0.1 mg PO .hs 04/04/23 01/19/24 prednisone 20 mg tablet 20 mg PO .QD 01/14/24 01/19/24 Previous Rx's ?Medication ?Instructions ?Recorded amoxicillin 875 mg-potassium 1 tab PO Q12H #20 tabs 01/18/24 clavulanate 125 mg tablet potassium chloride 10 mEq 10 meq PO BID #60 caps 01/18/24 capsule,extended release venlafaxine 50 mg tablet 50 mg PO DAILY #30 tabs 01/18/24 Allergies Allergy/AdvReac Type Severity Reaction Status Date / Time No Known Drug Allergies Allergy Verified 01/18/24 19:21 Opioid HPI Opioid Management Most Recent Opioid Data: Last Pain Scale 3 01/18/24 19:32 Last Pain Assessment 01/18/24 13:42 Last ORT Total Score 1 01/14/24 18:01 Last ORT Risk Category Low Risk 01/14/24 18:01 Review of Systems ROS Status of ROS 10 or more systems reviewed and unremark able except as noted in history and below [facility] Medical History (Updated 01/22/24 @ 00:00 by ) Leukocytosis ?D72.829 - Elevated white blood cell count, unspecified (ICD-10) Fever ?R50.9 - Fever, unspecified (ICD-10) Acute kidney injury ?N17.9 - Acute kidney failure, unspecified (ICD-10) Lung cancer metastatic to brain ?C34.90 - Malignant neoplasm of unspecified part of unspecified bronchus or lung (ICD-10) ?C79.31 - Secondary malignant neoplasm of brain (ICD-10) Senile dementia ?F03.90 - Unspecified dementia, unspecified severity, without behavioral disturbance, psychotic disturbance, mood disturbance, and anxiety (ICD-10) CAD (coronary artery disease) ?I25.10 - Atherosclerotic heart disease of [place] coronary artery without angina pectoris (ICD-10) Type 2 diabetes mellitus with hyperglycemia ?E11.65 - Type 2 diabetes mellitus with hyperglycemia (ICD-10) Dementia ?F03.90 - Unspecified dementia, unspecified severity, without behavioral disturbance, psychotic disturbance, mood disturbance, and anxiety (ICD-10) Pneumonia ?J18.9 - Pneumonia, unspecified organism (ICD-10) Left ankle injury ?S99.912A - Unspecified injury of left ankle, initial encounter (ICD-10) TIA (transient ischemic attack) ?G45.9 - Transient cerebral ischemic attack, unspecified (ICD-10) History of heart attack ?I25.2 - Old myocardial infarction (ICD-10) Nausea ?R11.0 - Nausea (ICD-10) Drug-induced nausea and vomiting ?R11.2 - Nausea with vomiting, unspecified (ICD-10) ?T50.905A - Adverse effect of unspecified drugs, medicaments and biological substances, initial encounter (ICD-10) Lung cancer metastatic to bone ?C34.90 - Malignant neoplasm of unspecified part of unspecified bronchus or lung (ICD-10) ?C79.51 - Secondary malignant neoplasm of bone (ICD-10) Surgical History (Updated 04/04/23 @ 02:36 by Gloria Samayoa) Hx of cholecystectomy ?Z90.49 - Acquired absence of other specified parts of digestive tract (ICD- 10) H/O: hysterectomy ?Z90.710 - Acquired absence of both cervix and uterus (ICD-10) History of heart artery stent ?Z95.5 - Presence of coronary angioplasty implant and graft (ICD-10) Family History (Updated 04/03/23 @ 23:47 by Kristi Munoz RN) Sister Family history of CHF (congestive heart failure) Family history of cancer Family history of diabetes mellitus Family history of hypertension Family history of myocardial infarction Father Family history of cancer Social History (Updated 04/03/23 @ 23:50 by Kristi Munoz RN) Within the past year, how often did you have a drink containing alcohol: never Score interpretation: A score less than 3 is consistent with normal alcohol consumption. Smoking status: Former smoker Non-prescribed substance use: denies use Previous occupational history: Retired Highest level of school completed/degree received: 8th grade Are you now , , , , never or living with a partner: In a typical week, how many times do you talk on the telephone with family, friends, or neighbors: 3 or more times per week How often do you get together with friends or relatives: 3 or more times per week How often do you attend moravian or episcopalian services: 4 or more times per year Do you belong to any clubs or organizations such as moravian groups unions, [employer]OM[employer] or athletic groups, or school groups: no Total score: 2 Score interpretation: A score of greater than or equal to 2 indicates the lowest level of social isolation. Little interest or pleasure in doing things: several days Feeling down, depressed, or hopeless: several days Feel stressed/tense/nervous/anxious/difficulty sleeping: to some extent Do you think of yourself as: straight/heterosexual Gender Identity: female Exam Constitutional Vital Signs, click to edit/add: Last Vital Signs Temp 98.0 F 01/19/24 08:49 Pulse 112 H 01/19/24 13:46 Resp 24 H 01/19/24 13:46 BP 136/96 H 01/19/24 13:46 Pulse Ox 96 01/19/24 13:46 O2 Del Method Nasal Cannula 01/19/24 13:14 O2 Flow Rate 2 01/19/24 13:14 Common normals: oriented x3 and alert General appearance: anxious HENMT Common normals: normocephalic and head/scalp atraumatic Eye Common normals: EOMs intact bilaterally and conjunctivae normal Respiratory Other: fibrotic crackles right pos. base Cardio Common normals: S1 normal heart sound and S2 normal heart sound Rate: tachycardic GI Common normals: Normal to inspection, nondistended, normoactive bowel sounds present, soft to palpation and non-tender Extremity Common normals: full ROM General: edema Other: trace-1+ edema bilat ankle/feet Neuro Common normals: oriented x3, CN's II-XII intact bilaterally, moves all extremities and no focal motor deficits Psych Mood and affect: anxious Course Vital Signs Vital signs: Vital Signs Blood Pressure 162/112 H 01/18/24 19:14 Pulse Oximetry 94 L 01/18/24 19:14 Temperature 98.0 F 01/19/24 08:49 Pulse Rate 112 H 01/19/24 13:46 Respiratory Rate 24 H 01/19/24 13:46 Blood Pressure 136/96 H 01/19/24 13:46 Pulse Oximetry 96 01/19/24 13:46 Oxygen Delivery Method Nasal Cannula 01/19/24 13:14 Oxygen Delivery Flow Rate 2 01/19/24 13:14 Medical Decision Making MDM Narrative Medical decision making narrative: patient discharged home today after admission for hypotension, [place], anemia requiring blood transfusion and demand ischemia related increased troponin. A couple of hours after discharge at home she complained of shortness of breath and hypertension and was brought back in by family. She complains of dyspnea but no complaint of chest pain. exam with fibrotic crackles right pos. base. she has edema of her lower extremities. Labs demonstrated increased in troponin again. It was 128 01/14/24 and decreased to 82.7 earlier today. Tonight it has increased again to 296. EKG with NSR. low voltage . old AWMI. no acute findings. cxray with vascular congestion and IV lasix ordered Discussed with Dr Merchant at [facility] and patient accepted in transfer. At this point she is resting comfortably on RA Lab Data Labs: Lab Results 01/18/24 01/18/24 01/18/24 Range/Units 19:43 19:50 21:49 WBC 15.0 H (4.0-11.0) 10^3/uL RBC 4.13 L (4.20-5.40) 10^6/uL Hgb 11.3 L (12.0-16.0) g/dL Hct 36.6 (36.0-48.0) % MCV 88.6 (81.0-99.0) fL MCH 27.4 (26.7-34.0) pg MCHC 30.9 (29.9-35.2) g/dL RDW 17.2 H (11.0-15.0) % Plt Count 205 (150-450) 10^3/uL MPV 10.9 (9.5-13.5) fL Neut % (Auto) 85.3 H (43.0-75.0) % Lymph % (Auto) 6.2 L (20.5-60.0) % [place] % (Auto) 7.3 (1.7-12.0) % Eos % (Auto) 0.1 L (0.9-7.0) % Baso % (Auto) 0.1 L (0.2-2.0) % Neut # (Auto) 12.8 H (1.4-6.5) 10^3/uL Lymph # (Auto) 0.9 L (1.2-3.8) 10^3/uL [place] # (Auto) 1.1 H (0.3-0.8) 10^3/uL Eos # (Auto) 0.0 (0.0-0.7) 10^3/uL Baso # (Auto) 0.0 (0.0-0.1) 10^3/uL Abs Immat Gran (auto) 0.15 H (0.00-0.03) 10^3/uL Imm/Tot Granulo (auto) 1.0 H (0.0-0.5) % Puncture Site R radial ABG pH 7.447 (7.350-7.450) ABG pCO2 38.9 (35.0-45.0) mmHg ABG pO2 65.6 L (80.0-100.0) mmHg ABG HCO3 26.8 H (22.0-26.0) mmol/L ABG O2 Saturation 94.6 % ABG Base Excess 2.8 H (-2.0-2.0) mmol/L Tato Test Positive (POSITIVE) Sodium 145 (136-145) mmol/L Potassium 4.9 (3.5-5.1) mmol/L Chloride 107 (98-107) mmol/L Carbon Dioxide 29.3 (21.0-32.0) mmol/L Anion Gap 13.6 BUN 33.0 H (7.0-18.0) mg/dL Creatinine 1.08 H (0.55-1.02) mg/dL Est GFR ( Amer) 59 L (>=60) Est GFR (Non-Af Amer) 48 L (>=60) BUN/Creatinine Ratio 30.6 Glucose 151 H (74-106) mg/dL Calcium 10.1 (8.5-10.1) mg/dL Total Bilirubin 0.5 (0.2-1.0) mg/dL Direct Bilirubin 0.2 (0.0-0.2) mg/dL AST 80 H (15-37) U/L ALT 78 H (14-59) U/L Alkaline Phosphatase 289 H (46-116) U/L Ammonia 17 (11-32) umol/L Troponin I High Sens 124.5 H* 296.1 H* (4.0-51.3) pg/mL NT-Pro-B Natriuret Pep 29504.0 H* (<=1800.0) pg/mL Total Protein 6.8 (6.4-8.2) g/dL Albumin 2.7 L (3.4-5.0) g/dL Globulin 4.1 g/dL Albumin/Globulin Ratio 0.7 05/25/24 Range/Units 12:40 WBC (4.0-11.0) 10^3/uL RBC (4.20-5.40) 10^6/uL Hgb (12.0-16.0) g/dL Hct (36.0-48.0) % MCV (81.0-99.0) fL MCH (26.7-34.0) pg MCHC (29.9-35.2) g/dL RDW (11.0-15.0) % Plt Count (150-450) 10^3/uL MPV (9.5-13.5) fL Neut % (Auto) (43.0-75.0) % Lymph % (Auto) (20.5-60.0) % [place] % (Auto) (1.7-12.0) % Eos % (Auto) (0.9-7.0) % Baso % (Auto) (0.2-2.0) % Neut # (Auto) (1.4-6.5) 10^3/uL Lymph # (Auto) (1.2-3.8) 10^3/uL [place] # (Auto) (0.3-0.8) 10^3/uL Eos # (Auto) (0.0-0.7) 10^3/uL Baso # (Auto) (0.0-0.1) 10^3/uL Abs Immat Gran (auto) (0.00-0.03) 10^3/uL Imm/Tot Granulo (auto) (0.0-0.5) % Puncture Site ABG pH (7.350-7.450) ABG pCO2 (35.0-45.0) mmHg ABG pO2 (80.0-100.0) mmHg ABG HCO3 (22.0-26.0) mmol/L ABG O2 Saturation % ABG Base Excess (-2.0-2.0) mmol/L Tato Test (POSITIVE) Sodium (136-145) mmol/L Potassium (3.5-5.1) mmol/L Chloride (98-107) mmol/L Carbon Dioxide (21.0-32.0) mmol/L Anion Gap BUN (7.0-18.0) mg/dL Creatinine (0.55-1.02) mg/dL Est GFR ( Amer) (>=60) Est GFR (Non-Af Amer) (>=60) BUN/Creatinine Ratio Glucose (74-106) mg/dL Calcium (8.5-10.1) mg/dL Total Bilirubin (0.2-1.0) mg/dL Direct Bilirubin (0.0-0.2) mg/dL AST (15-37) U/L ALT (14-59) U/L Alkaline Phosphatase (46-116) U/L Ammonia (11-32) umol/L Troponin I High Sens 1092.2 H* (4.0-51.3) pg/mL NT-Pro-B Natriuret Pep (<=1800.0) pg/mL Total Protein (6.4-8.2) g/dL Albumin (3.4-5.0) g/dL Globulin g/dL Albumin/Globulin Ratio Imaging Data Chest x-ray: Radiologist's impression: ITS Impressions Chest/Abdomen X-ray 01/18/24 19:35 IMPRESSION: Mild prominence of the bronchovascular markings is seen, which may represent mild pulmonary edema and/or infectious process. Mild right lung base atelectasis versus small infiltrate is seen. Air-fluid levels are seen within the colon, suggestive of diarrheal state. Electronically authenticated by: NEEL KAHN Date: 01/18/2024 22:20 Chest CTA 01/19/24 11:52 IMPRESSION: 1. The patient has developed bilateral mild volume layering pleural effusions since the study of 01/14/2024 suggesting volume overload. Associated atelectasis at the lung bases. 2. No evidence for pulmonary embolus or aortic dissection. Electronically authenticated by: MONICA ROBLES Date: 01/19/2024 14:24 Critical Care Time Critical Care Time Total Critical Care Time: 45 Discharge Plan Discharge Chief Complaint: Chest Pain Clinical Impression: Elevated troponin, CHF (congestive heart failure) Patient Disposition: [facility] Time of Disposition Decision: 12:38 Discharge Location: [facility] Condition: Fair Mode of Transportation: EMS Discharge Date/Time: 01/19/24 14:25 Documented by User: Sahara Jacques MD 01/19/24 13:36 HPI HPI - General Adult General Chief complaint: Chest Pain Stated complaint: sob, cp Time Seen by Provider: 01/18/24 19:22 Related Data Home Medications ?Medication ?Instructions ?Recorded ?Confirmed alprazolam 0.5 mg tablet 0.5 mg PO TID PRN anxiety 04/03/23 01/19/24 aspirin 81 mg capsule 81 mg PO BID 04/03/23 01/19/24 atorvastatin 80 mg tablet 80 mg PO DAILY 04/03/23 01/19/24 docusate sodium 100 mg capsule 100 mg PO DAILY 04/03/23 01/19/24 (Colace) gabapentin 300 mg capsule 300 mg PO TID 04/03/23 01/19/24 hydrocortisone 10 mg tablet 10 mg PO .evening 04/03/23 01/19/24 hydrocortisone 10 mg tablet 20 mg PO .am 04/03/23 01/19/24 lamotrigine 200 mg tablet 200 mg PO .hs 04/03/23 01/19/24 lisinopril 20 mg tablet 20 mg PO DAILY 04/03/23 01/19/24 melatonin 10 mg capsule 10 mg PO DAILY 04/03/23 01/19/24 meloxicam 15 mg tablet 15 mg PO DAILY 04/03/23 01/19/24 memantine 10 mg PO BID dementia 04/03/23 01/19/24 metformin 1,000 mg tablet 1,000 mg PO BID 04/03/23 01/19/24 metoprolol succinate 25 mg 25 mg PO DAILY 04/03/23 01/19/24 tablet,extended release 24 hr nitroglycerin 0.4 mg sublingual 0.4 mg sublingual Q5M PRN chest 04/03/23 01/19/24 tablet pain olanzapine 5 mg tablet 5 mg PO .hs 04/03/23 01/19/24 omeprazole 20 mg capsule,delayed 20 mg PO DAILY 04/03/23 01/19/24 release osimertinib 80 mg tablet (Tagrisso) 80 mg PO DAILY 04/03/23 01/19/24 quetiapine 100 mg tablet 100 mg PO .hs 04/03/23 01/19/24 quetiapine 25 mg tablet 50 mg PO .hs 04/03/23 01/19/24 rivastigmine 13.3 mg/24 hour 13.3 mg transdermal DAILY 04/03/23 01/19/24 transdermal patch cetirizine 10 mg capsule (All Day 10 mg PO DAILY PRN allergy symptoms 04/04/23 01/19/24 Allergy (cetirizine)) clonidine HCl 0.1 mg tablet 0.1 mg PO .hs 04/04/23 01/19/24 prednisone 20 mg tablet 20 mg PO .QD 01/14/24 01/19/24 Previous Rx's ?Medication ?Instructions ?Recorded amoxicillin 875 mg-potassium 1 tab PO Q12H #20 tabs 01/18/24 clavulanate 125 mg tablet potassium chloride 10 mEq 10 meq PO BID #60 caps 01/18/24 capsule,extended release venlafaxine 50 mg tablet 50 mg PO DAILY #30 tabs 01/18/24 Allergies Allergy/AdvReac Type Severity Reaction Status Date / Time No Known Drug Allergies Allergy Verified 01/18/24 19:21 Opioid HPI Opioid Management Most Recent Opioid Data: Last Pain Scale 3 01/18/24 19:32 Last Pain Assessment 01/18/24 13:42 Last ORT Total Score 1 01/14/24 18:01 Last ORT Risk Category Low Risk 01/14/24 18:01 [facility] Medical History (Updated 01/22/24 @ 00:00 by ) Leukocytosis ?D72.829 - Elevated white blood cell count, unspecified (ICD-10) Fever ?R50.9 - Fever, unspecified (ICD-10) Acute kidney injury ?N17.9 - Acute kidney failure, unspecified (ICD-10) Lung cancer metastatic to brain ?C34.90 - Malignant neoplasm of unspecified part of unspecified bronchus or lung (ICD-10) ?C79.31 - Secondary malignant neoplasm of brain (ICD-10) Senile dementia ?F03.90 - Unspecified dementia, unspecified severity, without behavioral disturbance, psychotic disturbance, mood disturbance, and anxiety (ICD-10) CAD (coronary artery disease) ?I25.10 - Atherosclerotic heart disease of [place] coronary artery without angina pectoris (ICD-10) Type 2 diabetes mellitus with hyperglycemia ?E11.65 - Type 2 diabetes mellitus with hyperglycemia (ICD-10) Dementia ?F03.90 - Unspecified dementia, unspecified severity, without behavioral disturbance, psychotic disturbance, mood disturbance, and anxiety (ICD-10) Pneumonia ?J18.9 - Pneumonia, unspecified organism (ICD-10) Left ankle injury ?S99.912A - Unspecified injury of left ankle, initial encounter (ICD-10) TIA (transient ischemic attack) ?G45.9 - Transient cerebral ischemic attack, unspecified (ICD-10) History of heart attack ?I25.2 - Old myocardial infarction (ICD-10) Nausea ?R11.0 - Nausea (ICD-10) Drug-induced nausea and vomiting ?R11.2 - Nausea with vomiting, unspecified (ICD-10) ?T50.905A - Adverse effect of unspecified drugs, medicaments and biological substances, initial encounter (ICD-10) Lung cancer metastatic to bone ?C34.90 - Malignant neoplasm of unspecified part of unspecified bronchus or lung (ICD-10) ?C79.51 - Secondary malignant neoplasm of bone (ICD-10) Surgical History (Updated 04/04/23 @ 02:36 by Gloria Samayoa) Hx of cholecystectomy ?Z90.49 - Acquired absence of other specified parts of digestive tract (ICD- 10) H/O: hysterectomy ?Z90.710 - Acquired absence of both cervix and uterus (ICD-10) History of heart artery stent ?Z95.5 - Presence of coronary angioplasty implant and graft (ICD-10) Family History (Updated 04/03/23 @ 23:47 by Kristi Munoz RN) Sister Family history of CHF (congestive heart failure) Family history of cancer Family history of diabetes mellitus Family history of hypertension Family history of myocardial infarction Father Family history of cancer Social History (Updated 04/03/23 @ 23:50 by Kristi Munoz, WILL) Within the past year, how often did you have a drink containing alcohol: never Score interpretation: A score less than 3 is consistent with normal alcohol consumption. Smoking status: Former smoker Non-prescribed substance use: denies use Previous occupational history: Retired Highest level of school completed/degree received: 8th grade Are you now , , , , never or living with a partner: In a typical week, how many times do you talk on the telephone with family, friends, or neighbors: 3 or more times per week How often do you get together with friends or relatives: 3 or more times per week How often do you attend moravian or episcopalian services: 4 or more times per year Do you belong to any clubs or organizations such as moravian groups unions, fraternal or athletic groups, or school groups: no Total score: 2 Score interpretation: A score of greater than or equal to 2 indicates the lowest level of social isolation. Little interest or pleasure in doing things: several days Feeling down, depressed, or hopeless: several days Feel stressed/tense/nervous/anxious/difficulty sleeping: to some extent Do you think of yourself as: straight/heterosexual Gender Identity: female Exam Constitutional Vital Signs, click to edit/add: Last Vital Signs Temp 98.0 F 01/19/24 08:49 Pulse 112 H 01/19/24 13:46 Resp 24 H 01/19/24 13:46 BP 136/96 H 01/19/24 13:46 Pulse Ox 96 01/19/24 13:46 O2 Del Method Nasal Cannula 01/19/24 13:14 O2 Flow Rate 2 01/19/24 13:14 Course Vital Signs Vital signs: Vital Signs Blood Pressure 162/112 H 01/18/24 19:14 Pulse Oximetry 94 L 01/18/24 19:14 Temperature 98.0 F 01/19/24 08:49 Pulse Rate 112 H 01/19/24 13:46 Respiratory Rate 24 H 01/19/24 13:46 Blood Pressure 136/96 H 01/19/24 13:46 Pulse Oximetry 96 01/19/24 13:46 Oxygen Delivery Method Nasal Cannula 01/19/24 13:14 Oxygen Delivery Flow Rate 2 01/19/24 13:14 Medical Decision Making MDM Narrative Medical decision making narrative: patient discharged home today after admission for hypotension, [place], anemia requiring blood transfusion and demand ischemia related increased troponin. A couple of hours after discharge at home she complained of shortness of breath and hypertension and was brought back in by family. She complains of dyspnea but no complaint of chest pain. exam with fibrotic crackles right pos. base. she has edema of her lower extremities. Labs demonstrated increased in troponin again. It was 128 01/14/24 and decreased to 82.7 earlier today. Tonight it has increased again to 296. EKG with NSR. low voltage . old AWMI. no acute findings. cxray with vascular congestion and IV lasix ordered Discussed with Dr Merchant at [facility] and patient accepted in transfer. At this point she is resting comfortably on RA Dr Jacques : Patient care was transferred to dc at 7 AM the patient was already here for at least more than 14 hours awaiting placement in [facility], at that time the bedside evaluation showed that the patient have no acute complaints. Family at the bedside requested the patient being transferred to somewhere else I did call [facility] and they had a long wait and the accepting doctor there was . [facility] also called and the patient was accepted by cardiology and by Dr. Mckeon CT PE will be done as per request per the hospitalist to rule out any PE especially with the patient risk factor of lung cancer The patient almost at 1230 complaint of pressure-like chest pain EKG repeated shows sinus rhythm with a heart rate of [address] elevation or depression The patient was provided with morphine 1 mg and also was provided with her medication of aspirin and metoprolol Repeated troponin went from 200->1000-----with the patient history and the fact that the troponin is elevated then we still ruling out PE in the CTPE that is pending the patient will be started on heparin low-dose right now to be increased to high-dose in case and the patient PE is positive Dr. Mckeon was updated Lab Data Labs: Lab Results 01/18/24 01/18/24 01/18/24 Range/Units 19:43 19:50 21:49 WBC 15.0 H (4.0-11.0) 10^3/uL RBC 4.13 L (4.20-5.40) 10^6/uL Hgb 11.3 L (12.0-16.0) g/dL Hct 36.6 (36.0-48.0) % MCV 88.6 (81.0-99.0) fL MCH 27.4 (26.7-34.0) pg MCHC 30.9 (29.9-35.2) g/dL RDW 17.2 H (11.0-15.0) % Plt Count 205 (150-450) 10^3/uL MPV 10.9 (9.5-13.5) fL Neut % (Auto) 85.3 H (43.0-75.0) % Lymph % (Auto) 6.2 L (20.5-60.0) % [place] % (Auto) 7.3 (1.7-12.0) % Eos % (Auto) 0.1 L (0.9-7.0) % Baso % (Auto) 0.1 L (0.2-2.0) % Neut # (Auto) 12.8 H (1.4-6.5) 10^3/uL Lymph # (Auto) 0.9 L (1.2-3.8) 10^3/uL [place] # (Auto) 1.1 H (0.3-0.8) 10^3/uL Eos # (Auto) 0.0 (0.0-0.7) 10^3/uL Baso # (Auto) 0.0 (0.0-0.1) 10^3/uL Abs Immat Gran (auto) 0.15 H (0.00-0.03) 10^3/uL Imm/Tot Granulo (auto) 1.0 H (0.0-0.5) % Puncture Site R radial ABG pH 7.447 (7.350-7.450) ABG pCO2 38.9 (35.0-45.0) mmHg ABG pO2 65.6 L (80.0-100.0) mmHg ABG HCO3 26.8 H (22.0-26.0) mmol/L ABG O2 Saturation 94.6 % ABG Base Excess 2.8 H (-2.0-2.0) mmol/L Tato Test Positive (POSITIVE) Sodium 145 (136-145) mmol/L Potassium 4.9 (3.5-5.1) mmol/L Chloride 107 (98-107) mmol/L Carbon Dioxide 29.3 (21.0-32.0) mmol/L Anion Gap 13.6 BUN 33.0 H (7.0-18.0) mg/dL Creatinine 1.08 H (0.55-1.02) mg/dL Est GFR ( Amer) 59 L (>=60) Est GFR (Non-Af Amer) 48 L (>=60) BUN/Creatinine Ratio 30.6 Glucose 151 H (74-106) mg/dL Calcium 10.1 (8.5-10.1) mg/dL Total Bilirubin 0.5 (0.2-1.0) mg/dL Direct Bilirubin 0.2 (0.0-0.2) mg/dL AST 80 H (15-37) U/L ALT 78 H (14-59) U/L Alkaline Phosphatase 289 H (46-116) U/L Ammonia 17 (11-32) umol/L Troponin I High Sens 124.5 H* 296.1 H* (4.0-51.3) pg/mL NT-Pro-B Natriuret Pep 89935.0 H* (<=1800.0) pg/mL Total Protein 6.8 (6.4-8.2) g/dL Albumin 2.7 L (3.4-5.0) g/dL Globulin 4.1 g/dL Albumin/Globulin Ratio 0.7 05/25/24 Range/Units 12:40 WBC (4.0-11.0) 10^3/uL RBC (4.20-5.40) 10^6/uL Hgb (12.0-16.0) g/dL Hct (36.0-48.0) % MCV (81.0-99.0) fL MCH (26.7-34.0) pg MCHC (29.9-35.2) g/dL RDW (11.0-15.0) % Plt Count (150-450) 10^3/uL MPV (9.5-13.5) fL Neut % (Auto) (43.0-75.0) % Lymph % (Auto) (20.5-60.0) % [place] % (Auto) (1.7-12.0) % Eos % (Auto) (0.9-7.0) % Baso % (Auto) (0.2-2.0) % Neut # (Auto) (1.4-6.5) 10^3/uL Lymph # (Auto) (1.2-3.8) 10^3/uL [place] # (Auto) (0.3-0.8) 10^3/uL Eos # (Auto) (0.0-0.7) 10^3/uL Baso # (Auto) (0.0-0.1) 10^3/uL Abs Immat Gran (auto) (0.00-0.03) 10^3/uL Imm/Tot Granulo (auto) (0.0-0.5) % Puncture Site ABG pH (7.350-7.450) ABG pCO2 (35.0-45.0) mmHg ABG pO2 (80.0-100.0) mmHg ABG HCO3 (22.0-26.0) mmol/L ABG O2 Saturation % ABG Base Excess (-2.0-2.0) mmol/L Tato Test (POSITIVE) Sodium (136-145) mmol/L Potassium (3.5-5.1) mmol/L Chloride (98-107) mmol/L Carbon Dioxide (21.0-32.0) mmol/L Anion Gap BUN (7.0-18.0) mg/dL Creatinine (0.55-1.02) mg/dL Est GFR ( Amer) (>=60) Est GFR (Non-Af Amer) (>=60) BUN/Creatinine Ratio Glucose (74-106) mg/dL Calcium (8.5-10.1) mg/dL Total Bilirubin (0.2-1.0) mg/dL Direct Bilirubin (0.0-0.2) mg/dL AST (15-37) U/L ALT (14-59) U/L Alkaline Phosphatase (46-116) U/L Ammonia (11-32) umol/L Troponin I High Sens 1092.2 H* (4.0-51.3) pg/mL NT-Pro-B Natriuret Pep (<=1800.0) pg/mL Total Protein (6.4-8.2) g/dL Albumin (3.4-5.0) g/dL Globulin g/dL Albumin/Globulin Ratio Imaging Data Chest x-ray: Radiologist's impression: ITS Impressions Chest/Abdomen X-ray 01/18/24 19:35 IMPRESSION: Mild prominence of the bronchovascular markings is seen, which may represent mild pulmonary edema and/or infectious process. Mild right lung base atelectasis versus small infiltrate is seen. Air-fluid levels are seen within the colon, suggestive of diarrheal state. Electronically authenticated by: NEEL KAHN Date: 01/18/2024 22:20 Chest CTA 01/19/24 11:52 IMPRESSION: 1. The patient has developed bilateral mild volume layering pleural effusions since the study of 01/14/2024 suggesting volume overload. Associated atelectasis at the lung bases. 2. No evidence for pulmonary embolus or aortic dissection. Electronically authenticated by: MONICA ROBLES Date: 01/19/2024 14:24 Discharge Plan Discharge Chief Complaint: Chest Pain Clinical Impression: Elevated troponin, CHF (congestive heart failure) Patient Disposition: [facility] Time of Disposition Decision: 12:38 Discharge Location: [facility] Condition: Fair Mode of Transportation: EMS Discharge Date/Time: 01/19/24 14:25
[2024-01-18 19:50] LABS: Basophils Percent Auto 0.1 % (0.2-2.0); Eosinophils Percent Auto 0.1 % (0.9-7.0); Hematocrit 36.6 % (36.0-48.0); Hemoglobin 11.3 g/dL (12.0-16.0); Immature Granulocytes Abs Auto 0.15 10^3/uL (0.00-0.03); Lymphocytes Absolute Auto 0.9 10^3/uL (1.2-3.8); Lymphocytes Percent Auto 6.2 % (20.5-60.0); Mean Corpuscular HGB Conc 30.9 g/dL (29.9-35.2); Mean Corpuscular Hemoglobin 27.4 pg (26.7-34.0); Mean Corpuscular Volume 88.6 fL (81.0-99.0); Mean Platelet Volume 10.9 fL (9.5-13.5); Monocytes Absolute Auto 1.1 10^3/uL (0.3-0.8); Monocytes Percent Auto 7.3 % (1.7-12.0); Neutrophils Absolute Auto 12.8 10^3/uL (1.4-6.5); Neutrophils Percent Auto 85.3 % (43.0-75.0); Platelet Count 205 10^3/uL (150-450); Red Blood Count 4.13 10^6/uL (4.20-5.40); Red Cell Distribution Width 17.2 % (11.0-15.0)
[2024-01-18] MEDS: ALPRAZOLAM 1 MG TABLET PO (19:52)
[2024-01-18 20:05] LABS: Alanine Aminotransferase 78 U/L (14-59); Albumin Globulin Ratio 0.7; Albumin Level 2.7 g/dL (3.4-5.0); Alkaline Phosphatase 289 U/L (46-116); Ammonia 17 umol/L (11-32); Aspartate Amino Transferase 80 U/L (15-37); Bilirubin Direct 0.2 mg/dL (0.0-0.2); Bilirubin Total 0.5 mg/dL (0.2-1.0); Globulin 4.1 g/dL; Total Protein 6.8 g/dL (6.4-8.2)
[2024-01-18 20:07] LABS: ABG PCO2 38.9 mmHg (35.0-45.0); Allen Test POSITIVE (POSITIVE); Base Excess ABG 2.8 mmol/L (-2.0-2.0); HCO3 ABG 26.8 mmol/L (22.0-26.0); O2 Mode ROOM AIR; Oxygen Saturation ABG 94.6 %; PO2 ABG 65.6 mmHg (80.0-100.0); Puncture Site R RADIAL; pH ABG 7.447 (7.350-7.450)
[2024-01-18 20:15] LABS: Anion Gap 13.6; BUN Creatinine Ratio 30.6; Calcium 10.1 mg/dL (8.5-10.1); Carbon Dioxide 29.3 mmol/L (21.0-32.0); Chloride 107 mmol/L (98-107); Estimated GFR (African America 59 (>=60); Estimated GFR (Non-African Ame 48 (>=60); Glucose 151 mg/dL (74-106); Potassium 4.9 mmol/L (3.5-5.1); Sodium 145 mmol/L (136-145)
[2024-01-18 20:19] LABS: Troponin I High Sensitivity 124.5 pg/mL (4.0-51.3)
[2024-01-18] MEDS: FUROSEMIDE 40 MG/4 ML VIAL IVP (21:34)
[2024-01-18 22:14] LABS: Troponin I High Sensitivity 296.1 pg/mL (4.0-51.3)
--- NOTE | 2024-01-18 22:16 | ECG_ITS ---
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
[2024-01-18] MEDS: PROMETHAZINE HCL 25 MG TABLET PO (22:23)
[2024-01-18] MEDS: ACETAMINOPHEN 500 MG TABLET 1000 MG PO (22:50)
[2024-01-19] VITALS (93 sets, daily range): BP systolic 118–157; BP diastolic 80–111; PULSE 87–118; TEMP 36.7; O2SAT 89–100
[2024-01-19] MEDS: ALPRAZOLAM 0.5 MG TABLET PO (01:16)
[2024-01-19] MEDS: ASPIRIN 81 MG TAB.CHEW PO (10:50)
[2024-01-19] MEDS: METOPROLOL SUCCINATE 25 MG TAB.ER.24H PO (10:50)
[2024-01-19] MEDS: OMEPRAZOLE 40 MG CAPSULE.DR PO (10:50)
--- NOTE | 2024-01-19 11:52 | CT_ITS ---
The [place] [address] Patient Name: SEYMOUR MILAN MRN: [id number] date: 1940 Sex: F Assigned Patient Location: ER Current Patient Location: Accession/Order Number: [id number] Exam Date: 01/19/2024 12:45 Report Date: 01/19/2024 14:24 At the request of: AMARJIT FREEMAN Procedure: CT angio chest EXAMINATION: CT angio chest REASON FOR EXAM: PE protocol shortness of breast and hx of lung can COMPARISON: No comparison chest CT. There is a CT of the abdomen 01/14/2024. TECHNIQUE: Study performed with 100 mL IV Omnipaque 350. FINDINGS: There are no filling defects in the pulmonary artery tree. No dissection of the great vessels or thoracic aorta. There is atherosclerotic calcification of the thoracic aorta and coronary arteries. There are bilateral layering pleural effusions. No pneumothorax. Evaluation of the pulmonary parenchyma limited by respiratory motion. There is dependent atelectasis at the lung bases. No pulmonary mass identified. Scan into the upper abdomen demonstrates prior cholecystectomy. There is partially imaged extrahepatic biliary dilatation, unchanged since the study of 01/14/2024. Compression fracture deformity of T10 vertebral body is stable in appearance as compared to 01/14/2024 CT/CT angio chest IMPRESSION: 1. The patient has developed bilateral mild volume layering pleural effusions since the study of 01/14/2024 suggesting volume overload. Associated atelectasis at the lung bases. 2. No evidence for pulmonary embolus or aortic dissection. Electronically authenticated by: MONICA ROBLES Date: 01/19/2024 14:24
--- NOTE | 2024-01-19 12:25 | ECG_ITS ---
The [facility] Test Date: 2024-01-19 Pat Name: SEYMOUR MILAN Department: Room: - Gender: Female [employer]: : 1940 Requested By: Order Number: [id number] Reading MD: NIKKI CABRERA Measurements Intervals [place] Rate: 97 P: 60 CO: 160 QRS: -15 QRSD: 70 T: 173 QT: 350 QTc: 404 Interpretive Statements 1100 Sinus rhythm 3114 Cannot rule out anterior myocardial infarction, age undetermined [address] depression 9150 abnormal ECG Compared to ECG 01/18/2024 22:16:11 ST (T wave) deviation now present Sinus tachycardia no longer present Myocardial infarct finding still present Electronically Signed On 01-22-2024 8:44:49 EDT by NIKKI CABRERA
[2024-01-19] MEDS: MORPHINE SULFATE 2 MG/ML SYRINGE 1 MG IV (12:42)
[2024-01-19 13:27] LABS: Troponin I High Sensitivity 1092.2 pg/mL (4.0-51.3)
[2024-01-19] MEDS: HEPARIN SODIUM (PORCINE) 5,000 UNIT/ML VIAL 2400 UNIT IV (13:40)
[2024-01-19] MEDS: HEPARIN SODIUM,PORCINE/D5W 25,000 UNIT/500 ML IV.SOLN 14.8049999999999997 UNIT IV (13:43)
== END 2024-01-19 14:25 | disposition short-term general hospital (02) ==
PROVIDERS: Emergency Medicine; Emergency Provider Internal Medicine
DX: I50.9 Heart failure, unspecified (principal); R79.89 Other specified abnormal findings of blood chemistry; E11.9 Type 2 diabetes mellitus without complications; F41.9 Anxiety disorder, unspecified; I25.10 Atherosclerotic heart disease of native coronary artery without angina pectoris; C34.90 Malignant neoplasm of unspecified part of unspecified bronchus or lung; C79.31 Secondary malignant neoplasm of brain; Z87.891 Personal history of nicotine dependence
CPT/HCPCS: 36415; 36591; 36600; 71275; 74022; 80048; 80076; 82140; 82805; 83631; 83880; 84484; 85025; 87177; 87209; 87329; 87493; 87507; 93005; 96374; 96375; 99285; Q9967